=== PATIENT | male | born 1950 | race American Indian/Alaskan Native ===

== ENCOUNTER 2017-01-21 07:09 | Day surgery (SDC) | payer MEDICARE, MEDICAID ==
[2016-12-23 18:53] VITALS: BMI 18.8
[~2017-01-21 07:09] MED LIST: Ciprofloxacin 0.3% OPTH SOLN OD SCH; Cyclopentolate 1% Opth (2 ml) OD SCH; Flurbiprofen 0.03% Opht SOLN OD SCH; Lactated Ringer's 500 ML IV ONE; Phenylephrine 2.5% Opht Soln OD SCH; Tropicamide 1% Opht SOLUTION OD SCH
[2017-01-21] MEDS ORDERED: Tobramycin/Dexamethasone OPHT OINT ONE (07:26)
[2017-01-21] MEDS ORDERED: Chondroitin/Hyaluronate Opth Syringe KIT (0.55 ml-0.5 ml) IO ONE (07:27)
[2017-01-21] MEDS ORDERED: Hyaluronidase Human, Recombi 150 U/ML VIAL ONE (07:27)
[2017-01-21] MEDS ORDERED: Lidocaine 2% Inj (20ml) ONE (07:27)
[2017-01-21] MEDS ORDERED: Tetracaine 0.5% Ophth (OR ONLY) ONE (08:10)
[2017-01-21] MEDS ORDERED: Flurbiprofen 0.03% Opht SOLN OD SCH (08:15)
[2017-01-21] MEDS ORDERED: Ciprofloxacin 0.3% OPTH SOLN OD SCH (08:15)
[2017-01-21] MEDS ORDERED: Cyclopentolate 1% Opth (2 ml) OD SCH (08:15)
[2017-01-21] MEDS ORDERED: Phenylephrine 2.5% Opht Soln OD SCH (08:15)
[2017-01-21] MEDS ORDERED: Tropicamide 1% Opht SOLUTION OD SCH (08:15)
[2017-01-21] MEDS ORDERED: Lactated Ringer's 500 ML IV ONE ×2 (08:15→08:51)
[2017-01-21] MEDS ORDERED: Midazolam 2 MG/2 ML VIAL ONE (09:08)
[2017-01-21] MEDS ORDERED: Povidone Iodine Ophthalmic 5% Soln ONE (10:39)
[2017-01-21 11:21] VITALS: O2SAT 100
[2017-01-21 12:05] VITALS: BP 141/71; PULSE 71; RESP 18; TEMP 97.9
--- NOTE | 2017-01-21 12:39 | OP ---
PROCEDURE DATE: 01/21/2017 PREOPERATIVE DIAGNOSIS: Cataract, right eye. POSTOPERATIVE DIAGNOSIS: Cataract, right eye. PROCEDURE: Phacoemulsification, right eye with insertion of posterior chamber implant with utilization of capsular dye. SURGEON: Sai Díaz MD ANESTHESIA: Local with intravenous sedation. PROCEDURE: The patient was brought into the operating room and placed in supine position, prepped and draped in the usual fashion for ophthalmic surgery. Lid speculum inserted, lids and exposing globe. On inspection, there was noted to be a hypermature cataract. A side-port incision was made superiorly and inferiorly with disposable sharp blade. An air bubble was injected in the anterior chamber followed by capsular dye to stain the anterior capsule. The dye was irrigated out of the anterior chamber with balanced salt solution. The anterior chamber was deepened with Viscoat. A near clear corneal incision was made temporally with a 2.75-mm keratome. Capsulorrhexis was performed with Utrata forceps. Hydrodissection was carried out with balanced salt solution. The nucleus was then phacoemulsified. Remaining cortical fragments were aspirated with a split irrigation and aspiration system. The capsular sac was filled with Provisc. Posterior chamber lens was injected into the sac and rotated into horizontal position. Provisc was aspirated out of the anterior chamber. Pupil was constricted with Miochol. The wound was hydrated with balanced salt solution and found to be watertight. Topical Timoptic, Betadine, TobraDex ointment, and pressure patch were applied. The patient tolerated the procedure well. Sai Díaz MD
== END 2017-01-21 11:25 | disposition home or self-care (01) ==
LOC: C.SDS 07:09
PROVIDERS: ATTEND Ophthalmology
DX: H26.9 Unspecified cataract (principal)
CPT/HCPCS: 66984; 82948; J2250; J3010; J3470; J7120; V2632

== ENCOUNTER 2017-02-25 07:14 | Day surgery (SDC) | payer MEDICARE, MEDICAID ==
[2017-02-17 17:21] VITALS: BMI 19.5
[~2017-02-25 07:14] MED LIST changes: -Ciprofloxacin 0.3% OPTH SOLN OD SCH; +Ciprofloxacin 0.3% OPTH SOLN OS SCH; -Cyclopentolate 1% Opth (2 ml) OD SCH; +Cyclopentolate 1% Opth (2 ml) OS SCH; -Flurbiprofen 0.03% Opht SOLN OD SCH; +Flurbiprofen 0.03% Opht SOLN OS SCH; -Phenylephrine 2.5% Opht Soln OD SCH; +Phenylephrine 2.5% Opht Soln OS SCH; -Tropicamide 1% Opht SOLUTION OD SCH; +Tropicamide 1% Opht SOLUTION OS SCH
[2017-02-25] MEDS ORDERED: Povidone Iodine Ophthalmic 5% Soln ONE (07:40)
[2017-02-25] MEDS ORDERED: Carbachol 0.01% IO ONE (07:40)
[2017-02-25] MEDS ORDERED: Tetracaine 0.5% Ophth (OR ONLY) ONE (07:41)
[2017-02-25] MEDS ORDERED: Chondroitin/Hyaluronate Opth Syringe KIT (0.55 ml-0.5 ml) IO ONE (07:41)
[2017-02-25] MEDS ORDERED: Hyaluronidase Human, Recombi 150 U/ML VIAL ONE (07:41)
[2017-02-25] MEDS ORDERED: Tobramycin/Dexamethasone OPHT OINT ONE (07:41)
[2017-02-25] MEDS ORDERED: Lidocaine 2% Inj (20ml) ONE (07:41)
[2017-02-25] MEDS ORDERED: Midazolam 2 MG/2 ML VIAL ONE (10:14)
[2017-02-25] MEDS ORDERED: Lactated Ringer's 500 ML IV ONE (10:22)
[2017-02-25 11:06] VITALS: O2SAT 99
[2017-02-25 11:56] VITALS: BP 141/77; PULSE 64; RESP 18; TEMP 98
--- NOTE | 2017-02-25 16:15 | OP ---
PROCEDURE DATE: 02/25/2017 PREOPERATIVE DIAGNOSIS: Cataract, left eye. POSTOPERATIVE DIAGNOSIS: Cataract, left eye. OPERATIVE PROCEDURE: Phacoemulsification, left eye, insertion of posterior chamber implant. SURGEON: Sai Díaz M.D. TYPE OF ANESTHESIA: Local IV sedation. PROCEDURE: The patient was brought into the operating room, placed in supine position, prepped and draped in the usual fashion for ophthalmic surgery. Lid speculum was inserted, lids and exposing globe. A side-port incision was made superiorly and inferiorly with a disposable sharp blade. Anterior chamber was filled with Viscoat. A near clear corneal incision was made temporally with a 2.75-mm keratome. Capsulorrhexis was then performed with Utrata forceps. Hydrodissection carried out with balanced salt solution. Nucleus was phacoemulsified. Remaining cortical fragments were removed with a split irrigation and aspiration system. The capsular sac was filled with Provisc. A posterior chamber lens was then injected into the capsular sac and rotated into horizontal position. Provisc was aspirated out of the anterior chamber. The pupil was constricted with Miochol. The wound was found to be watertight. Topical Betadine, Timoptic, and TobraDex ointment and pressure patch were applied. The patient tolerated the procedure well. Sai Díaz MD
== END 2017-02-25 11:50 | disposition home or self-care (01) ==
LOC: C.SDS 07:14
PROVIDERS: ATTEND Ophthalmology
DX: H25.012 Cortical age-related cataract, left eye (principal)
CPT/HCPCS: 66984; 82948; J2250; J3010; J3470; J7120; V2632

== ENCOUNTER 2017-12-21 10:11 | Inpatient (IN) | payer MEDICARE, MEDICAID ==
[2017-12-21 10:32] VITALS: BMI 24.4
[2017-12-21] MEDS ORDERED: Lidocaine 1% Inj (20ml) INFIL ONE (11:16)
[2017-12-21] MEDS ORDERED: Lidocaine Hydrochloride 5 ML INJ ONE (11:25)
--- NOTE | 2017-12-21 11:35 | C.PDOC ---
History Of Present Illness 67 year old male with PMHx of DM, HTN is sent to the ED by Dr. Naye Khanna for evaluation of abscess to the left axilla for the past 1-2 weeks associated with pain. Patient is also c/o left leg swelling for the past 2-3 weeks. Patient denies fever, chills, nausea, vomit, injury, fall, trauma, weakness, numbness. Time Seen by Provider: 12/21/17 10:48 Chief Complaint (Nursing): Lower Extremity Problem/Injury History Per: Patient History/Exam Limitations: no limitations Onset/Duration Of Symptoms: Days Current Symptoms Are (Timing): Still Present Recent travel outside of the [place]: No Additional History Per: Patient - Knee Description Of Injury: Other Past Medical History Reviewed: Historical Data, Nursing Documentation, Vital Signs Vital Signs: Last Vital Signs Temp 97.8 F 12/21/17 10:32 Pulse 58 L 12/21/17 10:32 Resp 18 12/21/17 10:32 BP 158/77 H 12/21/17 10:32 Pulse Ox 98 12/21/17 14:50 - Medical History PMH: Anemia, Arthritis, Diabetes, Gall Bladder Disease, HIV, HTN, Hypercholesterolemia, Pancreatitis (pancreatic issue unspecified), Pneumonia, Chronic Kidney Disease Surgical History: Cholecystectomy - [facility] Procedures INSPECTION OF UPPER INTESTINAL TRACT, ENDO (06/19/16) INTRODUCE OF OTH THERAP SUBST INTO RESP TRACT, VIA OPENING (01/26/17) ULTRASONOGRAPHY OF BILE DUCTS (06/19/16) ULTRASONOGRAPHY OF PANCREAS (06/19/16) Family History: States: Unknown Family Hx - Social History Hx Tobacco Use: No Hx Alcohol Use: No (denies) Hx Substance Use: Yes (denies) - Immunization History Hx Tetanus Toxoid Vaccination: No Hx Influenza Vaccination: No Hx Pneumococcal Vaccination: No Review Of Systems Constitutional: Negative for: Fever, Chills Cardiovascular: Negative for: Chest Pain, Palpitations Respiratory: Negative for: Cough, Shortness of Breath Gastrointestinal: Negative for: Nausea, Vomiting Musculoskeletal: Positive for: Leg Pain Skin: Positive for: Other (abscess) Neurological: Negative for: Weakness, Numbness Physical Exam - Physical Exam Appears: Non-toxic, No Acute Distress Skin: Normal Color, Warm, Dry, Other (0.25 cm erythema, fluctuant tender abscess ) Head: Atraumatic, Normacephalic Eye(s): bilateral: Normal Inspection Oral Mucosa: Moist Neck: Normal ROM, Supple Chest: Symmetrical Cardiovascular: Rhythm Regular Respiratory: No Rales, No Rhonchi, No Wheezing, Other (bibasilar crackles) Gastrointestinal/Abdominal: Soft, No Tenderness, No Guarding, No Rebound Extremity: No Tenderness, Capillary Refill (left leg < 2 seconds), Swelling ( left leg, posterior and anterior lower leg), Other (left lower leg multiple old scars and scabs. Right leg AKA) Pulses: Left Dorsalis Pedis: Absent (but present with doppler) Neurological/Psych: Oriented x3, Normal Speech Gait: With Assistance ED Course And Treatment - Laboratory Results Result Diagrams: 12/21/17 12:46 12/21/17 12:46 ECG: Interpreted By Me, Viewed By Me ECG Rhythm: Sinus Bradycardia Interpretation Of ECG: left axis deviation Rate From EC (BPM) O2 Sat by Pulse Oximetry: 98 (ON RA) Pulse Ox Interpretation: Normal - Incision & Drainage Of Abscess Anesthesia: Lidocaine 1% Used During Procedure: Electronics Lead Prep Used: Sterile Water, Betadine Procedure: Drained Pus (from left axilla abscess with small amount of blood), Irrigated Cavity W/Saline Medical Decision Making Medical Decision Making: Impression: left axilla abscess, left lower leg swelling Plan: * LAbs * EKG * Tylenol 650 mg PO * Venous duplex Scan pt with bilateral dvt, given increased Cr at 1.9, will start on heparin drip. discussed with Dr Khanna. pt also with makredly changed ekg fron one year ago ( no acute cp) flipped t waves in lateral leads. Disposition Discussed With : Grazyna Khanna Doctor Will See Patient In The: Hospital - Disposition Disposition: HOSPITALIZED Disposition Time: 14:34 Condition: GOOD - Clinical Impression Clinical Impression: DVT, bilateral lower limbs, Abnormal EKG - PA / FUSE ASSEMBLER / Resident Statement MD/DO has reviewed & agrees with the documentation as recorded. - Scribe Statement The provider has reviewed the documentation as recorded by the Scribe Kartik Cordova All medical record entries made by the Scribe were at my direction and personally dictated by me. I have reviewed the chart and agree that the record accurately reflects my personal performance of the history, physical exam, medical decision making, and the department course for this patient. I have also personally directed, reviewed, and agree with the discharge instructions and disposition.
--- NOTE | 2017-12-21 12:42 | RAD ---
Date of service: 12/21/2017 PROCEDURE: CHEST RADIOGRAPH, 1 VIEW HISTORY: Chest pain COMPARISON: 11/05/2016. FINDINGS: LUNGS: The lungs are clear. PLEURA: No pneumothorax or pleural fluid seen. CARDIOVASCULAR: There is mild cardiomegaly. OSSEOUS STRUCTURES: No significant abnormalities. VISUALIZED UPPER ABDOMEN: Normal. OTHER FINDINGS: None. IMPRESSION: No active pulmonary disease.
[2017-12-21 12:55] LABS: BASO # 0.1 K/uL (0.0-0.2); EOS # 0.1 K/uL (0.0-0.7); EOS % 1.5 % (0.0-4.0); LYMPH # 1.2 K/uL (1.0-4.3); LYMPH % 22.1 % (20.0-40.0); MEAN CELL VOLUME 79.5 fL (80.0-94.0); MEAN CORPUSCULAR HEMOGLOBIN 25.6 pg (27.0-31.0); MEAN CORPUSCULAR HGB CONC 32.2 g/dL (33.0-37.0); MEAN PLATELET VOLUME 9.5 fL (7.2-11.7); MONO # 0.4 K/uL (0.0-0.8); MONO % 7.2 % (0.0-10.0); NEUT # 3.7 K/uL (1.8-7.0); NEUT % 68.2 % (50.0-75.0); NRBC % 0.1 % (0.0-2.0); RBC 4.98 Mil/uL (4.40-5.90); RED CELL DISTRIBUTION WIDTH 14.9 % (11.5-14.5); WHITE BLOOD COUNT 5.4 K/uL (4.8-10.8)
[2017-12-21 12:57] LABS: HEMOGLOBIN 12.8 g/dL (12.0-18.0)
[2017-12-21 13:06] LABS: CALCIUM 9.1 mg/dl (8.6-10.4)
[2017-12-21 13:53] LABS: INR 0.9; PROTHROMBIN TIME 10.2 SECONDS (9.7-12.2)
[2017-12-21] MEDS: Heparin25000 units/250ml 1/2NS 25,000 UNITS/250 ML BAG IV PRN (15:04)
[2017-12-21] MEDS: (Novolog) Insulin Aspart, Recombinant 100 u/ml 10 ml vial SC SCH ×2 (18:05→21:25)
--- NOTE | 2017-12-21 18:05 | CP.PCM.CON ---
History of Present Illness - History of Present Illness History of Present Illness: I was asked to evaluate patient by Dr Naye Khanna. Patient is a 67 year old male with PMH HTN, hypercholesterolemia, DM who presents with abscess of the left axilla. The patient has had pain in that region for the last few days. he denies fever or chills. the patient was noted to have an abnormal EKG. He denies chest pain. Review of Systems - Constitutional Constitutional: absent: As Per HPI, Anorexia, Chills, Daytime Sleepiness, Excessive Sweating, Fatigue, Fever, Frequent Falls, Headache, Increased Appetite , Lethargy, Malaise, Night Sweats, Snoring, Sleep Apnea, Weight Gain, Weight Loss, Weakness, Other - EENT Eyes: absent: As Per HPI, Blind Spots, Blurred Vision, Change in Vision, Decreased Night Vision, Diplopia, Discharge, Dry Eye, Exophthalmos, Floaters, Irritation, Itchy Eyes, Loss of Peripheral Vision, Pain, Photophobia, Requires Corrective Lenses, Sees Flashes, Spots in Vision, Tunnel Vision, Other Visual Disturbances, Loss of Vision, Other Ears: absent: As Per HPI, Decreased Hearing, Ear Discharge, Ear Pain, Tinnitus, Abnormal Hearing, Disequilibrium, Dizziness, Other Nose/Mouth/Throat: absent: As Per HPI, Epistaxis, Nasal Congestion, Nasal Discharge, Nasal Obstruction, Nasal Trauma, Nose Pain, Post Nasal Drip, Sinus Pain, Sinus Pressure, Bleeding Gums, Change in Voice, Dental Pain, Dry Mouth, Dysphagia, Halitosis, Hoarsness, Lip Swelling, Mouth Lesions, Mouth Pain, Odynophagia, Sore Throat, Throat Swelling, Tongue Swelling, Facial Pain, Neck Pain, Neck Mass, Other - Cardiovascular Cardiovascular: absent: As Per HPI, Acrocyanosis, Chest Pain, Chest Pain at Rest , Chest Pain with Activity, Claudication, Diaphoresis, Dyspnea, Dyspnea on Exertion, Edema, Irregular Heart Rhythm, Pain Radiating to Arm/Neck/Jaw, Leg Edema, Leg Ulcers, Lightheadedness, Orthopnea, Palpitations, Paroxysmal Nocturnal Dyspnea, Pedal Edema, Radiating Pain, Rapid Heart Rate, Slow Heart Rate, Syncope, Other - Respiratory Respiratory: absent: As Per HPI, Cough, Dyspnea, Hemoptysis, Dyspnea on Exertion , Wheezing, Snoring, Stridor, Pain on Inspiration, Chest Congestion, Excessive Mucous Production, Change in Mucous Color, Pain with Coughing, Other - Gastrointestinal Gastrointestinal: absent: As Per HPI, Abdominal Pain, Belching, Bloating, Change in Bowel Habits, Change in Stool Character, Coffee Ground Emesis, Constipation, Cramping, Diarrhea, Dyspepsia, Dysphagia, Early Satiety, Excessive Flatus, Fecal Incontinence, Heartburn, Hematemesis, Hematochezia, Loose Stools, Melena, Nausea, Odynophagia, Temesmus, Vomiting, Other - Genitourinary Genitourinary: absent: As Per HPI, Change in Urinary Stream, Difficulty Urinating, Dysuria, Flank Pain, Hematuria, Pyuria, Nocturia, Urinary Incontinence, Urinary Frequency, Urinary Hesitance, Urinary Urgency, Voiding Freq/Small Amts, Freq UTI, Hx Renal/Bladder Calculi, Hx /Renal Surgery, Bladder Distension, Other - Musculoskeletal Musculoskeletal: absent: As Per HPI, Abnormal Gait, Arthralgias, Atrophy, Back Pain, Deformity, Joint Swelling, Limited Range of Motion, Loss of Height, Muscle Cramps, Muscle Weakness, Myalgias, Neck Pain, Numbness, Radiating Pain into Limb, Stiffness, Tingling, Other - Integumentary Integumentary: absent: As Per HPI, Acne, Alopecia, Bleeding Lesions, Change in Hair, Change in Nails, Change in Pigmentation, Changing Lesions, Dry Skin, Erythema, Furuncle, Hirsutism, Lesions, New Lesions, Non-Healing Lesions, Photosensitivity, Pruritus, Rash, Skin Pain, Skin Ulcer, Sores, Striae, Swelling , Unusual Bruising, Wounds, Jaundice, Other - Neurological Neurological: absent: As Per HPI, Abnormal Gait, Abnormal Hearing, Abnormal Movements, Abnormal Speech, Behavioral Changes, Burning Sensations, Confusion, Convulsions, Disequilibrium, Dizziness, Numbness, Focal Weakness, Frequent Falls , Headaches, Lack of Coordination, Loss of Vision, Memory Loss, Paresthesias, Radicular Pain, Restless Legs, Sensory Deficit, Syncope, Tingling, Tremor, Vertigo, Weakness, Other Visual Disturbances, Other - Endocrine Endocrine: absent: As Per HPI, Change in Body Appearance, Change in Libido, Cold Intolorance, Deepening of Voice, Excessive Sweating, Fatigue, Flushing, Heat Intolorance, Increase in Ring/Shoe/Hat Size, Palpitations, Polydipsia, Polyphagia, Polyuria, Other - Hematologic/Lymphatic Hematologic: absent: As Per HPI, Easy Bleeding, Easy Bruising, Lymphadenopathy, Other Past Patient History - Infectious Disease Hx of Infectious Diseases: None - Tetanus Immunizations Tetanus Immunization: Unknown - Past Medical History & Family History Past Medical History?: Yes - Past Social History Smoking Status: Former Smoker - CARDIAC Hx Hypercholesterolemia: Yes Hx Hypertension: Yes - PULMONARY Hx Pneumonia: Yes - NEUROLOGICAL Hx Neurological Disorder: Yes (NEUROPATHY) - HEENT Hx HEENT Problems: Yes Hx Cataracts: Yes Other/Comment: Right eye cataract removal 06/2016 - RENAL Hx Chronic Kidney Disease: Yes - ENDOCRINE/METABOLIC Hx Endocrine Disorders: Yes Hx Diabetes Mellitus Type 2: Yes - HEMATOLOGICAL/ONCOLOGICAL Hx Anemia: Yes Hx Human Immunodeficiency Virus (HIV): Yes - INTEGUMENTARY Hx Dermatological Problems: Yes (R AKA,LARGE ELONGATED SCARRING ACROSS MID ABDOMINAL AREA.) - MUSCULOSKELETAL/RHEUMATOLOGICAL Hx Arthritis: Yes - GASTROINTESTINAL Hx Gall Bladder Disease: Yes Hx Pancreatitis: Yes (pancreatic issue unspecified) - GENITOURINARY/GYNECOLOGICAL Hx Genitourinary Disorders: Yes Hx Prostate Problems: Yes - PSYCHIATRIC Hx Substance Use: Yes (denies) - SURGICAL HISTORY Hx Cholecystectomy: Yes - ANESTHESIA Hx Anesthesia: Yes Hx Anesthesia Reactions: No Hx Malignant Hyperthermia: No Meds Allergies/Adverse Reactions: Allergies Allergy/AdvReac Type Severity Reaction Status Date / Time No Known Allergies Allergy Verified 12/21/17 10:32 - Medications Medications: Current Medications Amlodipine Besylate (Norvasc) 5 mg PO DAILY [facility] Carvedilol (Coreg) 3.125 mg PO BID [facility] Famotidine (Pepcid) 10 mg PO DIN [facility] Ferrous Sulfate (Feosol) 325 mg PO DAILY [facility] Glipizide (Glucotrol) 5 mg PO BID [facility] Home Med (Rilpivirine Hcl [Edurant]) 25 mg PO DAILY [facility] Hydralazine HCl (Apresoline) 10 mg PO DAILY [facility] Heparin Sodium/Sodium Chloride (Heparin 92891 Units/250ml 1/2 Normal Saline) 25 ,000 units in 250 mls @ 14.288 mls/hr IV .[id number] PRN; Protocol; 18 UNITS/KG/HR PRN Reason: ADJUST RATE PER PROTOCOL Last Admin: 12/21/17 15:04 Dose: 18 units/kg/hr, 14.288 mls/hr Ceftriaxone Sodium 1 gm/ (Sodium Chloride) 100 mls @ 100 mls/hr IVPB Q24H [facility] PRN Reason: Protocol Insulin Aspart (Novolog) 0 unit SC ACHS [facility] PRN Reason: Protocol Insulin Glargine (Lantus) 30 unit SC HS [facility] Insulin Glargine (Lantus) 30 unit SC DAILY [facility] Physical Exam - Constitutional Appears: Non-toxic - Head Exam Head Exam: NORMAL INSPECTION - Eye Exam Eye Exam: Normal appearance - ENT Exam ENT Exam: Mucous Membranes Moist - Neck Exam Neck exam: Positive for: Full Rom - Respiratory Exam Respiratory Exam: Decreased Breath Sounds - Cardiovascular Exam Cardiovascular Exam: REGULAR RHYTHM - GI/Abdominal Exam GI & Abdominal Exam: Normal Bowel Sounds - Rectal Exam Rectal Exam: Deferred - Extremities Exam Additional comments: R AKA - Back Exam Back exam: NORMAL INSPECTION - Neurological Exam Neurological exam: Alert - Psychiatric Exam Psychiatric exam: Normal Affect - Skin Skin Exam: Normal Color Results - Vital Signs Recent Vital Signs: Last Vital Signs Temp 97.8 F 12/21/17 15:58 Pulse 60 12/21/17 15:58 Resp 20 12/21/17 15:58 BP 163/80 H 12/21/17 15:58 Pulse Ox 98 12/21/17 15:58 - Labs Result Diagrams: 12/21/17 12:46 12/21/17 12:46 Labs: Laboratory Results - last 24 hr 12/21/17 12/21/17 12/21/17 12:46 12:46 13:39 WBC 5.4 RBC 4.98 Hgb 12.8 D Hct 39.6 MCV 79.5 L MCH 25.6 L MCHC 32.2 L RDW 14.9 H Plt Count 110 L D MPV 9.5 Neut % (Auto) 68.2 Lymph % (Auto) 22.1 [place] % (Auto) 7.2 Eos % (Auto) 1.5 Baso % (Auto) 1.0 Neut # (Auto) 3.7 Lymph # (Auto) 1.2 [place] # (Auto) 0.4 Eos # (Auto) 0.1 Baso # (Auto) 0.1 PT 10.2 INR 0.9 APTT 27 Sodium 140 Potassium 4.9 Chloride 109 H Carbon Dioxide 20 L Anion Gap 17 BUN 27 H Creatinine 1.9 H Est GFR ( Amer) 43 Est GFR (Non-Af Amer) 36 POC Glucose (mg/dL) Random Glucose 191 H Calcium 9.1 Total Bilirubin 0.6 AST 20 ALT 17 L D Alkaline Phosphatase 96 NT-Pro-B Natriuret Pep 316 Total Protein 7.7 Albumin 4.0 Globulin 3.8 Albumin/Globulin Ratio 1.0 12/21/17 17:18 WBC RBC Hgb Hct MCV MCH MCHC RDW Plt Count MPV Neut % (Auto) Lymph % (Auto) [place] % (Auto) Eos % (Auto) Baso % (Auto) Neut # (Auto) Lymph # (Auto) [place] # (Auto) Eos # (Auto) Baso # (Auto) PT INR APTT Sodium Potassium Chloride Carbon Dioxide Anion Gap BUN Creatinine Est GFR ( Amer) Est GFR (Non-Af Amer) POC Glucose (mg/dL) 250 H Random Glucose Calcium Total Bilirubin AST ALT Alkaline Phosphatase NT-Pro-B Natriuret Pep Total Protein Albumin Globulin Albumin/Globulin Ratio - EKG Data EKG Interpreted by: Myself EKG shows normal: Sinus rhythm Assessment & Plan (1) EKG abnormalities Assessment and Plan: his EKG suggests anteolateral ischemi, but he is currently asymptomatic. recommend echocardiogram to assess for regional wall motion abnormalities. Status: Acute (2) Diabetes Assessment and Plan: risk factor for CAD Status: Chronic Priority: Medium (3) HTN (hypertension) Assessment and Plan: blood pressure control Status: Chronic Priority: Medium
--- NOTE | 2017-12-21 19:10 | CP.PCM.HP ---
Past Patient History - Infectious Disease Hx of Infectious Diseases: None - Tetanus Immunizations Tetanus Immunization: Unknown - Past Medical History & Family History Past Medical History?: Yes - Past Social History Smoking Status: Former Smoker - CARDIAC Hx Hypercholesterolemia: Yes Hx Hypertension: Yes - PULMONARY Hx Pneumonia: Yes - NEUROLOGICAL Hx Neurological Disorder: Yes (NEUROPATHY) - HEENT Hx HEENT Problems: Yes Hx Cataracts: Yes Other/Comment: Right eye cataract removal 06/2016 - RENAL Hx Chronic Kidney Disease: Yes - ENDOCRINE/METABOLIC Hx Endocrine Disorders: Yes Hx Diabetes Mellitus Type 2: Yes - HEMATOLOGICAL/ONCOLOGICAL Hx Anemia: Yes Hx Human Immunodeficiency Virus (HIV): Yes - INTEGUMENTARY Hx Dermatological Problems: Yes (R AKA,LARGE ELONGATED SCARRING ACROSS MID ABDOMINAL AREA.) - MUSCULOSKELETAL/RHEUMATOLOGICAL Hx Arthritis: Yes - GASTROINTESTINAL Hx Gall Bladder Disease: Yes Hx Pancreatitis: Yes (pancreatic issue unspecified) - GENITOURINARY/GYNECOLOGICAL Hx Genitourinary Disorders: Yes Hx Prostate Problems: Yes - PSYCHIATRIC Hx Substance Use: Yes (denies) - SURGICAL HISTORY Hx Cholecystectomy: Yes - ANESTHESIA Hx Anesthesia: Yes Hx Anesthesia Reactions: No Hx Malignant Hyperthermia: No Meds Allergies/Adverse Reactions: Allergies Allergy/AdvReac Type Severity Reaction Status Date / Time No Known Allergies Allergy Verified 12/21/17 10:32 Physical Exam - Constitutional Appears: Well - Head Exam Head Exam: ATRAUMATIC, NORMAL INSPECTION, NORMOCEPHALIC - Eye Exam Eye Exam: EOMI, Normal appearance, PERRL Pupil Exam: NORMAL ACCOMODATION, PERRL - ENT Exam ENT Exam: Mucous Membranes Moist, Normal Exam - Neck Exam Neck exam: Positive for: Normal Inspection - Respiratory Exam Respiratory Exam: Decreased Breath Sounds - Cardiovascular Exam Cardiovascular Exam: REGULAR RHYTHM, +S1, +S2 - GI/Abdominal Exam GI & Abdominal Exam: Diminished Bowel Sounds, Soft - Rectal Exam Rectal Exam: Deferred Results - Vital Signs Recent Vital Signs: Last Vital Signs Temp 97.8 F 12/21/17 15:58 Pulse 60 12/21/17 15:58 Resp 20 12/21/17 15:58 BP 163/80 H 12/21/17 15:58 Pulse Ox 98 12/21/17 15:58 - Labs Result Diagrams: 12/21/17 12:46 12/21/17 12:46 Labs: Laboratory Results - last 24 hr 12/21/17 12/21/17 12/21/17 12:46 12:46 13:39 WBC 5.4 RBC 4.98 Hgb 12.8 D Hct 39.6 MCV 79.5 L MCH 25.6 L MCHC 32.2 L RDW 14.9 H Plt Count 110 L D MPV 9.5 Neut % (Auto) 68.2 Lymph % (Auto) 22.1 [place] % (Auto) 7.2 Eos % (Auto) 1.5 Baso % (Auto) 1.0 Neut # (Auto) 3.7 Lymph # (Auto) 1.2 [place] # (Auto) 0.4 Eos # (Auto) 0.1 Baso # (Auto) 0.1 PT 10.2 INR 0.9 APTT 27 Sodium 140 Potassium 4.9 Chloride 109 H Carbon Dioxide 20 L Anion Gap 17 BUN 27 H Creatinine 1.9 H Est GFR ( Amer) 43 Est GFR (Non-Af Amer) 36 POC Glucose (mg/dL) Random Glucose 191 H Calcium 9.1 Total Bilirubin 0.6 AST 20 ALT 17 L D Alkaline Phosphatase 96 NT-Pro-B Natriuret Pep 316 Total Protein 7.7 Albumin 4.0 Globulin 3.8 Albumin/Globulin Ratio 1.0 12/21/17 17:18 WBC RBC Hgb Hct MCV MCH MCHC RDW Plt Count MPV Neut % (Auto) Lymph % (Auto) [place] % (Auto) Eos % (Auto) Baso % (Auto) Neut # (Auto) Lymph # (Auto) [place] # (Auto) Eos # (Auto) Baso # (Auto) PT INR APTT Sodium Potassium Chloride Carbon Dioxide Anion Gap BUN Creatinine Est GFR ( Amer) Est GFR (Non-Af Amer) POC Glucose (mg/dL) 250 H Random Glucose Calcium Total Bilirubin AST ALT Alkaline Phosphatase NT-Pro-B Natriuret Pep Total Protein Albumin Globulin Albumin/Globulin Ratio
[2017-12-21] MEDS: (Lantus) Insulin Glargine, Recombinant SC SCH (22:34)
--- NOTE | 2017-12-22 01:27 | CP.PCM.CON ---
<Otoniel Orosco - Last Filed: 12/22/17 07:22> History of Present Illness - History of Present Illness History of Present Illness: 67 y/o M presents with left axillary abscess. Patient explains that he noticed the abscess a week prior and that the area was painful and that said pain made it difficult to move his left arm. Patient states that I&D was done in the emergency room. At time of examination patient was noted to have packing around the incision, with dressings clear, dry, and intact. No active purulent drainage noted. Upon questioning patient denies dizziness, weakness, fatigue, chest pain, tachycardia, dyspnea, coughing, sputum production, nausea, vomiting , diarrhea, dysuria, pyuria, and hematuria. Patient comments that he experiences pain, tingling and difficulty moving his left upper extremity. PMH: HIV +, DM, PSH: Right AKA, Cholocystectomy FH: Patient comments that many family members of heart attacks Allergies: NKDA Review of Systems - Review of Systems Review of Systems: A 12pt review of systems was conducted and was unremarkable except as stated in the HPI. Past Patient History - Infectious Disease Hx of Infectious Diseases: None - Tetanus Immunizations Tetanus Immunization: Unknown - Past Medical History & Family History Past Medical History?: Yes - Past Social History Smoking Status: Former Smoker - CARDIAC Hx Hypercholesterolemia: Yes Hx Hypertension: Yes - PULMONARY Hx Pneumonia: Yes - NEUROLOGICAL Hx Neurological Disorder: Yes (NEUROPATHY) - HEENT Hx HEENT Problems: Yes Hx Cataracts: Yes Other/Comment: Right eye cataract removal 06/2016 - RENAL Hx Chronic Kidney Disease: Yes - ENDOCRINE/METABOLIC Hx Endocrine Disorders: Yes Hx Diabetes Mellitus Type 2: Yes - HEMATOLOGICAL/ONCOLOGICAL Hx Anemia: Yes Hx Human Immunodeficiency Virus (HIV): Yes - INTEGUMENTARY Hx Dermatological Problems: Yes (R AKA,LARGE ELONGATED SCARRING ACROSS MID ABDOMINAL AREA.) - MUSCULOSKELETAL/RHEUMATOLOGICAL Hx Arthritis: Yes - GASTROINTESTINAL Hx Gall Bladder Disease: Yes Hx Pancreatitis: Yes (pancreatic issue unspecified) - GENITOURINARY/GYNECOLOGICAL Hx Genitourinary Disorders: Yes Hx Prostate Problems: Yes - PSYCHIATRIC Hx Substance Use: Yes (denies) - SURGICAL HISTORY Hx Cholecystectomy: Yes - ANESTHESIA Hx Anesthesia: Yes Hx Anesthesia Reactions: No Hx Malignant Hyperthermia: No Meds Allergies/Adverse Reactions: Allergies Allergy/AdvReac Type Severity Reaction Status Date / Time No Known Allergies Allergy Verified 12/21/17 10:32 - Medications Medications: Current Medications Acetaminophen (Tylenol 325mg Tab) 650 mg PO Q6 PRN PRN Reason: pain Last Admin: 12/21/17 19:01 Dose: 650 mg Amlodipine Besylate (Norvasc) 5 mg PO DAILY [facility] Atovaquone (Mepron) 1,500 mg PO DAILY [facility] PRN Reason: Protocol Carvedilol (Coreg) 3.125 mg PO BID [facility] Last Admin: 12/21/17 18:05 Dose: 3.125 mg Dolutegravir Sodium (Tivicay) 50 mg PO DAILY [facility] PRN Reason: Protocol Emtricitabine/Tenofovir (Truvada 200 Mg-300 Mg) 1 tab PO QD7 [facility] PRN Reason: Protocol Famotidine (Pepcid) 10 mg PO DIN [facility] Ferrous Sulfate (Feosol) 325 mg PO DAILY [facility] Glipizide (Glucotrol) 5 mg PO BID [facility] Last Admin: 12/21/17 18:05 Dose: 5 mg Hydralazine HCl (Apresoline) 10 mg PO DAILY [facility] Heparin Sodium/Sodium Chloride (Heparin 56337 Units/250ml 1/2 Normal Saline) 25 ,000 units in 250 mls @ 14.288 mls/hr IV .[id number] PRN; Protocol; 18 UNITS/KG/HR PRN Reason: ADJUST RATE PER PROTOCOL Last Admin: 12/21/17 15:04 Dose: 18 units/kg/hr, 14.288 mls/hr Ceftriaxone Sodium 1 gm/ (Sodium Chloride) 100 mls @ 100 mls/hr IVPB Q24H [facility] PRN Reason: Protocol Last Admin: 12/21/17 20:39 Dose: 100 mls/hr Insulin Aspart (Novolog) 0 unit SC ACHS [facility] PRN Reason: Protocol Last Admin: 12/21/17 21:25 Dose: Not Given Insulin Glargine (Lantus) 30 unit SC HS [facility] Last Admin: 12/21/17 22:34 Dose: 30 units Insulin Glargine (Lantus) 30 unit SC DAILY [facility] Morphine Sulfate (Morphine) 2 mg IVP Q6H PRN PRN Reason: Pain, moderate (4-7) Last Admin: 12/21/17 22:33 Dose: 2 mg Physical Exam - Constitutional Appears: No Acute Distress, Unkempt - Head Exam Head Exam: ATRAUMATIC, NORMOCEPHALIC - ENT Exam ENT Exam: Mucous Membranes Moist - Respiratory Exam Respiratory Exam: NORMAL BREATHING PATTERN - Cardiovascular Exam Cardiovascular Exam: +S1, +S2 - Extremities Exam Additional comments: Left axillary abscess post I&D with packing - Neurological Exam Neurological exam: Alert, Oriented x3, Reflexes Normal Results - Vital Signs Recent Vital Signs: Last Vital Signs Temp 97.6 F 12/21/17 17:41 Pulse 67 12/21/17 20:00 Resp 20 12/21/17 17:41 BP 186/91 H 12/21/17 17:41 Pulse Ox 96 12/21/17 17:41 - Labs Result Diagrams: 12/21/17 12:46 12/21/17 12:46 Labs: Laboratory Results - last 24 hr 12/21/17 12/21/17 12/21/17 12:46 12:46 13:39 WBC 5.4 RBC 4.98 Hgb 12.8 D Hct 39.6 MCV 79.5 L MCH 25.6 L MCHC 32.2 L RDW 14.9 H Plt Count 110 L D MPV 9.5 Neut % (Auto) 68.2 Lymph % (Auto) 22.1 [place] % (Auto) 7.2 Eos % (Auto) 1.5 Baso % (Auto) 1.0 Neut # (Auto) 3.7 Lymph # (Auto) 1.2 [place] # (Auto) 0.4 Eos # (Auto) 0.1 Baso # (Auto) 0.1 PT 10.2 INR 0.9 APTT 27 Sodium 140 Potassium 4.9 Chloride 109 H Carbon Dioxide 20 L Anion Gap 17 BUN 27 H Creatinine 1.9 H Est GFR ( Amer) 43 Est GFR (Non-Af Amer) 36 POC Glucose (mg/dL) Random Glucose 191 H Calcium 9.1 Total Bilirubin 0.6 AST 20 ALT 17 L D Alkaline Phosphatase 96 NT-Pro-B Natriuret Pep 316 Total Protein 7.7 Albumin 4.0 Globulin 3.8 Albumin/Globulin Ratio 1.0 12/21/17 12/21/17 12/22/17 17:18 21:05 00:29 WBC RBC Hgb Hct MCV MCH MCHC RDW Plt Count MPV Neut % (Auto) Lymph % (Auto) [place] % (Auto) Eos % (Auto) Baso % (Auto) Neut # (Auto) Lymph # (Auto) [place] # (Auto) Eos # (Auto) Baso # (Auto) PT INR APTT 206 H* D Sodium Potassium Chloride Carbon Dioxide Anion Gap BUN Creatinine Est GFR ( Amer) Est GFR (Non-Af Amer) POC Glucose (mg/dL) 250 H 184 H Random Glucose Calcium Total Bilirubin AST ALT Alkaline Phosphatase NT-Pro-B Natriuret Pep Total Protein Albumin Globulin Albumin/Globulin Ratio Assessment & Plan - Assessment and Plan (Free Text) Assessment: 67 y/o M patient presents with left axillary abscess s/p I&D Plan: Patient is status post I&D with packing Continue Abx Monitor wound site Change dressings daily Apply warm compress to affected area Further recs per Dr. Anuja Chou PGY3 <Ajit Licea B - Last Filed: 12/22/17 14:47> Meds - Medications Medications: Current Medications Acetaminophen (Tylenol 325mg Tab) 650 mg PO Q6 PRN PRN Reason: pain Last Admin: 12/21/17 19:01 Dose: 650 mg Amlodipine Besylate (Norvasc) 5 mg PO DAILY [facility] Last Admin: 12/22/17 10:00 Dose: 5 mg Atovaquone (Mepron) 1,500 mg PO DAILY [facility] PRN Reason: Protocol Last Admin: 12/22/17 10:01 Dose: 1,500 mg Carvedilol (Coreg) 3.125 mg PO BID [facility] Last Admin: 12/22/17 10:01 Dose: 3.125 mg Dolutegravir Sodium (Tivicay) 50 mg PO DAILY [facility] PRN Reason: Protocol Last Admin: 12/22/17 10:01 Dose: 50 mg Emtricitabine/Tenofovir (Truvada 200 Mg-300 Mg) 1 tab PO QD7 [facility] PRN Reason: Protocol Last Admin: 12/22/17 10:01 Dose: 1 tab Famotidine (Pepcid) 10 mg PO DIN [facility] Last Admin: 12/22/17 10:00 Dose: 10 mg Ferrous Sulfate (Feosol) 325 mg PO DAILY [facility] Last Admin: 12/22/17 10:00 Dose: 325 mg Glipizide (Glucotrol) 5 mg PO BID [facility] Last Admin: 12/22/17 10:01 Dose: 5 mg Hydralazine HCl (Apresoline) 10 mg PO DAILY [facility] Last Admin: 12/22/17 10:01 Dose: 10 mg Heparin Sodium/Sodium Chloride (Heparin 70002 Units/250ml 1/2 Normal Saline) 25 ,000 units in 250 mls @ 14.288 mls/hr IV .[id number] PRN; Protocol; 18 UNITS/KG/HR PRN Reason: ADJUST RATE PER PROTOCOL Last Admin: 12/22/17 13:15 Dose: 15 units/kg/hr, 11.907 mls/hr Ceftriaxone Sodium 1 gm/ (Sodium Chloride) 100 mls @ 100 mls/hr IVPB Q24H [facility] PRN Reason: Protocol Last Admin: 12/21/17 20:39 Dose: 100 mls/hr Vancomycin/Sodium Chloride (Vancomycin 1 Gm/Ns 200 Ml) 1 gm in 200 mls @ 133.333 mls/hr IVPB Q24H [facility] PRN Reason: Protocol Last Admin: 12/22/17 13:22 Dose: 133.333 mls/hr Insulin Aspart (Novolog) 0 unit SC ACHS [facility] PRN Reason: Protocol Last Admin: 12/22/17 13:27 Dose: 3 units Insulin Glargine (Lantus) 30 unit SC HS [facility] Last Admin: 12/21/17 22:34 Dose: 30 units Insulin Glargine (Lantus) 30 unit SC DAILY [facility] Last Admin: 12/22/17 10:01 Dose: 30 units Morphine Sulfate (Morphine) 2 mg IVP Q6H PRN PRN Reason: Pain, moderate (4-7) Last Admin: 12/22/17 10:07 Dose: 2 mg Results - Vital Signs Recent Vital Signs: Last Vital Signs Temp 98.1 F 12/22/17 07:00 Pulse 60 12/22/17 12:02 Resp 20 12/22/17 07:00 BP 167/80 H 12/22/17 07:00 Pulse Ox 97 12/22/17 07:00 - Labs Result Diagrams: 12/21/17 12:46 12/21/17 12:46 Labs: Laboratory Results - last 24 hr 12/21/17 12/21/17 12/22/17 17:18 21:05 00:29 APTT 206 H* D POC Glucose (mg/dL) 250 H 184 H 12/22/17 12/22/1718 06:33 08:45 11:15 APTT 80 H D POC Glucose (mg/dL) 153 H 251 H 12/22/17 13:50 APTT 83 H POC Glucose (mg/dL) Attending/Attestation - Attestation I have personally seen and examined this patient.: Yes I have fully participated in the care of the patient.: Yes I have reviewed all pertinent clinical information: Yes Notes (Text): Pt was seen and examined at bedside Agree with above note and assessment Pt with Left axillary Abscess s/p I & D in ER Labs and radiology reviewed Ass: Left axillary abscess s/ p I & D Local wound care IV antibiotics c/w current mx Plan d.w pt in detail Risk and benefit explained in detail.
[2017-12-22] MEDS: (Novolog) Insulin Aspart, Recombinant 100 u/ml 10 ml vial SC SCH ×4 (08:59→22:25)
[2017-12-22] MEDS ORDERED: (Lantus) Insulin Glargine, Recombinant SC SCH ×2 (10:00)
[2017-12-22] MEDS ORDERED: [UNRECOGNIZED DRUG - OTHER] PO SCH (10:00)
[2017-12-22] MEDS: Emtricitabine-Tenofovir 200 mg-300 mg Tab PO SCH (10:01)
[2017-12-22] MEDS: Atovaquone 750 mg/5 ml Susp UD PO SCH (10:01)
--- NOTE | 2017-12-22 11:48 | CP.PCM.CON ---
History of Present Illness - History of Present Illness History of Present Illness: 67 y/o M presents with left axillary abscess. Patient explains that he noticed the abscess a week prior and that the area was painful and that said pain made it difficult to move his left arm. Patient states that I&D was done in the emergency room. At time of examination patient was noted to have packing around the incision, with dressings clear, dry, and intact. PMH: HIV +, DM, PSH: Right AKA, Cholocystectomy FH: Patient comments that many family members of heart attacks Allergies: NKDA Review of Systems - Constitutional Constitutional: absent: As Per HPI, Anorexia, Chills, Daytime Sleepiness, Excessive Sweating, Fatigue, Fever, Frequent Falls, Headache, Increased Appetite , Lethargy, Malaise, Night Sweats, Snoring, Sleep Apnea, Weight Gain, Weight Loss, Weakness, Other - EENT Eyes: absent: As Per HPI, Blind Spots, Blurred Vision, Change in Vision, Decreased Night Vision, Diplopia, Discharge, Dry Eye, Exophthalmos, Floaters, Irritation, Itchy Eyes, Loss of Peripheral Vision, Pain, Photophobia, Requires Corrective Lenses, Sees Flashes, Spots in Vision, Tunnel Vision, Other Visual Disturbances, Loss of Vision, Other Ears: absent: As Per HPI, Decreased Hearing, Ear Discharge, Ear Pain, Tinnitus, Abnormal Hearing, Disequilibrium, Dizziness, Other Nose/Mouth/Throat: absent: As Per HPI, Epistaxis, Nasal Congestion, Nasal Discharge, Nasal Obstruction, Nasal Trauma, Nose Pain, Post Nasal Drip, Sinus Pain, Sinus Pressure, Bleeding Gums, Change in Voice, Dental Pain, Dry Mouth, Dysphagia, Halitosis, Hoarsness, Lip Swelling, Mouth Lesions, Mouth Pain, Odynophagia, Sore Throat, Throat Swelling, Tongue Swelling, Facial Pain, Neck Pain, Neck Mass, Other - Cardiovascular Cardiovascular: absent: As Per HPI, Acrocyanosis, Chest Pain, Chest Pain at Rest , Chest Pain with Activity, Claudication, Diaphoresis, Dyspnea, Dyspnea on Exertion, Edema, Irregular Heart Rhythm, Pain Radiating to Arm/Neck/Jaw, Leg Edema, Leg Ulcers, Lightheadedness, Orthopnea, Palpitations, Paroxysmal Nocturnal Dyspnea, Pedal Edema, Radiating Pain, Rapid Heart Rate, Slow Heart Rate, Syncope, Other - Respiratory Respiratory: absent: As Per HPI, Cough, Dyspnea, Hemoptysis, Dyspnea on Exertion , Wheezing, Snoring, Stridor, Pain on Inspiration, Chest Congestion, Excessive Mucous Production, Change in Mucous Color, Pain with Coughing, Other - Gastrointestinal Gastrointestinal: absent: As Per HPI, Abdominal Pain, Belching, Bloating, Change in Bowel Habits, Change in Stool Character, Coffee Ground Emesis, Constipation, Cramping, Diarrhea, Dyspepsia, Dysphagia, Early Satiety, Excessive Flatus, Fecal Incontinence, Heartburn, Hematemesis, Hematochezia, Loose Stools, Melena, Nausea, Odynophagia, Temesmus, Vomiting, Other - Genitourinary Genitourinary: absent: As Per HPI, Change in Urinary Stream, Difficulty Urinating, Dysuria, Flank Pain, Hematuria, Pyuria, Nocturia, Urinary Incontinence, Urinary Frequency, Urinary Hesitance, Urinary Urgency, Voiding Freq/Small Amts, Freq UTI, Hx Renal/Bladder Calculi, Hx /Renal Surgery, Bladder Distension, Other - Musculoskeletal Musculoskeletal: absent: As Per HPI, Abnormal Gait, Arthralgias, Atrophy, Back Pain, Deformity, Joint Swelling, Limited Range of Motion, Loss of Height, Muscle Cramps, Muscle Weakness, Myalgias, Neck Pain, Numbness, Radiating Pain into Limb, Stiffness, Tingling, Other - Integumentary Integumentary: absent: As Per HPI, Acne, Alopecia, Bleeding Lesions, Change in Hair, Change in Nails, Change in Pigmentation, Changing Lesions, Dry Skin, Erythema, Furuncle, Hirsutism, Lesions, New Lesions, Non-Healing Lesions, Photosensitivity, Pruritus, Rash, Skin Pain, Skin Ulcer, Sores, Striae, Swelling , Unusual Bruising, Wounds, Jaundice, Other - Neurological Neurological: absent: As Per HPI, Abnormal Gait, Abnormal Hearing, Abnormal Movements, Abnormal Speech, Behavioral Changes, Burning Sensations, Confusion, Convulsions, Disequilibrium, Dizziness, Numbness, Focal Weakness, Frequent Falls , Headaches, Lack of Coordination, Loss of Vision, Memory Loss, Paresthesias, Radicular Pain, Restless Legs, Sensory Deficit, Syncope, Tingling, Tremor, Vertigo, Weakness, Other Visual Disturbances, Other - Endocrine Endocrine: absent: As Per HPI, Change in Body Appearance, Change in Libido, Cold Intolorance, Deepening of Voice, Excessive Sweating, Fatigue, Flushing, Heat Intolorance, Increase in Ring/Shoe/Hat Size, Palpitations, Polydipsia, Polyphagia, Polyuria, Other - Hematologic/Lymphatic Hematologic: absent: As Per HPI, Easy Bleeding, Easy Bruising, Lymphadenopathy, Other Past Patient History - Infectious Disease Hx of Infectious Diseases: None - Tetanus Immunizations Tetanus Immunization: Unknown - Past Medical History & Family History Past Medical History?: Yes - Past Social History Smoking Status: Former Smoker - CARDIAC Hx Hypercholesterolemia: Yes Hx Hypertension: Yes - PULMONARY Hx Pneumonia: Yes - NEUROLOGICAL Hx Neurological Disorder: Yes (NEUROPATHY) - HEENT Hx HEENT Problems: Yes Hx Cataracts: Yes Other/Comment: Right eye cataract removal 06/2016 - RENAL Hx Chronic Kidney Disease: Yes - ENDOCRINE/METABOLIC Hx Endocrine Disorders: Yes Hx Diabetes Mellitus Type 2: Yes - HEMATOLOGICAL/ONCOLOGICAL Hx Anemia: Yes Hx Human Immunodeficiency Virus (HIV): Yes - INTEGUMENTARY Hx Dermatological Problems: Yes (R AKA,LARGE ELONGATED SCARRING ACROSS MID ABDOMINAL AREA.) - MUSCULOSKELETAL/RHEUMATOLOGICAL Hx Arthritis: Yes - GASTROINTESTINAL Hx Gall Bladder Disease: Yes Hx Pancreatitis: Yes (pancreatic issue unspecified) - GENITOURINARY/GYNECOLOGICAL Hx Genitourinary Disorders: Yes Hx Prostate Problems: Yes - PSYCHIATRIC Hx Substance Use: Yes (denies) - SURGICAL HISTORY Hx Cholecystectomy: Yes - ANESTHESIA Hx Anesthesia: Yes Hx Anesthesia Reactions: No Hx Malignant Hyperthermia: No Meds Allergies/Adverse Reactions: Allergies Allergy/AdvReac Type Severity Reaction Status Date / Time No Known Allergies Allergy Verified 12/21/17 10:32 - Medications Medications: Current Medications Acetaminophen (Tylenol 325mg Tab) 650 mg PO Q6 PRN PRN Reason: pain Last Admin: 12/21/17 19:01 Dose: 650 mg Amlodipine Besylate (Norvasc) 5 mg PO DAILY [facility] Last Admin: 12/22/17 10:00 Dose: 5 mg Atovaquone (Mepron) 1,500 mg PO DAILY [facility] PRN Reason: Protocol Last Admin: 12/22/17 10:01 Dose: 1,500 mg Carvedilol (Coreg) 3.125 mg PO BID [facility] Last Admin: 12/22/17 10:01 Dose: 3.125 mg Dolutegravir Sodium (Tivicay) 50 mg PO DAILY [facility] PRN Reason: Protocol Last Admin: 12/22/17 10:01 Dose: 50 mg Emtricitabine/Tenofovir (Truvada 200 Mg-300 Mg) 1 tab PO QD7 [facility] PRN Reason: Protocol Last Admin: 12/22/17 10:01 Dose: 1 tab Famotidine (Pepcid) 10 mg PO DIN [facility] Last Admin: 12/22/17 10:00 Dose: 10 mg Ferrous Sulfate (Feosol) 325 mg PO DAILY [facility] Last Admin: 12/22/17 10:00 Dose: 325 mg Glipizide (Glucotrol) 5 mg PO BID [facility] Last Admin: 12/22/17 10:01 Dose: 5 mg Hydralazine HCl (Apresoline) 10 mg PO DAILY [facility] Last Admin: 12/22/17 10:01 Dose: 10 mg Heparin Sodium/Sodium Chloride (Heparin 79702 Units/250ml 1/2 Normal Saline) 25 ,000 units in 250 mls @ 14.288 mls/hr IV .[id number] PRN; Protocol; 18 UNITS/KG/HR PRN Reason: ADJUST RATE PER PROTOCOL Last Admin: 12/21/17 15:04 Dose: 18 units/kg/hr, 14.288 mls/hr Ceftriaxone Sodium 1 gm/ (Sodium Chloride) 100 mls @ 100 mls/hr IVPB Q24H [facility] PRN Reason: Protocol Last Admin: 12/21/17 20:39 Dose: 100 mls/hr Insulin Aspart (Novolog) 0 unit SC ACHS [facility] PRN Reason: Protocol Last Admin: 12/22/17 08:59 Dose: Not Given Insulin Glargine (Lantus) 30 unit SC HS [facility] Last Admin: 12/21/17 22:34 Dose: 30 units Insulin Glargine (Lantus) 30 unit SC DAILY [facility] Last Admin: 12/22/17 10:01 Dose: 30 units Morphine Sulfate (Morphine) 2 mg IVP Q6H [facility] PRN Reason: Pain, moderate (4-7) Last Admin: 12/22/17 10:07 Dose: 2 mg Physical Exam - Constitutional Appears: Cachectic, Chronically Ill - Head Exam Head Exam: ATRAUMATIC, NORMOCEPHALIC - Eye Exam Eye Exam: PERRL. absent: Scleral icterus - ENT Exam ENT Exam: Mucous Membranes Dry, Normal External Ear Exam - Neck Exam Neck exam: Negative for: Lymphadenopathy - Respiratory Exam Respiratory Exam: Decreased Breath Sounds, Rhonchi - Cardiovascular Exam Cardiovascular Exam: REGULAR RHYTHM - GI/Abdominal Exam GI & Abdominal Exam: Diminished Bowel Sounds, Soft. absent: Tenderness - Rectal Exam Rectal Exam: Deferred - Exam Exam: NORMAL INSPECTION - Extremities Exam Extremities exam: Negative for: calf tenderness, pedal edema, tenderness, pedal pulses present Additional comments: right BKA - Back Exam Back exam: absent: CVA tenderness (L), CVA tenderness (R) - Neurological Exam Neurological exam: Alert, CN II-XII Intact, Oriented x3, Reflexes Normal - Psychiatric Exam Psychiatric exam: Normal Mood - Skin Skin Exam: Dry Additional comments: abscess draining left axilla Results - Vital Signs Recent Vital Signs: Last Vital Signs Temp 98.1 F 12/22/17 07:00 Pulse 59 L 12/22/17 07:00 Resp 20 12/22/17 07:00 BP 167/80 H 12/22/17 07:00 Pulse Ox 97 12/22/17 07:00 - Labs Result Diagrams: 12/21/17 12:46 12/21/17 12:46 Labs: Laboratory Results - last 24 hr 12/21/17 12/21/17 12/21/17 12:46 12:46 13:39 WBC 5.4 RBC 4.98 Hgb 12.8 D Hct 39.6 MCV 79.5 L MCH 25.6 L MCHC 32.2 L RDW 14.9 H Plt Count 110 L D MPV 9.5 Neut % (Auto) 68.2 Lymph % (Auto) 22.1 [place] % (Auto) 7.2 Eos % (Auto) 1.5 Baso % (Auto) 1.0 Neut # (Auto) 3.7 Lymph # (Auto) 1.2 [place] # (Auto) 0.4 Eos # (Auto) 0.1 Baso # (Auto) 0.1 PT 10.2 INR 0.9 APTT 27 Sodium 140 Potassium 4.9 Chloride 109 H Carbon Dioxide 20 L Anion Gap 17 BUN 27 H Creatinine 1.9 H Est GFR ( Amer) 43 Est GFR (Non-Af Amer) 36 POC Glucose (mg/dL) Random Glucose 191 H Calcium 9.1 Total Bilirubin 0.6 AST 20 ALT 17 L D Alkaline Phosphatase 96 NT-Pro-B Natriuret Pep 316 Total Protein 7.7 Albumin 4.0 Globulin 3.8 Albumin/Globulin Ratio 1.0 12/21/17 12/21/17 12/22/17 17:18 21:05 00:29 WBC RBC Hgb Hct MCV MCH MCHC RDW Plt Count MPV Neut % (Auto) Lymph % (Auto) [place] % (Auto) Eos % (Auto) Baso % (Auto) Neut # (Auto) Lymph # (Auto) [place] # (Auto) Eos # (Auto) Baso # (Auto) PT INR APTT 206 H* D Sodium Potassium Chloride Carbon Dioxide Anion Gap BUN Creatinine Est GFR ( Amer) Est GFR (Non-Af Amer) POC Glucose (mg/dL) 250 H 184 H Random Glucose Calcium Total Bilirubin AST ALT Alkaline Phosphatase NT-Pro-B Natriuret Pep Total Protein Albumin Globulin Albumin/Globulin Ratio 12/22/17 12/22/17 12/22/17 06:33 08:45 11:15 WBC RBC Hgb Hct MCV MCH MCHC RDW Plt Count MPV Neut % (Auto) Lymph % (Auto) [place] % (Auto) Eos % (Auto) Baso % (Auto) Neut # (Auto) Lymph # (Auto) [place] # (Auto) Eos # (Auto) Baso # (Auto) PT INR APTT 80 H D Sodium Potassium Chloride Carbon Dioxide Anion Gap BUN Creatinine Est GFR ( Amer) Est GFR (Non-Af Amer) POC Glucose (mg/dL) 153 H 251 H Random Glucose Calcium Total Bilirubin AST ALT Alkaline Phosphatase NT-Pro-B Natriuret Pep Total Protein Albumin Globulin Albumin/Globulin Ratio Assessment & Plan - Assessment and Plan (Free Text) Plan: s/p I anhd D left axilla IV rx in progress await c/s report
--- NOTE | 2017-12-22 12:16 | VASCLAB ---
Date of service: 12/21/2017 PROCEDURE: Left Lower Extremity Venous Duplex Exam. HISTORY: Pain Swelling PRIORS: None. TECHNIQUE: Left common femoral, femoral, popliteal and posterior tibial, peroneal and great saphenous veins were evaluated. Flow was assessed with color Doppler, compressibility, assessment of phasic flow and augmentation response. Report prepared by RAMIREZ Mathews FINDINGS: LEFT: 1. Common Femoral Vein: 1.1. Compressibility - Fully compressible: Thrombus - None : Flow - Phasic: Augmentation -Normal: Reflux - None. 2. Femoral Vein: 2.1. Compressibility - Fully compressible: Thrombus - None: Flow - Phasic: Augmentation -Normal: Reflux - None. 3. Popliteal Vein: 3.1. Compressibility - Fully compressible: Thrombus - None: Flow - Phasic: Augmentation -Normal: Reflux - None. 4. Posterior Tibial Vein: 4.1. Compressibility - Fully compressible: Thrombus - None: Flow - Phasic: Augmentation -Normal: Reflux - None. 5. Peroneal Vein: 5.1. Compressibility - Partial: Thrombus - Acute: Flow - Reduced : Augmentation -Reduced: Reflux - None. 6. Great Saphenous Vein: 6.1. Compressibility - Partial: Thrombus - Acute: Flow - Reduced : Augmentation - Reduced: Reflux - None. OTHER FINDINGS: ANNIA Smith notified about the findings. IMPRESSION: Acute thrombosis of the left peroneal and mid thigh greater saphenous veins with severe reduction of the venous return. Acute thrombosis of the right common femoral vein with severe reduction of the venous return.
[2017-12-22] MEDS: Heparin25000 units/250ml 1/2NS 25,000 UNITS/250 ML BAG IV PRN (13:15)
[2017-12-22] MEDS: Vancomycin 1 gm/NS 200 ml 1 GM/200 ML BAG IVPB SCH ×2 (13:22→15:31)
--- NOTE | 2017-12-22 16:10 | CP.PCM.PN ---
Subjective - Date & Time of Evaluation Date of Evaluation: 12/22/17 Time of Evaluation: 09:10 - Subjective Subjective: PGY2 Medicine Note for Dr. Naye Khanna Patient seen and examined at bedside this morning. Patient was admitted overnight for left axilla abscess and b/l DVTs. Patient is feeling better and is resting comfortably in bed. He is currently on a heparin drip only as he was only able to have one IV due to poor venous access. He has be stuck many times and has only been able to have one IV started. He denies any pain in his lower extremities and is currently tolerating his diet. His breathing is improving and the pain in his axilla has been well controlled. ROS is otherwise unremarkable. Objective - Vital Signs/Intake and Output Vital Signs (last 24 hours): Temp Pulse Resp BP Pulse Ox 98.1 F 60 20 167/80 H 97 12/22/17 07:00 12/22/17 12:02 12/22/17 07:00 12/22/17 07:00 12/22/17 07:00 Intake and Output: 12/22/17 12/22/17 06:59 18:59 Intake Total 786 250 Output Total 780 Balance 6 250 - Medications Medications: Current Medications Acetaminophen (Tylenol 325mg Tab) 650 mg PO Q6 PRN PRN Reason: pain Last Admin: 12/21/17 19:01 Dose: 650 mg Amlodipine Besylate (Norvasc) 5 mg PO DAILY [facility] Last Admin: 12/22/17 10:00 Dose: 5 mg Atovaquone (Mepron) 1,500 mg PO DAILY [facility] PRN Reason: Protocol Last Admin: 12/22/17 10:01 Dose: 1,500 mg Carvedilol (Coreg) 3.125 mg PO BID [facility] Last Admin: 12/22/17 10:01 Dose: 3.125 mg Dolutegravir Sodium (Tivicay) 50 mg PO DAILY [facility] PRN Reason: Protocol Last Admin: 12/22/17 10:01 Dose: 50 mg Emtricitabine/Tenofovir (Truvada 200 Mg-300 Mg) 1 tab PO QD7 [facility] PRN Reason: Protocol Last Admin: 12/22/17 10:01 Dose: 1 tab Famotidine (Pepcid) 10 mg PO DIN [facility] Last Admin: 12/22/17 10:00 Dose: 10 mg Ferrous Sulfate (Feosol) 325 mg PO DAILY [facility] Last Admin: 12/22/17 10:00 Dose: 325 mg Glipizide (Glucotrol) 5 mg PO BID [facility] Last Admin: 12/22/17 10:01 Dose: 5 mg Hydralazine HCl (Apresoline) 10 mg PO DAILY [facility] Last Admin: 12/22/17 10:01 Dose: 10 mg Heparin Sodium/Sodium Chloride (Heparin 71390 Units/250ml 1/2 Normal Saline) 25 ,000 units in 250 mls @ 14.288 mls/hr IV .[id number] PRN; Protocol; 18 UNITS/KG/HR PRN Reason: ADJUST RATE PER PROTOCOL Last Admin: 12/22/17 13:15 Dose: 15 units/kg/hr, 11.907 mls/hr Ceftriaxone Sodium 1 gm/ (Sodium Chloride) 100 mls @ 100 mls/hr IVPB Q24H [facility] PRN Reason: Protocol Last Admin: 12/21/17 20:39 Dose: 100 mls/hr Vancomycin/Sodium Chloride (Vancomycin 1 Gm/Ns 200 Ml) 1 gm in 200 mls @ 133.333 mls/hr IVPB Q24H [facility] PRN Reason: Protocol Last Admin: 12/22/17 15:31 Dose: Not Given Insulin Aspart (Novolog) 0 unit SC ACHS [facility] PRN Reason: Protocol Last Admin: 12/22/17 13:27 Dose: 3 units Insulin Glargine (Lantus) 30 unit SC HS [facility] Last Admin: 12/21/17 22:34 Dose: 30 units Insulin Glargine (Lantus) 30 unit SC DAILY [facility] Last Admin: 12/22/17 10:01 Dose: 30 units Morphine Sulfate (Morphine) 2 mg IVP Q6H PRN PRN Reason: Pain, moderate (4-7) Last Admin: 12/22/17 10:07 Dose: 2 mg - Labs Labs: 12/21/17 12:46 12/21/17 12:46 PT 10.2 SECONDS (9.7-12.2) 12/21/17 13:39 INR 0.9 12/21/17 13:39 APTT 83 SECONDS (21-34) H 12/22/17 13:50 - Constitutional Appears: Non-toxic, No Acute Distress - Head Exam Head Exam: ATRAUMATIC, NORMOCEPHALIC - Eye Exam Eye Exam: Normal appearance - ENT Exam ENT Exam: Mucous Membranes Moist - Neck Exam Neck Exam: absent: Lymphadenopathy - Respiratory Exam Respiratory Exam: NORMAL BREATHING PATTERN. 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 * Acute thrombosis of the right common femoral vein with severe reduction of the venous return. Medications * Heparin Drip Left Axilla Abscess General Surgery consulted, Dr. Licea s/p I&D continue to monitor Medications * Rocephin 1gm IVPB q12h * Vanco 1gm IVPB q24h * Morphine 2mg IVP q6h prn Abnormal EKG Cardiology consulted, Dr. Barillas * Per Cardio note, his EKG suggests anteolateral ischemi, but he is currently asymptomatic. recommend echocardiogram to assess for regional wall motion abnormalities. ECHO pending Diabetes Restart home medications * Glipizide 5mg PO BID * Lantus 30 units SC HS * ISS Hypertension Restart home medications * Amlodipine 5mg PO daily * Carvedilol 3.125mg PO BID * Hydralazine 10mg PO daily Hx of HIV Infectious Disease consulted, Dr. Valente Medications * Atovaquone 1,500mg PO Daily * Truvada 200mg-300mg 1 tab QD7 Prophylactic Care DVT - heparin drip GI - Home medication Pepcid 10mg PO din All medical management per Dr. Naye Khanna
--- NOTE | 2017-12-22 18:04 | CP.PCM.PN ---
Subjective - Date & Time of Evaluation Date of Evaluation: 12/22/17 Time of Evaluation: 11:00 - Subjective Subjective: clinically same Objective - Vital Signs/Intake and Output Vital Signs (last 24 hours): Temp Pulse Resp BP Pulse Ox 97.2 F L 60 20 168/86 H 96 12/22/17 16:00 12/22/17 16:00 12/22/17 16:00 12/22/17 16:00 12/22/17 16:00 Intake and Output: 12/22/17 12/22/17 06:59 18:59 Intake Total 786 250 Output Total 780 Balance 6 250 - Medications Medications: Current Medications Acetaminophen (Tylenol 325mg Tab) 650 mg PO Q6 PRN PRN Reason: pain Last Admin: 12/21/17 19:01 Dose: 650 mg Amlodipine Besylate (Norvasc) 5 mg PO DAILY [facility] Last Admin: 12/22/17 10:00 Dose: 5 mg Atovaquone (Mepron) 1,500 mg PO DAILY [facility] PRN Reason: Protocol Last Admin: 12/22/17 10:01 Dose: 1,500 mg Carvedilol (Coreg) 3.125 mg PO BID [facility] Last Admin: 12/22/17 17:13 Dose: 3.125 mg Dolutegravir Sodium (Tivicay) 50 mg PO DAILY [facility] PRN Reason: Protocol Last Admin: 12/22/17 10:01 Dose: 50 mg Emtricitabine/Tenofovir (Truvada 200 Mg-300 Mg) 1 tab PO QD7 [facility] PRN Reason: Protocol Last Admin: 12/22/17 10:01 Dose: 1 tab Famotidine (Pepcid) 10 mg PO DIN [facility] Last Admin: 12/22/17 10:00 Dose: 10 mg Ferrous Sulfate (Feosol) 325 mg PO DAILY [facility] Last Admin: 12/22/17 10:00 Dose: 325 mg Glipizide (Glucotrol) 5 mg PO BID [facility] Last Admin: 12/22/17 17:13 Dose: 5 mg Hydralazine HCl (Apresoline) 10 mg PO DAILY [facility] Last Admin: 12/22/17 10:01 Dose: 10 mg Heparin Sodium/Sodium Chloride (Heparin 92812 Units/250ml 1/2 Normal Saline) 25 ,000 units in 250 mls @ 14.288 mls/hr IV .[id number] PRN; Protocol; 18 UNITS/KG/HR PRN Reason: ADJUST RATE PER PROTOCOL Last Admin: 12/22/17 13:15 Dose: 15 units/kg/hr, 11.907 mls/hr Ceftriaxone Sodium 1 gm/ (Sodium Chloride) 100 mls @ 100 mls/hr IVPB Q24H [facility] PRN Reason: Protocol Last Admin: 12/21/17 20:39 Dose: 100 mls/hr Vancomycin/Sodium Chloride (Vancomycin 1 Gm/Ns 200 Ml) 1 gm in 200 mls @ 133.333 mls/hr IVPB Q24H [facility] PRN Reason: Protocol Last Admin: 12/22/17 15:31 Dose: Not Given Insulin Aspart (Novolog) 0 unit SC ACHS [facility] PRN Reason: Protocol Last Admin: 12/22/17 17:13 Dose: 2 units Insulin Glargine (Lantus) 30 unit SC HS [facility] Last Admin: 12/21/17 22:34 Dose: 30 units Insulin Glargine (Lantus) 30 unit SC DAILY [facility] Last Admin: 12/22/17 10:01 Dose: 30 units Morphine Sulfate (Morphine) 2 mg IVP Q6H PRN PRN Reason: Pain, moderate (4-7) Last Admin: 12/22/17 17:11 Dose: 2 mg - Labs Labs: 12/21/17 12:46 12/21/17 12:46 PT 10.2 SECONDS (9.7-12.2) 12/21/17 13:39 INR 0.9 12/21/17 13:39 APTT 83 SECONDS (21-34) H 12/22/17 13:50 - Constitutional Appears: Well - Head Exam Head Exam: ATRAUMATIC, NORMAL INSPECTION, NORMOCEPHALIC - Eye Exam Eye Exam: EOMI, Normal appearance, PERRL Pupil Exam: NORMAL ACCOMODATION, PERRL - ENT Exam ENT Exam: Mucous Membranes Moist, Normal Exam - Neck Exam Neck Exam: Full ROM, Normal Inspection. absent: Lymphadenopathy - Respiratory Exam Respiratory Exam: Decreased Breath Sounds - Cardiovascular Exam Cardiovascular Exam: REGULAR RHYTHM, +S1, +S2 - GI/Abdominal Exam GI & Abdominal Exam: Soft, Diminished Bowel Sounds - Rectal Exam Rectal Exam: Deferred
[2017-12-22] MEDS: (Lantus) Insulin Glargine, Recombinant SC SCH (23:39)
[2017-12-23 01:11] LABS: SQUAMOUS EPITHIAL 1 /hpf (0-5); URINE BILIRUBIN NEGATIVE (NEGATIVE); URINE BLOOD 2+ (NEGATIVE); URINE CLARITY Clear (Clear); URINE COLOR Straw (YELLOW); URINE GLUCOSE (UA) 3+ mg/dL (Normal); URINE PROTEIN 2+ mg/dL (NEGATIVE); URINE UROBILINOGEN NORMAL mg/dL (0.2-1.0)
[2017-12-23 01:14] LABS: URINE LEUKOCYTE ESTERASE TRACE Leu/uL (Negative)
[2017-12-23] MEDS: (Novolog) Insulin Aspart, Recombinant 100 u/ml 10 ml vial SC SCH ×4 (08:41→22:16)
--- NOTE | 2017-12-23 09:38 | CP.PCM.PN ---
Subjective - Date & Time of Evaluation Date of Evaluation: 12/23/17 Time of Evaluation: 07:10 - Subjective Subjective: PGY2 Medicine Note for Dr. Naye Khanna Patient seen and examined at bedside this morning. Patient is still with only one IV and has been unable to receive any antibiotics. He is resting comfortably in bed. He states he would like to go home today. He refused his morning blood draw. He states he has no complaints and would like to be discharged. Denies fevers, chills, nausea, vomiting, diarrhea, constipation, chest pain, shortness of breath, palpitations, abdominal pain, headaches, numbness, tingling or leg pains. Objective - Vital Signs/Intake and Output Vital Signs (last 24 hours): Temp Pulse Resp BP Pulse Ox 97.7 F 68 20 179/84 H 96 12/23/17 07:00 12/23/17 07:00 12/23/17 07:00 12/23/17 07:00 12/23/17 07:00 Intake and Output: 12/23/17 12/23/17 06:59 18:59 Intake Total 871 Output Total 650 Balance 221 - Medications Medications: Current Medications Acetaminophen (Tylenol 325mg Tab) 650 mg PO Q6 PRN PRN Reason: pain Last Admin: 12/21/17 19:01 Dose: 650 mg Amlodipine Besylate (Norvasc) 5 mg PO DAILY [facility] Last Admin: 12/22/17 10:00 Dose: 5 mg Apixaban (Eliquis) 10 mg PO BID [facility] Stop: 12/30/17 10:01 Atovaquone (Mepron) 1,500 mg PO DAILY [facility] PRN Reason: Protocol Last Admin: 12/22/17 10:01 Dose: 1,500 mg Carvedilol (Coreg) 3.125 mg PO BID [facility] Last Admin: 12/22/17 17:13 Dose: 3.125 mg Dolutegravir Sodium (Tivicay) 50 mg PO DAILY [facility] PRN Reason: Protocol Last Admin: 12/22/17 10:01 Dose: 50 mg Emtricitabine/Tenofovir (Truvada 200 Mg-300 Mg) 1 tab PO QD7 [facility] PRN Reason: Protocol Last Admin: 12/22/17 10:01 Dose: 1 tab Famotidine (Pepcid) 10 mg PO DIN [facility] Last Admin: 12/22/17 10:00 Dose: 10 mg Ferrous Sulfate (Feosol) 325 mg PO DAILY [facility] Last Admin: 12/22/17 10:00 Dose: 325 mg Glipizide (Glucotrol) 5 mg PO BID [facility] Last Admin: 12/22/17 17:13 Dose: 5 mg Hydralazine HCl (Apresoline) 10 mg PO DAILY [facility] Last Admin: 12/22/17 10:01 Dose: 10 mg Heparin Sodium/Sodium Chloride (Heparin 45821 Units/250ml 1/2 Normal Saline) 25 ,000 units in 250 mls @ 14.288 mls/hr IV .[id number] PRN; Protocol; 18 UNITS/KG/HR PRN Reason: ADJUST RATE PER PROTOCOL Stop: 12/23/17 09:59 Last Admin: 12/22/17 13:15 Dose: 15 units/kg/hr, 11.907 mls/hr Ceftriaxone Sodium 1 gm/ (Sodium Chloride) 100 mls @ 100 mls/hr IVPB Q24H [facility] PRN Reason: Protocol Last Admin: 12/22/17 21:25 Dose: Not Given Vancomycin/Sodium Chloride (Vancomycin 1 Gm/Ns 200 Ml) 1 gm in 200 mls @ 133.333 mls/hr IVPB Q24H [facility] PRN Reason: Protocol Last Admin: 12/22/17 15:31 Dose: Not Given Insulin Aspart (Novolog) 0 unit SC ACHS [facility] PRN Reason: Protocol Last Admin: 12/23/17 08:41 Dose: Not Given Insulin Glargine (Lantus) 30 unit SC HS [facility] Last Admin: 12/22/17 23:39 Dose: Not Given Morphine Sulfate (Morphine) 2 mg IVP Q6H [facility] PRN Reason: Pain, moderate (4-7) Last Admin: 12/23/17 06:08 Dose: 2 mg - Labs Labs: 12/21/17 12:46 12/21/17 12:46 PT 10.2 SECONDS (9.7-12.2) 12/21/17 13:39 INR 0.9 12/21/17 13:39 APTT 83 SECONDS (21-34) H 12/22/17 13:50 - Constitutional Appears: Non-toxic, No Acute Distress - Head Exam Head Exam: ATRAUMATIC, NORMOCEPHALIC - Eye Exam Eye Exam: Normal appearance. absent: Scleral icterus - ENT Exam ENT Exam: Mucous Membranes Moist - Neck Exam Neck Exam: absent: Lymphadenopathy - Respiratory Exam Respiratory Exam: Clear to Ausculation Bilateral, NORMAL BREATHING PATTERN. absent: Accessory Muscle Use, Rales, Rhonchi, Wheezes, Respiratory Distress - Cardiovascular Exam Cardiovascular Exam: REGULAR RHYTHM, +S1 - GI/Abdominal Exam GI & Abdominal Exam: Soft. 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 * Acute thrombosis of the right common femoral vein with severe reduction of the venous return. Medications * Heparin Drip - patient refusing blood draws - will discontinue and switch to Eliquis * Started on Eliquis 10mg PO BID x 7 days then switch to 5mg PO BID Left Axilla Abscess General Surgery consulted, Dr. Licea s/p I&D continue to monitor Patient did not receive antibiotics due to no IV line - order placed for PICC Medications * Rocephin 1gm IVPB q12h * Vanco 1gm IVPB q24h * Morphine 2mg IVP q6h prn Abnormal EKG Cardiology consulted, Dr. Barillas * Per Cardio note, his EKG suggests anteolateral ischemi, but he is currently asymptomatic. recommend echocardiogram to assess for regional wall motion abnormalities. ECHO pending Diabetes Restart home medications * Glipizide 5mg PO BID * Lantus 30 units SC HS * ISS Hypertension Restart home medications * Amlodipine 5mg PO daily * Carvedilol 3.125mg PO BID * Hydralazine 10mg PO daily Hx of HIV Infectious Disease consulted, Dr. Valente Medications * Atovaquone 1,500mg PO Daily * Truvada 200mg-300mg 1 tab QD7 Prophylactic Care DVT - heparin drip, switched to Eliquis BID GI - Home medication Pepcid 10mg PO din All medical management per Dr. Naye Khanna
--- NOTE | 2017-12-23 10:13 | CARD ---
APPROVED REPORT Date of service: 12/21/2017 EKG Measurement Heart [id number] <Conclusion> Sinus bradycardia Left axis deviation Pulmonary disease pattern Nonspecific intraventricular conduction delay ST & T wave abnormality, consider inferolateral ischemia Abnormal ECG
--- NOTE | 2017-12-23 10:43 | CP.PCM.PN ---
Subjective - Date & Time of Evaluation Date of Evaluation: 12/23/17 Time of Evaluation: 10:40 - Subjective Subjective: Progress Note for Dr. Licea 67M seen and evaluated this morning at bedside. No acute events overnight. Pain at site of I&D is controlled. Denies f/c, n/v/d, SOB, CP, or urinary symptoms. Objective - Vital Signs/Intake and Output Vital Signs (last 24 hours): Temp Pulse Resp BP Pulse Ox 97.7 F 68 20 179/84 H 96 12/23/17 07:00 12/23/17 07:00 12/23/17 07:00 12/23/17 07:00 12/23/17 07:00 Intake and Output: 12/23/17 12/23/17 06:59 18:59 Intake Total 871 Output Total 650 Balance 221 - Medications Medications: Current Medications Acetaminophen (Tylenol 325mg Tab) 650 mg PO Q6 PRN PRN Reason: pain Last Admin: 12/21/17 19:01 Dose: 650 mg Amlodipine Besylate (Norvasc) 5 mg PO DAILY [facility] Last Admin: 12/22/17 10:00 Dose: 5 mg Apixaban (Eliquis) 10 mg PO BID [facility] Stop: 12/30/17 10:01 Atovaquone (Mepron) 1,500 mg PO DAILY [facility] PRN Reason: Protocol Last Admin: 12/22/17 10:01 Dose: 1,500 mg Carvedilol (Coreg) 3.125 mg PO BID [facility] Last Admin: 12/22/17 17:13 Dose: 3.125 mg Dolutegravir Sodium (Tivicay) 50 mg PO DAILY [facility] PRN Reason: Protocol Last Admin: 12/22/17 10:01 Dose: 50 mg Emtricitabine/Tenofovir (Truvada 200 Mg-300 Mg) 1 tab PO QD7 [facility] PRN Reason: Protocol Last Admin: 12/22/17 10:01 Dose: 1 tab Famotidine (Pepcid) 10 mg PO DIN [facility] Last Admin: 12/22/17 10:00 Dose: 10 mg Ferrous Sulfate (Feosol) 325 mg PO DAILY [facility] Last Admin: 12/22/17 10:00 Dose: 325 mg Glipizide (Glucotrol) 5 mg PO BID [facility] Last Admin: 12/22/17 17:13 Dose: 5 mg Hydralazine HCl (Apresoline) 10 mg PO DAILY [facility] Last Admin: 12/22/17 10:01 Dose: 10 mg Ceftriaxone Sodium 1 gm/ (Sodium Chloride) 100 mls @ 100 mls/hr IVPB Q24H [facility] PRN Reason: Protocol Last Admin: 12/22/17 21:25 Dose: Not Given Vancomycin/Sodium Chloride (Vancomycin 1 Gm/Ns 200 Ml) 1 gm in 200 mls @ 133.333 mls/hr IVPB Q24H [facility] PRN Reason: Protocol Last Admin: 12/22/17 15:31 Dose: Not Given Insulin Aspart (Novolog) 0 unit SC ACHS [facility] PRN Reason: Protocol Last Admin: 12/23/17 08:41 Dose: Not Given Insulin Glargine (Lantus) 30 unit SC HS [facility] Last Admin: 12/22/17 23:39 Dose: Not Given Morphine Sulfate (Morphine) 2 mg IVP Q6H PRN PRN Reason: Pain, moderate (4-7) Last Admin: 12/23/17 06:08 Dose: 2 mg - Labs Labs: 12/21/17 12:46 12/21/17 12:46 PT 10.2 SECONDS (9.7-12.2) 12/21/17 13:39 INR 0.9 12/21/17 13:39 APTT 83 SECONDS (21-34) H 12/22/17 13:50 - Constitutional Appears: Well, Non-toxic, No Acute Distress - Head Exam Head Exam: ATRAUMATIC, NORMAL INSPECTION, NORMOCEPHALIC - Eye Exam Eye Exam: EOMI, Normal appearance - Respiratory Exam Respiratory Exam: Clear to Ausculation Bilateral, NORMAL BREATHING PATTERN - Cardiovascular Exam Cardiovascular Exam: REGULAR RHYTHM, +S1, +S2. absent: Murmur - GI/Abdominal Exam GI & Abdominal Exam: Soft, Normal Bowel Sounds. absent: Tenderness - Extremities Exam Additional comments: Left axilla dressing saturated - changed today now c/d/i Mildly indurated, no fluctuance, mild erythema, no active drainage - Psychiatric Exam Psychiatric exam: Normal Affect, Normal Mood Assessment and Plan - Assessment and Plan (Free Text) Assessment: 67M s/p I&D of left axillary abscess Plan: Pt receiving IV antibiotics through PICC per medicine dressings changes no further surgical intervention at this time please reconsult as needed Troy Osborne PGY1
[2017-12-23] MEDS: Emtricitabine-Tenofovir 200 mg-300 mg Tab PO SCH (11:19)
[2017-12-23] MEDS: Atovaquone 750 mg/5 ml Susp UD PO SCH (11:20)
--- NOTE | 2017-12-23 16:03 | RAD ---
Date of service: 12/23/2017 HISTORY: verify right PICC COMPARISON: Chest radiograph dated 12/21/2017. FINDINGS: LUNGS: No active pulmonary disease. PLEURA: No significant pleural effusion identified, no pneumothorax apparent. CARDIOVASCULAR: Atherosclerotic aortic calcifications cardiomediastinal silhouette stably enlarged. OSSEOUS STRUCTURES: Unchanged. VISUALIZED UPPER ABDOMEN: Normal. OTHER FINDINGS: Right upper extremity PICC with catheter tip in the distal SVC. IMPRESSION: New right upper extremity PICC in satisfactory position. No other significant interval change.
--- NOTE | 2017-12-23 16:46 | CP.PCM.PN ---
Subjective - Date & Time of Evaluation Date of Evaluation: 12/23/17 Time of Evaluation: 09:00 - Subjective Subjective: no fever less drainage cultures pending Objective - Vital Signs/Intake and Output Vital Signs (last 24 hours): Temp Pulse Resp BP Pulse Ox 97.7 F 68 20 179/84 H 96 12/23/17 07:00 12/23/17 07:00 12/23/17 07:00 12/23/17 07:00 12/23/17 07:00 Intake and Output: 12/23/17 12/23/17 06:59 18:59 Intake Total 871 Output Total 650 Balance 221 - Medications Medications: Current Medications Acetaminophen (Tylenol 325mg Tab) 650 mg PO Q6 PRN PRN Reason: pain Last Admin: 12/21/17 19:01 Dose: 650 mg Amlodipine Besylate (Norvasc) 5 mg PO DAILY [facility] Last Admin: 12/23/17 11:19 Dose: 5 mg Apixaban (Eliquis) 10 mg PO BID [facility] Stop: 12/30/17 10:01 Last Admin: 12/23/17 11:19 Dose: 10 mg Atovaquone (Mepron) 1,500 mg PO DAILY [facility] PRN Reason: Protocol Last Admin: 12/23/17 11:20 Dose: 1,500 mg Carvedilol (Coreg) 3.125 mg PO BID [facility] Last Admin: 12/23/17 11:19 Dose: 3.125 mg Dolutegravir Sodium (Tivicay) 50 mg PO DAILY [facility] PRN Reason: Protocol Last Admin: 12/23/17 11:19 Dose: 50 mg Emtricitabine/Tenofovir (Truvada 200 Mg-300 Mg) 1 tab PO QD7 [facility] PRN Reason: Protocol Last Admin: 12/23/17 11:19 Dose: 1 tab Famotidine (Pepcid) 10 mg PO DIN [facility] Last Admin: 12/23/17 11:18 Dose: 10 mg Ferrous Sulfate (Feosol) 325 mg PO DAILY [facility] Last Admin: 12/23/17 11:19 Dose: 325 mg Glipizide (Glucotrol) 5 mg PO BID [facility] Last Admin: 12/23/17 11:19 Dose: 5 mg Hydralazine HCl (Apresoline) 10 mg PO DAILY [facility] Last Admin: 12/23/17 11:20 Dose: 10 mg Ceftriaxone Sodium 1 gm/ (Sodium Chloride) 100 mls @ 100 mls/hr IVPB Q24H [facility] PRN Reason: Protocol Last Admin: 12/22/17 21:25 Dose: Not Given Vancomycin/Sodium Chloride (Vancomycin 1 Gm/Ns 200 Ml) 1 gm in 200 mls @ 133.333 mls/hr IVPB Q24H [facility] PRN Reason: Protocol Last Admin: 12/22/17 15:31 Dose: Not Given Insulin Aspart (Novolog) 0 unit SC ACHS [facility] PRN Reason: Protocol Last Admin: 12/23/17 11:30 Dose: Not Given Insulin Glargine (Lantus) 30 unit SC HS [facility] Last Admin: 12/22/17 23:39 Dose: Not Given Morphine Sulfate (Morphine) 2 mg IVP Q6H PRN PRN Reason: Pain, moderate (4-7) Last Admin: 12/23/17 15:01 Dose: 2 mg - Labs Labs: 12/21/17 12:46 12/21/17 12:46 PT 10.2 SECONDS (9.7-12.2) 12/21/17 13:39 INR 0.9 12/21/17 13:39 APTT 83 SECONDS (21-34) H 12/22/17 13:50 - Constitutional Appears: Non-toxic, Chronically Ill - Head Exam Head Exam: NORMOCEPHALIC - Eye Exam Eye Exam: PERRL - ENT Exam ENT Exam: Mucous Membranes Dry - Neck Exam Neck Exam: absent: Lymphadenopathy - Respiratory Exam Respiratory Exam: Decreased Breath Sounds - Cardiovascular Exam Cardiovascular Exam: REGULAR RHYTHM - GI/Abdominal Exam GI & Abdominal Exam: Distended - Rectal Exam Rectal Exam: Deferred - Exam Exam: NORMAL INSPECTION Assessment and Plan - Assessment and Plan (Free Text) Assessment: iv rx reeordered after reviewing cultures
--- NOTE | 2017-12-23 18:05 | CP.PCM.PN ---
Subjective - Date & Time of Evaluation Date of Evaluation: 12/23/17 Time of Evaluation: 09:20 - Subjective Subjective: clinically same Objective - Vital Signs/Intake and Output Vital Signs (last 24 hours): Temp Pulse Resp BP Pulse Ox 97.7 F 68 20 179/84 H 96 12/23/17 07:00 12/23/17 07:00 12/23/17 07:00 12/23/17 07:00 12/23/17 07:00 Intake and Output: 12/23/17 12/23/17 06:59 18:59 Intake Total 871 Output Total 650 Balance 221 - Medications Medications: Current Medications Acetaminophen (Tylenol 325mg Tab) 650 mg PO Q6 PRN PRN Reason: pain Last Admin: 12/21/17 19:01 Dose: 650 mg Amlodipine Besylate (Norvasc) 5 mg PO DAILY [facility] Last Admin: 12/23/17 11:19 Dose: 5 mg Apixaban (Eliquis) 10 mg PO BID [facility] Stop: 12/30/17 10:01 Last Admin: 12/23/17 11:19 Dose: 10 mg Atovaquone (Mepron) 1,500 mg PO DAILY [facility] PRN Reason: Protocol Last Admin: 12/23/17 11:20 Dose: 1,500 mg Carvedilol (Coreg) 3.125 mg PO BID [facility] Last Admin: 12/23/17 11:19 Dose: 3.125 mg Dolutegravir Sodium (Tivicay) 50 mg PO DAILY [facility] PRN Reason: Protocol Last Admin: 12/23/17 11:19 Dose: 50 mg Emtricitabine/Tenofovir (Truvada 200 Mg-300 Mg) 1 tab PO QD7 [facility] PRN Reason: Protocol Last Admin: 12/23/17 11:19 Dose: 1 tab Famotidine (Pepcid) 10 mg PO DIN [facility] Last Admin: 12/23/17 11:18 Dose: 10 mg Ferrous Sulfate (Feosol) 325 mg PO DAILY [facility] Last Admin: 12/23/17 11:19 Dose: 325 mg Glipizide (Glucotrol) 5 mg PO BID [facility] Last Admin: 12/23/17 11:19 Dose: 5 mg Hydralazine HCl (Apresoline) 10 mg PO DAILY [facility] Last Admin: 12/23/17 11:20 Dose: 10 mg Ceftriaxone Sodium 1 gm/ (Sodium Chloride) 100 mls @ 100 mls/hr IVPB Q24H [facility] PRN Reason: Protocol Last Admin: 12/22/17 21:25 Dose: Not Given Vancomycin/Sodium Chloride (Vancomycin 1 Gm/Ns 200 Ml) 1 gm in 200 mls @ 133.333 mls/hr IVPB Q24H [facility] PRN Reason: Protocol Last Admin: 12/22/17 15:31 Dose: Not Given Insulin Aspart (Novolog) 0 unit SC ACHS [facility] PRN Reason: Protocol Last Admin: 12/23/17 11:30 Dose: Not Given Insulin Glargine (Lantus) 30 unit SC HS [facility] Last Admin: 12/22/17 23:39 Dose: Not Given Morphine Sulfate (Morphine) 2 mg IVP Q6H PRN PRN Reason: Pain, moderate (4-7) Last Admin: 12/23/17 15:01 Dose: 2 mg - Labs Labs: 12/21/17 12:46 12/21/17 12:46 PT 10.2 SECONDS (9.7-12.2) 12/21/17 13:39 INR 0.9 12/21/17 13:39 APTT 83 SECONDS (21-34) H 12/22/17 13:50 - Constitutional Appears: Well - Head Exam Head Exam: ATRAUMATIC, NORMAL INSPECTION, NORMOCEPHALIC - Eye Exam Eye Exam: EOMI, Normal appearance, PERRL Pupil Exam: NORMAL ACCOMODATION, PERRL - ENT Exam ENT Exam: Mucous Membranes Moist, Normal Exam - Neck Exam Neck Exam: Full ROM, Normal Inspection. absent: Lymphadenopathy - Respiratory Exam Respiratory Exam: Decreased Breath Sounds - Cardiovascular Exam Cardiovascular Exam: REGULAR RHYTHM, +S1, +S2 - GI/Abdominal Exam GI & Abdominal Exam: Soft, Diminished Bowel Sounds - Rectal Exam Rectal Exam: Deferred
[2017-12-23] MEDS: Vancomycin 1 gm/NS 200 ml 1 GM/200 ML BAG IVPB SCH (18:19)
--- NOTE | 2017-12-23 19:58 | CARD ---
APPROVED REPORT Date of service: 12/23/2017 EXAM: Two-dimensional and M-mode echocardiogram with Doppler and color Doppler. Other Information Quality : GoodRhythm : INDICATION Abnormal EKG/Arrhythmia Chest Pain HIV RISK FACTORS Hypertension Diabetes 2D DIMENSIONS IVSd1.9 (0.7-1.1cm)LVDd4.2 (3.9-5.9cm) PWd1.5 (0.7-1.1cm)LVDs2.8 (2.5-4.0cm) FS (%) 34.7 %LVEF (%)64.3 (>50%) M-Mode DIMENSIONS Left Atrium (MM)3.93 (2.5-4.0cm)IVSd1.65 (0.7-1.1cm) Aortic Root3.91 (2.2-3.7cm)LVDd2.15 (4.0-5.6cm) Aortic Cusp Exc.2.09 (1.5-2.0cm)PWd1.35 (0.7-1.1cm) FS (%) 21 %LVDs2.60 (2.0-3.8cm) LVEF (%)61 (>50%) Mitral Valve MV E Ufxrrekx75.8cm/sMV A Lijzdnzp128.5cm/sE/A ratio0.6 TDI E/Lateral E'0.0E/Medial E'0.0 Tricuspid Valve TR Peak Fwazaknk545ht/sTR Peak Gr.[id number] LEFT VENTRICLE The left ventricle is normal size. There is moderate concentric left ventricular hypertrophy. Left ventricle systolic function is normal. The Ejection Fraction is 65-70%. There is normal LV segmental wall motion. Transmitral Doppler flow pattern is Grade I-abnormal relaxation pattern. There is no ventricular septal defect visualized. RIGHT VENTRICLE The right ventricle is normal size. The right ventricular systolic function is normal. ATRIA The left atrium is mildly dilated. The right atrium size is normal. AORTIC VALVE The aortic valve is moderately sclerotic. The aortic valve is tri-cuspid. No aortic regurgitation is present. There is no aortic valvular stenosis. SHUN by planimetry 2.5 cm2 MITRAL VALVE Mitral annular calcification is borderline. There is no evidence of mitral valve prolapse. Mitral regurgitation is trace. TRICUSPID VALVE The tricuspid valve is normal in structure. There is trace tricuspid regurgitation. There is no pulmonary hypertension. PULMONIC VALVE The pulmonic valve is not well visualized. There is no pulmonic valvular regurgitation. GREAT VESSELS The aortic root is normal in size. The ascending aorta is Mildly dilated.4.2 cm The IVC is normal in size and collapses >50% with inspiration. PERICARDIAL EFFUSION There is no pericardial effusion. <Conclusion> There is moderate concentric left ventricular hypertrophy. Left ventricle systolic function is normal. The Ejection Fraction is 65-70%. Transmitral Doppler flow pattern is Grade I-abnormal relaxation pattern. Mitral regurgitation is trace. The ascending aorta is Mildly dilated.4.2 cm
[2017-12-23] MEDS: (Lantus) Insulin Glargine, Recombinant SC SCH (22:29)
[2017-12-24 06:49] LABS: BASO % 0.7 % (0.0-2.0); EOS # 0.1 K/uL (0.0-0.7); EOS % 1.7 % (0.0-4.0); HEMOGLOBIN 12.4 g/dL (12.0-18.0); LYMPH # 0.8 K/uL (1.0-4.3); LYMPH % 16.6 % (20.0-40.0); MEAN CELL VOLUME 79.9 fL (80.0-94.0); MEAN CORPUSCULAR HGB CONC 32.6 g/dL (33.0-37.0); MEAN PLATELET VOLUME 9.8 fL (7.2-11.7); MONO # 0.5 K/uL (0.0-0.8); MONO % 10.6 % (0.0-10.0); NEUT # 3.6 K/uL (1.8-7.0); NEUT % 70.4 % (50.0-75.0); NRBC % 0.2 % (0.0-2.0); RBC 4.77 Mil/uL (4.40-5.90); WHITE BLOOD COUNT 5.1 K/uL (4.8-10.8)
[2017-12-24 07:37] LABS: ALB/GLOB RATIO 1.1 (1.0-2.1); CALCIUM 9.2 mg/dl (8.6-10.4)
--- NOTE | 2017-12-24 07:47 | CP.PCM.PN ---
Subjective - Date & Time of Evaluation Date of Evaluation: 12/24/17 Time of Evaluation: 07:42 - Subjective Subjective: PGY2 Medicine Note for Dr. Naye Khanna Patient seen and examined at bedside at this morning. No acute events overnight. Patient is resting comfortably in bed this morning. His leg pain is improving and has been well controlled. Patient is itching on hands and arms. There is no visible rash but feels "extremely itchy". Denies fevers, chills, nausea, vomiting, diarrhea, constipation, chest pain, shortness of breath, palpitations, abdominal pain, headaches, numbness, tingling or leg pains. Objective - Vital Signs/Intake and Output Vital Signs (last 24 hours): Temp Pulse Resp BP Pulse Ox 98.2 F 61 20 153/80 H 95 12/24/17 04:30 12/24/17 04:30 12/24/17 04:30 12/24/17 04:30 12/24/17 04:30 Intake and Output: 12/24/17 12/24/17 06:59 18:59 Intake Total 780 Output Total 1100 Balance -320 - Medications Medications: Current Medications Acetaminophen (Tylenol 325mg Tab) 650 mg PO Q6 PRN PRN Reason: pain Last Admin: 12/21/17 19:01 Dose: 650 mg Amlodipine Besylate (Norvasc) 5 mg PO DAILY [facility] Last Admin: 12/23/17 11:19 Dose: 5 mg Apixaban (Eliquis) 10 mg PO BID [facility] Stop: 12/30/17 10:01 Last Admin: 12/23/17 18:20 Dose: 10 mg Atovaquone (Mepron) 1,500 mg PO DAILY [facility] PRN Reason: Protocol Last Admin: 12/23/17 11:20 Dose: 1,500 mg Carvedilol (Coreg) 3.125 mg PO BID [facility] Last Admin: 12/23/17 18:21 Dose: 3.125 mg Dolutegravir Sodium (Tivicay) 50 mg PO DAILY [facility] PRN Reason: Protocol Last Admin: 12/23/17 11:19 Dose: 50 mg Emtricitabine/Tenofovir (Truvada 200 Mg-300 Mg) 1 tab PO QD7 [facility] PRN Reason: Protocol Last Admin: 12/23/17 11:19 Dose: 1 tab Famotidine (Pepcid) 10 mg PO DIN [facility] Last Admin: 12/23/17 11:18 Dose: 10 mg Ferrous Sulfate (Feosol) 325 mg PO DAILY [facility] Last Admin: 12/23/17 11:19 Dose: 325 mg Glipizide (Glucotrol) 5 mg PO BID [facility] Last Admin: 12/23/17 18:21 Dose: 5 mg Hydralazine HCl (Apresoline) 10 mg PO DAILY [facility] Last Admin: 12/23/17 11:20 Dose: 10 mg Ceftriaxone Sodium 1 gm/ (Sodium Chloride) 100 mls @ 100 mls/hr IVPB Q24H [facility] PRN Reason: Protocol Last Admin: 12/23/17 21:38 Dose: 100 mls/hr Vancomycin/Sodium Chloride (Vancomycin 1 Gm/Ns 200 Ml) 1 gm in 200 mls @ 133.333 mls/hr IVPB Q24H [facility] PRN Reason: Protocol Last Admin: 12/23/17 18:19 Dose: 133.333 mls/hr Insulin Aspart (Novolog) 0 unit SC ACHS [facility] PRN Reason: Protocol Last Admin: 12/23/17 22:16 Dose: Not Given Insulin Glargine (Lantus) 30 unit SC HS [facility] Last Admin: 12/23/17 22:29 Dose: 30 units Morphine Sulfate (Morphine) 2 mg IVP Q6H PRN PRN Reason: Pain, moderate (4-7) Last Admin: 12/24/17 05:36 Dose: 2 mg - Labs Labs: 12/24/17 06:38 12/24/17 06:38 PT 10.2 SECONDS (9.7-12.2) 12/21/17 13:39 INR 0.9 12/21/17 13:39 APTT 83 SECONDS (21-34) H 12/22/17 13:50 - Constitutional Appears: Non-toxic, No Acute Distress, Other (actively scrathing hands) - Head Exam Head Exam: ATRAUMATIC, NORMOCEPHALIC - Eye Exam Eye Exam: Normal appearance. absent: Scleral icterus - ENT Exam ENT Exam: Mucous Membranes Moist - Neck Exam Neck Exam: absent: Lymphadenopathy - Respiratory Exam Respiratory Exam: Clear to Ausculation Bilateral, NORMAL BREATHING PATTERN. absent: Accessory Muscle Use, Rales, Rhonchi, Wheezes, Respiratory Distress - Cardiovascular Exam Cardiovascular Exam: REGULAR RHYTHM, +S1, +S2 - GI/Abdominal Exam GI & Abdominal Exam: Soft. 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 absent: Rash, Urticaria, Vesicles Assessment and Plan - Assessment and Plan (Free Text) Plan: Lower Extremity DVT b/l LE duplex 12/22: * Acute thrombosis of the left peroneal and mid thigh greater saphenous veins with severe reduction of the venous return. * Acute thrombosis of the right common femoral vein with severe reduction of the venous return. Medications * Eliquis 10mg PO BID x 7 days then switch on November 29 to 5mg PO BID Left Axilla Abscess General Surgery consulted, Dr. Licea CXR 12/21: No active pulmonary disease. s/p I&D Wound culture pending continue to monitor PICC line placed Medications * Rocephin 1gm IVPB q12h (started 12/23) * Vanco 1gm IVPB q24h (started 12/23) * f/u Vanco trough on 12/25 * Morphine 2mg IVP q6h prn UTI/Hematuria/Proteinuria afebrile UA 12/23: protein 2+, glucose 3+, blood 2+, leuk sharron trace Urine Culture no growth Medications * Rocephin 1gm IVPB q12h (started 12/23) Pruritus No rash/irritation noted Medications * Benadryl 25mg PO q6h prn * Pepcid 20mg PO daily Abnormal EKG Cardiology consulted, Dr. Barillas * Per Cardio note, his EKG suggests anteolateral ischemi, but he is currently asymptomatic. recommend echocardiogram to assess for regional wall motion abnormalities. ECHO 12/23/17: EF ~65-70%, moderate concentric LVH, trace MR, ascending aorta is mildly dilated 4.2cm Diabetes Continue home medications * Glipizide 5mg PO BID * Lantus 30 units SC HS * ISS Hypertension Continue home medications * Amlodipine 5mg PO daily * Carvedilol 3.125mg PO BID * Hydralazine 10mg PO daily Hx of HIV Infectious Disease consulted, Dr. Valente CD4 count 124 (01/26/17) * updated CD4 pending Viral load pending Medications * Atovaquone 1,500mg PO Daily * Truvada 200mg-300mg 1 tab QD7 Prophylactic Care DVT - heparin drip, switched to Eliquis BID GI - Home medication Pepcid 20mg PO daily All medical management per Dr. Naye Khanna
[2017-12-24] MEDS: (Novolog) Insulin Aspart, Recombinant 100 u/ml 10 ml vial SC SCH ×4 (08:02→21:45)
[2017-12-24] MEDS ORDERED: Glucagon Recombinant 1 mg Inj IM PRN (09:43)
[2017-12-24] MEDS ORDERED: Dextrose 50% SYRINGE Inj (50 ml) IV PRN (09:43)
[2017-12-24] MEDS: Atovaquone 750 mg/5 ml Susp UD PO SCH (09:55)
--- NOTE | 2017-12-24 11:26 | CP.PCM.PN ---
Subjective - Date & Time of Evaluation Date of Evaluation: 12/24/17 Time of Evaluation: 10:00 - Subjective Subjective: patient has no chest pain. Objective - Vital Signs/Intake and Output Vital Signs (last 24 hours): Temp Pulse Resp BP Pulse Ox 97.7 F 60 20 150/81 96 12/24/17 07:45 12/24/17 07:45 12/24/17 07:45 12/24/17 07:45 12/24/17 07:45 Intake and Output: 12/24/17 12/24/17 06:59 18:59 Intake Total 780 Output Total 1100 Balance -320 - Medications Medications: Current Medications Acetaminophen (Tylenol 325mg Tab) 650 mg PO Q6 PRN PRN Reason: pain Last Admin: 12/21/17 19:01 Dose: 650 mg Amlodipine Besylate (Norvasc) 5 mg PO DAILY [facility] Last Admin: 12/24/17 09:54 Dose: 5 mg Apixaban (Eliquis) 10 mg PO BID [facility] Stop: 12/30/17 10:01 Last Admin: 12/24/17 09:54 Dose: 10 mg Atovaquone (Mepron) 1,500 mg PO DAILY [facility] PRN Reason: Protocol Last Admin: 12/24/17 09:55 Dose: 1,500 mg Carvedilol (Coreg) 3.125 mg PO BID [facility] Last Admin: 12/24/17 09:53 Dose: 3.125 mg Dextrose (Dextrose 50% Inj) 0 ml IV STAT PRN; Protocol PRN Reason: Hypoglycemia Protocol Dextrose (Glutose 15) 0 gm PO ONCE PRN; Protocol PRN Reason: Hypoglycemia Protocol Diphenhydramine HCl (Benadryl) 25 mg PO Q6 PRN PRN Reason: Itching / Pruritus Dolutegravir Sodium (Tivicay) 50 mg PO DAILY [facility] PRN Reason: Protocol Last Admin: 12/24/17 09:53 Dose: 50 mg Emtricitabine/Tenofovir (Truvada 200 Mg-300 Mg) 1 tab PO QD7 [facility] PRN Reason: Protocol Last Admin: 12/23/17 11:19 Dose: 1 tab Famotidine (Pepcid) 20 mg PO DIN [facility] Last Admin: 12/24/17 09:54 Dose: 20 mg Ferrous Sulfate (Feosol) 325 mg PO DAILY [facility] Last Admin: 12/24/17 09:54 Dose: 325 mg Glipizide (Glucotrol) 5 mg PO BID [facility] Last Admin: 12/24/17 09:54 Dose: 5 mg Glucagon (Glucagen Diagnostic Kit) 0 mg IM STAT PRN; Protocol PRN Reason: Hypoglycemia Protocol Hydralazine HCl (Apresoline) 10 mg PO DAILY [facility] Last Admin: 12/24/17 09:53 Dose: 10 mg Ceftriaxone Sodium 1 gm/ (Sodium Chloride) 100 mls @ 100 mls/hr IVPB Q24H [facility] PRN Reason: Protocol Last Admin: 12/23/17 21:38 Dose: 100 mls/hr Vancomycin/Sodium Chloride (Vancomycin 1 Gm/Ns 200 Ml) 1 gm in 200 mls @ 133.333 mls/hr IVPB Q24H [facility] PRN Reason: Protocol Stop: 12/29/17 18:01 Dextrose (Dextrose 5% In Water 1000 Ml) 1,000 mls @ 0 mls/hr IV .Q0M PRN; Protocol; Per Protocol PRN Reason: Hypoglycemia Protocol Insulin Aspart (Novolog) 0 unit SC ACHS [facility] PRN Reason: Protocol Last Admin: 12/24/17 08:02 Dose: Not Given Insulin Glargine (Lantus) 30 unit SC HS [facility] Last Admin: 12/23/17 22:29 Dose: 30 units Morphine Sulfate (Morphine) 2 mg IVP Q6H PRN PRN Reason: Pain, moderate (4-7) Last Admin: 12/24/17 05:36 Dose: 2 mg - Labs Labs: 12/24/17 06:38 12/24/17 06:38 PT 10.2 SECONDS (9.7-12.2) 12/21/17 13:39 INR 0.9 12/21/17 13:39 APTT 83 SECONDS (21-34) H 12/22/17 13:50 - Constitutional Appears: Non-toxic - Head Exam Head Exam: NORMAL INSPECTION - Eye Exam Eye Exam: Normal appearance - ENT Exam ENT Exam: Mucous Membranes Moist - Neck Exam Neck Exam: Full ROM - Respiratory Exam Respiratory Exam: Decreased Breath Sounds - Cardiovascular Exam Cardiovascular Exam: REGULAR RHYTHM - GI/Abdominal Exam GI & Abdominal Exam: Normal Bowel Sounds - Rectal Exam Rectal Exam: Deferred - Extremities Exam Extremities Exam: absent: Pedal Edema - Back Exam Back Exam: NORMAL INSPECTION - Neurological Exam Neurological Exam: Alert - Psychiatric Exam Psychiatric exam: Normal Affect - Skin Skin Exam: Normal Color Assessment and Plan (1) EKG abnormalities Assessment & Plan: The echocardiogram reveals normal left ventricular function and no regional wall motion abnormalities. conservative therapy Status: Acute (2) Diabetes Status: Chronic (3) HTN (hypertension) Status: Chronic
[2017-12-24] MEDS ORDERED: Sod Polystyrene Sulf 15 gm/60 ml Susp PO ONE (15:40)
--- NOTE | 2017-12-24 17:00 | CP.PCM.PN ---
Subjective - Date & Time of Evaluation Date of Evaluation: 12/24/17 Time of Evaluation: 10:00 - Subjective Subjective: clinically same Objective - Vital Signs/Intake and Output Vital Signs (last 24 hours): Temp Pulse Resp BP Pulse Ox 97.7 F 62 20 150/81 96 12/24/17 07:45 12/24/17 16:00 12/24/17 07:45 12/24/17 07:45 12/24/17 07:45 Intake and Output: 12/24/17 12/24/17 06:59 18:59 Intake Total 780 Output Total 1100 Balance -320 - Medications Medications: Current Medications Acetaminophen (Tylenol 325mg Tab) 650 mg PO Q6 PRN PRN Reason: pain Last Admin: 12/21/17 19:01 Dose: 650 mg Amlodipine Besylate (Norvasc) 5 mg PO DAILY [facility] Last Admin: 12/24/17 09:54 Dose: 5 mg Apixaban (Eliquis) 10 mg PO BID [facility] Stop: 12/30/17 10:01 Last Admin: 12/24/17 09:54 Dose: 10 mg Atovaquone (Mepron) 1,500 mg PO DAILY [facility] PRN Reason: Protocol Last Admin: 12/24/17 09:55 Dose: 1,500 mg Carvedilol (Coreg) 3.125 mg PO BID [facility] Last Admin: 12/24/17 09:53 Dose: 3.125 mg Dextrose (Dextrose 50% Inj) 0 ml IV STAT PRN; Protocol PRN Reason: Hypoglycemia Protocol Dextrose (Glutose 15) 0 gm PO ONCE PRN; Protocol PRN Reason: Hypoglycemia Protocol Diphenhydramine HCl (Benadryl) 25 mg PO Q6 PRN PRN Reason: Itching / Pruritus Dolutegravir Sodium (Tivicay) 50 mg PO DAILY [facility] PRN Reason: Protocol Last Admin: 12/24/17 09:53 Dose: 50 mg Emtricitabine/Tenofovir (Truvada 200 Mg-300 Mg) 1 tab PO QD7 [facility] PRN Reason: Protocol Last Admin: 12/23/17 11:19 Dose: 1 tab Famotidine (Pepcid) 20 mg PO DIN [facility] Last Admin: 12/24/17 09:54 Dose: 20 mg Ferrous Sulfate (Feosol) 325 mg PO DAILY [facility] Last Admin: 12/24/17 09:54 Dose: 325 mg Glipizide (Glucotrol) 5 mg PO BID [facility] Last Admin: 12/24/17 09:54 Dose: 5 mg Glucagon (Glucagen Diagnostic Kit) 0 mg IM STAT PRN; Protocol PRN Reason: Hypoglycemia Protocol Hydralazine HCl (Apresoline) 10 mg PO DAILY [facility] Last Admin: 12/24/17 09:53 Dose: 10 mg Ceftriaxone Sodium 1 gm/ (Sodium Chloride) 100 mls @ 100 mls/hr IVPB Q24H [facility] PRN Reason: Protocol Last Admin: 12/23/17 21:38 Dose: 100 mls/hr Vancomycin/Sodium Chloride (Vancomycin 1 Gm/Ns 200 Ml) 1 gm in 200 mls @ 133.333 mls/hr IVPB Q24H [facility] PRN Reason: Protocol Stop: 12/29/17 18:01 Dextrose (Dextrose 5% In Water 1000 Ml) 1,000 mls @ 0 mls/hr IV .Q0M PRN; Protocol; Per Protocol PRN Reason: Hypoglycemia Protocol Insulin Aspart (Novolog) 0 unit SC ACHS [facility] PRN Reason: Protocol Last Admin: 12/24/17 13:08 Dose: 3 units Insulin Glargine (Lantus) 30 unit SC HS [facility] Last Admin: 12/23/17 22:29 Dose: 30 units Morphine Sulfate (Morphine) 2 mg IVP Q6H PRN PRN Reason: Pain, moderate (4-7) Last Admin: 12/24/17 13:08 Dose: 2 mg - Labs Labs: 12/24/17 06:38 12/24/17 06:38 PT 10.2 SECONDS (9.7-12.2) 12/21/17 13:39 INR 0.9 12/21/17 13:39 APTT 41 SECONDS (21-34) H D 12/24/17 12:40 - Constitutional Appears: Well - Head Exam Head Exam: ATRAUMATIC, NORMAL INSPECTION, NORMOCEPHALIC - Eye Exam Eye Exam: EOMI, Normal appearance, PERRL Pupil Exam: NORMAL ACCOMODATION, PERRL - ENT Exam ENT Exam: Mucous Membranes Moist, Normal Exam - Neck Exam Neck Exam: Full ROM, Normal Inspection. absent: Lymphadenopathy - Respiratory Exam Respiratory Exam: Decreased Breath Sounds - Cardiovascular Exam Cardiovascular Exam: REGULAR RHYTHM, +S1, +S2 - GI/Abdominal Exam GI & Abdominal Exam: Soft, Diminished Bowel Sounds - Rectal Exam Rectal Exam: Deferred
--- NOTE | 2017-12-24 17:51 | CP.PCM.PN ---
Subjective - Date & Time of Evaluation Date of Evaluation: 12/24/17 Time of Evaluation: 07:00 - Subjective Subjective: vss afeb nad Objective - Vital Signs/Intake and Output Vital Signs (last 24 hours): Temp Pulse Resp BP Pulse Ox 97.8 F 62 20 185/91 H 95 12/24/17 15:00 12/24/17 16:00 12/24/17 15:00 12/24/17 15:00 12/24/17 15:00 Intake and Output: 12/24/17 12/24/17 06:59 18:59 Intake Total 780 Output Total 1100 Balance -320 - Medications Medications: Current Medications Acetaminophen (Tylenol 325mg Tab) 650 mg PO Q6 PRN PRN Reason: pain Last Admin: 12/21/17 19:01 Dose: 650 mg Amlodipine Besylate (Norvasc) 5 mg PO DAILY [facility] Last Admin: 12/24/17 09:54 Dose: 5 mg Apixaban (Eliquis) 10 mg PO BID [facility] Stop: 12/30/17 10:01 Last Admin: 12/24/17 09:54 Dose: 10 mg Atovaquone (Mepron) 1,500 mg PO DAILY [facility] PRN Reason: Protocol Last Admin: 12/24/17 09:55 Dose: 1,500 mg Carvedilol (Coreg) 3.125 mg PO BID [facility] Last Admin: 12/24/17 09:53 Dose: 3.125 mg Dextrose (Dextrose 50% Inj) 0 ml IV STAT PRN; Protocol PRN Reason: Hypoglycemia Protocol Dextrose (Glutose 15) 0 gm PO ONCE PRN; Protocol PRN Reason: Hypoglycemia Protocol Diphenhydramine HCl (Benadryl) 25 mg PO Q6 PRN PRN Reason: Itching / Pruritus Dolutegravir Sodium (Tivicay) 50 mg PO DAILY [facility] PRN Reason: Protocol Last Admin: 12/24/17 09:53 Dose: 50 mg Emtricitabine/Tenofovir (Truvada 200 Mg-300 Mg) 1 tab PO QD7 [facility] PRN Reason: Protocol Last Admin: 12/23/17 11:19 Dose: 1 tab Famotidine (Pepcid) 20 mg PO DIN [facility] Last Admin: 12/24/17 09:54 Dose: 20 mg Ferrous Sulfate (Feosol) 325 mg PO DAILY [facility] Last Admin: 12/24/17 09:54 Dose: 325 mg Glipizide (Glucotrol) 5 mg PO BID [facility] Last Admin: 12/24/17 09:54 Dose: 5 mg Glucagon (Glucagen Diagnostic Kit) 0 mg IM STAT PRN; Protocol PRN Reason: Hypoglycemia Protocol Hydralazine HCl (Apresoline) 10 mg PO DAILY [facility] Last Admin: 12/24/17 09:53 Dose: 10 mg Ceftriaxone Sodium 1 gm/ (Sodium Chloride) 100 mls @ 100 mls/hr IVPB Q24H [facility] PRN Reason: Protocol Last Admin: 12/23/17 21:38 Dose: 100 mls/hr Vancomycin/Sodium Chloride (Vancomycin 1 Gm/Ns 200 Ml) 1 gm in 200 mls @ 133.333 mls/hr IVPB Q24H [facility] PRN Reason: Protocol Stop: 12/29/17 18:01 Dextrose (Dextrose 5% In Water 1000 Ml) 1,000 mls @ 0 mls/hr IV .Q0M PRN; Protocol; Per Protocol PRN Reason: Hypoglycemia Protocol Insulin Aspart (Novolog) 0 unit SC ACHS [facility] PRN Reason: Protocol Last Admin: 12/24/17 13:08 Dose: 3 units Insulin Glargine (Lantus) 30 unit SC HS [facility] Last Admin: 12/23/17 22:29 Dose: 30 units Morphine Sulfate (Morphine) 2 mg IVP Q6H PRN PRN Reason: Pain, moderate (4-7) Last Admin: 12/24/17 13:08 Dose: 2 mg - Labs Labs: 12/24/17 06:38 12/24/17 06:38 PT 10.2 SECONDS (9.7-12.2) 12/21/17 13:39 INR 0.9 12/21/17 13:39 APTT 41 SECONDS (21-34) H D 12/24/17 12:40 - Constitutional Appears: Non-toxic, Chronically Ill - Head Exam Head Exam: NORMOCEPHALIC - Eye Exam Eye Exam: PERRL - ENT Exam ENT Exam: Mucous Membranes Dry - Neck Exam Neck Exam: absent: Lymphadenopathy - Respiratory Exam Respiratory Exam: Decreased Breath Sounds - Cardiovascular Exam Cardiovascular Exam: REGULAR RHYTHM - GI/Abdominal Exam GI & Abdominal Exam: Distended, Soft - Rectal Exam Rectal Exam: Deferred - Exam Exam: absent: NORMAL INSPECTION - Extremities Exam Extremities Exam: absent: Pedal Edema - Back Exam Back Exam: absent: CVA tenderness (L), CVA tenderness (R) - Neurological Exam Neurological Exam: Alert, Awake, Oriented x3 - Psychiatric Exam Psychiatric exam: Normal Mood - Skin Skin Exam: Dry Assessment and Plan - Assessment and Plan (Free Text) Assessment: await cultures cont wound care/ iv antibiotics
[2017-12-24] MEDS: Vancomycin 1 gm/NS 200 ml 1 GM/200 ML BAG IVPB SCH (18:03)
[2017-12-24] MEDS: (Lantus) Insulin Glargine, Recombinant SC SCH (21:44)
[2017-12-25 06:26] LABS: BASO % 0.9 % (0.0-2.0); EOS # 0.1 K/uL (0.0-0.7); HEMOGLOBIN 11.6 g/dL (12.0-18.0); LYMPH # 0.8 K/uL (1.0-4.3); LYMPH % 19.8 % (20.0-40.0); MEAN CELL VOLUME 80.5 fL (80.0-94.0); MEAN CORPUSCULAR HEMOGLOBIN 25.6 pg (27.0-31.0); MEAN CORPUSCULAR HGB CONC 31.8 g/dL (33.0-37.0); MEAN PLATELET VOLUME 9.8 fL (7.2-11.7); MONO # 0.5 K/uL (0.0-0.8); MONO % 11.2 % (0.0-10.0); NEUT # 2.8 K/uL (1.8-7.0); NEUT % 66.1 % (50.0-75.0); NRBC % 0.1 % (0.0-2.0); RBC 4.54 Mil/uL (4.40-5.90); RED CELL DISTRIBUTION WIDTH 14.9 % (11.5-14.5); WHITE BLOOD COUNT 4.2 K/uL (4.8-10.8)
[2017-12-25 06:48] LABS: ALB/GLOB RATIO 1.2 (1.0-2.1); ALBUMIN 3.8 g/dL (3.5-5.0); CALCIUM 8.9 mg/dl (8.6-10.4)
[2017-12-25] MEDS: (Novolog) Insulin Aspart, Recombinant 100 u/ml 10 ml vial SC SCH ×4 (08:33→21:54)
[2017-12-25] MEDS: Emtricitabine-Tenofovir 200 mg-300 mg Tab PO SCH (11:12)
[2017-12-25] MEDS: Atovaquone 750 mg/5 ml Susp UD PO SCH (11:12)
--- NOTE | 2017-12-25 13:43 | CP.PCM.PN ---
Subjective - Date & Time of Evaluation Date of Evaluation: 12/25/17 Time of Evaluation: 13:42 - Subjective Subjective: Progress Note for Dr. Chago Khanna's Service. Patient seen and examined at bedside. Per nursing no acute events occurred overnight. Patient still reports some discomfort at the incision and drainage site, however reports its improving. Patient denies any fevers, chills, nausea , vomiting, changes in vision, palpitations, headaches, dizziness, or any other complaints. Objective - Vital Signs/Intake and Output Vital Signs (last 24 hours): Temp Pulse Resp BP Pulse Ox 97.8 F 60 20 177/87 H 96 12/25/17 07:25 12/25/17 11:40 12/25/17 07:25 12/25/17 07:25 12/25/17 07:25 Intake and Output: 12/25/17 12/25/17 06:59 18:59 Intake Total 780 300 Output Total 1500 1000 Balance -720 -700 - Medications Medications: Current Medications Acetaminophen (Tylenol 325mg Tab) 650 mg PO Q6 PRN PRN Reason: pain Last Admin: 12/21/17 19:01 Dose: 650 mg Amlodipine Besylate (Norvasc) 5 mg PO DAILY [facility] Last Admin: 12/25/17 11:12 Dose: 5 mg Apixaban (Eliquis) 10 mg PO BID [facility] Stop: 12/30/17 10:01 Last Admin: 12/25/17 11:11 Dose: 10 mg Atovaquone (Mepron) 1,500 mg PO DAILY [facility] PRN Reason: Protocol Last Admin: 12/25/17 11:12 Dose: 1,500 mg Carvedilol (Coreg) 3.125 mg PO BID [facility] Last Admin: 12/25/17 11:11 Dose: 3.125 mg Dextrose (Dextrose 50% Inj) 0 ml IV STAT PRN; Protocol PRN Reason: Hypoglycemia Protocol Dextrose (Glutose 15) 0 gm PO ONCE PRN; Protocol PRN Reason: Hypoglycemia Protocol Diphenhydramine HCl (Benadryl) 25 mg PO Q6 PRN PRN Reason: Itching / Pruritus Last Admin: 12/25/17 11:11 Dose: 25 mg Dolutegravir Sodium (Tivicay) 50 mg PO DAILY [facility] PRN Reason: Protocol Last Admin: 12/25/17 11:12 Dose: 50 mg Emtricitabine/Tenofovir (Truvada 200 Mg-300 Mg) 1 tab PO QD7 [facility] PRN Reason: Protocol Last Admin: 12/25/17 11:12 Dose: 1 tab Famotidine (Pepcid) 20 mg PO DIN [facility] Last Admin: 12/25/17 11:11 Dose: 20 mg Ferrous Sulfate (Feosol) 325 mg PO DAILY [facility] Last Admin: 12/25/17 11:11 Dose: 325 mg Glipizide (Glucotrol) 5 mg PO BID [facility] Last Admin: 12/25/17 11:11 Dose: 5 mg Glucagon (Glucagen Diagnostic Kit) 0 mg IM STAT PRN; Protocol PRN Reason: Hypoglycemia Protocol Hydralazine HCl (Apresoline) 10 mg PO DAILY [facility] Last Admin: 12/25/17 11:12 Dose: 10 mg Ceftriaxone Sodium 1 gm/ (Sodium Chloride) 100 mls @ 100 mls/hr IVPB Q24H [facility] PRN Reason: Protocol Last Admin: 12/24/17 21:44 Dose: 100 mls/hr Vancomycin/Sodium Chloride (Vancomycin 1 Gm/Ns 200 Ml) 1 gm in 200 mls @ 133.333 mls/hr IVPB Q24H [facility] PRN Reason: Protocol Stop: 12/29/17 18:01 Last Admin: 12/24/17 18:03 Dose: 133.333 mls/hr Dextrose (Dextrose 5% In Water 1000 Ml) 1,000 mls @ 0 mls/hr IV .Q0M PRN; Protocol; Per Protocol PRN Reason: Hypoglycemia Protocol Insulin Aspart (Novolog) 0 unit SC ACHS [facility] PRN Reason: Protocol Last Admin: 12/25/17 12:40 Dose: Not Given Insulin Glargine (Lantus) 30 unit SC HS [facility] Last Admin: 12/24/17 21:44 Dose: 30 units Morphine Sulfate (Morphine) 2 mg IVP Q6H PRN PRN Reason: Pain, moderate (4-7) Last Admin: 12/25/17 13:13 Dose: 2 mg - Labs Labs: 12/25/17 06:18 12/25/17 06:18 PT 10.2 SECONDS (9.7-12.2) 12/21/17 13:39 INR 0.9 12/21/17 13:39 APTT 41 SECONDS (21-34) H D 12/24/17 12:40 - Head Exam Head Exam: ATRAUMATIC, NORMAL INSPECTION, NORMOCEPHALIC - Eye Exam Eye Exam: EOMI, Normal appearance, PERRL Pupil Exam: NORMAL ACCOMODATION, PERRL - ENT Exam ENT Exam: Mucous Membranes Moist, Normal Oropharynx - Respiratory Exam Respiratory Exam: Clear to Ausculation Bilateral, NORMAL BREATHING PATTERN. absent: Chest Wall Tenderness, Prolonged Expiratory Phase - Cardiovascular Exam Cardiovascular Exam: REGULAR RHYTHM, +S1, +S2 - GI/Abdominal Exam GI & Abdominal Exam: Soft, Normal Bowel Sounds - Extremities Exam Extremities Exam: Full ROM, Normal Inspection - Back Exam Back Exam: NORMAL INSPECTION. 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 * Acute thrombosis of the right common femoral vein with severe reduction of the venous return. Medications * Eliquis 10mg PO BID x 7 days then switch on November 29 to 5mg PO BID Left Axilla Abscess General Surgery consulted, Dr. Licea CXR 12/21: No active pulmonary disease. s/p I&D Wound culture (12/24/17): Light growth Gram positive cocci: Final result continue to monitor PICC in place. Medications * Rocephin 1gm IVPB q12h (started 12/23) * Vanco 1gm IVPB q24h (started 12/23) * Vanco trough(12/25/17) : 12.4. Goal is 15-20. * Morphine 2mg IVP q6h prn UTI/Hematuria/Proteinuria afebrile UA 12/23: protein 2+, glucose 3+, blood 2+, leuk sharron trace Urine Culture no growth Medications * Rocephin 1gm IVPB q12h (started 7/25) Pruritus No rash/irritation noted Medications * Benadryl 25mg PO q6h prn * Pepcid 20mg PO daily Abnormal EKG Cardiology consulted, Dr. Barillas * Per Cardio note, his EKG suggests anteolateral ischemi, but he is currently asymptomatic. recommend echocardiogram to assess for regional wall motion abnormalities. ECHO 12/23/17: EF ~65-70%, moderate concentric LVH, trace MR, ascending aorta is mildly dilated 4.2cm Diabetes Continue home medications * Glipizide 5mg PO BID * Lantus 30 units SC HS * ISS Hypertension Continue home medications * Amlodipine 5mg PO daily * Carvedilol 3.125mg PO BID * Hydralazine 10mg PO daily Hx of HIV Infectious Disease consulted, Dr. Valente CD4 count 124 (01/26/17) * updated CD4 pending Viral load still not resulted. Medications * Atovaquone 1,500mg PO Daily * Truvada 200mg-300mg 1 tab QD7 Prophylactic Care DVT - Eliquis BID GI - Home medication Pepcid 20mg PO daily All medical management per Dr. Naye Khanna Dispo: Continue IV antibiotics. Will f/u with HIV viral load and Infectious disease. Kolton Dotson, PGY-2
--- NOTE | 2017-12-25 16:46 | CP.PCM.PN ---
Subjective - Date & Time of Evaluation Date of Evaluation: 12/25/17 Time of Evaluation: 09:00 - Subjective Subjective: wound shows gram + cocci may be switched to clind if sensitivity favorable vanco level ok . creat stable wound care in progress Objective - Vital Signs/Intake and Output Vital Signs (last 24 hours): Temp Pulse Resp BP Pulse Ox 97.8 F 63 20 182/91 H 97 12/25/17 15:00 12/25/17 16:00 12/25/17 15:00 12/25/17 15:00 12/25/17 15:00 Intake and Output: 12/25/17 12/25/17 06:59 18:59 Intake Total 780 300 Output Total 1500 1000 Balance -720 -700 - Medications Medications: Current Medications Acetaminophen (Tylenol 325mg Tab) 650 mg PO Q6 PRN PRN Reason: pain Last Admin: 12/21/17 19:01 Dose: 650 mg Amlodipine Besylate (Norvasc) 5 mg PO DAILY [facility] Last Admin: 12/25/17 11:12 Dose: 5 mg Apixaban (Eliquis) 10 mg PO BID [facility] Stop: 12/30/17 10:01 Last Admin: 12/25/17 11:11 Dose: 10 mg Atovaquone (Mepron) 1,500 mg PO DAILY [facility] PRN Reason: Protocol Last Admin: 12/25/17 11:12 Dose: 1,500 mg Carvedilol (Coreg) 3.125 mg PO BID [facility] Last Admin: 12/25/17 11:11 Dose: 3.125 mg Dextrose (Dextrose 50% Inj) 0 ml IV STAT PRN; Protocol PRN Reason: Hypoglycemia Protocol Dextrose (Glutose 15) 0 gm PO ONCE PRN; Protocol PRN Reason: Hypoglycemia Protocol Diphenhydramine HCl (Benadryl) 25 mg PO Q6 PRN PRN Reason: Itching / Pruritus Last Admin: 12/25/17 11:11 Dose: 25 mg Dolutegravir Sodium (Tivicay) 50 mg PO DAILY [facility] PRN Reason: Protocol Last Admin: 12/25/17 11:12 Dose: 50 mg Emtricitabine/Tenofovir (Truvada 200 Mg-300 Mg) 1 tab PO QD7 [facility] PRN Reason: Protocol Last Admin: 12/25/17 11:12 Dose: 1 tab Famotidine (Pepcid) 20 mg PO DIN [facility] Last Admin: 12/25/17 11:11 Dose: 20 mg Ferrous Sulfate (Feosol) 325 mg PO DAILY [facility] Last Admin: 12/25/17 11:11 Dose: 325 mg Glipizide (Glucotrol) 5 mg PO BID [facility] Last Admin: 12/25/17 11:11 Dose: 5 mg Glucagon (Glucagen Diagnostic Kit) 0 mg IM STAT PRN; Protocol PRN Reason: Hypoglycemia Protocol Hydralazine HCl (Apresoline) 10 mg PO DAILY [facility] Last Admin: 12/25/17 11:12 Dose: 10 mg Ceftriaxone Sodium 1 gm/ (Sodium Chloride) 100 mls @ 100 mls/hr IVPB Q24H [facility] PRN Reason: Protocol Last Admin: 12/24/17 21:44 Dose: 100 mls/hr Vancomycin/Sodium Chloride (Vancomycin 1 Gm/Ns 200 Ml) 1 gm in 200 mls @ 133.333 mls/hr IVPB Q24H [facility] PRN Reason: Protocol Stop: 12/29/17 18:01 Last Admin: 12/24/17 18:03 Dose: 133.333 mls/hr Dextrose (Dextrose 5% In Water 1000 Ml) 1,000 mls @ 0 mls/hr IV .Q0M PRN; Protocol; Per Protocol PRN Reason: Hypoglycemia Protocol Insulin Aspart (Novolog) 0 unit SC ACHS [facility] PRN Reason: Protocol Last Admin: 12/25/17 12:40 Dose: Not Given Insulin Glargine (Lantus) 30 unit SC HS [facility] Last Admin: 12/24/17 21:44 Dose: 30 units Morphine Sulfate (Morphine) 2 mg IVP Q6H PRN PRN Reason: Pain, moderate (4-7) Last Admin: 12/25/17 13:13 Dose: 2 mg - Labs Labs: 12/25/17 06:18 12/25/17 06:18 PT 10.2 SECONDS (9.7-12.2) 12/21/17 13:39 INR 0.9 12/21/17 13:39 APTT 41 SECONDS (21-34) H D 12/24/17 12:40 - Constitutional Appears: Non-toxic, Chronically Ill - Head Exam Head Exam: NORMOCEPHALIC - Eye Exam Eye Exam: PERRL - ENT Exam ENT Exam: Normal External Ear Exam - Neck Exam Neck Exam: absent: Lymphadenopathy - Respiratory Exam Respiratory Exam: Decreased Breath Sounds - Cardiovascular Exam Cardiovascular Exam: REGULAR RHYTHM - GI/Abdominal Exam GI & Abdominal Exam: Distended, Soft Assessment and Plan - Assessment and Plan (Free Text) Assessment: cont wound care / iv rx will d/c vanco if culture shows organism sens to clinda
[2017-12-25 17:32] LABS: % CD4 (T HELPER CELL) 23 Percent (30-61); % CD8 (SUPPRESSOR T CELL) 54 Percent (12-42); ABSOLUTE CD3 CELLS 656 Cells/mcL (840-3060); ABSOLUTE CD4 CELLS 193 Cells/mcL (490-1740); ABSOLUTE CD8 CELLS 457 Cells/mcL (180-1170); ABSOLUTE LYMPHOCYTES 854 Cells/mcL (850-3900); HELPER/SUPPRESSOR RATIO 0.42 Ratio (0.86-5.00)
[2017-12-25] MEDS: Vancomycin 1 gm/NS 200 ml 1 GM/200 ML BAG IVPB SCH (17:38)
--- NOTE | 2017-12-25 19:05 | CP.PCM.PN ---
Subjective - Date & Time of Evaluation Date of Evaluation: 12/25/17 Time of Evaluation: 09:40 - Subjective Subjective: clinically same Objective - Vital Signs/Intake and Output Vital Signs (last 24 hours): Temp Pulse Resp BP Pulse Ox 97.8 F 72 20 166/87 H 97 12/25/17 15:00 12/25/17 17:42 12/25/17 15:00 12/25/17 17:42 12/25/17 15:00 Intake and Output: 12/25/17 12/26/17 18:59 06:59 Intake Total 300 Output Total 1000 Balance -700 - Medications Medications: Current Medications Acetaminophen (Tylenol 325mg Tab) 650 mg PO Q6 PRN PRN Reason: pain Last Admin: 12/21/17 19:01 Dose: 650 mg Amlodipine Besylate (Norvasc) 5 mg PO DAILY [facility] Last Admin: 12/25/17 11:12 Dose: 5 mg Apixaban (Eliquis) 10 mg PO BID [facility] Stop: 12/30/17 10:01 Last Admin: 12/25/17 17:37 Dose: 10 mg Atovaquone (Mepron) 1,500 mg PO DAILY [facility] PRN Reason: Protocol Last Admin: 12/25/17 11:12 Dose: 1,500 mg Carvedilol (Coreg) 3.125 mg PO BID [facility] Last Admin: 12/25/17 17:38 Dose: 3.125 mg Dextrose (Dextrose 50% Inj) 0 ml IV STAT PRN; Protocol PRN Reason: Hypoglycemia Protocol Dextrose (Glutose 15) 0 gm PO ONCE PRN; Protocol PRN Reason: Hypoglycemia Protocol Diphenhydramine HCl (Benadryl) 25 mg PO Q6 PRN PRN Reason: Itching / Pruritus Last Admin: 12/25/17 11:11 Dose: 25 mg Dolutegravir Sodium (Tivicay) 50 mg PO DAILY [facility] PRN Reason: Protocol Last Admin: 12/25/17 11:12 Dose: 50 mg Emtricitabine/Tenofovir (Truvada 200 Mg-300 Mg) 1 tab PO QD7 [facility] PRN Reason: Protocol Last Admin: 12/25/17 11:12 Dose: 1 tab Famotidine (Pepcid) 20 mg PO DIN [facility] Last Admin: 12/25/17 11:11 Dose: 20 mg Ferrous Sulfate (Feosol) 325 mg PO DAILY [facility] Last Admin: 12/25/17 11:11 Dose: 325 mg Glipizide (Glucotrol) 5 mg PO BID [facility] Last Admin: 12/25/17 17:38 Dose: 5 mg Glucagon (Glucagen Diagnostic Kit) 0 mg IM STAT PRN; Protocol PRN Reason: Hypoglycemia Protocol Hydralazine HCl (Apresoline) 10 mg PO DAILY [facility] Last Admin: 12/25/17 11:12 Dose: 10 mg Ceftriaxone Sodium 1 gm/ (Sodium Chloride) 100 mls @ 100 mls/hr IVPB Q24H [facility] PRN Reason: Protocol Last Admin: 12/24/17 21:44 Dose: 100 mls/hr Vancomycin/Sodium Chloride (Vancomycin 1 Gm/Ns 200 Ml) 1 gm in 200 mls @ 133.333 mls/hr IVPB Q24H [facility] PRN Reason: Protocol Stop: 12/29/17 18:01 Last Admin: 12/25/17 17:38 Dose: 133.333 mls/hr Dextrose (Dextrose 5% In Water 1000 Ml) 1,000 mls @ 0 mls/hr IV .Q0M PRN; Protocol; Per Protocol PRN Reason: Hypoglycemia Protocol Insulin Aspart (Novolog) 0 unit SC ACHS [facility] PRN Reason: Protocol Last Admin: 12/25/17 17:37 Dose: 2 units Insulin Glargine (Lantus) 30 unit SC HS [facility] Last Admin: 12/24/17 21:44 Dose: 30 units Morphine Sulfate (Morphine) 2 mg IVP Q6H PRN PRN Reason: Pain, moderate (4-7) Last Admin: 12/25/17 13:13 Dose: 2 mg - Labs Labs: 12/25/17 06:18 12/25/17 06:18 PT 10.2 SECONDS (9.7-12.2) 12/21/17 13:39 INR 0.9 12/21/17 13:39 APTT 41 SECONDS (21-34) H D 12/24/17 12:40 - Constitutional Appears: Well - Head Exam Head Exam: ATRAUMATIC, NORMAL INSPECTION, NORMOCEPHALIC - Eye Exam Eye Exam: EOMI, Normal appearance, PERRL Pupil Exam: NORMAL ACCOMODATION, PERRL - ENT Exam ENT Exam: Mucous Membranes Moist, Normal Exam - Neck Exam Neck Exam: Full ROM, Normal Inspection. absent: Lymphadenopathy - Cardiovascular Exam Cardiovascular Exam: REGULAR RHYTHM, +S1, +S2 - GI/Abdominal Exam GI & Abdominal Exam: Soft, Diminished Bowel Sounds - Rectal Exam Rectal Exam: Deferred
[2017-12-25] MEDS: (Lantus) Insulin Glargine, Recombinant SC SCH (21:54)
[2017-12-26] MEDS: (Novolog) Insulin Aspart, Recombinant 100 u/ml 10 ml vial SC SCH ×4 (09:11→23:03)
[2017-12-26] MEDS: Atovaquone 750 mg/5 ml Susp UD PO SCH (09:11)
[2017-12-26] MEDS: Emtricitabine-Tenofovir 200 mg-300 mg Tab PO SCH (09:12)
[2017-12-26] MEDS: Vancomycin 1 gm/NS 200 ml 1 GM/200 ML BAG IVPB SCH (17:20)
--- NOTE | 2017-12-26 18:16 | CP.PCM.PN ---
Subjective - Date & Time of Evaluation Date of Evaluation: 12/26/17 Time of Evaluation: 10:20 - Subjective Subjective: clinically same Objective - Vital Signs/Intake and Output Vital Signs (last 24 hours): Temp Pulse Resp BP Pulse Ox 98.0 F 63 20 167/84 H 97 12/26/17 15:04 12/26/17 15:04 12/26/17 15:04 12/26/17 15:04 12/26/17 15:04 Intake and Output: 12/26/17 12/26/17 06:59 18:59 Intake Total 880 300 Output Total 2325 900 Balance -3405 -600 - Medications Medications: Current Medications Acetaminophen (Tylenol 325mg Tab) 650 mg PO Q6 PRN PRN Reason: pain Last Admin: 12/21/17 19:01 Dose: 650 mg Amlodipine Besylate (Norvasc) 10 mg PO DAILY [facility] Apixaban (Eliquis) 10 mg PO BID [facility] Stop: 12/30/17 10:01 Last Admin: 12/26/17 17:21 Dose: 10 mg Atovaquone (Mepron) 1,500 mg PO DAILY [facility] PRN Reason: Protocol Last Admin: 12/26/17 09:11 Dose: 1,500 mg Carvedilol (Coreg) 6.25 mg PO BID [facility] Last Admin: 12/26/17 17:21 Dose: 6.25 mg Dextrose (Dextrose 50% Inj) 0 ml IV STAT PRN; Protocol PRN Reason: Hypoglycemia Protocol Dextrose (Glutose 15) 0 gm PO ONCE PRN; Protocol PRN Reason: Hypoglycemia Protocol Diphenhydramine HCl (Benadryl) 25 mg PO Q6 PRN PRN Reason: Itching / Pruritus Last Admin: 12/26/17 17:23 Dose: 25 mg Dolutegravir Sodium (Tivicay) 50 mg PO DAILY [facility] PRN Reason: Protocol Last Admin: 12/26/17 09:11 Dose: 50 mg Emtricitabine/Tenofovir (Truvada 200 Mg-300 Mg) 1 tab PO QD7 [facility] PRN Reason: Protocol Last Admin: 12/26/17 09:12 Dose: 1 tab Famotidine (Pepcid) 20 mg PO DIN [facility] Last Admin: 12/26/17 09:12 Dose: 20 mg Ferrous Sulfate (Feosol) 325 mg PO DAILY [facility] Last Admin: 12/26/17 09:11 Dose: 325 mg Glipizide (Glucotrol) 5 mg PO BID [facility] Last Admin: 12/26/17 17:22 Dose: 5 mg Glucagon (Glucagen Diagnostic Kit) 0 mg IM STAT PRN; Protocol PRN Reason: Hypoglycemia Protocol Hydralazine HCl (Apresoline) 10 mg PO DAILY [facility] Last Admin: 12/26/17 09:12 Dose: 10 mg Ceftriaxone Sodium 1 gm/ (Sodium Chloride) 100 mls @ 100 mls/hr IVPB Q24H [facility] PRN Reason: Protocol Last Admin: 12/25/17 19:13 Dose: 100 mls/hr Vancomycin/Sodium Chloride (Vancomycin 1 Gm/Ns 200 Ml) 1 gm in 200 mls @ 133.333 mls/hr IVPB Q24H [facility] PRN Reason: Protocol Stop: 12/29/17 18:01 Last Admin: 12/26/17 17:20 Dose: 133.333 mls/hr Dextrose (Dextrose 5% In Water 1000 Ml) 1,000 mls @ 0 mls/hr IV .Q0M PRN; Protocol; Per Protocol PRN Reason: Hypoglycemia Protocol Insulin Aspart (Novolog) 0 unit SC ACHS [facility] PRN Reason: Protocol Last Admin: 12/26/17 17:21 Dose: 4 units Insulin Glargine (Lantus) 30 unit SC HS [facility] Last Admin: 12/25/17 21:54 Dose: 30 units Morphine Sulfate (Morphine) 2 mg IVP Q6H PRN PRN Reason: Pain, moderate (4-7) Last Admin: 12/26/17 13:17 Dose: 2 mg - Labs Labs: 12/25/17 06:18 12/25/17 06:18 PT 10.2 SECONDS (9.7-12.2) 12/21/17 13:39 INR 0.9 12/21/17 13:39 APTT 41 SECONDS (21-34) H D 12/24/17 12:40 - Constitutional Appears: Well - Head Exam Head Exam: ATRAUMATIC, NORMAL INSPECTION, NORMOCEPHALIC - Eye Exam Eye Exam: EOMI, Normal appearance, PERRL Pupil Exam: NORMAL ACCOMODATION, PERRL - ENT Exam ENT Exam: Mucous Membranes Moist, Normal Exam - Neck Exam Neck Exam: Full ROM, Normal Inspection. absent: Lymphadenopathy - Respiratory Exam Respiratory Exam: Decreased Breath Sounds - Cardiovascular Exam Cardiovascular Exam: REGULAR RHYTHM, +S1, +S2 - GI/Abdominal Exam GI & Abdominal Exam: Soft, Diminished Bowel Sounds - Rectal Exam Rectal Exam: Deferred
[2017-12-26] MEDS: (Lantus) Insulin Glargine, Recombinant SC SCH (21:31)
[2017-12-27] MEDS: (Novolog) Insulin Aspart, Recombinant 100 u/ml 10 ml vial SC SCH ×4 (07:35→21:11)
[2017-12-27] MEDS: Atovaquone 750 mg/5 ml Susp UD PO SCH (09:03)
--- NOTE | 2017-12-27 14:48 | CP.PCM.PN ---
Subjective - Date & Time of Evaluation Date of Evaluation: 12/27/17 Time of Evaluation: 11:20 - Subjective Subjective: clinically same Objective - Vital Signs/Intake and Output Vital Signs (last 24 hours): Temp Pulse Resp BP Pulse Ox 98.0 F 68 18 197/96 H 97 12/27/17 08:10 12/27/17 08:10 12/27/17 08:10 12/27/17 08:10 12/27/17 08:10 Intake and Output: 12/27/17 12/27/17 06:59 18:59 Output Total 600 Balance -600 - Medications Medications: Current Medications Acetaminophen (Tylenol 325mg Tab) 650 mg PO Q6 PRN PRN Reason: pain Last Admin: 12/21/17 19:01 Dose: 650 mg Amlodipine Besylate (Norvasc) 10 mg PO DAILY [facility] Last Admin: 12/27/17 09:03 Dose: 10 mg Apixaban (Eliquis) 10 mg PO BID [facility] Stop: 12/30/17 10:01 Last Admin: 12/27/17 09:03 Dose: 10 mg Carvedilol (Coreg) 6.25 mg PO BID [facility] Last Admin: 12/27/17 09:02 Dose: 6.25 mg Dextrose (Dextrose 50% Inj) 0 ml IV STAT PRN; Protocol PRN Reason: Hypoglycemia Protocol Dextrose (Glutose 15) 0 gm PO ONCE PRN; Protocol PRN Reason: Hypoglycemia Protocol Diphenhydramine HCl (Benadryl) 25 mg PO Q6 PRN PRN Reason: Itching / Pruritus Last Admin: 12/27/17 13:30 Dose: 25 mg Famotidine (Pepcid) 20 mg PO DIN [facility] Last Admin: 12/26/17 09:12 Dose: 20 mg Ferrous Sulfate (Feosol) 325 mg PO DAILY [facility] Last Admin: 12/27/17 09:02 Dose: 325 mg Glipizide (Glucotrol) 5 mg PO BID [facility] Last Admin: 12/27/17 09:24 Dose: 5 mg Glucagon (Glucagen Diagnostic Kit) 0 mg IM STAT PRN; Protocol PRN Reason: Hypoglycemia Protocol Hydralazine HCl (Apresoline) 10 mg PO DAILY [facility] Last Admin: 12/27/17 09:04 Dose: 10 mg Vancomycin/Sodium Chloride (Vancomycin 1 Gm/Ns 200 Ml) 1 gm in 200 mls @ 133.333 mls/hr IVPB Q24H [facility] PRN Reason: Protocol Stop: 12/29/17 18:01 Last Admin: 12/26/17 17:20 Dose: 133.333 mls/hr Insulin Aspart (Novolog) 0 unit SC ACHS [facility] PRN Reason: Protocol Last Admin: 12/27/17 12:57 Dose: 4 units Insulin Glargine (Lantus) 30 unit SC HS [facility] Last Admin: 12/26/17 21:31 Dose: 30 units Morphine Sulfate (Morphine) 2 mg IVP Q6H PRN PRN Reason: Pain, moderate (4-7) Last Admin: 12/27/17 13:31 Dose: 2 mg - Labs Labs: 12/25/17 06:18 12/25/17 06:18 PT 10.2 SECONDS (9.7-12.2) 12/21/17 13:39 INR 0.9 12/21/17 13:39 APTT 41 SECONDS (21-34) H D 12/24/17 12:40 - Constitutional Appears: Well - Head Exam Head Exam: ATRAUMATIC, NORMAL INSPECTION, NORMOCEPHALIC - Eye Exam Eye Exam: EOMI, Normal appearance, PERRL Pupil Exam: NORMAL ACCOMODATION, PERRL - ENT Exam ENT Exam: Mucous Membranes Moist, Normal Exam - Neck Exam Neck Exam: Full ROM, Normal Inspection. absent: Lymphadenopathy - Respiratory Exam Respiratory Exam: Decreased Breath Sounds - Cardiovascular Exam Cardiovascular Exam: REGULAR RHYTHM, +S1, +S2 - GI/Abdominal Exam GI & Abdominal Exam: Soft, Diminished Bowel Sounds - Rectal Exam Rectal Exam: Deferred
--- NOTE | 2017-12-27 15:35 | CP.PCM.PN ---
Subjective - Date & Time of Evaluation Date of Evaluation: 12/27/17 Time of Evaluation: 08:00 - Subjective Subjective: wound + MSSA will adjust IV rx Objective - Vital Signs/Intake and Output Vital Signs (last 24 hours): Temp Pulse Resp BP Pulse Ox 98.0 F 68 18 197/96 H 97 12/27/17 08:10 12/27/17 08:10 12/27/17 08:10 12/27/17 08:10 12/27/17 08:10 Intake and Output: 12/27/17 12/27/17 06:59 18:59 Output Total 600 Balance -600 - Medications Medications: Current Medications Acetaminophen (Tylenol 325mg Tab) 650 mg PO Q6 PRN PRN Reason: pain Last Admin: 12/21/17 19:01 Dose: 650 mg Amlodipine Besylate (Norvasc) 10 mg PO DAILY [facility] Last Admin: 12/27/17 09:03 Dose: 10 mg Apixaban (Eliquis) 10 mg PO BID [facility] Stop: 12/30/17 10:01 Last Admin: 12/27/17 09:03 Dose: 10 mg Carvedilol (Coreg) 6.25 mg PO BID [facility] Last Admin: 12/27/17 09:02 Dose: 6.25 mg Dextrose (Dextrose 50% Inj) 0 ml IV STAT PRN; Protocol PRN Reason: Hypoglycemia Protocol Dextrose (Glutose 15) 0 gm PO ONCE PRN; Protocol PRN Reason: Hypoglycemia Protocol Diphenhydramine HCl (Benadryl) 25 mg PO Q6 PRN PRN Reason: Itching / Pruritus Last Admin: 12/27/17 13:30 Dose: 25 mg Famotidine (Pepcid) 20 mg PO DIN [facility] Last Admin: 12/26/17 09:12 Dose: 20 mg Ferrous Sulfate (Feosol) 325 mg PO DAILY [facility] Last Admin: 12/27/17 09:02 Dose: 325 mg Glipizide (Glucotrol) 5 mg PO BID [facility] Last Admin: 12/27/17 09:24 Dose: 5 mg Glucagon (Glucagen Diagnostic Kit) 0 mg IM STAT PRN; Protocol PRN Reason: Hypoglycemia Protocol Hydralazine HCl (Apresoline) 10 mg PO DAILY [facility] Last Admin: 12/27/17 09:04 Dose: 10 mg Vancomycin/Sodium Chloride (Vancomycin 1 Gm/Ns 200 Ml) 1 gm in 200 mls @ 133.333 mls/hr IVPB Q24H [facility] PRN Reason: Protocol Stop: 12/29/17 18:01 Last Admin: 12/26/17 17:20 Dose: 133.333 mls/hr Insulin Aspart (Novolog) 0 unit SC ACHS [facility] PRN Reason: Protocol Last Admin: 12/27/17 12:57 Dose: 4 units Insulin Glargine (Lantus) 30 unit SC HS [facility] Last Admin: 12/26/17 21:31 Dose: 30 units Morphine Sulfate (Morphine) 2 mg IVP Q6H PRN PRN Reason: Pain, moderate (4-7) Last Admin: 12/27/17 13:31 Dose: 2 mg - Labs Labs: 12/25/17 06:18 12/25/17 06:18 PT 10.2 SECONDS (9.7-12.2) 12/21/17 13:39 INR 0.9 12/21/17 13:39 APTT 41 SECONDS (21-34) H D 12/24/17 12:40
[2017-12-27 16:26] VITALS: RESP 20
[2017-12-27] MEDS: ceFAZolin 1 GM in Sodium Chloride 0.9% 100 ML IVPB SCH ×2 (17:29→23:42)
[2017-12-27] MEDS: (Lantus) Insulin Glargine, Recombinant SC SCH (21:35)
[2017-12-28] MEDS: (Novolog) Insulin Aspart, Recombinant 100 u/ml 10 ml vial SC SCH ×4 (08:21→21:33)
[2017-12-28] MEDS: ceFAZolin 1 GM in Sodium Chloride 0.9% 100 ML IVPB SCH ×2 (08:22→18:07)
--- NOTE | 2017-12-28 11:22 | CP.PCM.PN ---
Subjective - Date & Time of Evaluation Date of Evaluation: 12/28/17 Time of Evaluation: 11:22 - Subjective Subjective: Progress Note for Dr. Chago Khanna's Service. Patient seen and examined at bedside. Per nursing no acute events occurred overnight. Patient still reports left lower right ankle pain. He rates it a 3/ 10 in severity. Patient denies any fevers, chills, nausea, vomiting, changes in vision, palpitations, headaches, dizziness, or any other complaints. Objective - Vital Signs/Intake and Output Vital Signs (last 24 hours): Temp Pulse Resp BP Pulse Ox 97.6 F 63 20 187/95 H 97 12/28/17 07:00 12/28/17 07:00 12/28/17 07:00 12/28/17 07:00 12/28/17 07:00 Intake and Output: 12/28/17 12/28/17 06:59 18:59 Intake Total 100 Output Total 275 Balance -175 - Medications Medications: Current Medications Acetaminophen (Tylenol 325mg Tab) 650 mg PO Q6 PRN PRN Reason: pain Last Admin: 12/21/17 19:01 Dose: 650 mg Amlodipine Besylate (Norvasc) 10 mg PO DAILY [facility] Last Admin: 12/28/17 10:28 Dose: 10 mg Apixaban (Eliquis) 10 mg PO BID [facility] Stop: 12/30/17 10:01 Last Admin: 12/28/17 10:28 Dose: 10 mg Carvedilol (Coreg) 6.25 mg PO BID [facility] Last Admin: 12/28/17 10:28 Dose: 6.25 mg Dextrose (Dextrose 50% Inj) 0 ml IV STAT PRN; Protocol PRN Reason: Hypoglycemia Protocol Dextrose (Glutose 15) 0 gm PO ONCE PRN; Protocol PRN Reason: Hypoglycemia Protocol Diphenhydramine HCl (Benadryl) 25 mg PO Q6 PRN PRN Reason: Itching / Pruritus Last Admin: 12/28/17 06:13 Dose: 25 mg Famotidine (Pepcid) 20 mg PO DIN [facility] Last Admin: 12/26/17 09:12 Dose: 20 mg Ferrous Sulfate (Feosol) 325 mg PO DAILY [facility] Last Admin: 12/28/17 10:28 Dose: 325 mg Glipizide (Glucotrol) 5 mg PO BID [facility] Last Admin: 12/28/17 10:28 Dose: 5 mg Glucagon (Glucagen Diagnostic Kit) 0 mg IM STAT PRN; Protocol PRN Reason: Hypoglycemia Protocol Hydralazine HCl (Apresoline) 10 mg PO DAILY [facility] Last Admin: 12/28/17 10:29 Dose: 10 mg Cefazolin Sodium 1 gm/ Sodium (Chloride) 100 mls @ 100 mls/hr IVPB Q8H [facility] PRN Reason: Protocol Last Admin: 12/28/17 08:22 Dose: 100 mls/hr Insulin Aspart (Novolog) 0 unit SC ACHS [facility] PRN Reason: Protocol Last Admin: 12/28/17 08:21 Dose: Not Given Insulin Glargine (Lantus) 30 unit SC HS [facility] Last Admin: 12/27/17 21:35 Dose: 30 units Morphine Sulfate (Morphine) 2 mg IVP Q6 PRN PRN Reason: Pain, moderate (4-7) Last Admin: 12/28/17 07:32 Dose: 2 mg - Labs Labs: 12/25/17 06:18 12/25/17 06:18 PT 10.2 SECONDS (9.7-12.2) 12/21/17 13:39 INR 0.9 12/21/17 13:39 APTT 41 SECONDS (21-34) H D 12/24/17 12:40 - Head Exam Head Exam: ATRAUMATIC, NORMAL INSPECTION, NORMOCEPHALIC - Eye Exam Eye Exam: EOMI, Normal appearance, PERRL Pupil Exam: NORMAL ACCOMODATION - ENT Exam ENT Exam: Mucous Membranes Moist, Normal Oropharynx - Respiratory Exam Respiratory Exam: Clear to Ausculation Bilateral, NORMAL BREATHING PATTERN - Cardiovascular Exam Cardiovascular Exam: REGULAR RHYTHM, +S1, +S2 - GI/Abdominal Exam GI & Abdominal Exam: Soft, Normal Bowel Sounds - Neurological Exam Neurological Exam: Alert, Awake, CN II-XII Intact, Normal Gait, Oriented x3 - Psychiatric Exam Psychiatric exam: Normal Affect, Normal Mood - Skin Skin Exam: Dry, Intact, Normal Color Additional comments: 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 * Acute thrombosis of the right common femoral vein with severe reduction of the venous return. Medications * Eliquis 10mg PO BID x 7 days then switch on November 29 to 5mg PO BID Left Axilla Abscess General Surgery consulted, Dr. Licea CXR 12/21: No active pulmonary disease. s/p I&D Wound culture (12/24/17):MSSA continue to monitor PICC in place. Medications Ancef 1gm IVPB Q8 (Started 12/27) * Rocephin 1gm IVPB q12h (started 12/23) DISCONTINUED * Vanco 1gm IVPB q24h (started 12/23) DISCONTINUED * Vanco trough(12/25/17) : 12.4. Goal is 15-20. * Morphine 2mg IVP q6h prn UTI/Hematuria/Proteinuria afebrile UA 12/23: protein 2+, glucose 3+, blood 2+, leuk sharron trace Urine Culture no growth Medications * Rocephin 1gm IVPB q12h (started 12/23) Pruritus No rash/irritation noted Medications * Benadryl 25mg PO q6h prn * Pepcid 20mg PO daily Abnormal EKG Cardiology consulted, Dr. Barillas * Per Cardio note, his EKG suggests anteolateral ischemi, but he is currently asymptomatic. recommend echocardiogram to assess for regional wall motion abnormalities. ECHO 12/23/17: EF ~65-70%, moderate concentric LVH, trace MR, ascending aorta is mildly dilated 4.2cm Diabetes Continue home medications * Glipizide 5mg PO BID * Lantus 30 units SC HS * ISS Hypertension Continue home medications Elevated today during examination today * Amlodipine 5mg PO daily * Carvedilol 3.125mg PO BID * Hydralazine 10mg PO daily * Losartan 25mg PO Daily (BP parameters placed) started 12/28/2017 Hx of HIV Infectious Disease consulted, Dr. Valente CD4 count 124 (01/26/17) * 193 Viral load still not resulted. Medications * Atovaquone 1,500mg PO Daily * Truvada 200mg-300mg 1 tab QD7 Prophylactic Care DVT - Eliquis BID GI - Home medication Pepcid 20mg PO daily All medical management per Dr. Naye Khanna Dispo: Continue IV antibiotics. Patient accepted to [facility], pending transfer. Waiting for Tilucrecia, Shaila, and Yadi from home before being discharged. Expect discharge 12/29/17 Kolton Dotson, PGY-2
--- NOTE | 2017-12-28 12:53 | CP.PCM.PN ---
Subjective - Date & Time of Evaluation Date of Evaluation: 12/28/17 Time of Evaluation: 08:00 - Subjective Subjective: no fever rx adjusted Objective - Vital Signs/Intake and Output Vital Signs (last 24 hours): Temp Pulse Resp BP Pulse Ox 97.6 F 63 20 187/95 H 97 12/28/17 07:00 12/28/17 07:00 12/28/17 07:00 12/28/17 07:00 12/28/17 07:00 Intake and Output: 12/28/17 12/28/17 06:59 18:59 Intake Total 100 Output Total 275 Balance -175 - Medications Medications: Current Medications Acetaminophen (Tylenol 325mg Tab) 650 mg PO Q6 PRN PRN Reason: pain Last Admin: 12/21/17 19:01 Dose: 650 mg Amlodipine Besylate (Norvasc) 10 mg PO DAILY [facility] Last Admin: 12/28/17 10:28 Dose: 10 mg Apixaban (Eliquis) 10 mg PO BID [facility] Stop: 12/30/17 10:01 Last Admin: 12/28/17 10:28 Dose: 10 mg Carvedilol (Coreg) 6.25 mg PO BID [facility] Last Admin: 12/28/17 10:28 Dose: 6.25 mg Dextrose (Dextrose 50% Inj) 0 ml IV STAT PRN; Protocol PRN Reason: Hypoglycemia Protocol Dextrose (Glutose 15) 0 gm PO ONCE PRN; Protocol PRN Reason: Hypoglycemia Protocol Diphenhydramine HCl (Benadryl) 25 mg PO Q6 PRN PRN Reason: Itching / Pruritus Last Admin: 12/28/17 06:13 Dose: 25 mg Dolutegravir Sodium (Tivicay) 50 mg PO ONCE NR PRN Reason: Protocol Stop: 01/29/18 23:59 Famotidine (Pepcid) 20 mg PO DIN [facility] Last Admin: 12/26/17 09:12 Dose: 20 mg Ferrous Sulfate (Feosol) 325 mg PO DAILY [facility] Last Admin: 12/28/17 10:28 Dose: 325 mg Glipizide (Glucotrol) 5 mg PO BID [facility] Last Admin: 12/28/17 10:28 Dose: 5 mg Glucagon (Glucagen Diagnostic Kit) 0 mg IM STAT PRN; Protocol PRN Reason: Hypoglycemia Protocol Hydralazine HCl (Apresoline) 10 mg PO DAILY [facility] Last Admin: 12/28/17 10:29 Dose: 10 mg Cefazolin Sodium 1 gm/ Sodium (Chloride) 100 mls @ 100 mls/hr IVPB Q8H [facility] PRN Reason: Protocol Last Admin: 12/28/17 08:22 Dose: 100 mls/hr Insulin Aspart (Novolog) 0 unit SC ACHS [facility] PRN Reason: Protocol Last Admin: 12/28/17 12:50 Dose: 1 units Insulin Glargine (Lantus) 30 unit SC HS [facility] Last Admin: 12/27/17 21:35 Dose: 30 units Morphine Sulfate (Morphine) 2 mg IVP Q6 PRN PRN Reason: Pain, moderate (4-7) Last Admin: 12/28/17 07:32 Dose: 2 mg - Labs Labs: 12/25/17 06:18 12/25/17 06:18 PT 10.2 SECONDS (9.7-12.2) 12/21/17 13:39 INR 0.9 12/21/17 13:39 APTT 41 SECONDS (21-34) H D 12/24/17 12:40 - Constitutional Appears: Non-toxic, Chronically Ill - Head Exam Head Exam: NORMOCEPHALIC - Eye Exam Eye Exam: PERRL - ENT Exam ENT Exam: Mucous Membranes Dry - Neck Exam Neck Exam: absent: Lymphadenopathy - Respiratory Exam Respiratory Exam: Decreased Breath Sounds - Cardiovascular Exam Cardiovascular Exam: REGULAR RHYTHM - GI/Abdominal Exam GI & Abdominal Exam: Distended - Rectal Exam Rectal Exam: Deferred Assessment and Plan (1) Cellulitis of axillary region Status: Acute (2) Cellulitis of axillary region Status: Acute (3) HIV (human immunodeficiency virus infection) Status: Acute
--- NOTE | 2017-12-28 19:12 | CP.PCM.PN ---
Subjective - Date & Time of Evaluation Date of Evaluation: 12/28/17 Time of Evaluation: 10:00 - Subjective Subjective: clinically same Objective - Vital Signs/Intake and Output Vital Signs (last 24 hours): Temp Pulse Resp BP Pulse Ox 98.0 F 71 20 181/87 H 96 12/28/17 15:00 12/28/17 18:15 12/28/17 15:00 12/28/17 18:15 12/28/17 15:00 Intake and Output: 12/28/17 12/29/17 18:59 06:59 Intake Total 300 Balance 300 - Medications Medications: Current Medications Acetaminophen (Tylenol 325mg Tab) 650 mg PO Q6 PRN PRN Reason: pain Last Admin: 12/21/17 19:01 Dose: 650 mg Amlodipine Besylate (Norvasc) 10 mg PO DAILY [facility] Last Admin: 12/28/17 10:28 Dose: 10 mg Apixaban (Eliquis) 10 mg PO BID [facility] Stop: 12/30/17 10:01 Last Admin: 12/28/17 18:08 Dose: 10 mg Carvedilol (Coreg) 6.25 mg PO BID [facility] Last Admin: 12/28/17 18:08 Dose: 6.25 mg Dextrose (Dextrose 50% Inj) 0 ml IV STAT PRN; Protocol PRN Reason: Hypoglycemia Protocol Dextrose (Glutose 15) 0 gm PO ONCE PRN; Protocol PRN Reason: Hypoglycemia Protocol Diphenhydramine HCl (Benadryl) 25 mg PO Q6 PRN PRN Reason: Itching / Pruritus Last Admin: 12/28/17 19:00 Dose: 25 mg Dolutegravir Sodium (Tivicay) 50 mg PO DAILY [facility] PRN Reason: Protocol Last Admin: 12/28/17 13:43 Dose: 50 mg Famotidine (Pepcid) 20 mg PO DIN [facility] Last Admin: 12/26/17 09:12 Dose: 20 mg Ferrous Sulfate (Feosol) 325 mg PO DAILY [facility] Last Admin: 12/28/17 10:28 Dose: 325 mg Glipizide (Glucotrol) 5 mg PO BID [facility] Last Admin: 12/28/17 18:08 Dose: 5 mg Glucagon (Glucagen Diagnostic Kit) 0 mg IM STAT PRN; Protocol PRN Reason: Hypoglycemia Protocol Home Med (Rilpivirine Hcl [Edurant]) 1 tab PO DAILY [facility] Hydralazine HCl (Apresoline) 10 mg PO DAILY [facility] Last Admin: 12/28/17 10:29 Dose: 10 mg Cefazolin Sodium 1 gm/ Sodium (Chloride) 100 mls @ 100 mls/hr IVPB Q8H [facility] PRN Reason: Protocol Last Admin: 12/28/17 18:07 Dose: 100 mls/hr Insulin Aspart (Novolog) 0 unit SC ACHS [facility] PRN Reason: Protocol Last Admin: 12/28/17 18:08 Dose: Not Given Insulin Glargine (Lantus) 30 unit SC HS [facility] Last Admin: 12/27/17 21:35 Dose: 30 units Losartan Potassium (Cozaar) 25 mg PO DAILY [facility] Last Admin: 12/28/17 18:08 Dose: 25 mg Morphine Sulfate (Morphine) 2 mg IVP Q6 PRN PRN Reason: Pain, moderate (4-7) Last Admin: 12/28/17 18:58 Dose: 2 mg - Labs Labs: 12/25/17 06:18 12/25/17 06:18 PT 10.2 SECONDS (9.7-12.2) 12/21/17 13:39 INR 0.9 12/21/17 13:39 APTT 41 SECONDS (21-34) H D 12/24/17 12:40 - Constitutional Appears: Well - Head Exam Head Exam: ATRAUMATIC, NORMAL INSPECTION, NORMOCEPHALIC - Eye Exam Eye Exam: EOMI, Normal appearance, PERRL Pupil Exam: NORMAL ACCOMODATION, PERRL - ENT Exam ENT Exam: Mucous Membranes Moist, Normal Exam - Neck Exam Neck Exam: Full ROM, Normal Inspection. absent: Lymphadenopathy - Respiratory Exam Respiratory Exam: Decreased Breath Sounds - Cardiovascular Exam Cardiovascular Exam: REGULAR RHYTHM, +S1, +S2 - GI/Abdominal Exam GI & Abdominal Exam: Soft, Diminished Bowel Sounds - Rectal Exam Rectal Exam: Deferred
[2017-12-28] MEDS: (Lantus) Insulin Glargine, Recombinant SC SCH (21:32)
[2017-12-29] MEDS: ceFAZolin 1 GM in Sodium Chloride 0.9% 100 ML IVPB SCH ×3 (00:10→17:06)
[2017-12-29] MEDS: (Novolog) Insulin Aspart, Recombinant 100 u/ml 10 ml vial SC SCH ×3 (08:42→18:10)
[2017-12-29] MEDS ORDERED: [UNRECOGNIZED DRUG - OTHER] PO SCH (10:00)
--- NOTE | 2017-12-29 10:46 | CP.PCM.PN ---
Subjective - Date & Time of Evaluation Date of Evaluation: 12/29/17 Time of Evaluation: 10:46 - Subjective Subjective: Progress Note for Dr. Chago Khanna's Service. Patient seen and examined at bedside. Per nursing no acute events occurred overnight. Patient still reports left lower right ankle pain, but it has improved since yesterday. He rates it a 3/10 in severity. Patient denies any fevers, chills, nausea, vomiting, changes in vision, palpitations, headaches, dizziness, or any other complaints. Objective - Vital Signs/Intake and Output Vital Signs (last 24 hours): Temp Pulse Resp BP Pulse Ox 98.1 F 60 20 169/78 H 97 12/29/17 07:00 12/29/17 09:26 12/29/17 07:00 12/29/17 09:26 12/29/17 07:00 Intake and Output: 12/29/17 12/29/17 06:59 18:59 Intake Total 420 Output Total 750 Balance -330 - Medications Medications: Current Medications Acetaminophen (Tylenol 325mg Tab) 650 mg PO Q6 PRN PRN Reason: pain Last Admin: 12/21/17 19:01 Dose: 650 mg Amlodipine Besylate (Norvasc) 10 mg PO DAILY [facility] Last Admin: 12/29/17 09:27 Dose: 10 mg Apixaban (Eliquis) 10 mg PO BID [facility] Stop: 12/30/17 10:01 Last Admin: 12/29/17 09:28 Dose: 10 mg Carvedilol (Coreg) 6.25 mg PO BID [facility] Last Admin: 12/29/17 09:28 Dose: 6.25 mg Dextrose (Dextrose 50% Inj) 0 ml IV STAT PRN; Protocol PRN Reason: Hypoglycemia Protocol Dextrose (Glutose 15) 0 gm PO ONCE PRN; Protocol PRN Reason: Hypoglycemia Protocol Diphenhydramine HCl (Benadryl) 25 mg PO Q6 PRN PRN Reason: Itching / Pruritus Last Admin: 12/29/17 08:41 Dose: 25 mg Dolutegravir Sodium (Tivicay) 50 mg PO DAILY [facility] PRN Reason: Protocol Last Admin: 12/29/17 09:27 Dose: 50 mg Famotidine (Pepcid) 20 mg PO DIN [facility] Last Admin: 12/26/17 09:12 Dose: 20 mg Ferrous Sulfate (Feosol) 325 mg PO DAILY [facility] Last Admin: 12/29/17 09:28 Dose: 325 mg Glipizide (Glucotrol) 5 mg PO BID [facility] Last Admin: 12/29/17 09:28 Dose: 5 mg Glucagon (Glucagen Diagnostic Kit) 0 mg IM STAT PRN; Protocol PRN Reason: Hypoglycemia Protocol Home Med (Rilpivirine Hcl [Edurant]) 1 tab PO DAILY [facility] Hydralazine HCl (Apresoline) 10 mg PO DAILY [facility] Last Admin: 12/29/17 09:27 Dose: 10 mg Cefazolin Sodium 1 gm/ Sodium (Chloride) 100 mls @ 100 mls/hr IVPB Q8H [facility] PRN Reason: Protocol Last Admin: 12/29/17 08:41 Dose: 100 mls/hr Insulin Aspart (Novolog) 0 unit SC ACHS [facility] PRN Reason: Protocol Last Admin: 12/29/17 08:42 Dose: 2 units Insulin Glargine (Lantus) 30 unit SC HS [facility] Last Admin: 12/28/17 21:32 Dose: 30 units Losartan Potassium (Cozaar) 25 mg PO DAILY [facility] Last Admin: 12/29/17 09:28 Dose: 25 mg Morphine Sulfate (Morphine) 2 mg IVP Q6 PRN PRN Reason: Pain, moderate (4-7) Last Admin: 12/29/17 08:40 Dose: 2 mg - Labs Labs: 12/25/17 06:18 12/25/17 06:18 PT 10.2 SECONDS (9.7-12.2) 12/21/17 13:39 INR 0.9 12/21/17 13:39 APTT 41 SECONDS (21-34) H D 12/24/17 12:40 - Head Exam Head Exam: ATRAUMATIC, NORMAL INSPECTION, NORMOCEPHALIC - Eye Exam Eye Exam: EOMI, Normal appearance, PERRL Pupil Exam: NORMAL ACCOMODATION, PERRL - ENT Exam ENT Exam: Mucous Membranes Moist, Normal Oropharynx - Respiratory Exam Respiratory Exam: Clear to Ausculation Bilateral, NORMAL BREATHING PATTERN. absent: Prolonged Expiratory Phase, Respiratory Distress - Cardiovascular Exam Cardiovascular Exam: REGULAR RHYTHM, +S1, +S2 - GI/Abdominal Exam GI & Abdominal Exam: Soft, Normal Bowel Sounds - Back Exam Back Exam: NORMAL INSPECTION. 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 * Acute thrombosis of the right common femoral vein with severe reduction of the venous return. Medications * Eliquis 10mg PO BID x 7 days then switch on November 29 to 5mg PO BID Left Axilla Abscess General Surgery consulted, Dr. Licea CXR 12/21: No active pulmonary disease. s/p I&D Wound culture (12/24/17):MSSA continue to monitor PICC in place. Medications Ancef 1gm IVPB Q8 (Started 12/27) * Rocephin 1gm IVPB q12h (started 12/23) DISCONTINUED * Vanco 1gm IVPB q24h (started 12/23) DISCONTINUED * Vanco trough(12/25/17) : 12.4. Goal is 15-20. * Morphine 2mg IVP q6h prn UTI/Hematuria/Proteinuria afebrile UA 12/23: protein 2+, glucose 3+, blood 2+, leuk sharron trace Urine Culture no growth Medications * Rocephin 1gm IVPB q12h (started 12/23) Pruritus No rash/irritation noted Medications * Benadryl 25mg PO q6h prn * Pepcid 20mg PO daily Abnormal EKG Cardiology consulted, Dr. Barillas * Per Cardio note, his EKG suggests anteolateral ischemi, but he is currently asymptomatic. recommend echocardiogram to assess for regional wall motion abnormalities. ECHO 12/23/17: EF ~65-70%, moderate concentric LVH, trace MR, ascending aorta is mildly dilated 4.2cm Diabetes Continue home medications * Glipizide 5mg PO BID * Lantus 30 units SC HS * ISS Hypertension Continue home medications Elevated today during examination today * Amlodipine 5mg PO daily * Carvedilol 3.125mg PO BID * Hydralazine 10mg PO daily * Losartan 25mg PO Daily (BP parameters placed) started 12/28/2017 Hx of HIV Infectious Disease consulted, Dr. Valente CD4 count 124 (01/26/17) * 193 HIV-1 PCR: 1.65 Medications * Atovaquone 1,500mg PO Daily * Truvada 200mg-300mg 1 tab QD7 Prophylactic Care DVT - Eliquis BID GI - Home medication Pepcid 20mg PO daily All medical management per Dr. Naye Khanna Dispo: Continue IV antibiotics. Patient accepted to [facility], pending transfer.Case managment was able to reach the daughter and she will be able to bring the medications( Tivicay, Truvada, and Mepron) to the hospital or [facility]. She has to go to work, so they will likely be brought to [facility]. Discharge today to [facility]. Discharge Instructions: 1.Patient discharged to [facility]. 2.Patient advised to follow up with PMD within 5 to 7 days upon discharge. 3.Patient advised to follow up with Infectious disease doctor within 5 to 7 days upon discharge. 4.Patient advised to return to hospital for any new or worsening symptoms. Medications: 1.Ancef 1gm Q8 X6 Days 2.Eliquis 10mg PO BID x 7 days then switch on November 29 to 5mg PO BID 3.Amlodipine 5mg PO daily 4.Carvedilol 3.125mg PO BID 5.Hydralazine 10mg PO daily 6.Losartan 25mg PO Daily (BP parameters placed) started 12/28/2017 Kolton Dotson, PGY-2
--- NOTE | 2017-12-29 17:38 | CP.PCM.PN ---
Subjective - Date & Time of Evaluation Date of Evaluation: 12/29/17 Time of Evaluation: 09:00 - Subjective Subjective: clinically same Objective - Vital Signs/Intake and Output Vital Signs (last 24 hours): Temp Pulse Resp BP Pulse Ox 98.1 F 60 20 165/72 H 97 12/29/17 07:00 12/29/17 15:10 12/29/17 07:00 12/29/17 15:10 12/29/17 07:00 Intake and Output: 12/29/17 12/29/17 06:59 18:59 Intake Total 420 340 Output Total 750 Balance -330 340 - Medications Medications: Current Medications Acetaminophen (Tylenol 325mg Tab) 650 mg PO Q6 PRN PRN Reason: pain Last Admin: 12/21/17 19:01 Dose: 650 mg Amlodipine Besylate (Norvasc) 10 mg PO DAILY [facility] Last Admin: 12/29/17 09:27 Dose: 10 mg Apixaban (Eliquis) 10 mg PO BID [facility] Stop: 12/30/17 10:01 Last Admin: 12/29/17 09:28 Dose: 10 mg Carvedilol (Coreg) 6.25 mg PO BID [facility] Last Admin: 12/29/17 09:28 Dose: 6.25 mg Dextrose (Dextrose 50% Inj) 0 ml IV STAT PRN; Protocol PRN Reason: Hypoglycemia Protocol Dextrose (Glutose 15) 0 gm PO ONCE PRN; Protocol PRN Reason: Hypoglycemia Protocol Diphenhydramine HCl (Benadryl) 25 mg PO Q6 PRN PRN Reason: Itching / Pruritus Last Admin: 12/29/17 15:08 Dose: 25 mg Dolutegravir Sodium (Tivicay) 50 mg PO DAILY [facility] PRN Reason: Protocol Last Admin: 12/29/17 09:27 Dose: 50 mg Famotidine (Pepcid) 20 mg PO DIN [facility] Last Admin: 12/26/17 09:12 Dose: 20 mg Ferrous Sulfate (Feosol) 325 mg PO DAILY [facility] Last Admin: 12/29/17 09:28 Dose: 325 mg Glipizide (Glucotrol) 5 mg PO BID [facility] Last Admin: 12/29/17 09:28 Dose: 5 mg Glucagon (Glucagen Diagnostic Kit) 0 mg IM STAT PRN; Protocol PRN Reason: Hypoglycemia Protocol Home Med (Rilpivirine Hcl [Edurant]) 1 tab PO DAILY [facility] Hydralazine HCl (Apresoline) 10 mg PO DAILY [facility] Last Admin: 12/29/17 09:27 Dose: 10 mg Cefazolin Sodium 1 gm/ Sodium (Chloride) 100 mls @ 100 mls/hr IVPB Q8H [facility] PRN Reason: Protocol Last Admin: 12/29/17 17:06 Dose: 100 mls/hr Insulin Aspart (Novolog) 0 unit SC ACHS [facility] PRN Reason: Protocol Last Admin: 12/29/17 12:10 Dose: 4 units Insulin Glargine (Lantus) 30 unit SC HS [facility] Last Admin: 12/28/17 21:32 Dose: 30 units Losartan Potassium (Cozaar) 25 mg PO DAILY [facility] Last Admin: 12/29/17 09:28 Dose: 25 mg Morphine Sulfate (Morphine) 2 mg IVP Q6 PRN PRN Reason: Pain, moderate (4-7) Last Admin: 12/29/17 15:08 Dose: 2 mg - Labs Labs: 12/25/17 06:18 12/25/17 06:18 PT 10.2 SECONDS (9.7-12.2) 12/21/17 13:39 INR 0.9 12/21/17 13:39 APTT 41 SECONDS (21-34) H D 12/24/17 12:40 - Constitutional Appears: Well - Head Exam Head Exam: ATRAUMATIC, NORMAL INSPECTION, NORMOCEPHALIC - Eye Exam Eye Exam: EOMI, Normal appearance, PERRL Pupil Exam: NORMAL ACCOMODATION, PERRL - ENT Exam ENT Exam: Mucous Membranes Moist, Normal Exam - Neck Exam Neck Exam: Full ROM, Normal Inspection. absent: Lymphadenopathy - Respiratory Exam Respiratory Exam: Decreased Breath Sounds - Cardiovascular Exam Cardiovascular Exam: REGULAR RHYTHM, +S1, +S2 - GI/Abdominal Exam GI & Abdominal Exam: Soft, Diminished Bowel Sounds - Rectal Exam Rectal Exam: Deferred
[2017-12-29 18:16] VITALS: TEMP 97.9; O2SAT 96
[2017-12-29 18:18] VITALS: BP 180/90; PULSE 68
== END 2017-12-29 18:30 | DRG 975 ==
LOC: C.ER 10:11 → C.9E 14:31 → C.6T 15:45
PROVIDERS: ADMIT Internal Medicine Nephrology; ATTEND Internal Medicine Nephrology
DX: B20 Human immunodeficiency virus [HIV] disease (principal); J18.9 Pneumonia, unspecified organism; L02.412 Cutaneous abscess of left axilla; L02.416 Cutaneous abscess of left lower limb; I82.411 Acute embolism and thrombosis of right femoral vein; E11.22 Type 2 diabetes mellitus with diabetic chronic kidney disease; I12.9 Hypertensive chronic kidney disease with stage 1 through stage 4 chronic kidney disease, or unspecified chronic kidney disease; N18.9 Chronic kidney disease, unspecified; Z87.891 Personal history of nicotine dependence; Z89.611 Acquired absence of right leg above knee

== ENCOUNTER 2018-01-20 00:57 | Inpatient (IN) | payer MEDICARE, MEDICAID ==
[2018-01-20 01:00] VITALS: BMI 24.4
--- NOTE | 2018-01-20 01:15 | C.PDOC ---
History Of Present Illness Patient brought to ER by EMS for evaluation of shortness of breath x 1 day. He denies any associated chest pain, fever or chills. Time Seen by Provider: 01/20/18 01:15 Chief Complaint (Nursing): Respiratory Distress History Per: Patient History/Exam Limitations: no limitations Onset/Duration Of Symptoms: Days (1) Current Symptoms Are (Timing): Still Present Associated Symptoms: denies: Fever, Chills, Chest Pain Past Medical History Reviewed: Historical Data, Nursing Documentation, Vital Signs Vital Signs: Last Vital Signs Temp 98.8 F 01/20/18 01:11 Pulse 86 01/20/18 01:11 Resp 26 H 01/20/18 01:11 BP 172/79 H 01/20/18 01:11 Pulse Ox 89 L 01/20/18 02:34 - Medical History PMH: Anemia, Arthritis, Diabetes, Gall Bladder Disease, HIV, HTN, Hypercholesterolemia, Pancreatitis (pancreatic issue unspecified), Pneumonia, Chronic Kidney Disease Surgical History: Cholecystectomy - [facility] Procedures INSERTION OF INFUSION DEV INTO SUP VENA CAVA, PERC APPROACH (12/21/17) INSPECTION OF UPPER INTESTINAL TRACT, ENDO (06/19/16) INTRODUCE OF OTH THERAP SUBST INTO RESP TRACT, VIA OPENING (01/26/17) ULTRASONOGRAPHY OF BILE DUCTS (06/19/16) ULTRASONOGRAPHY OF PANCREAS (06/19/16) Family History: States: No Known Family Hx - Social History Hx Tobacco Use: No Hx Alcohol Use: No Hx Substance Use: Yes (denies) - Immunization History Hx Tetanus Toxoid Vaccination: No Hx Influenza Vaccination: No Hx Pneumococcal Vaccination: No Review Of Systems Constitutional: Negative for: Fever, Chills Cardiovascular: Negative for: Chest Pain Respiratory: Positive for: Shortness of Breath Physical Exam - Physical Exam Appears: Non-toxic, In Acute Distress (respiratory) Skin: Warm Head: Atraumatic, Normacephalic Eye(s): bilateral: Normal Inspection Oral Mucosa: Moist Neck: Supple Chest: Symmetrical Cardiovascular: Rhythm Regular Respiratory: Decreased Breath Sounds, No Rales, Rhonchi, Wheezing, Other (on BIPAP) Gastrointestinal/Abdominal: Soft, No Tenderness, Distention, Other (tympanic to palpation) Back: Normal Inspection Extremity: No Pedal Edema, Other (right AKA, right arm PICC in place) Neurological/Psych: Oriented x3 ED Course And Treatment - Laboratory Results Result Diagrams: 01/20/18 02:18 01/20/18 02:18 ECG: Interpreted By Me, Viewed By Me ECG Rhythm: Sinus Rhythm (87), Nonspecific Changes O2 Sat by Pulse Oximetry: 89 (BIPAP) Pulse Ox Interpretation: Abnormal Progress Note: Labs, EKG and CXR ordered. Patient placed on BIPAP. Duoneb 3ml ( 3 doses) Q15 mins administered to patient. Critical Care Time - Critical Care Note Total Time (in mins): 30 Documented critical care: time excludes all time spent performing seperately billable procedures. Disposition Discussed With Dr.: Grazyna Khanna Comment: accepted the pt on his service and took over the care at 2:48 AM Doctor Will See Patient In The: Hospital Counseled Patient/Family Regarding: Studies Performed, Diagnosis - Disposition Disposition: HOSPITALIZED Disposition Time: 01:15 Condition: GUARDED Forms: [employer] (Hungarian) - POA Present On Arrival: Poor Glycemic Control - Clinical Impression Clinical Impression: Exacerbation of asthma, Dyspnea, Diabetes, CHF (congestive heart failure), Pneumonia - Scribe Statement The provider has reviewed the documentation as recorded by the Gigi Hercules Provider Attestation: All medical record entries made by the Gigi were at my direction and personally dictated by me. I have reviewed the chart and agree that the record accurately reflects my personal performance of the history, physical exam, medical decision making, and the department course for this patient. I have also personally directed, reviewed, and agree with the discharge instructions and disposition. Decision To Admit - Pt Status Changed To: Hospital Disposition Of: Inpatient - Admit Certification Admit to Inpatient:: After my assessment, the patient will require hospitalization for at least two midnights. This is because of the severity of symptoms shown, intensity of services needed, and/or the medical risk in this patient being treated as an outpatient. - InPatient: Physician Admission Certification: I certify that this patient requires 2 or more midnights of care for the following reason:: After my assessment, the patient will require hospitalization for at least two midnights. This is because of the severity of symptoms shown, intensity of services needed, and/or the medical risk in this patient being treated as an outpatient. - . Bed Request Type: Telemetry Admitting Physician: Grazyna Khanna Patient Diagnosis: Exacerbation of asthma, Dyspnea, Diabetes, CHF (congestive heart failure), Pneumonia
[2018-01-20] MEDS: Albuterol-Ipratrop 3 mg / 0.5 (3 ml) UD IH SCH ×6 (02:00→03:53)
[2018-01-20 02:21] LABS: BASO % 0.4 % (0.0-2.0); EOS % 0.3 % (0.0-4.0); HEMOGLOBIN 9.9 g/dL (12.0-18.0); LYMPH # 0.6 K/uL (1.0-4.3); LYMPH % 6.2 % (20.0-40.0); MEAN CELL VOLUME 80.7 fL (80.0-94.0); MEAN CORPUSCULAR HEMOGLOBIN 26.2 pg (27.0-31.0); MEAN CORPUSCULAR HGB CONC 32.5 g/dL (33.0-37.0); MEAN PLATELET VOLUME 8.7 fL (7.2-11.7); MONO # 0.7 K/uL (0.0-0.8); MONO % 7.1 % (0.0-10.0); NEUT # 8.6 K/uL (1.8-7.0); NRBC % 0.1 % (0.0-2.0); PLATELET COUNT 143 K/uL (130-400); RBC 3.78 Mil/uL (4.40-5.90); RED CELL DISTRIBUTION WIDTH 15.4 % (11.5-14.5)
[2018-01-20 02:29] LABS: INR 1.4
[2018-01-20 02:31] LABS: ABG ALLEN TEST POS; ARTERIAL BLOOD GAS HCO3 19.8 mmol/L (21-28); ARTERIAL BLOOD GAS O2 SAT 98.8 % (95-98); ARTERIAL BLOOD GAS PCO2 39 mm/Hg (35-45); ARTERIAL BLOOD GAS PO2 174 mm/Hg (80-100); ARTERIAL BLOOD GAS TCO2 20.4 mmol/L (22-28)
[2018-01-20 02:36] LABS: URINE BACTERIA FEW (<OCC); URINE BILIRUBIN NEGATIVE (NEGATIVE); URINE BLOOD 2+ (NEGATIVE); URINE CLARITY Clear (Clear); URINE COLOR Yellow (YELLOW); URINE GLUCOSE (UA) 1+ mg/dL (Normal); URINE PROTEIN 2+ mg/dL (NEGATIVE); URINE UROBILINOGEN NORMAL mg/dL (0.2-1.0)
[2018-01-20 02:44] LABS: TROPONIN I 0.015 ng/mL (0.00-0.120)
[2018-01-20] MEDS ORDERED: Piperacillin/Tazobact 3.375 gm 100 ML IVPB STA (02:46)
[2018-01-20] MEDS ORDERED: Piperacillin/Tazobact 3.375 gm 100 ML IVPB ONE (02:56)
[2018-01-20 03:01] LABS: URINE LEUKOCYTE ESTERASE 1+ Leu/uL (Negative)
[2018-01-20 03:03] LABS: ALB/GLOB RATIO 1.1 (1.0-2.1); ALBUMIN 4.3 g/dL (3.5-5.0); CALCIUM 8.8 mg/dl (8.6-10.4)
[2018-01-20] MEDS ORDERED: Calcium Gluconate 4.65 MEQ in Dextrose 5% In Water 100 ML IVPB ONE (03:20)
[2018-01-20] MEDS ORDERED: Sod Polystyrene Sulf 15 gm/60 ml Susp PO ONE ×2 (03:20→10:15)
[2018-01-20] MEDS ORDERED: Calcium Gluconate 4.65 mEq/10 ml Inj ONE (03:30)
[2018-01-20] MEDS ORDERED: Sod Polystyrene Sulf 15 gm/60 ml Susp ONE (03:31)
[2018-01-20 03:36] LABS: LYMPHOCYTE 4 % (20-40); MONOCYTE 6 % (0-10); NEUTROPHIL 90 % (50-75); PLATELET ESTIMATE NORMAL (NORMAL); TOTAL CELLS COUNTED 100
[2018-01-20] MEDS ORDERED: Albuterol-Ipratrop 3 mg / 0.5 (3 ml) UD ONE (03:39)
--- NOTE | 2018-01-20 07:16 | CP.PCM.PN ---
Subjective - Date & Time of Evaluation Date of Evaluation: 01/20/18 Time of Evaluation: 07:16 - Subjective Subjective: PGY2 Medicine Note for Dr. Naye Khanna Patient is a 67 year old male with a past medical history of HTN, hypercholesterolemia, DM and HIV + presenting to the emergency department with a three day history of increasing shortness of breath. Patient currently on BiPAP during examination, speaking short, broken sentences. Patient was recently admitted to the hospital secondary to LE DVT b/l and abnormal EKG. Patient was started on Eliquis upon discharge. He reports compliance with his medications as his daughter sets up his medications, but does not remember the names of his meds. He is noticed 3 days ago that he started to feels a little bit short of breath. Over the past two days, his breathing has gotten increasingly worse. He is also complaining of left ankle pain. Patient was experiencing this pain during his previous admission as well. He has no other complaints at this time. Denies fevers, chills, nausea, vomiting, diarrhea, constipation, chest pain, abdominal pain, vision changes. PMH: HTN, hypercholesterolemia, DM and HIV + PSH: Right AKA, Cholocystectomy Allergies: NKDA Home Meds per discharge note on 12/28/17: * Eliquis 5mg PO BID * Amlodipine 5mg PO daily * Carvedilol 3.125mg PO BID * Hydralazine 10mg PO daily * Losartan 25mg PO Daily Objective - Vital Signs/Intake and Output Vital Signs (last 24 hours): Temp Pulse Resp BP Pulse Ox 98.8 F 92 H 26 H 172/79 H 89 L 01/20/18 01:11 01/20/18 03:02 01/20/18 01:11 01/20/18 01:11 01/20/18 06:17 - Labs Labs: 01/20/18 02:18 01/20/18 02:18 PT 15.0 SECONDS (9.7-12.2) H 01/20/18 02:18 INR 1.4 01/20/18 02:18 APTT 34 SECONDS (21-34) 01/20/18 02:18 - Constitutional Appears: Chronically Ill, Other (on BiPAP) - Head Exam Head Exam: ATRAUMATIC - Eye Exam Eye Exam: EOMI, Normal appearance. absent: Scleral icterus - ENT Exam ENT Exam: Mucous Membranes Moist - Respiratory Exam Respiratory Exam: absent: Chest Wall Tenderness, NORMAL BREATHING PATTERN (On BiPAP - auscultation) - Cardiovascular Exam Cardiovascular Exam: REGULAR RHYTHM, +S1, +S2 - GI/Abdominal Exam GI & Abdominal Exam: Soft. absent: Distended, Firm, Guarding, Rigid, Tenderness - Extremities Exam Extremities Exam: Calf Tenderness (left calf - known DVT), Normal Capillary Refill, Tenderness (left ankle). absent: Pedal Edema Additional comments: Right AKA - Neurological Exam Neurological Exam: Alert, Awake, Oriented x3 - Psychiatric Exam Psychiatric exam: Normal Affect, Normal Mood - Skin Skin Exam: Dry, Warm Assessment and Plan - Assessment and Plan (Free Text) Plan: Shortness of Breath 2/2 Pneumonia/CHF Cardiology consulted, Dr. Jesus Pulmonology consulted, Dr. Hawkins Infectious Disease consulted, Dr. Valente CXR 01/20: awaiting official report ECHO 12/23/17: EF ~65-70%, moderate concentric LVH, trace MR, ascending aorta is mildly dilated 4.2cm Blood cultures (01/20): pending Medications * Duonebs 3mL INH q6h * Montelukast 10mg PO HS * Lasix 40mg IVP daily * SoluMedrol 40mg IVP q8h * Azithromycin 500mg IVPB daily (started on 01/20) * Zosyn 2.25gm IVPB q8h UTI/Hematuria/Proteinuria afebrile UA 01/20: protein 2+, glucose 1+, blood 2+, leuk sharron 1+ Urine Culture (01/20): pending Medications * Rocephin 1gm IVPB daily (started 01/20) Abdominal Pain Abd/Pelvis CT w/o (01/20) * pending hx of LE b/l DVT Medications * Eliquis 5mg PO BID Diabetes Continue home medications * Novolin R 8 units SC TID * Lantus 42 units SC q12h * ISS - med * Hypoglycemic protocol Hypertension Continue home medications Elevated today during examination today * Amlodipine 10mg PO daily * Carvedilol 3.125mg PO BID * Hydralazine 25mg PO q8h * Aspirin 81mg PO daily Hx of HIV Infectious Disease consulted, Dr. Valente CD4 count 193 (12/24/17) HIV-1 PCR: 1.65 (12/24/17) Medications * Atovaquone 1,500mg PO Daily Hyperlipidemia Medications * Crestor 5mg PO HS Prophylactic Care DVT - Eliquis BID GI - Home medication Pepcid 20mg PO daily All medical management per Dr. Naye Khanna
[2018-01-20] MEDS ORDERED: FAMOTIDINE 40 MG PO SCH (09:00)
[2018-01-20] MEDS ORDERED: (Novolin R) Insulin Human Regular 100 units/ml vial SC SCH (10:00)
[2018-01-20] MEDS ORDERED: LEVOFLOXACIN 500 MG PO SCH (10:00)
[2018-01-20 10:07] LABS: CALCIUM 8.7 mg/dl (8.6-10.4)
[2018-01-20] MEDS ORDERED: Glucagon Recombinant 1 mg Inj IM PRN (10:16)
[2018-01-20] MEDS ORDERED: Dextrose 50% SYRINGE Inj (50 ml) IV PRN (10:16)
[2018-01-20] MEDS ORDERED: (Lantus) Insulin Glargine, Recombinant SC ONE (11:10)
[2018-01-20] MEDS: MethylPREDNISolone 40 mg Vial IVP SCH ×2 (11:14→18:40)
[2018-01-20] MEDS: Atovaquone 750 mg/5 ml Susp UD PO SCH (11:15)
[2018-01-20] MEDS: (Lantus) Insulin Glargine, Recombinant SC SCH ×2 (11:19→22:40)
[2018-01-20] MEDS: (Novolin R) Insulin Human Regular 100 units/ml vial SC SCH ×4 (11:45→22:38)
[2018-01-20] MEDS: Albuterol-Ipratrop 3 mg / 0.5 (3 ml) UD INH SCH ×2 (13:33→19:59)
--- NOTE | 2018-01-20 13:33 | RAD ---
Chest x-ray single frontal view History: Shortness of breath. Comparison: 12/21/2017 Findings: Moderate to severe venous congestion. Confluent consolidation in the right mid to lower lung zone. Cardiomegaly. Right PICC line with tip extending into the SVC. Degenerative changes in the spine and shoulders. Impression: Moderate to severe venous congestion. Confluent consolidation in the right mid to lower lung zone. Cardiomegaly. Right PICC line with tip extending into the SVC.
[2018-01-20] MEDS: Piperacill/Tazo 2.25gm in Dex 2.25 GM/50 ML BAG IVPB SCH ×2 (14:30→20:00)
[2018-01-20] MEDS: Azithromycin 500 MG in Sodium Chloride 0.9% 250 ML IVPB SCH (16:00)
--- NOTE | 2018-01-20 17:10 | CP.PCM.CON ---
History of Present Illness - History of Present Illness History of Present Illness: Reason for consultation: shortness of breath [age]-year-old male with history of Bilateral DVT, hypertension, diabetes, HIV positive, hypercholesterolemia patient was admitted recently with chest pain and had echocardiogram done with no regional wall abnormality and normal ejection fraction, Patient presented to emergency room complaining of worsening shortness of breath.Patient was placed on BiPAP for severity of symptoms. chest x-ray done consistent with congestive changes. PMH: HTN, hypercholesterolemia, DM and HIV +, DVT PSH: Right AKA, Cholocystectomy Allergies: NKDA Home Meds per discharge note on 12/28/17: * Eliquis 5mg PO BID * Amlodipine 5mg PO daily * Carvedilol 3.125mg PO BID * Hydralazine 10mg PO daily * Losartan 25mg PO Daily Review of Systems - Review of Systems All systems: reviewed and no additional remarkable complaints except ( complaining of shortness of breath) Past Patient History - Infectious Disease Hx of Infectious Diseases: None - Tetanus Immunizations Tetanus Immunization: Unknown - Past Medical History & Family History Past Medical History?: Yes - Past Social History Smoking Status: Former Smoker - CARDIAC Hx Congestive Heart Failure: Yes Hx Hypercholesterolemia: Yes Hx Hypertension: Yes - PULMONARY Hx Pneumonia: Yes - NEUROLOGICAL Hx Neurological Disorder: Yes (NEUROPATHY) - HEENT Hx HEENT Problems: Yes Hx Cataracts: Yes Other/Comment: Right eye cataract removal 06/2016 - RENAL Hx Chronic Kidney Disease: Yes - ENDOCRINE/METABOLIC Hx Diabetes Mellitus Type 2: Yes - HEMATOLOGICAL/ONCOLOGICAL Hx AIDS: (HIV) Hx Anemia: Yes Hx Blood Transfusions: Yes Hx Blood Transfusion Reaction: No Hx Human Immunodeficiency Virus (HIV): Yes Other/Comment: DVT - INTEGUMENTARY Hx Dermatological Problems: Yes (R AKA,LARGE ELONGATED SCARRING ACROSS MID ABDOMINAL AREA.) - MUSCULOSKELETAL/RHEUMATOLOGICAL Hx Falls: No - GASTROINTESTINAL Hx Gall Bladder Disease: Yes Hx Pancreatitis: Yes (pancreatic issue unspecified) - GENITOURINARY/GYNECOLOGICAL Hx Genitourinary Disorders: Yes Hx Prostate Problems: Yes - PSYCHIATRIC Hx Substance Use: No - SURGICAL HISTORY Hx Cholecystectomy: Yes Other/Comment: Rt. AKA - ANESTHESIA Hx Anesthesia: Yes Hx Anesthesia Reactions: No Hx Malignant Hyperthermia: No Meds Allergies/Adverse Reactions: Allergies Allergy/AdvReac Type Severity Reaction Status Date / Time No Known Allergies Allergy Verified 12/21/17 10:32 - Medications Medications: Current Medications Acetaminophen (Tylenol 325mg Tab) 650 mg PO Q6 PRN PRN Reason: Fever >100.4 F Last Admin: 01/20/18 11:17 Dose: 650 mg Albuterol/Ipratropium (Duoneb 3 Mg/0.5 Mg (3 Ml) Ud) 3 ml INH RQ6 [facility] Last Admin: 01/20/18 13:33 Dose: 3 ml Amlodipine Besylate (Norvasc) 10 mg PO DAILY [facility] Last Admin: 01/20/18 11:15 Dose: 10 mg Apixaban (Eliquis) 5 mg PO BID [facility] Last Admin: 01/20/18 11:16 Dose: 5 mg Aspirin (Aspirin Chewable) 81 mg PO DAILY [facility] Last Admin: 01/20/18 11:16 Dose: 81 mg Atovaquone (Mepron) 1,500 mg PO DAILY [facility] PRN Reason: Protocol Last Admin: 01/20/18 11:15 Dose: 1,500 mg Carvedilol (Coreg) 3.125 mg PO BID [facility] Last Admin: 01/20/18 11:16 Dose: 3.125 mg Dextrose (Glutose 15) 15 gm PO ONCE PRN; Protocol PRN Reason: Hypoglycemia Protocol Dextrose (Dextrose 50% Inj) 0 ml IV STAT PRN; Protocol PRN Reason: Hypoglycemia Protocol Famotidine (Pepcid) 20 mg IVP DAILY [facility] Last Admin: 01/20/18 11:15 Dose: 20 mg Ferrous Sulfate (Feosol) 325 mg PO DAILY [facility] Last Admin: 01/20/18 11:16 Dose: 325 mg Furosemide (Lasix) 40 mg IVP DAILY [facility] Last Admin: 01/20/18 11:15 Dose: 40 mg Gabapentin (Neurontin) 300 mg PO TID [facility] Last Admin: 01/20/18 14:38 Dose: 300 mg Glucagon (Glucagen Diagnostic Kit) 1 mg IM STAT PRN; Protocol PRN Reason: Hypoglycemia Protocol Home Med (Rilpivirine Hcl [Edurant]) 25 mg PO DAILY [facility] Hydralazine HCl (Apresoline) 25 mg PO Q8 [facility] Last Admin: 01/20/18 14:37 Dose: 25 mg Piperacillin Sod/Tazobactam Sod (Zosyn 2.25 Gm Iv Premix) 2.25 gm in 50 mls @ 100 mls/hr IVPB Q8H [facility] PRN Reason: Protocol Last Admin: 01/20/18 14:30 Dose: 100 mls/hr Ceftriaxone Sodium 1 gm/ (Sodium Chloride) 100 mls @ 100 mls/hr IVPB DAILY [facility] PRN Reason: Protocol Last Admin: 01/20/18 11:15 Dose: 100 mls/hr Azithromycin 500 mg/ Sodium (Chloride) 250 mls @ 250 mls/hr IVPB Q24H [facility] PRN Reason: Protocol Last Admin: 01/20/18 16:00 Dose: 250 mls/hr Dextrose (Dextrose 5% In Water 1000 Ml) 1,000 mls @ 0 mls/hr IV .Q0M PRN; Protocol; Per Protocol PRN Reason: Hypoglycemia Protocol Insulin Glargine (Lantus) 42 unit SC Q12 [facility] Last Admin: 01/20/18 11:19 Dose: 42 u Insulin Human Regular (Novolin R) 0 unit SC ACHS [facility] PRN Reason: Protocol Last Admin: 01/20/18 11:45 Dose: Not Given Insulin Human Regular (Novolin R) 8 unit SC AC [facility] Methylprednisolone (Solu-Medrol) 40 mg IVP Q8H [facility] Last Admin: 01/20/18 11:14 Dose: 40 mg Montelukast Sodium (Singulair) 10 mg PO HS [facility] Rosuvastatin Calcium (Crestor) 5 mg PO HS [facility] Physical Exam - Head Exam Head Exam: ATRAUMATIC, NORMOCEPHALIC - ENT Exam ENT Exam: Mucous Membranes Moist - Neck Exam Neck exam: Positive for: Normal Inspection - Respiratory Exam Respiratory Exam: Rales - Cardiovascular Exam Cardiovascular Exam: REGULAR RHYTHM - GI/Abdominal Exam GI & Abdominal Exam: Normal Bowel Sounds, Soft - Extremities Exam Extremities exam: Positive for: pedal edema Results - Vital Signs Recent Vital Signs: Last Vital Signs Temp 97.3 F L 01/20/18 15:00 Pulse 132 H 01/20/18 15:00 Resp 20 01/20/18 15:00 BP 131/86 01/20/18 15:00 Pulse Ox 95 01/20/18 15:00 - Labs Result Diagrams: 01/20/18 02:18 01/20/18 09:30 Labs: Laboratory Results - last 24 hr 01/20/18 01/20/18 01/20/18 02:18 02:18 02:18 WBC 10.0 D RBC 3.78 L Hgb 9.9 L Hct 30.5 L MCV 80.7 MCH 26.2 L MCHC 32.5 L RDW 15.4 H Plt Count 143 MPV 8.7 Neut % (Auto) 86.0 H Lymph % (Auto) 6.2 L [place] % (Auto) 7.1 Eos % (Auto) 0.3 Baso % (Auto) 0.4 Neut # (Auto) 8.6 H Lymph # (Auto) 0.6 L [place] # (Auto) 0.7 Eos # (Auto) 0.0 Baso # (Auto) 0.0 Neutrophils % (Manual) 90 H Lymphocytes % (Manual) 4 L Monocytes % (Manual) 6 Platelet Estimate Normal PT 15.0 H INR 1.4 APTT 34 Puncture Site pCO2 pO2 HCO3 ABG pH ABG Total CO2 ABG O2 Saturation ABG Base Excess Christian Test ABG Potassium A-a O2 Difference Respiratory Index Glucose Lactate Vent Mode FiO2 Inspiratory BiPAP Expiratory BiPAP Sodium 144 Potassium 6.3 H* D Chloride 110 H Carbon Dioxide 23 Anion Gap 17 BUN 41 H Creatinine 2.3 H Est GFR ( Amer) 34 Est GFR (Non-Af Amer) 29 POC Glucose (mg/dL) Random Glucose 157 H Calcium 8.8 Total Bilirubin 0.7 AST 99 H ALT 77 H D Alkaline Phosphatase 141 H Troponin I 0.0150 NT-Pro-B Natriuret Pep 3180 H Total Protein 8.0 Albumin 4.3 Globulin 3.7 Albumin/Globulin Ratio 1.1 Arterial Blood Potassium Urine Color Urine Clarity Urine pH Ur Specific [place] Urine Protein Urine Glucose (UA) Urine Ketones Urine Blood Urine Nitrate Urine Bilirubin Urine Urobilinogen Ur Leukocyte Esterase Urine WBC (Auto) Urine RBC (Auto) Urine Bacteria 01/20/18 01/20/18 01/20/18 02:25 03:00 07:32 WBC RBC Hgb Hct MCV MCH MCHC RDW Plt Count MPV Neut % (Auto) Lymph % (Auto) [place] % (Auto) Eos % (Auto) Baso % (Auto) Neut # (Auto) Lymph # (Auto) [place] # (Auto) Eos # (Auto) Baso # (Auto) Neutrophils % (Manual) Lymphocytes % (Manual) Monocytes % (Manual) Platelet Estimate PT INR APTT Puncture Site Lr pCO2 39 pO2 174 H HCO3 19.8 L ABG pH 7.30 L ABG Total CO2 20.4 L ABG O2 Saturation 98.8 H ABG Base Excess -6.7 L Christian Test Pos ABG Potassium 6.0 H A-a O2 Difference 490.0 Respiratory Index 2.8 Glucose 136 H Lactate 0.8 Vent Mode Bipap FiO2 100.0 Inspiratory BiPAP 12 Expiratory BiPAP 6 Sodium 140.0 Potassium Chloride 114.0 H Carbon Dioxide Anion Gap BUN Creatinine Est GFR ( Amer) Est GFR (Non-Af Amer) POC Glucose (mg/dL) 126 H Random Glucose Calcium Total Bilirubin AST ALT Alkaline Phosphatase Troponin I NT-Pro-B Natriuret Pep Total Protein Albumin Globulin Albumin/Globulin Ratio Arterial Blood Potassium 6.0 H Urine Color Yellow Urine Clarity Clear Urine pH 5.0 Ur Specific [place] 1.012 Urine Protein 2+ H Urine Glucose (UA) 1+ H Urine Ketones Negative Urine Blood 2+ H Urine Nitrate Negative Urine Bilirubin Negative Urine Urobilinogen Normal Ur Leukocyte Esterase 1+ H Urine WBC (Auto) 6 H Urine RBC (Auto) 21 H Urine Bacteria Few H 01/20/18 01/20/18 09:30 11:16 WBC RBC Hgb Hct MCV MCH MCHC RDW Plt Count MPV Neut % (Auto) Lymph % (Auto) [place] % (Auto) Eos % (Auto) Baso % (Auto) Neut # (Auto) Lymph # (Auto) [place] # (Auto) Eos # (Auto) Baso # (Auto) Neutrophils % (Manual) Lymphocytes % (Manual) Monocytes % (Manual) Platelet Estimate PT INR APTT Puncture Site pCO2 pO2 HCO3 ABG pH ABG Total CO2 ABG O2 Saturation ABG Base Excess Christian Test ABG Potassium A-a O2 Difference Respiratory Index Glucose Lactate Vent Mode FiO2 Inspiratory BiPAP Expiratory BiPAP Sodium 142 Potassium 4.8 Chloride 109 H Carbon Dioxide 22 Anion Gap 16 BUN 39 H Creatinine 2.2 H Est GFR ( Amer) 36 Est GFR (Non-Af Amer) 30 POC Glucose (mg/dL) 101 Random Glucose 145 H Calcium 8.7 Total Bilirubin AST ALT Alkaline Phosphatase Troponin I NT-Pro-B Natriuret Pep Total Protein Albumin Globulin Albumin/Globulin Ratio Arterial Blood Potassium Urine Color Urine Clarity Urine pH Ur Specific [place] Urine Protein Urine Glucose (UA) Urine Ketones Urine Blood Urine Nitrate Urine Bilirubin Urine Urobilinogen Ur Leukocyte Esterase Urine WBC (Auto) Urine RBC (Auto) Urine Bacteria Assessment & Plan (1) Respiratory insufficiency Status: Acute Comment: chest x-ray consistent with severe congestion and possible consolidation. Continue antibiotics. IV Lasix. BiPAP. Follow-up ABG. Seen by cardiology. continue anticoagulation for DVT (2) Pneumonia Status: Acute (3) DVT, bilateral lower limbs Status: Acute (4) HIV (human immunodeficiency virus infection) Status: Acute
--- NOTE | 2018-01-20 17:46 | CP.PCM.HP ---
Past Patient History - Infectious Disease Hx of Infectious Diseases: None - Tetanus Immunizations Tetanus Immunization: Unknown - Past Medical History & Family History Past Medical History?: Yes - Past Social History Smoking Status: Former Smoker - CARDIAC Hx Congestive Heart Failure: Yes Hx Hypercholesterolemia: Yes Hx Hypertension: Yes - PULMONARY Hx Pneumonia: Yes - NEUROLOGICAL Hx Neurological Disorder: Yes (NEUROPATHY) - HEENT Hx HEENT Problems: Yes Hx Cataracts: Yes Other/Comment: Right eye cataract removal 06/2016 - RENAL Hx Chronic Kidney Disease: Yes - ENDOCRINE/METABOLIC Hx Diabetes Mellitus Type 2: Yes - HEMATOLOGICAL/ONCOLOGICAL Hx AIDS: (HIV) Hx Anemia: Yes Hx Blood Transfusions: Yes Hx Blood Transfusion Reaction: No Hx Human Immunodeficiency Virus (HIV): Yes Other/Comment: DVT - INTEGUMENTARY Hx Dermatological Problems: Yes (R AKA,LARGE ELONGATED SCARRING ACROSS MID ABDOMINAL AREA.) - MUSCULOSKELETAL/RHEUMATOLOGICAL Hx Falls: No - GASTROINTESTINAL Hx Gall Bladder Disease: Yes Hx Pancreatitis: Yes (pancreatic issue unspecified) - GENITOURINARY/GYNECOLOGICAL Hx Genitourinary Disorders: Yes Hx Prostate Problems: Yes - PSYCHIATRIC Hx Substance Use: No - SURGICAL HISTORY Hx Cholecystectomy: Yes Other/Comment: Rt. AKA - ANESTHESIA Hx Anesthesia: Yes Hx Anesthesia Reactions: No Hx Malignant Hyperthermia: No Meds Allergies/Adverse Reactions: Allergies Allergy/AdvReac Type Severity Reaction Status Date / Time No Known Allergies Allergy Verified 12/21/17 10:32 Results - Vital Signs Recent Vital Signs: Last Vital Signs Temp 97.3 F L 01/20/18 15:00 Pulse 132 H 01/20/18 15:00 Resp 20 01/20/18 15:00 BP 131/86 01/20/18 15:00 Pulse Ox 95 01/20/18 15:00 - Labs Result Diagrams: 01/20/18 02:18 01/20/18 09:30 Labs: Laboratory Results - last 24 hr 01/20/18 01/20/18 01/20/18 02:18 02:18 02:18 WBC 10.0 D RBC 3.78 L Hgb 9.9 L Hct 30.5 L MCV 80.7 MCH 26.2 L MCHC 32.5 L RDW 15.4 H Plt Count 143 MPV 8.7 Neut % (Auto) 86.0 H Lymph % (Auto) 6.2 L [place] % (Auto) 7.1 Eos % (Auto) 0.3 Baso % (Auto) 0.4 Neut # (Auto) 8.6 H Lymph # (Auto) 0.6 L [place] # (Auto) 0.7 Eos # (Auto) 0.0 Baso # (Auto) 0.0 Neutrophils % (Manual) 90 H Lymphocytes % (Manual) 4 L Monocytes % (Manual) 6 Platelet Estimate Normal PT 15.0 H INR 1.4 APTT 34 Puncture Site pCO2 pO2 HCO3 ABG pH ABG Total CO2 ABG O2 Saturation ABG Base Excess Christian Test ABG Potassium A-a O2 Difference Respiratory Index Glucose Lactate Vent Mode FiO2 Inspiratory BiPAP Expiratory BiPAP Sodium 144 Potassium 6.3 H* D Chloride 110 H Carbon Dioxide 23 Anion Gap 17 BUN 41 H Creatinine 2.3 H Est GFR ( Amer) 34 Est GFR (Non-Af Amer) 29 POC Glucose (mg/dL) Random Glucose 157 H Calcium 8.8 Total Bilirubin 0.7 AST 99 H ALT 77 H D Alkaline Phosphatase 141 H Troponin I 0.0150 NT-Pro-B Natriuret Pep 3180 H Total Protein 8.0 Albumin 4.3 Globulin 3.7 Albumin/Globulin Ratio 1.1 Arterial Blood Potassium Urine Color Urine Clarity Urine pH Ur Specific [place] Urine Protein Urine Glucose (UA) Urine Ketones Urine Blood Urine Nitrate Urine Bilirubin Urine Urobilinogen Ur Leukocyte Esterase Urine WBC (Auto) Urine RBC (Auto) Urine Bacteria 01/20/18 01/20/18 01/20/18 02:25 03:00 07:32 WBC RBC Hgb Hct MCV MCH MCHC RDW Plt Count MPV Neut % (Auto) Lymph % (Auto) [place] % (Auto) Eos % (Auto) Baso % (Auto) Neut # (Auto) Lymph # (Auto) [place] # (Auto) Eos # (Auto) Baso # (Auto) Neutrophils % (Manual) Lymphocytes % (Manual) Monocytes % (Manual) Platelet Estimate PT INR APTT Puncture Site Lr pCO2 39 pO2 174 H HCO3 19.8 L ABG pH 7.30 L ABG Total CO2 20.4 L ABG O2 Saturation 98.8 H ABG Base Excess -6.7 L Christian Test Pos ABG Potassium 6.0 H A-a O2 Difference 490.0 Respiratory Index 2.8 Glucose 136 H Lactate 0.8 Vent Mode Bipap FiO2 100.0 Inspiratory BiPAP 12 Expiratory BiPAP 6 Sodium 140.0 Potassium Chloride 114.0 H Carbon Dioxide Anion Gap BUN Creatinine Est GFR ( Amer) Est GFR (Non-Af Amer) POC Glucose (mg/dL) 126 H Random Glucose Calcium Total Bilirubin AST ALT Alkaline Phosphatase Troponin I NT-Pro-B Natriuret Pep Total Protein Albumin Globulin Albumin/Globulin Ratio Arterial Blood Potassium 6.0 H Urine Color Yellow Urine Clarity Clear Urine pH 5.0 Ur Specific [place] 1.012 Urine Protein 2+ H Urine Glucose (UA) 1+ H Urine Ketones Negative Urine Blood 2+ H Urine Nitrate Negative Urine Bilirubin Negative Urine Urobilinogen Normal Ur Leukocyte Esterase 1+ H Urine WBC (Auto) 6 H Urine RBC (Auto) 21 H Urine Bacteria Few H 01/20/18 01/20/18 01/20/18 09:30 11:16 17:31 WBC RBC Hgb Hct MCV MCH MCHC RDW Plt Count MPV Neut % (Auto) Lymph % (Auto) [place] % (Auto) Eos % (Auto) Baso % (Auto) Neut # (Auto) Lymph # (Auto) [place] # (Auto) Eos # (Auto) Baso # (Auto) Neutrophils % (Manual) Lymphocytes % (Manual) Monocytes % (Manual) Platelet Estimate PT INR APTT Puncture Site pCO2 pO2 HCO3 ABG pH ABG Total CO2 ABG O2 Saturation ABG Base Excess Christian Test ABG Potassium A-a O2 Difference Respiratory Index Glucose Lactate Vent Mode FiO2 Inspiratory BiPAP Expiratory BiPAP Sodium 142 Potassium 4.8 Chloride 109 H Carbon Dioxide 22 Anion Gap 16 BUN 39 H Creatinine 2.2 H Est GFR ( Amer) 36 Est GFR (Non-Af Amer) 30 POC Glucose (mg/dL) 101 137 H Random Glucose 145 H Calcium 8.7 Total Bilirubin AST ALT Alkaline Phosphatase Troponin I NT-Pro-B Natriuret Pep Total Protein Albumin Globulin Albumin/Globulin Ratio Arterial Blood Potassium Urine Color Urine Clarity Urine pH Ur Specific [place] Urine Protein Urine Glucose (UA) Urine Ketones Urine Blood Urine Nitrate Urine Bilirubin Urine Urobilinogen Ur Leukocyte Esterase Urine WBC (Auto) Urine RBC (Auto) Urine Bacteria
--- NOTE | 2018-01-20 18:08 | CT ---
PROCEDURE: CT Abdomen and Pelvis without Oral or IV contrast. HISTORY: abdominal pain COMPARISON: None available TECHNIQUE: Contiguous axial images of the abdomen and pelvis. No oral or IV contrast administered. Coronal and Sagittal reformats generated. Radiation dose: Total exam DLP = 1095.64 mGy-cm. This CT exam was performed using one or more of the following dose reduction techniques: Automated exposure control, adjustment of the mA and/or kV according to patient size, and/or use of iterative reconstruction technique. FINDINGS: There is limited evaluation of the solid organs without the administration of IV contrast. LOWER THORAX: Bilateral lower lobe infiltrates. No significant pleural effusion or definite pneumothorax. Partially imaged cardiomegaly and ascending aortic aneurysm measuring approximately 4.6 cm in AP dimension. Dense atherosclerotic calcifications. Dense coronary artery calcifications. LIVER: Unremarkable unenhanced appearance. GALLBLADDER AND BILE DUCTS: Not visualized either collapsed or surgically removed. Surgical clips are not evident. PANCREAS: Unremarkable unenhanced appearance. SPLEEN: Unremarkable unenhanced appearance. ADRENALS: Unremarkable unenhanced appearance. KIDNEYS AND URETERS: No hydronephrosis or obstructing renal calculus. BLADDER: Distention of the urinary bladder. REPRODUCTIVE: The prostate gland measures approximately 3.3 x 3.9 cm. APPENDIX: Not visualized. No secondary signs of acute appendicitis. BOWEL: The stomach is nondistended. Lack of oral contrast limits evaluation for bowel pathology. The bowel loops appear within normal limits of caliber without evidence of intestinal obstruction. Extensive diverticulosis without CT evidence of acute diverticulitis. PERITONEUM: No significant free fluid. No definite free air. LYMPH NODES: No bulky lymphadenopathy identified. VASCULATURE: Dense atherosclerotic calcifications of the aorta and branches. BONES: Extensive demineralization. Multilevel degenerative changes. OTHER FINDINGS: 3.3 x 4.0 cm containing lesion within the left anterior thigh soft tissues, favored to represent a lipoma. IMPRESSION: Partially imaged cardiomegaly and ascending aortic aneurysm measuring approximately 4.6 cm in AP dimension. Dense coronary artery calcifications. Dense atherosclerotic calcifications of the aorta and branches. Bilateral lower lobe pulmonary infiltrates. The gallbladder is not visualized, either collapsed or surgically removed. Surgical clips are not evident. Urinary bladder distension. Extensive diverticulosis without CT evidence of acute diverticulitis. 3.3 x 4.0 cm containing lesion within the left anterior thigh soft tissues, favored to represent a lipoma. Additional findings as above.
--- NOTE | 2018-01-20 18:53 | CP.PCM.CON ---
History of Present Illness - History of Present Illness History of Present Illness: 67-year-old male presented to emergency room complaining of worsening shortness of breath.Patient was placed on BiPAP for severity of symptoms. chest x-ray done consistent with congestive changes. ID consultedd for possible pneumonia PMH: HTN, hypercholesterolemia, DM and HIV + last CD4 < 200 , DVT PSH: Right AKA, Cholocystectomy Allergies: NKDA Home Meds per discharge note on 12/28/17: * Eliquis 5mg PO BID * Amlodipine 5mg PO daily * Carvedilol 3.125mg PO BID * Hydralazine 10mg PO daily * Losartan 25mg PO Daily * * - Medical History PMH: Anemia, Arthritis, Diabetes, Gall Bladder Disease, HIV, HTN, Hypercholesterolemia, Pancreatitis (pancreatic issue unspecified), Pneumonia, Chronic Kidney Disease Surgical History: Cholecystectomy - [facility] Procedures INSERTION OF INFUSION DEV INTO SUP VENA CAVA, PERC APPROACH (12/21/17) INSPECTION OF UPPER INTESTINAL TRACT, ENDO (06/19/16) INTRODUCE OF OTH THERAP SUBST INTO RESP TRACT, VIA OPENING (01/26/17) ULTRASONOGRAPHY OF BILE DUCTS (06/19/16) ULTRASONOGRAPHY OF PANCREAS (06/19/16) Past Patient History - Infectious Disease Hx of Infectious Diseases: None - Tetanus Immunizations Tetanus Immunization: Unknown - Past Medical History & Family History Past Medical History?: Yes - Past Social History Smoking Status: Former Smoker - CARDIAC Hx Congestive Heart Failure: Yes Hx Hypercholesterolemia: Yes Hx Hypertension: Yes - PULMONARY Hx Pneumonia: Yes - NEUROLOGICAL Hx Neurological Disorder: Yes (NEUROPATHY) - HEENT Hx HEENT Problems: Yes Hx Cataracts: Yes Other/Comment: Right eye cataract removal 06/2016 - RENAL Hx Chronic Kidney Disease: Yes - ENDOCRINE/METABOLIC Hx Diabetes Mellitus Type 2: Yes - HEMATOLOGICAL/ONCOLOGICAL Hx AIDS: (HIV) Hx Anemia: Yes Hx Blood Transfusions: Yes Hx Blood Transfusion Reaction: No Hx Human Immunodeficiency Virus (HIV): Yes Other/Comment: DVT - INTEGUMENTARY Hx Dermatological Problems: Yes (R AKA,LARGE ELONGATED SCARRING ACROSS MID ABDOMINAL AREA.) - MUSCULOSKELETAL/RHEUMATOLOGICAL Hx Falls: No - GASTROINTESTINAL Hx Gall Bladder Disease: Yes Hx Pancreatitis: Yes (pancreatic issue unspecified) - GENITOURINARY/GYNECOLOGICAL Hx Genitourinary Disorders: Yes Hx Prostate Problems: Yes - PSYCHIATRIC Hx Substance Use: No - SURGICAL HISTORY Hx Cholecystectomy: Yes Other/Comment: Rt. AKA - ANESTHESIA Hx Anesthesia: Yes Hx Anesthesia Reactions: No Hx Malignant Hyperthermia: No Meds Allergies/Adverse Reactions: Allergies Allergy/AdvReac Type Severity Reaction Status Date / Time No Known Allergies Allergy Verified 12/21/17 10:32 - Medications Medications: Current Medications Acetaminophen (Tylenol 325mg Tab) 650 mg PO Q6 PRN PRN Reason: Fever >100.4 F Last Admin: 01/20/18 11:17 Dose: 650 mg Albuterol/Ipratropium (Duoneb 3 Mg/0.5 Mg (3 Ml) Ud) 3 ml INH RQ6 [facility] Last Admin: 01/20/18 13:33 Dose: 3 ml Amlodipine Besylate (Norvasc) 10 mg PO DAILY [facility] Last Admin: 01/20/18 11:15 Dose: 10 mg Apixaban (Eliquis) 5 mg PO BID [facility] Last Admin: 01/20/18 18:39 Dose: 5 mg Aspirin (Aspirin Chewable) 81 mg PO DAILY [facility] Last Admin: 01/20/18 11:16 Dose: 81 mg Atovaquone (Mepron) 1,500 mg PO DAILY [facility] PRN Reason: Protocol Last Admin: 01/20/18 11:15 Dose: 1,500 mg Carvedilol (Coreg) 3.125 mg PO BID [facility] Last Admin: 01/20/18 18:38 Dose: 3.125 mg Dextrose (Glutose 15) 15 gm PO ONCE PRN; Protocol PRN Reason: Hypoglycemia Protocol Dextrose (Dextrose 50% Inj) 0 ml IV STAT PRN; Protocol PRN Reason: Hypoglycemia Protocol Famotidine (Pepcid) 20 mg IVP DAILY [facility] Last Admin: 01/20/18 11:15 Dose: 20 mg Ferrous Sulfate (Feosol) 325 mg PO DAILY [facility] Last Admin: 01/20/18 11:16 Dose: 325 mg Furosemide (Lasix) 40 mg IVP DAILY [facility] Last Admin: 01/20/18 11:15 Dose: 40 mg Gabapentin (Neurontin) 300 mg PO TID [facility] Last Admin: 01/20/18 18:39 Dose: 300 mg Glucagon (Glucagen Diagnostic Kit) 1 mg IM STAT PRN; Protocol PRN Reason: Hypoglycemia Protocol Home Med (Rilpivirine Hcl [Edurant]) 25 mg PO DAILY [facility] Hydralazine HCl (Apresoline) 25 mg PO Q8 [facility] Last Admin: 01/20/18 14:37 Dose: 25 mg Piperacillin Sod/Tazobactam Sod (Zosyn 2.25 Gm Iv Premix) 2.25 gm in 50 mls @ 100 mls/hr IVPB Q8H [facility] PRN Reason: Protocol Last Admin: 01/20/18 14:30 Dose: 100 mls/hr Azithromycin 500 mg/ Sodium (Chloride) 250 mls @ 250 mls/hr IVPB Q24H [facility] PRN Reason: Protocol Last Admin: 01/20/18 16:00 Dose: 250 mls/hr Dextrose (Dextrose 5% In Water 1000 Ml) 1,000 mls @ 0 mls/hr IV .Q0M PRN; Protocol; Per Protocol PRN Reason: Hypoglycemia Protocol Insulin Glargine (Lantus) 42 unit SC Q12 [facility] Last Admin: 01/20/18 11:19 Dose: 42 u Insulin Human Regular (Novolin R) 0 unit SC ACHS [facility] PRN Reason: Protocol Last Admin: 01/20/18 17:30 Dose: Not Given Insulin Human Regular (Novolin R) 8 unit SC AC [facility] Methylprednisolone (Solu-Medrol) 40 mg IVP Q8H [facility] Last Admin: 01/20/18 18:40 Dose: 40 mg Montelukast Sodium (Singulair) 10 mg PO HS [facility] Rosuvastatin Calcium (Crestor) 5 mg PO HS [facility] Results - Vital Signs Recent Vital Signs: Last Vital Signs Temp 97.3 F L 01/20/18 15:00 Pulse 132 H 01/20/18 15:00 Resp 20 01/20/18 15:00 BP 131/86 01/20/18 15:00 Pulse Ox 95 01/20/18 15:00 - Labs Result Diagrams: 01/20/18 02:18 01/20/18 09:30 Labs: Laboratory Results - last 24 hr 01/20/18 01/20/18 01/20/18 02:18 02:18 02:18 WBC 10.0 D RBC 3.78 L Hgb 9.9 L Hct 30.5 L MCV 80.7 MCH 26.2 L MCHC 32.5 L RDW 15.4 H Plt Count 143 MPV 8.7 Neut % (Auto) 86.0 H Lymph % (Auto) 6.2 L [place] % (Auto) 7.1 Eos % (Auto) 0.3 Baso % (Auto) 0.4 Neut # (Auto) 8.6 H Lymph # (Auto) 0.6 L [place] # (Auto) 0.7 Eos # (Auto) 0.0 Baso # (Auto) 0.0 Neutrophils % (Manual) 90 H Lymphocytes % (Manual) 4 L Monocytes % (Manual) 6 Platelet Estimate Normal PT 15.0 H INR 1.4 APTT 34 Puncture Site pCO2 pO2 HCO3 ABG pH ABG Total CO2 ABG O2 Saturation ABG Base Excess Christian Test ABG Potassium A-a O2 Difference Respiratory Index Glucose Lactate Vent Mode FiO2 Inspiratory BiPAP Expiratory BiPAP Sodium 144 Potassium 6.3 H* D Chloride 110 H Carbon Dioxide 23 Anion Gap 17 BUN 41 H Creatinine 2.3 H Est GFR ( Amer) 34 Est GFR (Non-Af Amer) 29 POC Glucose (mg/dL) Random Glucose 157 H Calcium 8.8 Total Bilirubin 0.7 AST 99 H ALT 77 H D Alkaline Phosphatase 141 H Troponin I 0.0150 NT-Pro-B Natriuret Pep 3180 H Total Protein 8.0 Albumin 4.3 Globulin 3.7 Albumin/Globulin Ratio 1.1 Arterial Blood Potassium Urine Color Urine Clarity Urine pH Ur Specific [place] Urine Protein Urine Glucose (UA) Urine Ketones Urine Blood Urine Nitrate Urine Bilirubin Urine Urobilinogen Ur Leukocyte Esterase Urine WBC (Auto) Urine RBC (Auto) Urine Bacteria 01/20/18 01/20/18 01/20/18 02:25 03:00 07:32 WBC RBC Hgb Hct MCV MCH MCHC RDW Plt Count MPV Neut % (Auto) Lymph % (Auto) [place] % (Auto) Eos % (Auto) Baso % (Auto) Neut # (Auto) Lymph # (Auto) [place] # (Auto) Eos # (Auto) Baso # (Auto) Neutrophils % (Manual) Lymphocytes % (Manual) Monocytes % (Manual) Platelet Estimate PT INR APTT Puncture Site Lr pCO2 39 pO2 174 H HCO3 19.8 L ABG pH 7.30 L ABG Total CO2 20.4 L ABG O2 Saturation 98.8 H ABG Base Excess -6.7 L Christian Test Pos ABG Potassium 6.0 H A-a O2 Difference 490.0 Respiratory Index 2.8 Glucose 136 H Lactate 0.8 Vent Mode Bipap FiO2 100.0 Inspiratory BiPAP 12 Expiratory BiPAP 6 Sodium 140.0 Potassium Chloride 114.0 H Carbon Dioxide Anion Gap BUN Creatinine Est GFR ( Amer) Est GFR (Non-Af Amer) POC Glucose (mg/dL) 126 H Random Glucose Calcium Total Bilirubin AST ALT Alkaline Phosphatase Troponin I NT-Pro-B Natriuret Pep Total Protein Albumin Globulin Albumin/Globulin Ratio Arterial Blood Potassium 6.0 H Urine Color Yellow Urine Clarity Clear Urine pH 5.0 Ur Specific [place] 1.012 Urine Protein 2+ H Urine Glucose (UA) 1+ H Urine Ketones Negative Urine Blood 2+ H Urine Nitrate Negative Urine Bilirubin Negative Urine Urobilinogen Normal Ur Leukocyte Esterase 1+ H Urine WBC (Auto) 6 H Urine RBC (Auto) 21 H Urine Bacteria Few H 01/20/18 01/20/18 01/20/18 09:30 11:16 17:31 WBC RBC Hgb Hct MCV MCH MCHC RDW Plt Count MPV Neut % (Auto) Lymph % (Auto) [place] % (Auto) Eos % (Auto) Baso % (Auto) Neut # (Auto) Lymph # (Auto) [place] # (Auto) Eos # (Auto) Baso # (Auto) Neutrophils % (Manual) Lymphocytes % (Manual) Monocytes % (Manual) Platelet Estimate PT INR APTT Puncture Site pCO2 pO2 HCO3 ABG pH ABG Total CO2 ABG O2 Saturation ABG Base Excess Christian Test ABG Potassium A-a O2 Difference Respiratory Index Glucose Lactate Vent Mode FiO2 Inspiratory BiPAP Expiratory BiPAP Sodium 142 Potassium 4.8 Chloride 109 H Carbon Dioxide 22 Anion Gap 16 BUN 39 H Creatinine 2.2 H Est GFR ( Amer) 36 Est GFR (Non-Af Amer) 30 POC Glucose (mg/dL) 101 137 H Random Glucose 145 H Calcium 8.7 Total Bilirubin AST ALT Alkaline Phosphatase Troponin I NT-Pro-B Natriuret Pep Total Protein Albumin Globulin Albumin/Globulin Ratio Arterial Blood Potassium Urine Color Urine Clarity Urine pH Ur Specific [place] Urine Protein Urine Glucose (UA) Urine Ketones Urine Blood Urine Nitrate Urine Bilirubin Urine Urobilinogen Ur Leukocyte Esterase Urine WBC (Auto) Urine RBC (Auto) Urine Bacteria
[2018-01-20] MEDS: Emtricitabine-Tenofovir 200 mg-300 mg Tab PO SCH (22:43)
[2018-01-21] MEDS: Albuterol-Ipratrop 3 mg / 0.5 (3 ml) UD INH SCH ×4 (01:40→20:26)
[2018-01-21] MEDS ORDERED: (Novolin R) Insulin Human Regular 100 units/ml vial SC ONE (02:36)
[2018-01-21] MEDS: MethylPREDNISolone 40 mg Vial IVP SCH ×3 (02:50→18:20)
[2018-01-21] MEDS: Piperacill/Tazo 2.25gm in Dex 2.25 GM/50 ML BAG IVPB SCH ×3 (02:52→18:17)
[2018-01-21] MEDS: (Novolin R) Insulin Human Regular 100 units/ml vial SC SCH ×7 (08:14→22:29)
[2018-01-21] MEDS: (Lantus) Insulin Glargine, Recombinant SC SCH ×2 (09:55→22:28)
[2018-01-21] MEDS: Atovaquone 750 mg/5 ml Susp UD PO SCH (09:56)
--- NOTE | 2018-01-21 11:40 | CP.PCM.CON ---
History of Present Illness - History of Present Illness History of Present Illness: Admitted for SOB and PNA from [facility] Now clinically improved since admission No SOB No fevers or chills No CP or volume overload Cardiac: Echo 12/23/17: LVH, normal LVEF PMH: HTN, hypercholesterolemia, DM and HIV + last CD4 < 200 , DVT on eliquis PSH: Right AKA, Cholocystectomy Allergies: NKDA Home Meds per discharge note on 12/28/17: * Eliquis 5mg PO BID * Amlodipine 5mg PO daily * Carvedilol 3.125mg PO BID * Hydralazine 10mg PO daily * Losartan 25mg PO Daily * * - Medical History PMH: Anemia, Arthritis, Diabetes, Gall Bladder Disease, HIV, HTN, Hypercholesterolemia, Pancreatitis (pancreatic issue unspecified), Pneumonia, Chronic Kidney Disease Surgical History: Cholecystectomy Review of Systems - Review of Systems All systems: reviewed and no additional remarkable complaints except Past Patient History - Infectious Disease Hx of Infectious Diseases: None - Tetanus Immunizations Tetanus Immunization: Unknown - Past Medical History & Family History Past Medical History?: Yes - Past Social History Smoking Status: Former Smoker - CARDIAC Hx Congestive Heart Failure: Yes Hx Hypercholesterolemia: Yes Hx Hypertension: Yes - PULMONARY Hx Pneumonia: Yes - NEUROLOGICAL Hx Neurological Disorder: Yes (NEUROPATHY) - HEENT Hx HEENT Problems: Yes Hx Cataracts: Yes Other/Comment: Right eye cataract removal 06/2016 - RENAL Hx Chronic Kidney Disease: Yes - ENDOCRINE/METABOLIC Hx Diabetes Mellitus Type 2: Yes - HEMATOLOGICAL/ONCOLOGICAL Hx AIDS: (HIV) Hx Anemia: Yes Hx Blood Transfusions: Yes Hx Blood Transfusion Reaction: No Hx Human Immunodeficiency Virus (HIV): Yes Other/Comment: DVT - INTEGUMENTARY Hx Dermatological Problems: Yes (R AKA,LARGE ELONGATED SCARRING ACROSS MID ABDOMINAL AREA.) - MUSCULOSKELETAL/RHEUMATOLOGICAL Hx Falls: No - GASTROINTESTINAL Hx Gall Bladder Disease: Yes Hx Pancreatitis: Yes (pancreatic issue unspecified) - GENITOURINARY/GYNECOLOGICAL Hx Genitourinary Disorders: Yes Hx Prostate Problems: Yes - PSYCHIATRIC Hx Substance Use: No - SURGICAL HISTORY Hx Cholecystectomy: Yes Other/Comment: Rt. AKA - ANESTHESIA Hx Anesthesia: Yes Hx Anesthesia Reactions: No Hx Malignant Hyperthermia: No Meds Allergies/Adverse Reactions: Allergies Allergy/AdvReac Type Severity Reaction Status Date / Time No Known Allergies Allergy Verified 12/21/17 10:32 - Medications Medications: Current Medications Acetaminophen (Tylenol 325mg Tab) 650 mg PO Q6 PRN PRN Reason: Fever >100.4 F Last Admin: 01/20/18 11:17 Dose: 650 mg Albuterol/Ipratropium (Duoneb 3 Mg/0.5 Mg (3 Ml) Ud) 3 ml INH RQ6 [facility] Last Admin: 01/21/18 08:00 Dose: 3 ml Amlodipine Besylate (Norvasc) 10 mg PO DAILY [facility] Last Admin: 01/21/18 09:55 Dose: 10 mg Apixaban (Eliquis) 5 mg PO BID [facility] Last Admin: 01/21/18 09:55 Dose: 5 mg Aspirin (Aspirin Chewable) 81 mg PO DAILY [facility] Last Admin: 01/21/18 09:55 Dose: 81 mg Atovaquone (Mepron) 1,500 mg PO DAILY [facility] PRN Reason: Protocol Last Admin: 01/21/18 09:56 Dose: 1,500 mg Carvedilol (Coreg) 3.125 mg PO BID [facility] Last Admin: 01/21/18 09:55 Dose: 3.125 mg Dextrose (Glutose 15) 15 gm PO ONCE PRN; Protocol PRN Reason: Hypoglycemia Protocol Dextrose (Dextrose 50% Inj) 0 ml IV STAT PRN; Protocol PRN Reason: Hypoglycemia Protocol Dolutegravir Sodium (Tivicay) 50 mg PO Q24H [facility] PRN Reason: Protocol Last Admin: 01/20/18 22:42 Dose: 50 mg Emtricitabine/Tenofovir (Truvada 200 Mg-300 Mg) 1 tab PO Q48H [facility] PRN Reason: Protocol Last Admin: 01/20/18 22:43 Dose: 1 tab Famotidine (Pepcid) 20 mg IVP DAILY [facility] Last Admin: 01/21/18 10:13 Dose: 20 mg Ferrous Sulfate (Feosol) 325 mg PO DAILY [facility] Last Admin: 01/21/18 09:56 Dose: 325 mg Furosemide (Lasix) 40 mg IVP DAILY [facility] Last Admin: 01/21/18 09:55 Dose: 40 mg Gabapentin (Neurontin) 300 mg PO TID [facility] Last Admin: 01/21/18 09:55 Dose: 300 mg Glucagon (Glucagen Diagnostic Kit) 1 mg IM STAT PRN; Protocol PRN Reason: Hypoglycemia Protocol Hydralazine HCl (Apresoline) 25 mg PO Q8 [facility] Last Admin: 01/21/18 05:36 Dose: 25 mg Piperacillin Sod/Tazobactam Sod (Zosyn 2.25 Gm Iv Premix) 2.25 gm in 50 mls @ 100 mls/hr IVPB Q8H [facility] PRN Reason: Protocol Last Admin: 01/21/18 10:21 Dose: 100 mls/hr Azithromycin 500 mg/ Sodium (Chloride) 250 mls @ 250 mls/hr IVPB Q24H [facility] PRN Reason: Protocol Last Admin: 01/20/18 16:00 Dose: 250 mls/hr Dextrose (Dextrose 5% In Water 1000 Ml) 1,000 mls @ 0 mls/hr IV .Q0M PRN; Protocol; Per Protocol PRN Reason: Hypoglycemia Protocol Insulin Glargine (Lantus) 42 unit SC Q12 [facility] Last Admin: 01/21/18 09:55 Dose: 42 u Insulin Human Regular (Novolin R) 0 unit SC ACHS [facility] PRN Reason: Protocol Last Admin: 01/21/18 08:14 Dose: 4 units Insulin Human Regular (Novolin R) 8 unit SC AC [facility] Last Admin: 01/21/18 08:15 Dose: 8 units Methylprednisolone (Solu-Medrol) 40 mg IVP Q8H [facility] Last Admin: 01/21/18 10:14 Dose: 40 mg Montelukast Sodium (Singulair) 10 mg PO [facility] Last Admin: 01/20/18 22:41 Dose: 10 mg Rosuvastatin Calcium (Crestor) 5 mg PO [facility] Last Admin: 01/20/18 22:41 Dose: 5 mg Physical Exam - Constitutional Appears: No Acute Distress - Head Exam Head Exam: ATRAUMATIC, NORMAL INSPECTION, NORMOCEPHALIC - Eye Exam Eye Exam: EOMI, Normal appearance, PERRL - ENT Exam ENT Exam: Normal Oropharynx - Neck Exam Neck exam: Positive for: Full Rom. Negative for: Normal Inspection - Respiratory Exam Respiratory Exam: Rhonchi, NORMAL BREATHING PATTERN. absent: Wheezes - Cardiovascular Exam Cardiovascular Exam: REGULAR RHYTHM, +S1, +S2. absent: Systolic Murmur - GI/Abdominal Exam GI & Abdominal Exam: Normal Bowel Sounds, Soft. absent: Tenderness - Extremities Exam Extremities exam: Negative for: normal inspection (R. AKA) - Neurological Exam Neurological exam: Abnormal Gait, Alert, Oriented x3 - Psychiatric Exam Psychiatric exam: Normal Affect, Normal Mood - Skin Skin Exam: Normal Color Results - Vital Signs Recent Vital Signs: Last Vital Signs Temp 97.5 F L 01/21/18 08:36 Pulse 97 H 01/21/18 09:06 Resp 20 01/21/18 08:36 BP 177/88 H 01/21/18 09:55 Pulse Ox 100 01/21/18 08:36 - Labs Result Diagrams: 01/20/18 02:18 01/20/18 09:30 Labs: Laboratory Results - last 24 hr 01/20/18 01/20/18 01/21/18 17:31 21:51 02:19 POC Glucose (mg/dL) 137 H 465 H* > 500 H* Lactate Dehydrogenase 01/21/18 01/21/18 01/21/18 06:43 07:08 09:53 POC Glucose (mg/dL) 292 H 374 H Lactate Dehydrogenase 680 H - EKG Data EKG Interpreted by: Myself (NSR, LVH, no acute changes) Assessment & Plan - Assessment and Plan (Free Text) Assessment: Acute on chronic diastolic CHF Acute PNA HTN uncontrolled LIPIDS Hx of DVT maintained on eliquis Mild anemia HIV DM uncontrolled PAD hx of R. AKA - BP needs better control: > inc hydralazine to 50 TID, cont norvasc 10, titrate coreg as tolerated - cont statin - optimize DM control - ABX for PNA along with pulmonary supportive care - No active sx's of CAD, no volume overload - Medical therapy for ASCVD/PAD
--- NOTE | 2018-01-21 12:14 | CP.PCM.PN ---
Subjective - Date & Time of Evaluation Date of Evaluation: 01/21/18 Time of Evaluation: 09:14 - Subjective Subjective: PGY2 Medicine Note for Dr. Naye Khanna Patient seen and examined this morning at bedside. No acute events overnight. This afternoon patient experienced a nose bleed. It was not stopped by just gauze and an ice pack, but stopped with the placement of a rhino rocket. Patient reports that his left leg pain has improved. His breathing is improving but he is still experiencing intermittent episodes of difficulty breathing. He is tolerating his diet and has no other complaints at this time. Denies fevers, chills, nausea, vomiting, diarrhea, constipation, chest pain, abdominal pain, vision changes. Objective - Vital Signs/Intake and Output Vital Signs (last 24 hours): Temp Pulse Resp BP Pulse Ox 97.5 F L 97 H 20 177/88 H 100 01/21/18 08:36 01/21/18 09:06 01/21/18 08:36 01/21/18 09:55 01/21/18 08:36 Intake and Output: 01/21/18 01/21/18 06:59 18:59 Intake Total 600 Output Total 1200 Balance -600 - Medications Medications: Current Medications Acetaminophen (Tylenol 325mg Tab) 650 mg PO Q6 PRN PRN Reason: Fever >100.4 F Last Admin: 01/20/18 11:17 Dose: 650 mg Albuterol/Ipratropium (Duoneb 3 Mg/0.5 Mg (3 Ml) Ud) 3 ml INH RQ6 [facility] Last Admin: 01/21/18 08:00 Dose: 3 ml Amlodipine Besylate (Norvasc) 10 mg PO DAILY [facility] Last Admin: 01/21/18 09:55 Dose: 10 mg Apixaban (Eliquis) 5 mg PO BID [facility] Last Admin: 01/21/18 09:55 Dose: 5 mg Aspirin (Aspirin Chewable) 81 mg PO DAILY [facility] Last Admin: 01/21/18 09:55 Dose: 81 mg Atovaquone (Mepron) 1,500 mg PO DAILY [facility] PRN Reason: Protocol Last Admin: 01/21/18 09:56 Dose: 1,500 mg Carvedilol (Coreg) 3.125 mg PO BID [facility] Last Admin: 01/21/18 09:55 Dose: 3.125 mg Dextrose (Glutose 15) 15 gm PO ONCE PRN; Protocol PRN Reason: Hypoglycemia Protocol Dextrose (Dextrose 50% Inj) 0 ml IV STAT PRN; Protocol PRN Reason: Hypoglycemia Protocol Dolutegravir Sodium (Tivicay) 50 mg PO Q24H [facility] PRN Reason: Protocol Last Admin: 01/20/18 22:42 Dose: 50 mg Emtricitabine/Tenofovir (Truvada 200 Mg-300 Mg) 1 tab PO Q48H [facility] PRN Reason: Protocol Last Admin: 01/20/18 22:43 Dose: 1 tab Famotidine (Pepcid) 20 mg IVP DAILY [facility] Last Admin: 01/21/18 10:13 Dose: 20 mg Ferrous Sulfate (Feosol) 325 mg PO DAILY [facility] Last Admin: 01/21/18 09:56 Dose: 325 mg Furosemide (Lasix) 40 mg IVP DAILY [facility] Last Admin: 01/21/18 09:55 Dose: 40 mg Gabapentin (Neurontin) 300 mg PO TID [facility] Last Admin: 01/21/18 09:55 Dose: 300 mg Glucagon (Glucagen Diagnostic Kit) 1 mg IM STAT PRN; Protocol PRN Reason: Hypoglycemia Protocol Hydralazine HCl (Apresoline) 25 mg PO Q8 [facility] Last Admin: 01/21/18 05:36 Dose: 25 mg Piperacillin Sod/Tazobactam Sod (Zosyn 2.25 Gm Iv Premix) 2.25 gm in 50 mls @ 100 mls/hr IVPB Q8H [facility] PRN Reason: Protocol Last Admin: 01/21/18 10:21 Dose: 100 mls/hr Azithromycin 500 mg/ Sodium (Chloride) 250 mls @ 250 mls/hr IVPB Q24H [facility] PRN Reason: Protocol Last Admin: 01/20/18 16:00 Dose: 250 mls/hr Dextrose (Dextrose 5% In Water 1000 Ml) 1,000 mls @ 0 mls/hr IV .Q0M PRN; Protocol; Per Protocol PRN Reason: Hypoglycemia Protocol Insulin Glargine (Lantus) 42 unit SC Q12 [facility] Last Admin: 01/21/18 09:55 Dose: 42 u Insulin Human Regular (Novolin R) 0 unit SC ACHS [facility] PRN Reason: Protocol Last Admin: 01/21/18 08:14 Dose: 4 units Insulin Human Regular (Novolin R) 8 unit SC AC [facility] Last Admin: 01/21/18 08:15 Dose: 8 units Methylprednisolone (Solu-Medrol) 40 mg IVP Q8H [facility] Last Admin: 01/21/18 10:14 Dose: 40 mg Montelukast Sodium (Singulair) 10 mg PO HS [facility] Last Admin: 01/20/18 22:41 Dose: 10 mg Rosuvastatin Calcium (Crestor) 5 mg PO HS [facility] Last Admin: 01/20/18 22:41 Dose: 5 mg - Labs Labs: 01/20/18 02:18 01/20/18 09:30 PT 15.0 SECONDS (9.7-12.2) H 01/20/18 02:18 INR 1.4 01/20/18 02:18 APTT 34 SECONDS (21-34) 01/20/18 02:18 - Constitutional Appears: Non-toxic, No Acute Distress - Head Exam Head Exam: ATRAUMATIC, NORMOCEPHALIC - Eye Exam Eye Exam: Normal appearance. absent: Scleral icterus - ENT Exam Additional comments: Rhino rocket placed in right nostril due to continued bleeding. - Neck Exam Neck Exam: absent: Lymphadenopathy - Respiratory Exam Respiratory Exam: Clear to Ausculation Bilateral, NORMAL BREATHING PATTERN. absent: Accessory Muscle Use, Chest Wall Tenderness, Rales, Rhonchi, Wheezes, Respiratory Distress - Cardiovascular Exam Cardiovascular Exam: REGULAR RHYTHM, +S1, +S2 - GI/Abdominal Exam GI & Abdominal Exam: Soft. absent: Distended, Firm, Guarding, Rigid, Tenderness - Extremities Exam Extremities Exam: absent: Calf Tenderness (improved from yesterday), Pedal Edema Additional comments: Right leg AKA - Neurological Exam Neurological Exam: Alert, Awake, Oriented x3 - Psychiatric Exam Psychiatric exam: Normal Affect, Normal Mood - Skin Skin Exam: Dry, Warm Assessment and Plan - Assessment and Plan (Free Text) Plan: Shortness of Breath 2/2 Pneumonia/CHF Cardiology consulted, Dr. Jesus Pulmonology consulted, Dr. Hawkins Infectious Disease consulted, Dr. Valente CXR 01/20: * Moderate to severe venous congestion. * Confluent consolidation in the right mid to lower lung zone. * Cardiomegaly. * Right PICC line with tip extending into the SVC. Abd/Pelvis CT w/o (01/20) * Bilateral lower lobe pulmonary infiltrates. ECHO 12/23/17: EF ~65-70%, moderate concentric LVH, trace MR, ascending aorta is mildly dilated 4.2cm Blood cultures (01/20): no growth after 24 hours Medications * Duonebs 3mL INH q6h * Montelukast 10mg PO HS * Lasix 40mg IVP daily * SoluMedrol 40mg IVP q8h * Azithromycin 500mg IVPB daily (started on 01/20) * Zosyn 2.25gm IVPB q8h UTI/Hematuria/Proteinuria afebrile UA 01/20: protein 2+, glucose 1+, blood 2+, leuk sharron 1+ Urine Culture (01/20): pending Medications * Rocephin 1gm IVPB daily (started 01/20) Abdominal Pain (resolved) Abd/Pelvis CT w/o (01/20) * Partially imaged cardiomegaly and ascending aortic aneurysm measuring approximately 4.6 cm in AP dimension. Dense coronary artery calcifications. Dense atherosclerotic calcifications of the aorta and branches. * Bilateral lower lobe pulmonary infiltrates. * The gallbladder is not visualized, either collapsed or surgically removed. Surgical clips are not evident. * Urinary bladder distension. * Extensive diverticulosis without CT evidence of acute diverticulitis. * 3.3 x 4.0 cm containing lesion within the left anterior thigh soft tissues, favored to represent a lipoma. hx of LE b/l DVT Medications * Eliquis 5mg PO BID Diabetes Continue home medications * Novolin R 8 units SC TID * Lantus 42 units SC q12h * ISS - med * Hypoglycemic protocol Hypertension uncontrolled Elevated today during examination today * Amlodipine 10mg PO daily * Carvedilol 3.125mg PO BID --> increased to 6.25mg PO BID * Hydralazine 25mg PO q8h --> increased to 50mg PO q8h * Aspirin 81mg PO daily Epistaxis Rhino rocket placed in right nostril on 01/21 due to continued bleeding Can be removed 24-72 hours after placement Hx of HIV Infectious Disease consulted, Dr. Valente CD4 count 193 (12/24/17) HIV-1 PCR: 1.65 (12/24/17) Medications * Atovaquone 1,500mg PO Daily Hyperlipidemia Medications * Crestor 5mg PO HS Prophylactic Care DVT - Eliquis BID GI - Home medication Pepcid 20mg PO daily All medical management per Dr. Naye Khanna
[2018-01-21] MEDS: Azithromycin 500 MG in Sodium Chloride 0.9% 250 ML IVPB SCH (13:36)
--- NOTE | 2018-01-21 16:28 | CP.PCM.PN ---
Subjective - Date & Time of Evaluation Date of Evaluation: 01/21/18 Time of Evaluation: 12:00 - Subjective Subjective: The patient seen and examined Breathing better and is off BiPAP Patient is awake and responsive Afebrile Objective - Vital Signs/Intake and Output Vital Signs (last 24 hours): Temp Pulse Resp BP Pulse Ox 98.4 F 85 20 155/75 H 90 L 01/21/18 15:00 01/21/18 15:00 01/21/18 15:00 01/21/18 15:00 01/21/18 15:00 Intake and Output: 01/21/18 01/21/18 06:59 18:59 Intake Total 600 830 Output Total 1200 Balance -600 830 - Medications Medications: Current Medications Acetaminophen (Tylenol 325mg Tab) 650 mg PO Q6 PRN PRN Reason: Fever >100.4 F Last Admin: 01/20/18 11:17 Dose: 650 mg Albuterol/Ipratropium (Duoneb 3 Mg/0.5 Mg (3 Ml) Ud) 3 ml INH RQ6 [facility] Last Admin: 01/21/18 13:22 Dose: Not Given Amlodipine Besylate (Norvasc) 10 mg PO DAILY [facility] Last Admin: 01/21/18 09:55 Dose: 10 mg Apixaban (Eliquis) 5 mg PO BID [facility] Last Admin: 01/21/18 09:55 Dose: 5 mg Aspirin (Aspirin Chewable) 81 mg PO DAILY [facility] Last Admin: 01/21/18 09:55 Dose: 81 mg Atovaquone (Mepron) 1,500 mg PO DAILY [facility] PRN Reason: Protocol Last Admin: 01/21/18 09:56 Dose: 1,500 mg Carvedilol (Coreg) 6.25 mg PO BID [facility] Dextrose (Glutose 15) 15 gm PO ONCE PRN; Protocol PRN Reason: Hypoglycemia Protocol Dextrose (Dextrose 50% Inj) 0 ml IV STAT PRN; Protocol PRN Reason: Hypoglycemia Protocol Diphenhydramine HCl (Benadryl) 25 mg PO Q6 PRN PRN Reason: Itching / Pruritus Dolutegravir Sodium (Tivicay) 50 mg PO Q24H [facility] PRN Reason: Protocol Last Admin: 01/20/18 22:42 Dose: 50 mg Emtricitabine/Tenofovir (Truvada 200 Mg-300 Mg) 1 tab PO Q48H [facility] PRN Reason: Protocol Last Admin: 01/20/18 22:43 Dose: 1 tab Famotidine (Pepcid) 20 mg IVP DAILY [facility] Last Admin: 01/21/18 10:13 Dose: 20 mg Ferrous Sulfate (Feosol) 325 mg PO DAILY [facility] Last Admin: 01/21/18 09:56 Dose: 325 mg Furosemide (Lasix) 40 mg IVP DAILY [facility] Last Admin: 01/21/18 09:55 Dose: 40 mg Gabapentin (Neurontin) 300 mg PO TID [facility] Last Admin: 01/21/18 13:36 Dose: 300 mg Glucagon (Glucagen Diagnostic Kit) 1 mg IM STAT PRN; Protocol PRN Reason: Hypoglycemia Protocol Hydralazine HCl (Apresoline) 50 mg PO Q8 [facility] Last Admin: 01/21/18 13:36 Dose: 50 mg Piperacillin Sod/Tazobactam Sod (Zosyn 2.25 Gm Iv Premix) 2.25 gm in 50 mls @ 100 mls/hr IVPB Q8H [facility] PRN Reason: Protocol Last Admin: 01/21/18 10:21 Dose: 100 mls/hr Azithromycin 500 mg/ Sodium (Chloride) 250 mls @ 250 mls/hr IVPB Q24H [facility] PRN Reason: Protocol Last Admin: 01/21/18 13:36 Dose: 250 mls/hr Dextrose (Dextrose 5% In Water 1000 Ml) 1,000 mls @ 0 mls/hr IV .Q0M PRN; Protocol; Per Protocol PRN Reason: Hypoglycemia Protocol Insulin Glargine (Lantus) 42 unit SC Q12 [facility] Last Admin: 01/21/18 09:55 Dose: 42 u Insulin Human Regular (Novolin R) 0 unit SC ACHS [facility] PRN Reason: Protocol Last Admin: 01/21/18 12:31 Dose: 6 units Insulin Human Regular (Novolin R) 8 unit SC AC [facility] Last Admin: 01/21/18 12:30 Dose: 8 units Methylprednisolone (Solu-Medrol) 40 mg IVP Q8H [facility] Last Admin: 01/21/18 10:14 Dose: 40 mg Montelukast Sodium (Singulair) 10 mg PO HS [facility] Last Admin: 01/20/18 22:41 Dose: 10 mg Rosuvastatin Calcium (Crestor) 5 mg PO HS [facility] Last Admin: 01/20/18 22:41 Dose: 5 mg - Labs Labs: 01/20/18 02:18 01/20/18 09:30 PT 15.0 SECONDS (9.7-12.2) H 01/20/18 02:18 INR 1.4 01/20/18 02:18 APTT 34 SECONDS (21-34) 01/20/18 02:18 - Head Exam Head Exam: ATRAUMATIC, NORMOCEPHALIC - ENT Exam ENT Exam: Mucous Membranes Moist - Neck Exam Neck Exam: Normal Inspection - Respiratory Exam Respiratory Exam: Rales - Cardiovascular Exam Cardiovascular Exam: REGULAR RHYTHM - GI/Abdominal Exam GI & Abdominal Exam: Soft, Normal Bowel Sounds - Neurological Exam Neurological Exam: Alert, Oriented x3 Assessment and Plan (1) Respiratory insufficiency Assessment & Plan: Secondary to diastolic CHF and pneumonia Continue diuretics and antibiotics Followup chest x ray Status: Acute (2) Pneumonia Status: Acute (3) DVT, bilateral lower limbs Status: Acute (4) HIV (human immunodeficiency virus infection) Status: Acute
--- NOTE | 2018-01-21 18:28 | CP.PCM.PN ---
Subjective - Date & Time of Evaluation Date of Evaluation: 01/21/18 Objective - Vital Signs/Intake and Output Vital Signs (last 24 hours): Temp Pulse Resp BP Pulse Ox 98.4 F 85 20 155/75 H 90 L 01/21/18 15:00 01/21/18 15:00 01/21/18 15:00 01/21/18 15:00 01/21/18 15:00 Intake and Output: 01/21/18 01/21/18 06:59 18:59 Intake Total 600 830 Output Total 1200 Balance -600 830 - Medications Medications: Current Medications Acetaminophen (Tylenol 325mg Tab) 650 mg PO Q6 PRN PRN Reason: Fever >100.4 F Last Admin: 01/20/18 11:17 Dose: 650 mg Albuterol/Ipratropium (Duoneb 3 Mg/0.5 Mg (3 Ml) Ud) 3 ml INH RQ6 [facility] Last Admin: 01/21/18 13:22 Dose: Not Given Amlodipine Besylate (Norvasc) 10 mg PO DAILY [facility] Last Admin: 01/21/18 09:55 Dose: 10 mg Apixaban (Eliquis) 5 mg PO BID [facility] Last Admin: 01/21/18 18:19 Dose: 5 mg Aspirin (Aspirin Chewable) 81 mg PO DAILY [facility] Last Admin: 01/21/18 09:55 Dose: 81 mg Atovaquone (Mepron) 1,500 mg PO DAILY [facility] PRN Reason: Protocol Last Admin: 01/21/18 09:56 Dose: 1,500 mg Carvedilol (Coreg) 6.25 mg PO BID [facility] Last Admin: 01/21/18 18:20 Dose: 6.25 mg Dextrose (Glutose 15) 15 gm PO ONCE PRN; Protocol PRN Reason: Hypoglycemia Protocol Dextrose (Dextrose 50% Inj) 0 ml IV STAT PRN; Protocol PRN Reason: Hypoglycemia Protocol Diphenhydramine HCl (Benadryl) 25 mg PO Q6 PRN PRN Reason: Itching / Pruritus Last Admin: 01/21/18 18:20 Dose: 25 mg Dolutegravir Sodium (Tivicay) 50 mg PO Q24H [facility] PRN Reason: Protocol Last Admin: 01/21/18 18:19 Dose: 50 mg Emtricitabine/Tenofovir (Truvada 200 Mg-300 Mg) 1 tab PO Q48H [facility] PRN Reason: Protocol Last Admin: 01/20/18 22:43 Dose: 1 tab Famotidine (Pepcid) 20 mg IVP DAILY [facility] Last Admin: 01/21/18 10:13 Dose: 20 mg Ferrous Sulfate (Feosol) 325 mg PO DAILY [facility] Last Admin: 01/21/18 09:56 Dose: 325 mg Furosemide (Lasix) 40 mg IVP DAILY [facility] Last Admin: 01/21/18 09:55 Dose: 40 mg Gabapentin (Neurontin) 300 mg PO TID [facility] Last Admin: 01/21/18 18:19 Dose: 300 mg Glucagon (Glucagen Diagnostic Kit) 1 mg IM STAT PRN; Protocol PRN Reason: Hypoglycemia Protocol Hydralazine HCl (Apresoline) 50 mg PO Q8 [facility] Last Admin: 01/21/18 13:36 Dose: 50 mg Piperacillin Sod/Tazobactam Sod (Zosyn 2.25 Gm Iv Premix) 2.25 gm in 50 mls @ 100 mls/hr IVPB Q8H [facility] PRN Reason: Protocol Last Admin: 01/21/18 18:17 Dose: 100 mls/hr Azithromycin 500 mg/ Sodium (Chloride) 250 mls @ 250 mls/hr IVPB Q24H [facility] PRN Reason: Protocol Last Admin: 01/21/18 13:36 Dose: 250 mls/hr Dextrose (Dextrose 5% In Water 1000 Ml) 1,000 mls @ 0 mls/hr IV .Q0M PRN; Protocol; Per Protocol PRN Reason: Hypoglycemia Protocol Insulin Glargine (Lantus) 42 unit SC Q12 [facility] Last Admin: 01/21/18 09:55 Dose: 42 u Insulin Human Regular (Novolin R) 0 unit SC ACHS [facility] PRN Reason: Protocol Last Admin: 01/21/18 17:18 Dose: 8 units Insulin Human Regular (Novolin R) 8 unit SC AC [facility] Last Admin: 01/21/18 17:18 Dose: 8 units Methylprednisolone (Solu-Medrol) 40 mg IVP Q8H [facility] Last Admin: 01/21/18 18:20 Dose: 40 mg Montelukast Sodium (Singulair) 10 mg PO HS [facility] Last Admin: 01/20/18 22:41 Dose: 10 mg Rosuvastatin Calcium (Crestor) 5 mg PO HS [facility] Last Admin: 01/20/18 22:41 Dose: 5 mg - Labs Labs: 01/20/18 02:18 01/20/18 09:30 PT 15.0 SECONDS (9.7-12.2) H 01/20/18 02:18 INR 1.4 01/20/18 02:18 APTT 34 SECONDS (21-34) 01/20/18 02:18
--- NOTE | 2018-01-21 19:33 | CP.PCM.PN ---
Subjective - Date & Time of Evaluation Date of Evaluation: 01/21/18 Time of Evaluation: 08:00 - Subjective Subjective: less confused restarted HIV meds cont IV antibiotics Objective - Vital Signs/Intake and Output Vital Signs (last 24 hours): Temp Pulse Resp BP Pulse Ox 98.4 F 85 20 155/75 H 90 L 01/21/18 15:00 01/21/18 15:00 01/21/18 15:00 01/21/18 15:00 01/21/18 15:00 Intake and Output: 01/21/18 01/22/18 18:59 06:59 Intake Total 830 Balance 830 - Medications Medications: Current Medications Acetaminophen (Tylenol 325mg Tab) 650 mg PO Q6 PRN PRN Reason: Fever >100.4 F Last Admin: 01/20/18 11:17 Dose: 650 mg Albuterol/Ipratropium (Duoneb 3 Mg/0.5 Mg (3 Ml) Ud) 3 ml INH RQ6 [facility] Last Admin: 01/21/18 13:22 Dose: Not Given Amlodipine Besylate (Norvasc) 10 mg PO DAILY [facility] Last Admin: 01/21/18 09:55 Dose: 10 mg Apixaban (Eliquis) 5 mg PO BID [facility] Last Admin: 01/21/18 18:19 Dose: 5 mg Aspirin (Aspirin Chewable) 81 mg PO DAILY [facility] Last Admin: 01/21/18 09:55 Dose: 81 mg Atovaquone (Mepron) 1,500 mg PO DAILY [facility] PRN Reason: Protocol Last Admin: 01/21/18 09:56 Dose: 1,500 mg Carvedilol (Coreg) 6.25 mg PO BID [facility] Last Admin: 01/21/18 18:20 Dose: 6.25 mg Dextrose (Glutose 15) 15 gm PO ONCE PRN; Protocol PRN Reason: Hypoglycemia Protocol Dextrose (Dextrose 50% Inj) 0 ml IV STAT PRN; Protocol PRN Reason: Hypoglycemia Protocol Diphenhydramine HCl (Benadryl) 25 mg PO Q6 PRN PRN Reason: Itching / Pruritus Last Admin: 01/21/18 18:20 Dose: 25 mg Dolutegravir Sodium (Tivicay) 50 mg PO Q24H [facility] PRN Reason: Protocol Last Admin: 01/21/18 18:19 Dose: 50 mg Emtricitabine/Tenofovir (Truvada 200 Mg-300 Mg) 1 tab PO Q48H [facility] PRN Reason: Protocol Last Admin: 01/20/18 22:43 Dose: 1 tab Famotidine (Pepcid) 20 mg IVP DAILY [facility] Last Admin: 01/21/18 10:13 Dose: 20 mg Ferrous Sulfate (Feosol) 325 mg PO DAILY [facility] Last Admin: 01/21/18 09:56 Dose: 325 mg Furosemide (Lasix) 40 mg IVP DAILY [facility] Last Admin: 01/21/18 09:55 Dose: 40 mg Gabapentin (Neurontin) 300 mg PO TID [facility] Last Admin: 01/21/18 18:19 Dose: 300 mg Glucagon (Glucagen Diagnostic Kit) 1 mg IM STAT PRN; Protocol PRN Reason: Hypoglycemia Protocol Hydralazine HCl (Apresoline) 50 mg PO Q8 [facility] Last Admin: 01/21/18 13:36 Dose: 50 mg Piperacillin Sod/Tazobactam Sod (Zosyn 2.25 Gm Iv Premix) 2.25 gm in 50 mls @ 100 mls/hr IVPB Q8H [facility] PRN Reason: Protocol Last Admin: 01/21/18 18:17 Dose: 100 mls/hr Azithromycin 500 mg/ Sodium (Chloride) 250 mls @ 250 mls/hr IVPB Q24H [facility] PRN Reason: Protocol Last Admin: 01/21/18 13:36 Dose: 250 mls/hr Dextrose (Dextrose 5% In Water 1000 Ml) 1,000 mls @ 0 mls/hr IV .Q0M PRN; Protocol; Per Protocol PRN Reason: Hypoglycemia Protocol Insulin Glargine (Lantus) 42 unit SC Q12 [facility] Last Admin: 01/21/18 09:55 Dose: 42 u Insulin Human Regular (Novolin R) 0 unit SC ACHS [facility] PRN Reason: Protocol Last Admin: 01/21/18 17:18 Dose: 8 units Insulin Human Regular (Novolin R) 8 unit SC AC [facility] Last Admin: 01/21/18 17:18 Dose: 8 units Methylprednisolone (Solu-Medrol) 40 mg IVP Q8H [facility] Last Admin: 01/21/18 18:20 Dose: 40 mg Montelukast Sodium (Singulair) 10 mg PO HS [facility] Last Admin: 08/22/18 22:41 Dose: 10 mg Rosuvastatin Calcium (Crestor) 5 mg PO HS [facility] Last Admin: 01/20/18 22:41 Dose: 5 mg - Labs Labs: 01/20/18 02:18 01/20/18 09:30 PT 15.0 SECONDS (9.7-12.2) H 01/20/18 02:18 INR 1.4 01/20/18 02:18 APTT 34 SECONDS (21-34) 01/20/18 02:18 - Constitutional Appears: Non-toxic, Chronically Ill - Head Exam Head Exam: NORMOCEPHALIC - Eye Exam Eye Exam: PERRL - ENT Exam ENT Exam: Mucous Membranes Dry - Neck Exam Neck Exam: absent: Lymphadenopathy - Respiratory Exam Respiratory Exam: Decreased Breath Sounds - Cardiovascular Exam Cardiovascular Exam: REGULAR RHYTHM - GI/Abdominal Exam GI & Abdominal Exam: Distended - Rectal Exam Rectal Exam: Deferred - Exam Exam: NORMAL INSPECTION - Extremities Exam Extremities Exam: absent: Pedal Edema - Back Exam Back Exam: absent: CVA tenderness (L), CVA tenderness (R) Assessment and Plan - Assessment and Plan (Free Text) Assessment: 67-year-old male presented to emergency room complaining of worsening shortness of breath.Patient was placed on BiPAP for severity of symptoms. chest x-ray done consistent with congestive changes. ID consulted for possible pneumonia * * - Medical History PMH: Anemia, Arthritis, Diabetes, Gall Bladder Disease, HIV, HTN, Hypercholesterolemia, Pancreatitis (pancreatic issue unspecified), Pneumonia, Chronic Kidney Disease cont iv rx for pneumonia exac copd
[2018-01-22] MEDS ORDERED: (Novolin R) Insulin Human Regular 100 units/ml vial IV ONE (02:35)
--- NOTE | 2018-01-22 02:35 | CARD ---
APPROVED REPORT Date of service: 01/20/2018 EKG Measurement Heart [id number] <Conclusion> Normal sinus rhythm with sinus arrhythmia Nonspecific ST abnormality Abnormal ECG
[2018-01-22] MEDS: MethylPREDNISolone 40 mg Vial IVP SCH ×3 (02:45→17:52)
[2018-01-22] MEDS: Piperacill/Tazo 2.25gm in Dex 2.25 GM/50 ML BAG IVPB SCH ×3 (02:47→19:14)
[2018-01-22] MEDS ORDERED: (Novolin R) Insulin Human Regular 100 units/ml vial SC ONE ×2 (02:51→22:47)
[2018-01-22] MEDS: Albuterol-Ipratrop 3 mg / 0.5 (3 ml) UD INH SCH ×4 (02:54→20:06)
[2018-01-22] MEDS: (Novolin R) Insulin Human Regular 100 units/ml vial SC SCH ×7 (08:12→21:48)
[2018-01-22 08:17] LABS: BASO % 0.3 % (0.0-2.0); EOS % 0.1 % (0.0-4.0); HEMOGLOBIN 9.4 g/dL (12.0-18.0); LYMPH # 0.5 K/uL (1.0-4.3); LYMPH % 5.9 % (20.0-40.0); MEAN CORPUSCULAR HGB CONC 32.1 g/dL (33.0-37.0); MEAN PLATELET VOLUME 9.5 fL (7.2-11.7); MONO # 0.4 K/uL (0.0-0.8); MONO % 4.6 % (0.0-10.0); NEUT # 7.9 K/uL (1.8-7.0); NEUT % 89.1 % (50.0-75.0); NRBC % 0.1 % (0.0-2.0); PLATELET COUNT 169 K/uL (130-400); RED CELL DISTRIBUTION WIDTH 15.3 % (11.5-14.5); WHITE BLOOD COUNT 8.9 K/uL (4.8-10.8)
[2018-01-22 08:45] LABS: ALBUMIN 3.8 g/dL (3.5-5.0); CALCIUM 8.2 mg/dl (8.6-10.4)
[2018-01-22] MEDS: (Lantus) Insulin Glargine, Recombinant SC SCH ×2 (09:45→21:50)
[2018-01-22] MEDS: Atovaquone 750 mg/5 ml Susp UD PO SCH (09:55)
--- NOTE | 2018-01-22 09:57 | CP.PCM.PN ---
Subjective - Date & Time of Evaluation Date of Evaluation: 01/22/18 Time of Evaluation: 11:42 - Subjective Subjective: PGY 3 Med Note- Dr. Chago Khanna's service Patient seen and examined in no apparent acute distress. Patient adamantly asked for rhino rocket to be removed. This info was relayed by nursing team. Patient denied other acute complaints at this time. Objective - Vital Signs/Intake and Output Vital Signs (last 24 hours): Temp Pulse Resp BP Pulse Ox 97.8 F 93 H 18 185/96 H 99 01/22/18 07:00 01/22/18 08:32 01/22/18 07:00 01/22/18 07:00 01/22/18 07:00 Intake and Output: 01/22/18 01/22/18 06:59 18:59 Intake Total 650 Output Total 2100 Balance -1450 - Medications Medications: Current Medications Acetaminophen (Tylenol 325mg Tab) 650 mg PO Q6 PRN PRN Reason: Fever >100.4 F Last Admin: 01/20/18 11:17 Dose: 650 mg Albuterol/Ipratropium (Duoneb 3 Mg/0.5 Mg (3 Ml) Ud) 3 ml INH RQ6 [facility] Last Admin: 01/22/18 08:36 Dose: Not Given Amlodipine Besylate (Norvasc) 10 mg PO DAILY [facility] Last Admin: 01/22/18 08:12 Dose: 10 mg Apixaban (Eliquis) 5 mg PO BID [facility] Last Admin: 01/21/18 18:19 Dose: 5 mg Aspirin (Aspirin Chewable) 81 mg PO DAILY [facility] Last Admin: 01/21/18 09:55 Dose: 81 mg Atovaquone (Mepron) 1,500 mg PO DAILY [facility] PRN Reason: Protocol Last Admin: 01/21/18 09:56 Dose: 1,500 mg Carvedilol (Coreg) 6.25 mg PO BID [facility] Last Admin: 01/22/18 08:12 Dose: 6.25 mg Dextrose (Glutose 15) 15 gm PO ONCE PRN; Protocol PRN Reason: Hypoglycemia Protocol Dextrose (Dextrose 50% Inj) 0 ml IV STAT PRN; Protocol PRN Reason: Hypoglycemia Protocol Diphenhydramine HCl (Benadryl) 25 mg PO Q6 PRN PRN Reason: Itching / Pruritus Last Admin: 01/22/18 02:44 Dose: 25 mg Dolutegravir Sodium (Tivicay) 50 mg PO Q24H [facility] PRN Reason: Protocol Last Admin: 01/21/18 18:19 Dose: 50 mg Emtricitabine/Tenofovir (Truvada 200 Mg-300 Mg) 1 tab PO Q48H [facility] PRN Reason: Protocol Last Admin: 01/20/18 22:43 Dose: 1 tab Famotidine (Pepcid) 20 mg IVP DAILY [facility] Last Admin: 01/21/18 10:13 Dose: 20 mg Ferrous Sulfate (Feosol) 325 mg PO DAILY [facility] Last Admin: 01/21/18 09:56 Dose: 325 mg Furosemide (Lasix) 40 mg IVP DAILY [facility] Last Admin: 01/21/18 09:55 Dose: 40 mg Gabapentin (Neurontin) 300 mg PO TID [facility] Last Admin: 01/21/18 18:19 Dose: 300 mg Glucagon (Glucagen Diagnostic Kit) 1 mg IM STAT PRN; Protocol PRN Reason: Hypoglycemia Protocol Hydralazine HCl (Apresoline) 50 mg PO Q8 [facility] Last Admin: 01/22/18 05:44 Dose: 50 mg Piperacillin Sod/Tazobactam Sod (Zosyn 2.25 Gm Iv Premix) 2.25 gm in 50 mls @ 100 mls/hr IVPB Q8H [facility] PRN Reason: Protocol Last Admin: 01/22/18 02:47 Dose: 100 mls/hr Azithromycin 500 mg/ Sodium (Chloride) 250 mls @ 250 mls/hr IVPB Q24H [facility] PRN Reason: Protocol Last Admin: 01/21/18 13:36 Dose: 250 mls/hr Dextrose (Dextrose 5% In Water 1000 Ml) 1,000 mls @ 0 mls/hr IV .Q0M PRN; Protocol; Per Protocol PRN Reason: Hypoglycemia Protocol Insulin Glargine (Lantus) 42 unit SC Q12 [facility] Last Admin: 01/21/18 22:28 Dose: 42 units Insulin Human Regular (Novolin R) 0 unit SC ACHS [facility] PRN Reason: Protocol Last Admin: 01/22/18 08:13 Dose: 6 units Insulin Human Regular (Novolin R) 8 unit SC AC [facility] Last Admin: 01/22/18 08:12 Dose: 8 units Methylprednisolone (Solu-Medrol) 40 mg IVP Q8H [facility] Last Admin: 01/22/18 02:45 Dose: 40 mg Montelukast Sodium (Singulair) 10 mg PO [facility] Last Admin: 01/21/18 22:28 Dose: 10 mg Rosuvastatin Calcium (Crestor) 5 mg PO [facility] Last Admin: 01/21/18 22:28 Dose: 5 mg - Labs Labs: 01/22/18 08:06 01/22/18 08:06 PT 15.0 SECONDS (9.7-12.2) H 01/20/18 02:18 INR 1.4 01/20/18 02:18 APTT 34 SECONDS (21-34) 01/20/18 02:18 - Constitutional Appears: Non-toxic, No Acute Distress - Head Exam Head Exam: ATRAUMATIC, NORMAL INSPECTION - Eye Exam Eye Exam: EOMI - ENT Exam Additional comments: rhino rocket in right nostril - Neck Exam Neck Exam: Full ROM - Respiratory Exam Respiratory Exam: Clear to Ausculation Bilateral, NORMAL BREATHING PATTERN - Cardiovascular Exam Cardiovascular Exam: +S1, +S2 - GI/Abdominal Exam GI & Abdominal Exam: Soft - Extremities Exam Additional comments: right bka - Back Exam Back Exam: Full ROM - Neurological Exam Neurological Exam: Alert, Awake - Psychiatric Exam Psychiatric exam: Normal Affect, Normal Mood - Skin Skin Exam: Dry Assessment and Plan - Assessment and Plan (Free Text) Assessment: Pneumonia Per [employer], Dr. Jesus- No active symptoms of CAD. No volume overload noted. F/U additional recs. Pulmonology consulted, Dr. Hawkins Infectious Disease consulted, Dr. Valente F/U recommendations CXR 01/20: Consolidation noted in right middle lung rayo. Refer to complete report. Abd/Pelvis CT w/o (01/20) * Bilateral lower lobe pulmonary infiltrates. ECHO 12/23/17: EF ~65-70%, moderate concentric LVH, trace MR, ascending aorta is mildly dilated 4.2cm Medications * Duonebs 3mL INH q6h for dyspnea * Montelukast 10mg PO HS * SoluMedrol 40mg IVP q8h * Antibiotics switched for coverage for HAP. Vanc started 1 gm Q24 01/22 ( renally dosed) + continued Zosyn. * Will transition to PO coverage upon discharge Abnormal Urinalysis Afebrile UA 01/20: protein 2+, glucose 1+, blood 2+, leuk sharron 1+ Urine Culture (01/20): pending Medications * On Zosyn (started 01/20) Hx of LE b/l DVT Medications * Eliquis 5mg PO BID Diabetes Uncontrolled * Coverage will need to be increased * ISS -increased to high dose * Hypoglycemia protocol in place- PRN Hypertension Uncontrolled * Amlodipine 10mg PO daily * Carvedilol 3.125mg PO BID --> increased to 6.25mg PO BID * Hydralazine 25mg PO q8h --> increased to 50mg PO q8h * Aspirin 81mg PO daily Epistaxis Resolved Rhino rocket placed in right nostril on 01/21. Removed 01/22 Patient counseled to alert primary team if symptoms resume Monitor Hx of HIV Infectious Disease consulted, Dr. Valente CD4 count 193 (12/24/17) HIV-1 PCR: 1.65 (12/24/17) Medications * Atovaquone, Tivicay, Truvada on board Hyperlipidemia Medications * Crestor 5mg PO HS Prophylactic Care DVT - Eliquis BID GI - Home medication Pepcid 20mg PO daily Discussed with attending. All medical management per Dr. Naye Khanna
[2018-01-22 10:52] LABS: ANISOCYTOSIS SLIGHT; LYMPHOCYTE 5 % (20-40); MONOCYTE 4 % (0-10); NEUTROPHIL 91 % (50-75); NUCLEATED RED BLOOD CELL 1 % (0-0); PLATELET ESTIMATE NORMAL (NORMAL); TOTAL CELLS COUNTED 100
--- NOTE | 2018-01-22 11:29 | CP.PCM.CON ---
History of Present Illness - History of Present Illness History of Present Illness: Palliative consult requested by Dr. Frantz Khanna for clarification of CODE status Patient is 67 years salt Jessica [place] male admitted on 01/21/18. [facility] with shortness of breath 1 day. Shortness of breath begun 3 days prior to admission but was mild. The day before admission the shortness of breath intensified and patient was brought to ED at [facility]. Chest x- ray significant for moderate to severe pulmonary congestion and patient was placed on BiPAP and Lasix IV with relief. 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 All the data hospital course patient's condition improved with Lasix IV Solu-Medrol and nebulizer treatment. Patient came to the hospital with copy of all most suggesting DNR DNI status signed by patient and me on previous admission. Per Nursing the daughter came in yesterday and disagreed with patient's decision about DNR/DNI and palliative care was called to clarify the CODE STATUS. Past medical history: Anemia, asthma, HIV, hypertension, CK D, pneumonia, right AKA Social history: Single, senior living resident, has 1 daughter and the brother while visiting Family history: Denies Medications: Eliquis,, Lantus, Neurontin 300, Amliodipine, Lasartan, HCTZ, Carvedilol Review of Systems - Constitutional Constitutional: absent: As Per HPI, Anorexia, Chills, Daytime Sleepiness, Excessive Sweating, Fatigue, Fever, Frequent Falls, Headache, Increased Appetite , Lethargy, Malaise, Night Sweats, Snoring, Sleep Apnea, Weight Gain, Weight Loss, Weakness, Other - EENT Eyes: absent: As Per HPI, Blind Spots, Blurred Vision, Change in Vision, Decreased Night Vision, Diplopia, Discharge, Dry Eye, Exophthalmos, Floaters, Irritation, Itchy Eyes, Loss of Peripheral Vision, Pain, Photophobia, Requires Corrective Lenses, Sees Flashes, Spots in Vision, Tunnel Vision, Other Visual Disturbances, Loss of Vision, Other Ears: absent: As Per HPI, Decreased Hearing, Ear Discharge, Ear Pain, Tinnitus, Abnormal Hearing, Disequilibrium, Dizziness, Other Additional comments: Right nostril tamonade - Cardiovascular Cardiovascular: absent: As Per HPI, Acrocyanosis, Chest Pain, Chest Pain at Rest , Chest Pain with Activity, Claudication, Diaphoresis, Dyspnea, Dyspnea on Exertion, Edema, Irregular Heart Rhythm, Pain Radiating to Arm/Neck/Jaw, Leg Edema, Leg Ulcers, Lightheadedness, Orthopnea, Palpitations, Paroxysmal Nocturnal Dyspnea, Pedal Edema, Radiating Pain, Rapid Heart Rate, Slow Heart Rate, Syncope, Other - Respiratory Respiratory: absent: As Per HPI, Cough, Dyspnea, Hemoptysis, Dyspnea on Exertion , Wheezing, Snoring, Stridor, Pain on Inspiration, Chest Congestion, Excessive Mucous Production, Change in Mucous Color, Pain with Coughing, Other - Gastrointestinal Gastrointestinal: absent: As Per HPI, Abdominal Pain, Belching, Bloating, Change in Bowel Habits, Change in Stool Character, Coffee Ground Emesis, Constipation, Cramping, Diarrhea, Dyspepsia, Dysphagia, Early Satiety, Excessive Flatus, Fecal Incontinence, Heartburn, Hematemesis, Hematochezia, Loose Stools, Melena, Nausea, Odynophagia, Temesmus, Vomiting, Other - Genitourinary Genitourinary: absent: As Per HPI, Change in Urinary Stream, Difficulty Urinating, Dysuria, Flank Pain, Hematuria, Pyuria, Nocturia, Urinary Incontinence, Urinary Frequency, Urinary Hesitance, Urinary Urgency, Voiding Freq/Small Amts, Freq UTI, Hx Renal/Bladder Calculi, Hx /Renal Surgery, Bladder Distension, Other - Musculoskeletal Additional comments: right ankle pain - Integumentary Integumentary: absent: As Per HPI, Acne, Alopecia, Bleeding Lesions, Change in Hair, Change in Nails, Change in Pigmentation, Changing Lesions, Dry Skin, Erythema, Furuncle, Hirsutism, Lesions, New Lesions, Non-Healing Lesions, Photosensitivity, Pruritus, Rash, Skin Pain, Skin Ulcer, Sores, Striae, Swelling , Unusual Bruising, Wounds, Jaundice, Other - Neurological Neurological: Memory Loss - Psychiatric Psychiatric: Irritability - Endocrine Endocrine: absent: As Per HPI, Change in Body Appearance, Change in Libido, Cold Intolorance, Deepening of Voice, Excessive Sweating, Fatigue, Flushing, Heat Intolorance, Increase in Ring/Shoe/Hat Size, Palpitations, Polydipsia, Polyphagia, Polyuria, Other - Hematologic/Lymphatic Hematologic: absent: As Per HPI, Easy Bleeding, Easy Bruising, Lymphadenopathy, Other Past Patient History - Infectious Disease Hx of Infectious Diseases: None - Tetanus Immunizations Tetanus Immunization: Unknown - Past Medical History & Family History Past Medical History?: Yes - Past Social History Smoking Status: Former Smoker - CARDIAC Hx Congestive Heart Failure: Yes Hx Hypercholesterolemia: Yes Hx Hypertension: Yes - PULMONARY Hx Pneumonia: Yes - NEUROLOGICAL Hx Neurological Disorder: Yes (NEUROPATHY) - HEENT Hx HEENT Problems: Yes Hx Cataracts: Yes Other/Comment: Right eye cataract removal 06/2016 - RENAL Hx Chronic Kidney Disease: Yes - ENDOCRINE/METABOLIC Hx Diabetes Mellitus Type 2: Yes - HEMATOLOGICAL/ONCOLOGICAL Hx AIDS: (HIV) Hx Anemia: Yes Hx Blood Transfusions: Yes Hx Blood Transfusion Reaction: No Hx Human Immunodeficiency Virus (HIV): Yes Other/Comment: DVT - INTEGUMENTARY Hx Dermatological Problems: Yes (R AKA,LARGE ELONGATED SCARRING ACROSS MID ABDOMINAL AREA.) - MUSCULOSKELETAL/RHEUMATOLOGICAL Hx Falls: No - GASTROINTESTINAL Hx Gall Bladder Disease: Yes Hx Pancreatitis: Yes (pancreatic issue unspecified) - GENITOURINARY/GYNECOLOGICAL Hx Genitourinary Disorders: Yes Hx Prostate Problems: Yes - PSYCHIATRIC Hx Substance Use: No - SURGICAL HISTORY Hx Cholecystectomy: Yes Other/Comment: Rt. AKA - ANESTHESIA Hx Anesthesia: Yes Hx Anesthesia Reactions: No Hx Malignant Hyperthermia: No Meds Allergies/Adverse Reactions: Allergies Allergy/AdvReac Type Severity Reaction Status Date / Time No Known Allergies Allergy Verified 12/21/17 10:32 - Medications Medications: Current Medications Acetaminophen (Tylenol 325mg Tab) 650 mg PO Q6 PRN PRN Reason: Fever >100.4 F Last Admin: 01/20/18 11:17 Dose: 650 mg Albuterol/Ipratropium (Duoneb 3 Mg/0.5 Mg (3 Ml) Ud) 3 ml INH RQ6 [facility] Last Admin: 01/22/18 08:36 Dose: Not Given Amlodipine Besylate (Norvasc) 10 mg PO DAILY [facility] Last Admin: 01/22/18 10:41 Dose: Not Given Apixaban (Eliquis) 5 mg PO BID [facility] Last Admin: 01/22/18 09:40 Dose: 5 mg Aspirin (Aspirin Chewable) 81 mg PO DAILY [facility] Last Admin: 01/22/18 09:40 Dose: 81 mg Atovaquone (Mepron) 1,500 mg PO DAILY [facility] PRN Reason: Protocol Last Admin: 01/22/18 09:55 Dose: 1,500 mg Carvedilol (Coreg) 6.25 mg PO BID [facility] Last Admin: 01/22/18 10:40 Dose: Not Given Dextrose (Glutose 15) 15 gm PO ONCE PRN; Protocol PRN Reason: Hypoglycemia Protocol Dextrose (Dextrose 50% Inj) 0 ml IV STAT PRN; Protocol PRN Reason: Hypoglycemia Protocol Diphenhydramine HCl (Benadryl) 25 mg PO Q6 PRN PRN Reason: Itching / Pruritus Last Admin: 01/22/18 09:43 Dose: 25 mg Dolutegravir Sodium (Tivicay) 50 mg PO Q24H [facility] PRN Reason: Protocol Last Admin: 01/21/18 18:19 Dose: 50 mg Emtricitabine/Tenofovir (Truvada 200 Mg-300 Mg) 1 tab PO Q48H [facility] PRN Reason: Protocol Last Admin: 01/20/18 22:43 Dose: 1 tab Famotidine (Pepcid) 20 mg IVP DAILY [facility] Last Admin: 01/22/18 09:44 Dose: 20 mg Ferrous Sulfate (Feosol) 325 mg PO DAILY [facility] Last Admin: 01/21/18 09:56 Dose: 325 mg Furosemide (Lasix) 40 mg IVP DAILY [facility] Last Admin: 01/22/18 09:44 Dose: 40 mg Gabapentin (Neurontin) 300 mg PO TID [facility] Last Admin: 01/22/18 09:40 Dose: 300 mg Glucagon (Glucagen Diagnostic Kit) 1 mg IM STAT PRN; Protocol PRN Reason: Hypoglycemia Protocol Hydralazine HCl (Apresoline) 50 mg PO Q8 [facility] Last Admin: 01/22/18 05:44 Dose: 50 mg Piperacillin Sod/Tazobactam Sod (Zosyn 2.25 Gm Iv Premix) 2.25 gm in 50 mls @ 100 mls/hr IVPB Q8H [facility] PRN Reason: Protocol Last Admin: 01/22/18 02:47 Dose: 100 mls/hr Dextrose (Dextrose 5% In Water 1000 Ml) 1,000 mls @ 0 mls/hr IV .Q0M PRN; Protocol; Per Protocol PRN Reason: Hypoglycemia Protocol Vancomycin/Sodium Chloride (Vancomycin 1 Gm/Ns 200 Ml) 1 gm in 200 mls @ 133.333 mls/hr IVPB Q24H [facility] PRN Reason: Protocol Stop: 01/27/18 10:31 Insulin Glargine (Lantus) 42 unit SC Q12 [facility] Last Admin: 01/22/18 09:45 Dose: 42 units Insulin Human Regular (Novolin R) 8 unit SC AC [facility] Last Admin: 01/22/18 08:12 Dose: 8 units Insulin Human Regular (Novolin R) 0 unit SC ACHS [facility] PRN Reason: Protocol Methylprednisolone (Solu-Medrol) 40 mg IVP Q8H [facility] Last Admin: 01/22/18 09:44 Dose: 40 mg Montelukast Sodium (Singulair) 10 mg PO HS [facility] Last Admin: 01/21/18 22:28 Dose: 10 mg Rosuvastatin Calcium (Crestor) 5 mg PO HS [facility] Last Admin: 01/21/18 22:28 Dose: 5 mg Physical Exam - Constitutional Appears: No Acute Distress, Chronically Ill - Head Exam Head Exam: ATRAUMATIC, NORMAL INSPECTION, NORMOCEPHALIC - Eye Exam Eye Exam: EOMI, Normal appearance, PERRL Pupil Exam: NORMAL ACCOMODATION, PERRL - ENT Exam ENT Exam: Mucous Membranes Moist, Normal Exam - Neck Exam Neck exam: Positive for: Normal Inspection - Respiratory Exam Respiratory Exam: Decreased Breath Sounds, NORMAL BREATHING PATTERN - Cardiovascular Exam Cardiovascular Exam: Tachycardia - GI/Abdominal Exam GI & Abdominal Exam: Distended, Firm, Hypoactive Bowel Sounds - Rectal Exam Rectal Exam: Deferred - Extremities Exam Additional comments: right AKA - Back Exam Back exam: NORMAL INSPECTION - Neurological Exam Neurological exam: Alert, Oriented x3 - Psychiatric Exam Psychiatric exam: Agitated - Skin Skin Exam: Normal Color Results - Vital Signs Recent Vital Signs: Last Vital Signs Temp 97.8 F 01/22/18 07:00 Pulse 93 H 01/22/18 08:32 Resp 18 01/22/18 07:00 BP 185/96 H 01/22/18 09:44 Pulse Ox 99 01/22/18 07:00 - Labs Result Diagrams: 01/22/18 08:06 01/22/18 08:06 Labs: Laboratory Results - last 24 hr 01/21/18 01/21/18 01/21/18 02:19 06:43 09:53 WBC RBC Hgb Hct MCV MCH MCHC RDW Plt Count MPV Neut % (Auto) Lymph % (Auto) [place] % (Auto) Eos % (Auto) Baso % (Auto) Neut # (Auto) Lymph # (Auto) [place] # (Auto) Eos # (Auto) Baso # (Auto) Neutrophils % (Manual) Lymphocytes % (Manual) Monocytes % (Manual) Nucleated RBC % Platelet Estimate Anisocytosis (manual) Sodium Potassium Chloride Carbon Dioxide Anion Gap BUN Creatinine Est GFR ( Amer) Est GFR (Non-Af Amer) POC Glucose (mg/dL) > 500 H* 292 H 374 H Random Glucose Calcium Magnesium Total Bilirubin AST ALT Alkaline Phosphatase Total Protein Albumin Globulin Albumin/Globulin Ratio 01/21/18 01/21/18 01/21/18 11:48 17:03 21:26 WBC RBC Hgb Hct MCV MCH MCHC RDW Plt Count MPV Neut % (Auto) Lymph % (Auto) [place] % (Auto) Eos % (Auto) Baso % (Auto) Neut # (Auto) Lymph # (Auto) [place] # (Auto) Eos # (Auto) Baso # (Auto) Neutrophils % (Manual) Lymphocytes % (Manual) Monocytes % (Manual) Nucleated RBC % Platelet Estimate Anisocytosis (manual) Sodium Potassium Chloride Carbon Dioxide Anion Gap BUN Creatinine Est GFR ( Amer) Est GFR (Non-Af Amer) POC Glucose (mg/dL) 312 H 377 H 439 H* Random Glucose Calcium Magnesium Total Bilirubin AST ALT Alkaline Phosphatase Total Protein Albumin Globulin Albumin/Globulin Ratio 01/22/18 01/22/18 08:06 08:06 WBC 8.9 RBC 3.60 L Hgb 9.4 L Hct 29.2 L MCV 81.0 MCH 26.0 L MCHC 32.1 L RDW 15.3 H Plt Count 169 MPV 9.5 Neut % (Auto) 89.1 H Lymph % (Auto) 5.9 L [place] % (Auto) 4.6 Eos % (Auto) 0.1 Baso % (Auto) 0.3 Neut # (Auto) 7.9 H Lymph # (Auto) 0.5 L [place] # (Auto) 0.4 Eos # (Auto) 0.0 Baso # (Auto) 0.0 Neutrophils % (Manual) 91 H Lymphocytes % (Manual) 5 L Monocytes % (Manual) 4 Nucleated RBC % 1 H Platelet Estimate Normal Anisocytosis (manual) Slight Sodium 141 Potassium 4.8 Chloride 106 Carbon Dioxide 24 Anion Gap 16 BUN 59 H Creatinine 2.3 H Est GFR ( Amer) 34 Est GFR (Non-Af Amer) 29 POC Glucose (mg/dL) Random Glucose 330 H Calcium 8.2 L Magnesium 2.4 H Total Bilirubin 0.5 AST 24 ALT 40 Alkaline Phosphatase 100 Total Protein 7.4 Albumin 3.8 Globulin 3.6 Albumin/Globulin Ratio 1.0 Assessment & Plan - Assessment and Plan (Free Text) Assessment: Palliative consult Code status DNR DNI, POLST on chart, PPS 30% I reviewed medical records, old yet no stick studies, examining and interviewing patient in the bed. Patient is alert, oriented 3, very irritated. Brother at the bedside. Patient states that tampon in his right nostril is bothering him and is requesting to be removed right away. Patient looks chronically ill in no acute distress. His abdomen is distended, firm, and with absent bowel sounds. However patient reports last BM 2 days ago. Patient's main complaint this morning is left ankle pain. The pain is chronic and has been that in the past. There is no skin discolorations or open wounds to the left ankle. There is Tylenol available as needed for mild pain. Blood pressure 185/96. HR 93. O2 sat 100 % Hemoglobin 9.4. Blood sugar 439. Calcium 8.2. Magnesium 2.4 patient takes Lantus Code status discussed. Patient stated he didn't remember signing the POLST in the past with me. I introduced the POLST again and offered sufficient information is about DNR DNI. I mentioned that his daughter yesterday asked for the POLST to be resended . Patient got angry and said that his daughter doesn't have anything to do with it. I questioned patient again about his wishes for end of life. At first he said he would want to be allowed natural without use of aggressive measures. Patient's brother took apart in discussion disagreeing with the patient. I offered additional information is about DNR DNI. M.D. end of our conversation patient decided have all aggressive interventions applied if it should be the case to save his life. I reassured the patient that he was even all appropriate measures at the present and will be given in the future if needed and that she is decision on CODE status will not change the interventions he is receiving. I marked the existing POLSTon chart as VOID, and changed to FULL CODE in the system Impression * Chronically ill male with acute shortness of breath * Symptoms improved after Lasix, Solu-Medrol, and nebulizer treatment * Uncontrolled diabetes * Hyperextension * Mood is irritated * Patient is forgetful * Patient undecided when it comes to his own care and falls under the influence of the family. Neither patient nor the family have a good input in complex medical condition * Patient requested FULL CODE Suggestions * Continue Lasix and nebulizer treatment * Blood sugar control and maintenance of normal values * Referred to digital pre press operator the blood pressure control * Reassure patient of appropriate care provided ,to decrease irritation and anxiety * FULL CODE as per patient request * Discharge planning to senior living Palliative care will sign off at this time Advanced care planning 35 minutes
[2018-01-22] MEDS: Vancomycin 1 gm/NS 200 ml 1 GM/200 ML BAG IVPB SCH (11:55)
--- NOTE | 2018-01-22 13:53 | CP.PCM.PN ---
Subjective - Date & Time of Evaluation Date of Evaluation: 01/22/18 Time of Evaluation: 10:15 - Subjective Subjective: the patient seen and examined Nasal packing for epistaxis Breathing much improved Patient is off BiPAP Afebrile Objective - Vital Signs/Intake and Output Vital Signs (last 24 hours): Temp Pulse Resp BP Pulse Ox 97.8 F 93 H 18 185/96 H 99 01/22/18 07:00 01/22/18 08:32 01/22/18 07:00 01/22/18 09:44 01/22/18 07:00 Intake and Output: 01/22/18 01/22/18 06:59 18:59 Intake Total 650 Output Total 2100 Balance -1450 - Medications Medications: Current Medications Acetaminophen (Tylenol 325mg Tab) 650 mg PO Q6 PRN PRN Reason: Fever >100.4 F Last Admin: 01/20/18 11:17 Dose: 650 mg Albuterol/Ipratropium (Duoneb 3 Mg/0.5 Mg (3 Ml) Ud) 3 ml INH RQ6 [facility] Last Admin: 01/22/18 13:41 Dose: 3 ml Amlodipine Besylate (Norvasc) 10 mg PO DAILY [facility] Last Admin: 01/22/18 10:41 Dose: Not Given Apixaban (Eliquis) 5 mg PO BID [facility] Last Admin: 01/22/18 09:40 Dose: 5 mg Aspirin (Aspirin Chewable) 81 mg PO DAILY [facility] Last Admin: 01/22/18 09:40 Dose: 81 mg Atovaquone (Mepron) 1,500 mg PO DAILY [facility] PRN Reason: Protocol Last Admin: 01/22/18 09:55 Dose: 1,500 mg Carvedilol (Coreg) 12.5 mg PO BID [facility] Dextrose (Glutose 15) 15 gm PO ONCE PRN; Protocol PRN Reason: Hypoglycemia Protocol Dextrose (Dextrose 50% Inj) 0 ml IV STAT PRN; Protocol PRN Reason: Hypoglycemia Protocol Diphenhydramine HCl (Benadryl) 25 mg PO Q6 PRN PRN Reason: Itching / Pruritus Last Admin: 01/22/18 09:43 Dose: 25 mg Dolutegravir Sodium (Tivicay) 50 mg PO Q24H [facility] PRN Reason: Protocol Last Admin: 01/21/18 18:19 Dose: 50 mg Emtricitabine/Tenofovir (Truvada 200 Mg-300 Mg) 1 tab PO Q48H [facility] PRN Reason: Protocol Last Admin: 01/20/18 22:43 Dose: 1 tab Famotidine (Pepcid) 20 mg IVP DAILY [facility] Last Admin: 01/22/18 09:44 Dose: 20 mg Ferrous Sulfate (Feosol) 325 mg PO DAILY [facility] Last Admin: 01/22/18 11:56 Dose: 325 mg Furosemide (Lasix) 40 mg IVP DAILY [facility] Last Admin: 01/22/18 09:44 Dose: 40 mg Gabapentin (Neurontin) 300 mg PO TID [facility] Last Admin: 01/22/18 09:40 Dose: 300 mg Glucagon (Glucagen Diagnostic Kit) 1 mg IM STAT PRN; Protocol PRN Reason: Hypoglycemia Protocol Hydralazine HCl (Apresoline) 100 mg PO Q8 [facility] Piperacillin Sod/Tazobactam Sod (Zosyn 2.25 Gm Iv Premix) 2.25 gm in 50 mls @ 100 mls/hr IVPB Q8H [facility] PRN Reason: Protocol Last Admin: 01/22/18 11:55 Dose: 100 mls/hr Dextrose (Dextrose 5% In Water 1000 Ml) 1,000 mls @ 0 mls/hr IV .Q0M PRN; Protocol; Per Protocol PRN Reason: Hypoglycemia Protocol Vancomycin/Sodium Chloride (Vancomycin 1 Gm/Ns 200 Ml) 1 gm in 200 mls @ 133.333 mls/hr IVPB Q24H [facility] PRN Reason: Protocol Stop: 01/27/18 10:31 Last Admin: 01/22/18 11:55 Dose: 133.333 mls/hr Insulin Glargine (Lantus) 42 unit SC Q12 [facility] Last Admin: 01/22/18 09:45 Dose: 42 units Insulin Human Regular (Novolin R) 8 unit SC AC [facility] Last Admin: 01/22/18 11:56 Dose: 8 units Insulin Human Regular (Novolin R) 0 unit SC ACHS [facility] PRN Reason: Protocol Last Admin: 01/22/18 11:56 Dose: 275 units Methylprednisolone (Solu-Medrol) 40 mg IVP Q8H [facility] Last Admin: 01/22/18 09:44 Dose: 40 mg Montelukast Sodium (Singulair) 10 mg PO HS [facility] Last Admin: 01/21/18 22:28 Dose: 10 mg Rosuvastatin Calcium (Crestor) 5 mg PO HS [facility] Last Admin: 01/21/18 22:28 Dose: 5 mg - Labs Labs: 01/22/18 08:06 01/22/18 08:06 PT 15.0 SECONDS (9.7-12.2) H 01/20/18 02:18 INR 1.4 01/20/18 02:18 APTT 34 SECONDS (21-34) 01/20/18 02:18 - Head Exam Head Exam: ATRAUMATIC, NORMOCEPHALIC - ENT Exam ENT Exam: Mucous Membranes Moist - Neck Exam Neck Exam: Normal Inspection - Respiratory Exam Respiratory Exam: Clear to Ausculation Bilateral - Cardiovascular Exam Cardiovascular Exam: REGULAR RHYTHM Assessment and Plan (1) Respiratory insufficiency Assessment & Plan: continue treatment for diastolic CHF Continue antibiotics For pneumonia Followup chest xray Status: Acute (2) Pneumonia Status: Acute (3) DVT, bilateral lower limbs Status: Acute (4) HIV (human immunodeficiency virus infection) Status: Acute
[2018-01-22] MEDS: Emtricitabine-Tenofovir 200 mg-300 mg Tab PO SCH (18:03)
--- NOTE | 2018-01-22 18:25 | CP.PCM.PN ---
Subjective - Date & Time of Evaluation Date of Evaluation: 01/22/18 Time of Evaluation: 09:00 - Subjective Subjective: less sob no fever Objective - Vital Signs/Intake and Output Vital Signs (last 24 hours): Temp Pulse Resp BP Pulse Ox 97.9 F 89 20 171/88 H 95 01/22/18 16:00 01/22/18 16:00 01/22/18 16:00 01/22/18 17:49 01/22/18 16:00 Intake and Output: 01/22/18 01/22/18 06:59 18:59 Intake Total 650 Output Total 2100 Balance -1450 - Medications Medications: Current Medications Acetaminophen (Tylenol 325mg Tab) 650 mg PO Q6 PRN PRN Reason: Fever >100.4 F Last Admin: 01/20/18 11:17 Dose: 650 mg Albuterol/Ipratropium (Duoneb 3 Mg/0.5 Mg (3 Ml) Ud) 3 ml INH RQ6 [facility] Last Admin: 01/22/18 13:41 Dose: 3 ml Amlodipine Besylate (Norvasc) 10 mg PO DAILY [facility] Last Admin: 01/22/18 10:41 Dose: Not Given Apixaban (Eliquis) 5 mg PO BID [facility] Last Admin: 01/22/18 17:50 Dose: 5 mg Aspirin (Aspirin Chewable) 81 mg PO DAILY [facility] Last Admin: 01/22/18 09:40 Dose: 81 mg Atovaquone (Mepron) 1,500 mg PO DAILY [facility] PRN Reason: Protocol Last Admin: 01/22/18 09:55 Dose: 1,500 mg Carvedilol (Coreg) 12.5 mg PO BID [facility] Last Admin: 01/22/18 17:49 Dose: 12.5 mg Dextrose (Glutose 15) 15 gm PO ONCE PRN; Protocol PRN Reason: Hypoglycemia Protocol Dextrose (Dextrose 50% Inj) 0 ml IV STAT PRN; Protocol PRN Reason: Hypoglycemia Protocol Diphenhydramine HCl (Benadryl) 25 mg PO Q6 PRN PRN Reason: Itching / Pruritus Last Admin: 01/22/18 16:51 Dose: 25 mg Dolutegravir Sodium (Tivicay) 50 mg PO Q24H [facility] PRN Reason: Protocol Last Admin: 01/22/18 18:03 Dose: 50 mg Emtricitabine/Tenofovir (Truvada 200 Mg-300 Mg) 1 tab PO Q48H [facility] PRN Reason: Protocol Last Admin: 01/22/18 18:03 Dose: 1 tab Famotidine (Pepcid) 20 mg IVP DAILY [facility] Last Admin: 01/22/18 09:44 Dose: 20 mg Ferrous Sulfate (Feosol) 325 mg PO DAILY [facility] Last Admin: 01/22/18 11:56 Dose: 325 mg Furosemide (Lasix) 40 mg IVP DAILY [facility] Last Admin: 01/22/18 09:44 Dose: 40 mg Gabapentin (Neurontin) 300 mg PO TID [facility] Last Admin: 01/22/18 17:50 Dose: 300 mg Glucagon (Glucagen Diagnostic Kit) 1 mg IM STAT PRN; Protocol PRN Reason: Hypoglycemia Protocol Hydralazine HCl (Apresoline) 100 mg PO Q8 [facility] Last Admin: 01/22/18 14:07 Dose: 100 mg Piperacillin Sod/Tazobactam Sod (Zosyn 2.25 Gm Iv Premix) 2.25 gm in 50 mls @ 100 mls/hr IVPB Q8H [facility] PRN Reason: Protocol Last Admin: 01/22/18 11:55 Dose: 100 mls/hr Dextrose (Dextrose 5% In Water 1000 Ml) 1,000 mls @ 0 mls/hr IV .Q0M PRN; Protocol; Per Protocol PRN Reason: Hypoglycemia Protocol Vancomycin/Sodium Chloride (Vancomycin 1 Gm/Ns 200 Ml) 1 gm in 200 mls @ 133.333 mls/hr IVPB Q24H [facility] PRN Reason: Protocol Stop: 01/27/18 10:31 Last Admin: 01/22/18 11:55 Dose: 133.333 mls/hr Insulin Glargine (Lantus) 42 unit SC Q12 [facility] Last Admin: 01/22/18 09:45 Dose: 42 units Insulin Human Regular (Novolin R) 8 unit SC AC [facility] Last Admin: 01/22/18 17:50 Dose: 8 units Insulin Human Regular (Novolin R) 0 unit SC ACHS [facility] PRN Reason: Protocol Last Admin: 01/22/18 17:51 Dose: 10 units Methylprednisolone (Solu-Medrol) 40 mg IVP Q8H [facility] Last Admin: 01/22/18 17:52 Dose: 40 mg Montelukast Sodium (Singulair) 10 mg PO [facility] Last Admin: 01/21/18 22:28 Dose: 10 mg Rosuvastatin Calcium (Crestor) 5 mg PO HS [facility] Last Admin: 01/21/18 22:28 Dose: 5 mg - Labs Labs: 01/22/18 08:06 01/22/18 08:06 PT 15.0 SECONDS (9.7-12.2) H 01/20/18 02:18 INR 1.4 01/20/18 02:18 APTT 34 SECONDS (21-34) 01/20/18 02:18 - Constitutional Appears: Non-toxic, Chronically Ill - Head Exam Head Exam: NORMOCEPHALIC - Eye Exam Eye Exam: PERRL - ENT Exam ENT Exam: Mucous Membranes Dry - Neck Exam Neck Exam: absent: Lymphadenopathy - Respiratory Exam Respiratory Exam: Decreased Breath Sounds - Cardiovascular Exam Cardiovascular Exam: REGULAR RHYTHM - GI/Abdominal Exam GI & Abdominal Exam: Distended, Soft - Rectal Exam Rectal Exam: Deferred - Exam Exam: NORMAL INSPECTION Assessment and Plan (1) CHF (congestive heart failure) Status: Acute (2) Exacerbation of asthma Status: Acute (3) Respiratory insufficiency Status: Acute - Assessment and Plan (Free Text) Assessment: await T cells and viral load restarted HAART
--- NOTE | 2018-01-22 20:11 | CP.PCM.PN ---
Subjective - Date & Time of Evaluation Date of Evaluation: 01/22/18 Time of Evaluation: 09:45 - Subjective Subjective: clinically same Objective - Vital Signs/Intake and Output Vital Signs (last 24 hours): Temp Pulse Resp BP Pulse Ox 97.9 F 89 20 171/88 H 95 01/22/18 16:00 01/22/18 16:00 01/22/18 16:00 01/22/18 17:49 01/22/18 16:00 - Medications Medications: Current Medications Acetaminophen (Tylenol 325mg Tab) 650 mg PO Q6 PRN PRN Reason: Fever >100.4 F Last Admin: 01/20/18 11:17 Dose: 650 mg Albuterol/Ipratropium (Duoneb 3 Mg/0.5 Mg (3 Ml) Ud) 3 ml INH RQ6 [facility] Last Admin: 01/22/18 20:06 Dose: Not Given Amlodipine Besylate (Norvasc) 10 mg PO DAILY [facility] Last Admin: 01/22/18 10:41 Dose: Not Given Apixaban (Eliquis) 5 mg PO BID [facility] Last Admin: 01/22/18 17:50 Dose: 5 mg Aspirin (Aspirin Chewable) 81 mg PO DAILY [facility] Last Admin: 01/22/18 09:40 Dose: 81 mg Atovaquone (Mepron) 1,500 mg PO DAILY [facility] PRN Reason: Protocol Last Admin: 01/22/18 09:55 Dose: 1,500 mg Carvedilol (Coreg) 12.5 mg PO BID [facility] Last Admin: 01/22/18 17:49 Dose: 12.5 mg Dextrose (Glutose 15) 15 gm PO ONCE PRN; Protocol PRN Reason: Hypoglycemia Protocol Dextrose (Dextrose 50% Inj) 0 ml IV STAT PRN; Protocol PRN Reason: Hypoglycemia Protocol Diphenhydramine HCl (Benadryl) 25 mg PO Q6 PRN PRN Reason: Itching / Pruritus Last Admin: 01/22/18 16:51 Dose: 25 mg Dolutegravir Sodium (Tivicay) 50 mg PO Q24H [facility] PRN Reason: Protocol Last Admin: 01/22/18 18:03 Dose: 50 mg Emtricitabine/Tenofovir (Truvada 200 Mg-300 Mg) 1 tab PO Q48H [facility] PRN Reason: Protocol Last Admin: 01/22/18 18:03 Dose: 1 tab Famotidine (Pepcid) 20 mg IVP DAILY [facility] Last Admin: 01/22/18 09:44 Dose: 20 mg Ferrous Sulfate (Feosol) 325 mg PO DAILY [facility] Last Admin: 01/22/18 11:56 Dose: 325 mg Furosemide (Lasix) 40 mg IVP DAILY [facility] Last Admin: 01/22/18 09:44 Dose: 40 mg Gabapentin (Neurontin) 300 mg PO TID [facility] Last Admin: 01/22/18 17:50 Dose: 300 mg Glucagon (Glucagen Diagnostic Kit) 1 mg IM STAT PRN; Protocol PRN Reason: Hypoglycemia Protocol Hydralazine HCl (Apresoline) 100 mg PO Q8 [facility] Last Admin: 01/22/18 14:07 Dose: 100 mg Piperacillin Sod/Tazobactam Sod (Zosyn 2.25 Gm Iv Premix) 2.25 gm in 50 mls @ 100 mls/hr IVPB Q8H [facility] PRN Reason: Protocol Last Admin: 01/22/18 19:14 Dose: 100 mls/hr Dextrose (Dextrose 5% In Water 1000 Ml) 1,000 mls @ 0 mls/hr IV .Q0M PRN; Protocol; Per Protocol PRN Reason: Hypoglycemia Protocol Vancomycin/Sodium Chloride (Vancomycin 1 Gm/Ns 200 Ml) 1 gm in 200 mls @ 133.333 mls/hr IVPB Q24H [facility] PRN Reason: Protocol Stop: 01/27/18 10:31 Last Admin: 01/22/18 11:55 Dose: 133.333 mls/hr Insulin Glargine (Lantus) 42 unit SC Q12 [facility] Last Admin: 01/22/18 09:45 Dose: 42 units Insulin Human Regular (Novolin R) 8 unit SC AC [facility] Last Admin: 01/22/18 17:50 Dose: 8 units Insulin Human Regular (Novolin R) 0 unit SC ACHS [facility] PRN Reason: Protocol Last Admin: 01/22/18 17:51 Dose: 10 units Methylprednisolone (Solu-Medrol) 40 mg IVP Q8H [facility] Last Admin: 01/22/18 17:52 Dose: 40 mg Montelukast Sodium (Singulair) 10 mg PO HS [facility] Last Admin: 01/21/18 22:28 Dose: 10 mg Rosuvastatin Calcium (Crestor) 5 mg PO HS [facility] Last Admin: 01/21/18 22:28 Dose: 5 mg - Labs Labs: 01/22/18 08:06 01/22/18 08:06 PT 15.0 SECONDS (9.7-12.2) H 01/20/18 02:18 INR 1.4 01/20/18 02:18 APTT 34 SECONDS (21-34) 01/20/18 02:18 - Constitutional Appears: Well - Head Exam Head Exam: ATRAUMATIC, NORMAL INSPECTION, NORMOCEPHALIC - Eye Exam Eye Exam: EOMI, Normal appearance, PERRL Pupil Exam: NORMAL ACCOMODATION, PERRL - ENT Exam ENT Exam: Mucous Membranes Moist, Normal Exam - Neck Exam Neck Exam: Full ROM, Normal Inspection. absent: Lymphadenopathy - Respiratory Exam Respiratory Exam: Decreased Breath Sounds - Cardiovascular Exam Cardiovascular Exam: REGULAR RHYTHM, +S1, +S2 - GI/Abdominal Exam GI & Abdominal Exam: Soft, Diminished Bowel Sounds - Rectal Exam Rectal Exam: Deferred
[2018-01-22 22:19] LABS: SQUAMOUS EPITHIAL < 1 /hpf (0-5); URINE BILIRUBIN NEGATIVE (NEGATIVE); URINE BLOOD 1+ (NEGATIVE); URINE CLARITY Clear (Clear); URINE COLOR Straw (YELLOW); URINE GLUCOSE (UA) 3+ mg/dL (Normal); URINE LEUKOCYTE ESTERASE NEG Leu/uL (Negative); URINE PROTEIN NEGATIVE (NEGATIVE); URINE UROBILINOGEN NORMAL mg/dL (0.2-1.0)
[2018-01-23] MEDS: Albuterol-Ipratrop 3 mg / 0.5 (3 ml) UD INH SCH ×4 (01:21→20:14)
[2018-01-23] MEDS: Piperacill/Tazo 2.25gm in Dex 2.25 GM/50 ML BAG IVPB SCH ×2 (02:29→12:12)
[2018-01-23] MEDS: MethylPREDNISolone 40 mg Vial IVP SCH ×3 (02:29→17:14)
[2018-01-23 07:37] LABS: ALB/GLOB RATIO 1.1 (1.0-2.1); ALBUMIN 3.7 g/dL (3.5-5.0); CALCIUM 8.2 mg/dl (8.6-10.4)
[2018-01-23] MEDS: (Novolog) Insulin Aspart, Recombinant 100 u/ml 10 ml vial SC SCH ×7 (08:16→21:55)
--- NOTE | 2018-01-23 09:39 | CON ---
Copied To: Courtney Walter MD Attending MD: Courtney Walter MD DATE: 01/21/2018 ENDOCRINOLOGY CONSULT LOCATION: Room 667. HISTORY OF PRESENT ILLNESS: This is a 67-year-old male with recent uncontrolled type 2 insulin requiring diabetes presenting here with progressive shortness of breath and underlying pneumonia with supervening acute exacerbation of COPD, currently on IV steroids therapy with supervening hyperglycemic accelerations, and he is now being referred for diabetic evaluation and management. PAST MEDICAL HISTORY: As mentioned above, history of type 2 insulin requiring diabetes, currently on Lantus given as 42 units every 12 hours as ordered with regular insulin given as 15 units t.i.d. before meals, history of hypertension and dyslipidemia, history of diabetic retinopathy, polyneuropathy and nephropathy with underlying chronic kidney disease, history of deep vein thrombosis, and currently on Eliquis, anticoagulation therapy, history of coronary artery disease and peripheral arterial disease and vasculopathy with a pervious right [id number] amputation, history of chronic pancreatitis as noted, also history of HIV positive disorder on antiretroviral medications, history of osteoarthritis and also chronic anemia. PAST SURGICAL HISTORY: Cholecystectomy for underlying cholelithiasis. FAMILY HISTORY: Positive for diabetes and hypertension. SOCIAL HISTORY: The patient is a former smoker and has a supportive family, otherwise. REVIEW OF SYSTEMS: As mentioned above, admits to generalized body weakness with episodic bouts of dizziness and lightheadedness, worse on the day of admission, also admits to bifrontal headaches and visual blurring with disrupted sleep patterns and insomnia. No chest pains or palpitations, but admits to progressive shortness of breath initially on exertion and then at rest with paroxysmal nocturnal dyspnea. His oral intake has been variable with nausea, dyspepsia, and vague upper abdominal pain. Also admits to marked polyuria, nocturia, and polydipsia. PHYSICAL EXAMINATION: GENERAL: This is an average built male in no apparent distress. VITAL SIGNS: Blood pressure of 150/90, pulse of 100 beats per minute and regular, temperature 98, respirations 20, height is 5 feet 11 inches, weight 178 pounds. HEENT: Head normocephalic. Eyes anicteric with pink conjunctivae. Funduscopy not possible at this time. Ears, nose, and throat, otherwise, normal. NECK: Supple. Thyroid gland is normal size. No carotid bruits or cervical adenopathy. CARDIOPULMONARY: Some adynamic precordium. S1 and S2, rapid and regular. LUNGS: Clear to auscultation. ABDOMEN: Flat, soft with positive bowel sounds. EXTREMITIES: No peripheral edema. Pulses are +2 bilaterally. LABORATORY DATA: His chemistry showed BUN of 59, sodium 141, potassium 4.8, chloride 106, CO2 of 24, glucose 330, and creatinine 2.3. His glucose values have ranged from 377 to 439 mg/dL. His glucose have been 465 to over 500 over the last 24 hours as noted. His proBNP is 3180. ASSESSMENT: This is a 67-year-old male with uncontrolled and decompensated type 2 insulin requiring diabetes presenting here with congestive heart failure and supervening acute exacerbation of chronic obstructive pulmonary disease, currently on high dose IV steroids therapy with expected increased insulin resistance and further impaired glucose tolerance thereof. He also has diabetic microvascular complications of retinopathy, polyneuropathy, and nephropathy with underlying chronic kidney disease. Moreover, he also has diabetic macrovascular complication of coronary artery disease and peripheral arterial disease and vasculopathy with pervious right [id number] amputation as noted. PLAN OF MANAGEMENT: As discussed with the patient and the staff, we will modify his current insulin regimen and switch him over to a more physiologic basal and bolus insulin drug combination as ordered. We will start him on Novolog given as 14 units subcutaneous t.i.d. before meals to start tomorrow morning before breakfast as ordered. We will also add basal insulin at the higher dose of Lantus given as 60 units subcutaneous at bedtime daily to start tomorrow night as he already received 42 units tonight as noted. We will modify the coverage scale to obviate hypoglycemia and detailed orders have been given. We will obtain serial chemistries and supplement accordingly as needed. We will follow and advised accordingly. Courtney Walter MD
[2018-01-23] MEDS: Atovaquone 750 mg/5 ml Susp UD PO SCH (09:42)
[2018-01-23] MEDS: Vancomycin 1 gm/NS 200 ml 1 GM/200 ML BAG IVPB SCH (09:43)
--- NOTE | 2018-01-23 14:20 | CP.PCM.PN ---
Subjective - Date & Time of Evaluation Date of Evaluation: 01/23/18 Time of Evaluation: 14:20 - Subjective Subjective: Patient SOB improved Afebrile No CP or volume overload No N/V No YUSUF, numbness or tingling BP remains labile high Objective - Vital Signs/Intake and Output Vital Signs (last 24 hours): Temp Pulse Resp BP Pulse Ox 98.0 F 92 H 18 174/98 H 96 01/23/18 07:40 01/23/18 08:02 01/23/18 07:40 01/23/18 09:42 01/23/18 07:40 Intake and Output: 01/23/18 01/23/18 06:59 18:59 Output Total 1200 Balance -1200 - Medications Medications: Current Medications Acetaminophen (Tylenol 325mg Tab) 650 mg PO Q6 PRN PRN Reason: Fever >100.4 F Last Admin: 01/20/18 11:17 Dose: 650 mg Albuterol/Ipratropium (Duoneb 3 Mg/0.5 Mg (3 Ml) Ud) 3 ml INH RQ6 [facility] Last Admin: 01/23/18 13:34 Dose: 3 ml Amlodipine Besylate (Norvasc) 10 mg PO DAILY [facility] Last Admin: 01/23/18 09:41 Dose: 10 mg Apixaban (Eliquis) 5 mg PO BID [facility] Last Admin: 01/23/18 09:41 Dose: 5 mg Aspirin (Aspirin Chewable) 81 mg PO DAILY [facility] Last Admin: 01/23/18 09:42 Dose: 81 mg Atovaquone (Mepron) 1,500 mg PO DAILY [facility] PRN Reason: Protocol Last Admin: 01/23/18 09:42 Dose: 1,500 mg Carvedilol (Coreg) 12.5 mg PO BID [facility] Last Admin: 01/23/18 09:42 Dose: 12.5 mg Dextrose (Glutose 15) 15 gm PO ONCE PRN; Protocol PRN Reason: Hypoglycemia Protocol Dextrose (Dextrose 50% Inj) 0 ml IV STAT PRN; Protocol PRN Reason: Hypoglycemia Protocol Diphenhydramine HCl (Benadryl) 25 mg PO Q6 PRN PRN Reason: Itching / Pruritus Last Admin: 01/23/18 08:16 Dose: 25 mg Dolutegravir Sodium (Tivicay) 50 mg PO Q24H [facility] PRN Reason: Protocol Last Admin: 01/22/18 18:03 Dose: 50 mg Emtricitabine/Tenofovir (Truvada 200 Mg-300 Mg) 1 tab PO Q48H [facility] PRN Reason: Protocol Last Admin: 01/22/18 18:03 Dose: 1 tab Famotidine (Pepcid) 20 mg IVP DAILY [facility] Last Admin: 01/23/18 09:42 Dose: 20 mg Ferrous Sulfate (Feosol) 325 mg PO DAILY [facility] Last Admin: 01/23/18 09:41 Dose: 325 mg Furosemide (Lasix) 40 mg IVP DAILY [facility] Last Admin: 01/23/18 09:41 Dose: 40 mg Gabapentin (Neurontin) 300 mg PO TID [facility] Last Admin: 01/23/18 09:41 Dose: 300 mg Glucagon (Glucagen Diagnostic Kit) 1 mg IM STAT PRN; Protocol PRN Reason: Hypoglycemia Protocol Hydralazine HCl (Apresoline) 100 mg PO Q8 [facility] Last Admin: 01/23/18 06:05 Dose: 100 mg Vancomycin/Sodium Chloride (Vancomycin 1 Gm/Ns 200 Ml) 1 gm in 200 mls @ 133.333 mls/hr IVPB Q24H [facility] PRN Reason: Protocol Stop: 01/27/18 10:31 Last Admin: 01/23/18 09:43 Dose: 133.333 mls/hr Insulin Aspart (Novolog) 14 unit SC AC [facility] Last Admin: 01/23/18 12:13 Dose: 14 units Insulin Aspart (Novolog) 0 unit SC ACHS [facility] PRN Reason: Protocol Last Admin: 01/23/18 12:13 Dose: 4 units Insulin Glargine (Lantus) 60 unit SC HS [facility] Methylprednisolone (Solu-Medrol) 40 mg IVP Q8H [facility] Last Admin: 01/23/18 09:42 Dose: 40 mg Montelukast Sodium (Singulair) 10 mg PO HS [facility] Last Admin: 01/22/18 21:51 Dose: 10 mg Rosuvastatin Calcium (Crestor) 5 mg PO HS [facility] Last Admin: 01/22/18 21:50 Dose: 5 mg - Labs Labs: 01/22/18 08:06 01/23/18 07:16 PT 15.0 SECONDS (9.7-12.2) H 01/20/18 02:18 INR 1.4 01/20/18 02:18 APTT 34 SECONDS (21-34) 01/20/18 02:18 - Constitutional Appears: No Acute Distress, Chronically Ill - Head Exam Head Exam: ATRAUMATIC, NORMAL INSPECTION, NORMOCEPHALIC - Eye Exam Eye Exam: Normal appearance - Respiratory Exam Respiratory Exam: Clear to Ausculation Bilateral, Rhonchi. absent: Wheezes - Cardiovascular Exam Cardiovascular Exam: REGULAR RHYTHM, +S1, +S2. absent: Murmur - GI/Abdominal Exam GI & Abdominal Exam: Soft, Normal Bowel Sounds Assessment and Plan - Assessment and Plan (Free Text) Assessment: Acute on chronic diastolic CHF Acute PNA HTN uncontrolled LIPIDS Hx of DVT maintained on eliquis Mild anemia HIV DM uncontrolled PAD hx of R. AKA - BP needs better control: > hydralazine to 100 TID, cont norvasc 10, titrate coreg as tolerated, add CHINO-I or ARB - cont statin - optimize DM control - ABX for PNA along with pulmonary supportive care - No active sx's of CAD, no volume overload - Medical therapy for ASCVD/PAD
--- NOTE | 2018-01-23 15:47 | CP.PCM.PN ---
Subjective - Date & Time of Evaluation Date of Evaluation: 01/23/18 Time of Evaluation: 09:00 - Subjective Subjective: clinically same Objective - Vital Signs/Intake and Output Vital Signs (last 24 hours): Temp Pulse Resp BP Pulse Ox 98.0 F 80 18 177/77 H 96 01/23/18 07:40 01/23/18 14:33 01/23/18 07:40 01/23/18 14:33 01/23/18 07:40 Intake and Output: 01/23/18 01/23/18 06:59 18:59 Intake Total 650 Output Total 1200 Balance -1200 650 - Medications Medications: Current Medications Acetaminophen (Tylenol 325mg Tab) 650 mg PO Q6 PRN PRN Reason: Fever >100.4 F Last Admin: 01/20/18 11:17 Dose: 650 mg Albuterol/Ipratropium (Duoneb 3 Mg/0.5 Mg (3 Ml) Ud) 3 ml INH RQ6 [facility] Last Admin: 01/23/18 13:34 Dose: 3 ml Amlodipine Besylate (Norvasc) 10 mg PO DAILY [facility] Last Admin: 01/23/18 09:41 Dose: 10 mg Apixaban (Eliquis) 5 mg PO BID [facility] Last Admin: 01/23/18 09:41 Dose: 5 mg Aspirin (Aspirin Chewable) 81 mg PO DAILY [facility] Last Admin: 01/23/18 09:42 Dose: 81 mg Atovaquone (Mepron) 1,500 mg PO DAILY [facility] PRN Reason: Protocol Last Admin: 01/23/18 09:42 Dose: 1,500 mg Carvedilol (Coreg) 12.5 mg PO BID [facility] Last Admin: 01/23/18 09:42 Dose: 12.5 mg Dextrose (Glutose 15) 15 gm PO ONCE PRN; Protocol PRN Reason: Hypoglycemia Protocol Dextrose (Dextrose 50% Inj) 0 ml IV STAT PRN; Protocol PRN Reason: Hypoglycemia Protocol Diphenhydramine HCl (Benadryl) 25 mg PO Q6 PRN PRN Reason: Itching / Pruritus Last Admin: 01/23/18 14:34 Dose: 25 mg Dolutegravir Sodium (Tivicay) 50 mg PO Q24H [facility] PRN Reason: Protocol Last Admin: 01/22/18 18:03 Dose: 50 mg Emtricitabine/Tenofovir (Truvada 200 Mg-300 Mg) 1 tab PO Q48H [facility] PRN Reason: Protocol Last Admin: 01/22/18 18:03 Dose: 1 tab Famotidine (Pepcid) 20 mg IVP DAILY [facility] Last Admin: 01/23/18 09:42 Dose: 20 mg Ferrous Sulfate (Feosol) 325 mg PO DAILY [facility] Last Admin: 01/23/18 09:41 Dose: 325 mg Furosemide (Lasix) 40 mg IVP DAILY [facility] Last Admin: 01/23/18 09:41 Dose: 40 mg Gabapentin (Neurontin) 300 mg PO TID [facility] Last Admin: 01/23/18 14:34 Dose: 300 mg Glucagon (Glucagen Diagnostic Kit) 1 mg IM STAT PRN; Protocol PRN Reason: Hypoglycemia Protocol Hydralazine HCl (Apresoline) 100 mg PO Q8 [facility] Last Admin: 01/23/18 14:34 Dose: 100 mg Vancomycin/Sodium Chloride (Vancomycin 1 Gm/Ns 200 Ml) 1 gm in 200 mls @ 133.333 mls/hr IVPB Q24H [facility] PRN Reason: Protocol Stop: 01/27/18 10:31 Last Admin: 01/23/18 09:43 Dose: 133.333 mls/hr Insulin Aspart (Novolog) 14 unit SC AC [facility] Last Admin: 01/23/18 12:13 Dose: 14 units Insulin Aspart (Novolog) 0 unit SC ACHS [facility] PRN Reason: Protocol Last Admin: 01/23/18 12:13 Dose: 4 units Insulin Glargine (Lantus) 60 unit SC HS [facility] Methylprednisolone (Solu-Medrol) 40 mg IVP Q8H [facility] Last Admin: 01/23/18 09:42 Dose: 40 mg Montelukast Sodium (Singulair) 10 mg PO HS [facility] Last Admin: 01/22/18 21:51 Dose: 10 mg Rosuvastatin Calcium (Crestor) 5 mg PO HS [facility] Last Admin: 01/22/18 21:50 Dose: 5 mg - Labs Labs: 01/22/18 08:06 01/23/18 07:16 PT 15.0 SECONDS (9.7-12.2) H 01/20/18 02:18 INR 1.4 01/20/18 02:18 APTT 34 SECONDS (21-34) 01/20/18 02:18 - Constitutional Appears: Well - Head Exam Head Exam: ATRAUMATIC, NORMAL INSPECTION, NORMOCEPHALIC - Eye Exam Eye Exam: EOMI, Normal appearance, PERRL Pupil Exam: NORMAL ACCOMODATION, PERRL - ENT Exam ENT Exam: Mucous Membranes Moist, Normal Exam - Neck Exam Neck Exam: Full ROM, Normal Inspection. absent: Lymphadenopathy - Respiratory Exam Respiratory Exam: Decreased Breath Sounds - Cardiovascular Exam Cardiovascular Exam: REGULAR RHYTHM, +S1, +S2 - GI/Abdominal Exam GI & Abdominal Exam: Soft, Diminished Bowel Sounds - Rectal Exam Rectal Exam: Deferred
--- NOTE | 2018-01-23 16:37 | PN ---
Copied To: Courtney Walter MD Attending MD: Courtney Walter MD DATE: 01/23/2018 ENDO FOLLOWUP NOTE LOCATION: In room 667. SUBJECTIVE: This is a 67-year-old male with recent uncontrolled type 2 insulin-requiring diabetes, presenting here with congestive heart failure and supervening acute excerebration of COPD, currently on high dose steroid therapy and is now being followed closely for metabolic management. He developed hyperglycemic acceleration over the last 48 hours with the high dose IV steroids given for management of bronchospasm, which is improving clinically and hemodynamically as noted thereof. LABORATORY DATA: His glucose levels overnight have ranged from 326 to 478 and over 500 mg/dL. His latest chemistries showed the BUN of 60, sodium 141, potassium 4.9, chloride 107, CO2 of 25, glucose 329, and creatinine 2.3. ASSESSMENT: This is a 67-year-old male with uncontrolled and decompensated type 2 insulin-requiring diabetes with intercurrent intravenous steroid therapy contributing to the increased insulin resistance and further impaired glucose tolerance thereof, but he already has suboptimal metabolic control even prior to this admission as noted from the elevated A1c levels as given. PLAN OF MANAGEMENT: We will modify once again his basal and bolus insulin regimen and increase the Novolog to 14 units subcu t.i.d. to start today as ordered. We will also titrate his basal insulin to a higher dose of Lantus given as 60 units subcu at bedtime daily as ordered and also he is on coverage scale, but we will need more definitive insulin management accordingly. We will follow. Courtney Walter MD
[2018-01-23 17:01] VITALS: RESP 20
[2018-01-23] MEDS ORDERED: (Novolog) Insulin Aspart, Recombinant 100 u/ml 10 ml vial SC STA (21:49)
[2018-01-23] MEDS ORDERED: (Lantus) Insulin Glargine, Recombinant SC SCH (22:00)
[2018-01-24] MEDS: MethylPREDNISolone 40 mg Vial IVP SCH ×3 (01:08→18:00)
[2018-01-24] MEDS: Albuterol-Ipratrop 3 mg / 0.5 (3 ml) UD INH SCH ×4 (01:30→20:47)
[2018-01-24] MEDS: (Novolog) Insulin Aspart, Recombinant 100 u/ml 10 ml vial SC SCH ×7 (08:20→22:01)
[2018-01-24] MEDS: Vancomycin 1 gm/NS 200 ml 1 GM/200 ML BAG IVPB SCH (09:45)
[2018-01-24] MEDS: Atovaquone 750 mg/5 ml Susp UD PO SCH (09:46)
--- NOTE | 2018-01-24 13:34 | CP.PCM.PN ---
Subjective - Date & Time of Evaluation Date of Evaluation: 01/24/18 Time of Evaluation: 08:45 - Subjective Subjective: clinically same Objective - Vital Signs/Intake and Output Vital Signs (last 24 hours): Temp Pulse Resp BP Pulse Ox 98.1 F 77 20 196/92 H 94 L 01/24/18 07:00 01/24/18 13:08 01/24/18 07:00 01/24/18 09:46 01/24/18 07:00 Intake and Output: 01/24/18 01/24/18 06:59 18:59 Intake Total 400 Balance 400 - Medications Medications: Current Medications Acetaminophen (Tylenol 325mg Tab) 650 mg PO Q6 PRN PRN Reason: Fever >100.4 F Last Admin: 01/20/18 11:17 Dose: 650 mg Albuterol/Ipratropium (Duoneb 3 Mg/0.5 Mg (3 Ml) Ud) 3 ml INH RQ6 [facility] Last Admin: 01/24/18 08:10 Dose: Not Given Amlodipine Besylate (Norvasc) 10 mg PO DAILY [facility] Last Admin: 01/24/18 09:47 Dose: 10 mg Apixaban (Eliquis) 5 mg PO BID [facility] Last Admin: 01/24/18 09:45 Dose: 5 mg Aspirin (Aspirin Chewable) 81 mg PO DAILY [facility] Last Admin: 01/24/18 09:46 Dose: 81 mg Atovaquone (Mepron) 1,500 mg PO DAILY [facility] PRN Reason: Protocol Last Admin: 01/24/18 09:46 Dose: 1,500 mg Carvedilol (Coreg) 12.5 mg PO BID [facility] Last Admin: 01/24/18 09:45 Dose: 12.5 mg Dextrose (Glutose 15) 15 gm PO ONCE PRN; Protocol PRN Reason: Hypoglycemia Protocol Dextrose (Dextrose 50% Inj) 0 ml IV STAT PRN; Protocol PRN Reason: Hypoglycemia Protocol Diphenhydramine HCl (Benadryl) 25 mg PO Q6 PRN PRN Reason: Itching / Pruritus Last Admin: 01/24/18 08:20 Dose: 25 mg Dolutegravir Sodium (Tivicay) 50 mg PO Q24H [facility] PRN Reason: Protocol Last Admin: 01/23/18 18:26 Dose: 50 mg Emtricitabine/Tenofovir (Truvada 200 Mg-300 Mg) 1 tab PO Q48H [facility] PRN Reason: Protocol Last Admin: 01/22/18 18:03 Dose: 1 tab Famotidine (Pepcid) 20 mg IVP DAILY [facility] Last Admin: 01/24/18 09:46 Dose: 20 mg Ferrous Sulfate (Feosol) 325 mg PO DAILY [facility] Last Admin: 01/24/18 09:46 Dose: 325 mg Furosemide (Lasix) 40 mg IVP DAILY [facility] Last Admin: 01/24/18 09:46 Dose: 40 mg Gabapentin (Neurontin) 300 mg PO TID [facility] Last Admin: 01/24/18 09:46 Dose: 300 mg Glucagon (Glucagen Diagnostic Kit) 1 mg IM STAT PRN; Protocol PRN Reason: Hypoglycemia Protocol Hydralazine HCl (Apresoline) 100 mg PO Q8 [facility] Last Admin: 01/24/18 05:07 Dose: 100 mg Vancomycin/Sodium Chloride (Vancomycin 1 Gm/Ns 200 Ml) 1 gm in 200 mls @ 133.333 mls/hr IVPB Q24H [facility] PRN Reason: Protocol Stop: 01/27/18 10:31 Last Admin: 01/24/18 09:45 Dose: 133.333 mls/hr Insulin Aspart (Novolog) 0 unit SC ACHS [facility] PRN Reason: Protocol Last Admin: 01/24/18 12:12 Dose: Not Given Insulin Aspart (Novolog) 20 unit SC AC [facility] Last Admin: 01/24/18 12:29 Dose: 20 units Insulin Glargine (Lantus) 80 unit SC HS [facility] Methylprednisolone (Solu-Medrol) 40 mg IVP Q8H [facility] Last Admin: 01/24/18 09:46 Dose: 40 mg Montelukast Sodium (Singulair) 10 mg PO HS [facility] Last Admin: 01/23/18 21:17 Dose: 10 mg Rosuvastatin Calcium (Crestor) 5 mg PO HS [facility] Last Admin: 01/23/18 21:17 Dose: 5 mg - Labs Labs: 01/22/18 08:06 01/23/18 07:16 PT 15.0 SECONDS (9.7-12.2) H 01/20/18 02:18 INR 1.4 01/20/18 02:18 APTT 34 SECONDS (21-34) 01/20/18 02:18 - Constitutional Appears: Well - Head Exam Head Exam: ATRAUMATIC, NORMAL INSPECTION, NORMOCEPHALIC - Eye Exam Eye Exam: EOMI, Normal appearance, PERRL Pupil Exam: NORMAL ACCOMODATION, PERRL - ENT Exam ENT Exam: Mucous Membranes Moist, Normal Exam - Neck Exam Neck Exam: Full ROM, Normal Inspection. absent: Lymphadenopathy - Respiratory Exam Respiratory Exam: Decreased Breath Sounds - Cardiovascular Exam Cardiovascular Exam: REGULAR RHYTHM, +S1, +S2 - GI/Abdominal Exam GI & Abdominal Exam: Soft, Diminished Bowel Sounds - Rectal Exam Rectal Exam: Deferred
--- NOTE | 2018-01-24 13:51 | CP.PCM.PN ---
Subjective - Date & Time of Evaluation Date of Evaluation: 01/24/18 Time of Evaluation: 13:51 - Subjective Subjective: Pulmonary Evaluation: Covering Dr. Hawkins The patient was Seen/interviewed and examined by me at the bedside, Medical records reviewed and Management issues were discussed and formulated with the house staff. Events reviewed 67-year-old male with history of Bilateral DVT, hypertension, diabetes, HIV positive, hypercholesterolemia Patient presented to emergency room on 01/20 complaining of worsening shortness of breath.Patient was placed on BiPAP for severity of symptoms. chest x-ray done consistent with congestive changes patient was admitted recently with chest pain and had echocardiogram done with no regional wall abnormality and normal ejection fraction. Admitted with Respiratory insufficiency sec to Pneumonia Awake, comfortable, NAD Improved Respiratory status OFF BIPAP Nasal packing for epistaxis Afebrile Objective - Vital Signs/Intake and Output Vital Signs (last 24 hours): Temp Pulse Resp BP Pulse Ox 98.1 F 77 20 196/92 H 94 L 01/24/18 07:00 01/24/18 13:08 01/24/18 07:00 01/24/18 09:46 01/24/18 07:00 Intake and Output: 01/24/18 01/24/18 06:59 18:59 Intake Total 400 Balance 400 - Medications Medications: Current Medications Acetaminophen (Tylenol 325mg Tab) 650 mg PO Q6 PRN PRN Reason: Fever >100.4 F Last Admin: 01/20/18 11:17 Dose: 650 mg Albuterol/Ipratropium (Duoneb 3 Mg/0.5 Mg (3 Ml) Ud) 3 ml INH RQ6 [facility] Last Admin: 01/24/18 08:10 Dose: Not Given Amlodipine Besylate (Norvasc) 10 mg PO DAILY [facility] Last Admin: 01/24/18 09:47 Dose: 10 mg Apixaban (Eliquis) 5 mg PO BID [facility] Last Admin: 01/24/18 09:45 Dose: 5 mg Aspirin (Aspirin Chewable) 81 mg PO DAILY [facility] Last Admin: 01/24/18 09:46 Dose: 81 mg Atovaquone (Mepron) 1,500 mg PO DAILY [facility] PRN Reason: Protocol Last Admin: 01/24/18 09:46 Dose: 1,500 mg Carvedilol (Coreg) 12.5 mg PO BID [facility] Last Admin: 01/24/18 09:45 Dose: 12.5 mg Dextrose (Glutose 15) 15 gm PO ONCE PRN; Protocol PRN Reason: Hypoglycemia Protocol Dextrose (Dextrose 50% Inj) 0 ml IV STAT PRN; Protocol PRN Reason: Hypoglycemia Protocol Diphenhydramine HCl (Benadryl) 25 mg PO Q6 PRN PRN Reason: Itching / Pruritus Last Admin: 01/24/18 08:20 Dose: 25 mg Dolutegravir Sodium (Tivicay) 50 mg PO Q24H [facility] PRN Reason: Protocol Last Admin: 01/23/18 18:26 Dose: 50 mg Emtricitabine/Tenofovir (Truvada 200 Mg-300 Mg) 1 tab PO Q48H [facility] PRN Reason: Protocol Last Admin: 01/22/18 18:03 Dose: 1 tab Famotidine (Pepcid) 20 mg IVP DAILY [facility] Last Admin: 01/24/18 09:46 Dose: 20 mg Ferrous Sulfate (Feosol) 325 mg PO DAILY [facility] Last Admin: 01/24/18 09:46 Dose: 325 mg Furosemide (Lasix) 40 mg IVP DAILY [facility] Last Admin: 01/24/18 09:46 Dose: 40 mg Gabapentin (Neurontin) 300 mg PO TID [facility] Last Admin: 01/24/18 09:46 Dose: 300 mg Glucagon (Glucagen Diagnostic Kit) 1 mg IM STAT PRN; Protocol PRN Reason: Hypoglycemia Protocol Hydralazine HCl (Apresoline) 100 mg PO Q8 [facility] Last Admin: 01/24/18 05:07 Dose: 100 mg Vancomycin/Sodium Chloride (Vancomycin 1 Gm/Ns 200 Ml) 1 gm in 200 mls @ 133.333 mls/hr IVPB Q24H [facility] PRN Reason: Protocol Stop: 01/27/18 10:31 Last Admin: 01/24/18 09:45 Dose: 133.333 mls/hr Insulin Aspart (Novolog) 0 unit SC ACHS [facility] PRN Reason: Protocol Last Admin: 01/24/18 12:12 Dose: Not Given Insulin Aspart (Novolog) 20 unit SC AC [facility] Last Admin: 01/24/18 12:29 Dose: 20 units Insulin Glargine (Lantus) 80 unit SC HS [facility] Methylprednisolone (Solu-Medrol) 40 mg IVP Q8H [facility] Last Admin: 01/24/18 09:46 Dose: 40 mg Montelukast Sodium (Singulair) 10 mg PO HS [facility] Last Admin: 01/23/18 21:17 Dose: 10 mg Rosuvastatin Calcium (Crestor) 5 mg PO HS [facility] Last Admin: 01/23/18 21:17 Dose: 5 mg - Labs Labs: 01/22/18 08:06 01/23/18 07:16 PT 15.0 SECONDS (9.7-12.2) H 01/20/18 02:18 INR 1.4 01/20/18 02:18 APTT 34 SECONDS (21-34) 01/20/18 02:18 - Head Exam Head Exam: ATRAUMATIC, NORMAL INSPECTION - Eye Exam Eye Exam: EOMI, Normal appearance Pupil Exam: NORMAL ACCOMODATION, PERRL - ENT Exam ENT Exam: Mucous Membranes Moist - Neck Exam Neck Exam: Normal Inspection - Respiratory Exam Respiratory Exam: Decreased Breath Sounds, Rales. absent: Chest Wall Tenderness , Rhonchi, Wheezes - Cardiovascular Exam Cardiovascular Exam: REGULAR RHYTHM, RRR, +S1, +S2. absent: JVD - GI/Abdominal Exam GI & Abdominal Exam: Distended, Soft, Normal Bowel Sounds - Extremities Exam Extremities Exam: Pedal Edema Assessment and Plan (1) Respiratory insufficiency Assessment & Plan: chest x-ray consistent with severe congestion and possible consolidation. Continue antibiotics For pneumonia Continue nebulizer treatment BiPAP. Taper IV steroids Continue anticoagulation for DVT, Pt on Eliquis Continue treatment for diastolic CHF Diuresis, IV Lasix. Strict I&Os BIPAP Followup chest xray Status: Acute (2) CHF (congestive heart failure) Assessment & Plan: Continue treatment for diastolic CHF Diuresis, Strict I&Os BIPAP Status: Acute (3) Exacerbation of asthma Assessment & Plan: Continue nebulizer treatment BiPAP. Taper IV steroids Status: Acute (4) Pneumonia Assessment & Plan: As per Respiratory insufficiency Status: Acute (5) HIV (human immunodeficiency virus infection) Status: Acute
--- NOTE | 2018-01-24 14:43 | CP.PCM.CON ---
History of Present Illness - History of Present Illness History of Present Illness: GI Service Consult CC: constipation 67 year old man with multiple medical problems, Diabetes with vasculopathy, admitted with dyspnea and CHF, and we are called because he has not had a bowel movement since admission. He denies constipation prior to admission or signs/ symptoms of GI bleeding. Normocytic anemia is noted on lab data. Abdominal CT done 2 days ago did not report significant Gastrointestinal findings. Review of Systems - Constitutional Constitutional: absent: Chills - Cardiovascular Cardiovascular: absent: Chest Pain - Respiratory Respiratory: Dyspnea - Gastrointestinal Gastrointestinal: Bloating, Constipation. absent: Hematochezia, Melena, Vomiting - Musculoskeletal Musculoskeletal: Back Pain - Integumentary Integumentary: absent: Jaundice Past Patient History - Infectious Disease Hx of Infectious Diseases: None - Tetanus Immunizations Tetanus Immunization: Unknown - Past Medical History & Family History Past Medical History?: Yes - Past Social History Smoking Status: Former Smoker - CARDIAC Hx Hypercholesterolemia: Yes Hx Hypertension: Yes - PULMONARY Hx Pneumonia: Yes - NEUROLOGICAL Hx Neurological Disorder: Yes (NEUROPATHY) - HEENT Hx HEENT Problems: Yes Hx Cataracts: Yes Other/Comment: Right eye cataract removal 06/2016 - RENAL Hx Chronic Kidney Disease: Yes - ENDOCRINE/METABOLIC Hx Diabetes Mellitus Type 2: Yes - HEMATOLOGICAL/ONCOLOGICAL Hx AIDS: (HIV) Hx Anemia: Yes Hx Blood Transfusions: Yes Hx Blood Transfusion Reaction: No Hx Human Immunodeficiency Virus (HIV): Yes Other/Comment: DVT - INTEGUMENTARY Hx Dermatological Problems: Yes (R AKA,LARGE ELONGATED SCARRING ACROSS MID ABDOMINAL AREA.) - MUSCULOSKELETAL/RHEUMATOLOGICAL Hx Arthritis: Yes - GASTROINTESTINAL Hx Gall Bladder Disease: Yes Hx Pancreatitis: Yes (pancreatic issue unspecified) - GENITOURINARY/GYNECOLOGICAL Hx Genitourinary Disorders: Yes Hx Prostate Problems: Yes - PSYCHIATRIC Hx Substance Use: No - SURGICAL HISTORY Hx Cholecystectomy: Yes Other/Comment: Rt. AKA - ANESTHESIA Hx Anesthesia: Yes Hx Anesthesia Reactions: No Hx Malignant Hyperthermia: No Meds Allergies/Adverse Reactions: Allergies Allergy/AdvReac Type Severity Reaction Status Date / Time No Known Allergies Allergy Verified 12/21/17 10:32 - Medications Medications: Current Medications Acetaminophen (Tylenol 325mg Tab) 650 mg PO Q6 PRN PRN Reason: Fever >100.4 F Last Admin: 01/20/18 11:17 Dose: 650 mg Albuterol/Ipratropium (Duoneb 3 Mg/0.5 Mg (3 Ml) Ud) 3 ml INH RQ6 [facility] Last Admin: 01/24/18 08:10 Dose: Not Given Amlodipine Besylate (Norvasc) 10 mg PO DAILY [facility] Last Admin: 01/24/18 09:47 Dose: 10 mg Apixaban (Eliquis) 5 mg PO BID [facility] Last Admin: 01/24/18 09:45 Dose: 5 mg Aspirin (Aspirin Chewable) 81 mg PO DAILY [facility] Last Admin: 01/24/18 09:46 Dose: 81 mg Atovaquone (Mepron) 1,500 mg PO DAILY [facility] PRN Reason: Protocol Last Admin: 01/24/18 09:46 Dose: 1,500 mg Carvedilol (Coreg) 12.5 mg PO BID [facility] Last Admin: 01/24/18 09:45 Dose: 12.5 mg Dextrose (Glutose 15) 15 gm PO ONCE PRN; Protocol PRN Reason: Hypoglycemia Protocol Dextrose (Dextrose 50% Inj) 0 ml IV STAT PRN; Protocol PRN Reason: Hypoglycemia Protocol Diphenhydramine HCl (Benadryl) 25 mg PO Q6 PRN PRN Reason: Itching / Pruritus Last Admin: 01/24/18 08:20 Dose: 25 mg Dolutegravir Sodium (Tivicay) 50 mg PO Q24H [facility] PRN Reason: Protocol Last Admin: 01/23/18 18:26 Dose: 50 mg Emtricitabine/Tenofovir (Truvada 200 Mg-300 Mg) 1 tab PO Q48H [facility] PRN Reason: Protocol Last Admin: 01/22/18 18:03 Dose: 1 tab Famotidine (Pepcid) 20 mg IVP DAILY [facility] Last Admin: 01/24/18 09:46 Dose: 20 mg Ferrous Sulfate (Feosol) 325 mg PO DAILY [facility] Last Admin: 01/24/18 09:46 Dose: 325 mg Furosemide (Lasix) 40 mg IVP DAILY [facility] Last Admin: 01/24/18 09:46 Dose: 40 mg Gabapentin (Neurontin) 300 mg PO TID [facility] Last Admin: 01/24/18 13:53 Dose: 300 mg Glucagon (Glucagen Diagnostic Kit) 1 mg IM STAT PRN; Protocol PRN Reason: Hypoglycemia Protocol Hydralazine HCl (Apresoline) 100 mg PO Q8 [facility] Last Admin: 01/24/18 13:53 Dose: 100 mg Vancomycin/Sodium Chloride (Vancomycin 1 Gm/Ns 200 Ml) 1 gm in 200 mls @ 133.333 mls/hr IVPB Q24H [facility] PRN Reason: Protocol Stop: 01/27/18 10:31 Last Admin: 01/24/18 09:45 Dose: 133.333 mls/hr Insulin Aspart (Novolog) 0 unit SC ACHS [facility] PRN Reason: Protocol Last Admin: 01/24/18 12:12 Dose: Not Given Insulin Aspart (Novolog) 20 unit SC AC [facility] Last Admin: 01/24/18 12:29 Dose: 20 units Insulin Glargine (Lantus) 80 unit SC HS [facility] Lactulose (Enulose) 20 gm PO Q8H [facility] Last Admin: 01/24/18 14:12 Dose: 20 gm Methylprednisolone (Solu-Medrol) 40 mg IVP Q8H [facility] Last Admin: 01/24/18 09:46 Dose: 40 mg Montelukast Sodium (Singulair) 10 mg PO HS [facility] Last Admin: 01/23/18 21:17 Dose: 10 mg Rosuvastatin Calcium (Crestor) 5 mg PO HS [facility] Last Admin: 01/23/18 21:17 Dose: 5 mg Physical Exam - Constitutional Appears: Chronically Ill - Head Exam Head Exam: NORMOCEPHALIC - Eye Exam Eye Exam: absent: Scleral icterus - Respiratory Exam Respiratory Exam: Clear to Auscultation Bilateral - Cardiovascular Exam Cardiovascular Exam: REGULAR RHYTHM - GI/Abdominal Exam GI & Abdominal Exam: Distended, Soft. absent: Guarding, Mass, Tenderness Additional comments: surgical scar present - Extremities Exam Additional comments: bilat LE amputations - Back Exam Back exam: NORMAL INSPECTION - Neurological Exam Neurological exam: Alert, Oriented x3 - Psychiatric Exam Psychiatric exam: Normal Affect, Normal Mood Results - Vital Signs Recent Vital Signs: Last Vital Signs Temp 98.1 F 01/24/18 07:00 Pulse 69 01/24/18 13:53 Resp 20 01/24/18 07:00 BP 162/66 H 01/24/18 13:53 Pulse Ox 94 L 01/24/18 07:00 - Labs Result Diagrams: 01/22/18 08:06 01/23/18 07:16 Labs: Laboratory Results - last 24 hr 01/23/18 01/23/1818 07:16 16:41 21:33 POC Glucose (mg/dL) 330 H > 500 H* Hemoglobin A1c 12.2 H 01/24/18 01/24/18 01/24/18 04:30 06:50 11:25 POC Glucose (mg/dL) 241 H 203 H 287 H Hemoglobin A1c Assessment & Plan (1) Constipation due to neurogenic bowel Assessment and Plan: developed in hospital, likely from medications, especially Feosol. Was strted on Lactulose, will monitor response Status: Acute (2) CHF (congestive heart failure) Status: Acute (3) HIV (human immunodeficiency virus infection) Status: Acute (4) Anemia Assessment and Plan: likely due to chronic disease. Would not pursue GI workup at present time due to multiple acute medical issues Status: Acute
--- NOTE | 2018-01-24 15:15 | PN ---
Copied To: Courtney Walter MD Attending MD: Courtney Walter MD DATE: 01/24/2018 ENDO FOLLOWUP NOTE LOCATION: In room 667. SUBJECTIVE: This is a 67-year-old male with recent uncontrolled type 2 insulin-requiring diabetes, presenting here with acute exacerbation of COPD, currently on IV steroid therapy with supervening congestive heart failure and pneumonia and is now being followed closely for metabolic management. His glycemic levels are fluctuating as noted overnight and have ranged from 203 to 241 and over 500 mg/dL last night as noted. LABORATORY DATA: His hemoglobin A1c is 12.2%, which is actually extremely elevated and indicative of suboptimal metabolic control of his diabetic condition even prior to this admission. His latest chemistries shows a BUN of 60, sodium 141, potassium 4.9, chloride 107, CO2 25, glucose 329, and creatinine 2.3. ASSESSMENT AND PLAN: So, at this time we will modify once again his basal and bolus insulin regimen to override the increased insulin resistance and start him on Lantus given at a higher dose of 80 units subcutaneously at bedtime daily to start tonight. We will also increase the NovoLog to 20 units subcutaneously t.i.d. before meals to start at breakfast time this morning. We will obtain serial chemistries and supplement accordingly as needed. We will follow up with you. Courtney Walter MD
[2018-01-24] MEDS ORDERED: (Novolog) Insulin Aspart, Recombinant 100 u/ml 10 ml vial SC ONE (22:00)
[2018-01-24] MEDS: (Lantus) Insulin Glargine, Recombinant SC SCH (22:01)
[2018-01-24] MEDS: Emtricitabine-Tenofovir 200 mg-300 mg Tab PO SCH (22:06)
[2018-01-25] MEDS: Albuterol-Ipratrop 3 mg / 0.5 (3 ml) UD INH SCH ×3 (01:48→19:38)
[2018-01-25] MEDS ORDERED: (Novolin R) Insulin Human Regular 100 units/ml vial SC ONE (02:34)
[2018-01-25] MEDS: MethylPREDNISolone 40 mg Vial IVP SCH ×3 (02:48→15:22)
[2018-01-25 07:48] LABS: ALB/GLOB RATIO 1.1 (1.0-2.1); ALBUMIN 3.4 g/dL (3.5-5.0)
--- NOTE | 2018-01-25 08:24 | CP.PCM.PN ---
Subjective - Date & Time of Evaluation Date of Evaluation: 01/25/18 Time of Evaluation: 08:00 - Subjective Subjective: PGY-2 Medicine Note- Dr. Chago Khanna's service Patient was seen and examined at bedside in the AM in no apparent acute distress. Patient states he is ready to go home. Patient denies other acute complaints at this time. Objective - Vital Signs/Intake and Output Vital Signs (last 24 hours): Temp Pulse Resp BP Pulse Ox 97.5 F L 57 L 20 147/72 100 01/25/18 07:00 01/25/18 07:00 01/25/18 07:00 01/25/18 07:00 01/25/18 07:00 Intake and Output: 01/25/18 01/25/18 06:59 18:59 Output Total 500 Balance -500 - Medications Medications: Current Medications Acetaminophen (Tylenol 325mg Tab) 650 mg PO Q6 PRN PRN Reason: Fever >100.4 F Last Admin: 01/20/18 11:17 Dose: 650 mg Albuterol/Ipratropium (Duoneb 3 Mg/0.5 Mg (3 Ml) Ud) 3 ml INH RQ6 [facility] Last Admin: 01/25/18 07:41 Dose: 3 ml Amlodipine Besylate (Norvasc) 10 mg PO DAILY [facility] Last Admin: 01/24/18 09:47 Dose: 10 mg Apixaban (Eliquis) 5 mg PO BID [facility] Last Admin: 01/24/18 17:23 Dose: 5 mg Aspirin (Aspirin Chewable) 81 mg PO DAILY [facility] Last Admin: 01/24/18 09:46 Dose: 81 mg Atovaquone (Mepron) 1,500 mg PO DAILY [facility] PRN Reason: Protocol Last Admin: 01/24/18 09:46 Dose: 1,500 mg Carvedilol (Coreg) 12.5 mg PO BID [facility] Last Admin: 01/24/18 17:23 Dose: 12.5 mg Dextrose (Glutose 15) 15 gm PO ONCE PRN; Protocol PRN Reason: Hypoglycemia Protocol Dextrose (Dextrose 50% Inj) 0 ml IV STAT PRN; Protocol PRN Reason: Hypoglycemia Protocol Diphenhydramine HCl (Benadryl) 25 mg PO Q6 PRN PRN Reason: Itching / Pruritus Last Admin: 01/25/18 04:09 Dose: 25 mg Dolutegravir Sodium (Tivicay) 50 mg PO Q24H [facility] PRN Reason: Protocol Last Admin: 01/24/18 21:59 Dose: 50 mg Emtricitabine/Tenofovir (Truvada 200 Mg-300 Mg) 1 tab PO Q48H [facility] PRN Reason: Protocol Last Admin: 01/24/18 22:06 Dose: 1 tab Famotidine (Pepcid) 20 mg IVP DAILY [facility] Last Admin: 01/24/18 09:46 Dose: 20 mg Ferrous Sulfate (Feosol) 325 mg PO DAILY [facility] Last Admin: 01/24/18 09:46 Dose: 325 mg Furosemide (Lasix) 40 mg IVP DAILY [facility] Last Admin: 01/24/18 09:46 Dose: 40 mg Gabapentin (Neurontin) 300 mg PO TID [facility] Last Admin: 01/24/18 17:23 Dose: 300 mg Glucagon (Glucagen Diagnostic Kit) 1 mg IM STAT PRN; Protocol PRN Reason: Hypoglycemia Protocol Hydralazine HCl (Apresoline) 100 mg PO Q8 [facility] Last Admin: 01/25/18 05:29 Dose: 100 mg Vancomycin/Sodium Chloride (Vancomycin 1 Gm/Ns 200 Ml) 1 gm in 200 mls @ 133.333 mls/hr IVPB Q24H [facility] PRN Reason: Protocol Stop: 01/27/18 10:31 Last Admin: 01/24/18 09:45 Dose: 133.333 mls/hr Insulin Aspart (Novolog) 0 unit SC ACHS [facility] PRN Reason: Protocol Last Admin: 01/24/18 22:01 Dose: 3 units Insulin Aspart (Novolog) 20 unit SC AC [facility] Last Admin: 01/24/18 17:23 Dose: 20 units Insulin Glargine (Lantus) 80 unit SC HS [facility] Last Admin: 01/24/18 22:01 Dose: 80 unit Lactulose (Enulose) 20 gm PO Q8H [facility] Last Admin: 01/25/18 05:32 Dose: Not Given Methylprednisolone (Solu-Medrol) 40 mg IVP Q8H [facility] Last Admin: 01/25/18 02:48 Dose: 40 mg Montelukast Sodium (Singulair) 10 mg PO HS [facility] Last Admin: 01/24/18 21:59 Dose: 10 mg Rosuvastatin Calcium (Crestor) 5 mg PO HS [facility] Last Admin: 01/24/18 21:59 Dose: 5 mg - Labs Labs: 01/25/18 07:02 01/25/18 07:02 PT 15.0 SECONDS (9.7-12.2) H 01/20/18 02:18 INR 1.4 01/20/18 02:18 APTT 34 SECONDS (21-34) 01/20/18 02:18 - Constitutional Appears: No Acute Distress - Head Exam Head Exam: ATRAUMATIC, NORMAL INSPECTION - Eye Exam Eye Exam: EOMI, Normal appearance, PERRL Pupil Exam: NORMAL ACCOMODATION - ENT Exam ENT Exam: Mucous Membranes Moist - Respiratory Exam Respiratory Exam: NORMAL BREATHING PATTERN - Cardiovascular Exam Cardiovascular Exam: +S1, +S2 - GI/Abdominal Exam GI & Abdominal Exam: Soft - Extremities Exam Additional comments: right bka - Neurological Exam Neurological Exam: Alert, Awake - Psychiatric Exam Psychiatric exam: Normal Affect Assessment and Plan - Assessment and Plan (Free Text) Assessment: Pneumonia Per Outside Physical Damage Appraiser, Dr. Jesus- No active symptoms of CAD. No volume overload noted. F/U additional recs. Pulmonology consulted, Dr. Hawkins Infectious Disease consulted, Dr. Valente F/U recommendations CXR 01/20: Consolidation noted in right middle lung rayo. Refer to complete report. Abd/Pelvis CT w/o (01/20) * Bilateral lower lobe pulmonary infiltrates. ECHO 12/23/17: EF ~65-70%, moderate concentric LVH, trace MR, ascending aorta is mildly dilated 4.2cm Medications * Duonebs 3mL INH q6h for dyspnea * Montelukast 10mg PO HS * SoluMedrol 40mg IVP q12h (taper started 01/25/18) * Antibiotics switched for coverage for HAP. Vanc started 1 gm Q24 01/22 ( renally dosed) + continued Zosyn. * Will transition to PO coverage upon discharge Abnormal Urinalysis Afebrile UA 01/20: protein 2+, glucose 1+, blood 2+, leuk sharron 1+ Urine Culture (01/20): pending Medications * On Zosyn (started 01/20) Hx of LE b/l DVT Medications * Eliquis 5mg PO BID Diabetes Uncontrolled hA1c 12.2 * Coverage will need to be increased * ISS -increased to high dose * Insulin Aspart 20units SC AC * Insulin Glargine 80units SC HS * Hypoglycemia protocol in place- PRN Hypertension Uncontrolled * Amlodipine 10mg PO daily * Carvedilol 3.125mg PO BID --> increased to 6.25mg PO BID * Hydralazine 25mg PO q8h --> increased to 50mg PO q8h * Aspirin 81mg PO daily Epistaxis Resolved Rhino rocket placed in right nostril on 01/21. Removed 01/22 Patient counseled to alert primary team if symptoms resume Monitor Hx of HIV Infectious Disease consulted, Dr. Valente CD4 count 193 (12/24/17) HIV-1 PCR: 1.65 (12/24/17) Medications * Atovaquone, Tivicay, Truvada on board Hyperlipidemia Medications * Crestor 5mg PO HS Prophylactic Care DVT - Eliquis BID GI - Home medication Pepcid 20mg PO daily All medical management per Dr. Naye Khanna
[2018-01-25 08:26] LABS: BASO % 0.5 % (0.0-2.0); HEMOGLOBIN 10.2 g/dL (12.0-18.0); LYMPH # 0.7 K/uL (1.0-4.3); LYMPH % 7.1 % (20.0-40.0); MEAN CELL VOLUME 81.2 fL (80.0-94.0); MEAN CORPUSCULAR HEMOGLOBIN 25.9 pg (27.0-31.0); MEAN CORPUSCULAR HGB CONC 31.9 g/dL (33.0-37.0); MONO # 0.6 K/uL (0.0-0.8); MONO % 6.1 % (0.0-10.0); NEUT # 8.1 K/uL (1.8-7.0); NEUT % 86.3 % (50.0-75.0); NRBC % 0.3 % (0.0-2.0); PLATELET COUNT 195 K/uL (130-400); RBC 3.94 Mil/uL (4.40-5.90); RED CELL DISTRIBUTION WIDTH 15.3 % (11.5-14.5); WHITE BLOOD COUNT 9.4 K/uL (4.8-10.8)
[2018-01-25] MEDS: (Novolog) Insulin Aspart, Recombinant 100 u/ml 10 ml vial SC SCH ×7 (08:31→21:39)
[2018-01-25 10:02] LABS: BANDS 2 % (0-2); LYMPHOCYTE 7 % (20-40); MONOCYTE 5 % (0-10); NEUTROPHIL 86 % (50-75); TOTAL CELLS COUNTED 100
[2018-01-25 10:03] LABS: ANISOCYTOSIS SLIGHT; HYPOCHROMIC SLIGHT; PLATELET ESTIMATE NORMAL (NORMAL)
[2018-01-25] MEDS: Atovaquone 750 mg/5 ml Susp UD PO SCH (10:20)
[2018-01-25] MEDS: Vancomycin 1 gm/NS 200 ml 1 GM/200 ML BAG IVPB SCH (10:27)
--- NOTE | 2018-01-25 14:04 | CP.PCM.PN ---
Subjective - Date & Time of Evaluation Date of Evaluation: 01/25/18 Time of Evaluation: 14:02 - Subjective Subjective: CC: constipation States he had 2 BMs today. On Lactulose Denies abdominal pain Objective - Vital Signs/Intake and Output Vital Signs (last 24 hours): Temp Pulse Resp BP Pulse Ox 97.5 F L 77 20 147/72 100 01/25/18 07:00 01/25/18 08:00 01/25/18 07:00 01/25/18 10:19 01/25/18 07:00 Intake and Output: 01/25/18 01/25/18 06:59 18:59 Output Total 500 Balance -500 - Medications Medications: Current Medications Acetaminophen (Tylenol 325mg Tab) 650 mg PO Q6 PRN PRN Reason: Fever >100.4 F Last Admin: 01/20/18 11:17 Dose: 650 mg Albuterol/Ipratropium (Duoneb 3 Mg/0.5 Mg (3 Ml) Ud) 3 ml INH RQ6 [facility] Last Admin: 01/25/18 07:41 Dose: 3 ml Amlodipine Besylate (Norvasc) 10 mg PO DAILY [facility] Last Admin: 01/25/18 10:19 Dose: 10 mg Apixaban (Eliquis) 5 mg PO BID [facility] Last Admin: 01/25/18 10:17 Dose: 5 mg Aspirin (Aspirin Chewable) 81 mg PO DAILY [facility] Last Admin: 01/25/18 10:18 Dose: 81 mg Atovaquone (Mepron) 1,500 mg PO DAILY [facility] PRN Reason: Protocol Last Admin: 01/25/18 10:20 Dose: 1,500 mg Carvedilol (Coreg) 12.5 mg PO BID [facility] Last Admin: 01/25/18 10:19 Dose: 12.5 mg Dextrose (Glutose 15) 15 gm PO ONCE PRN; Protocol PRN Reason: Hypoglycemia Protocol Dextrose (Dextrose 50% Inj) 0 ml IV STAT PRN; Protocol PRN Reason: Hypoglycemia Protocol Diphenhydramine HCl (Benadryl) 25 mg PO Q6 PRN PRN Reason: Itching / Pruritus Last Admin: 01/25/18 10:17 Dose: 25 mg Dolutegravir Sodium (Tivicay) 50 mg PO Q24H [facility] PRN Reason: Protocol Last Admin: 01/24/18 21:59 Dose: 50 mg Emtricitabine/Tenofovir (Truvada 200 Mg-300 Mg) 1 tab PO Q48H [facility] PRN Reason: Protocol Last Admin: 01/24/18 22:06 Dose: 1 tab Famotidine (Pepcid) 20 mg IVP DAILY [facility] Last Admin: 01/25/18 10:17 Dose: 20 mg Ferrous Sulfate (Feosol) 325 mg PO DAILY [facility] Last Admin: 01/25/18 10:26 Dose: 325 mg Furosemide (Lasix) 40 mg IVP DAILY [facility] Last Admin: 01/25/18 10:18 Dose: 40 mg Gabapentin (Neurontin) 300 mg PO TID [facility] Last Admin: 01/25/18 10:19 Dose: 300 mg Glucagon (Glucagen Diagnostic Kit) 1 mg IM STAT PRN; Protocol PRN Reason: Hypoglycemia Protocol Hydralazine HCl (Apresoline) 100 mg PO Q8 [facility] Last Admin: 01/25/18 05:29 Dose: 100 mg Vancomycin/Sodium Chloride (Vancomycin 1 Gm/Ns 200 Ml) 1 gm in 200 mls @ 133.333 mls/hr IVPB Q24H [facility] PRN Reason: Protocol Stop: 01/27/18 10:31 Last Admin: 01/25/18 10:27 Dose: 133.333 mls/hr Insulin Aspart (Novolog) 0 unit SC ACHS [facility] PRN Reason: Protocol Last Admin: 01/25/18 11:59 Dose: Not Given Insulin Aspart (Novolog) 20 unit SC AC [facility] Last Admin: 01/25/18 12:12 Dose: 20 units Insulin Glargine (Lantus) 80 unit SC HS [facility] Last Admin: 01/24/18 22:01 Dose: 80 unit Lactulose (Enulose) 20 gm PO Q8H [facility] Last Admin: 01/25/18 05:32 Dose: Not Given Methylprednisolone (Solu-Medrol) 40 mg IVP Q8H [facility] Last Admin: 01/25/18 10:26 Dose: 40 mg Montelukast Sodium (Singulair) 10 mg PO HS [facility] Last Admin: 01/24/18 21:59 Dose: 10 mg Rosuvastatin Calcium (Crestor) 5 mg PO [facility] Last Admin: 01/24/18 21:59 Dose: 5 mg - Labs Labs: 01/25/18 08:23 01/25/18 07:02 PT 15.0 SECONDS (9.7-12.2) H 01/20/18 02:18 INR 1.4 01/20/18 02:18 APTT 34 SECONDS (21-34) 01/20/18 02:18 - Constitutional Appears: Chronically Ill - Eye Exam Eye Exam: absent: Scleral icterus - Respiratory Exam Respiratory Exam: NORMAL BREATHING PATTERN - Cardiovascular Exam Cardiovascular Exam: REGULAR RHYTHM - GI/Abdominal Exam GI & Abdominal Exam: Soft. absent: Tenderness Assessment and Plan (1) Constipation due to neurogenic bowel Assessment & Plan: Clinically responding to Lactulose Status: Acute (2) CHF (congestive heart failure) Status: Acute (3) HIV (human immunodeficiency virus infection) Status: Acute (4) Anemia Status: Acute
[2018-01-25] MEDS ORDERED: Sod Polystyrene Sulf 15 gm/60 ml Susp PO ONE (14:40)
--- NOTE | 2018-01-25 14:40 | CP.PCM.PN ---
Subjective - Date & Time of Evaluation Date of Evaluation: 01/25/18 Time of Evaluation: 11:20 - Subjective Subjective: the patient seen and examined Denies shortness of breath and cough Afebrile No chest pain No further nasal bleeding Objective - Vital Signs/Intake and Output Vital Signs (last 24 hours): Temp Pulse Resp BP Pulse Ox 97.5 F L 77 20 147/72 100 01/25/18 07:00 01/25/18 08:00 01/25/18 07:00 01/25/18 10:19 01/25/18 07:00 Intake and Output: 01/25/18 01/25/18 06:59 18:59 Output Total 500 Balance -500 - Medications Medications: Current Medications Acetaminophen (Tylenol 325mg Tab) 650 mg PO Q6 PRN PRN Reason: Fever >100.4 F Last Admin: 01/20/18 11:17 Dose: 650 mg Albuterol/Ipratropium (Duoneb 3 Mg/0.5 Mg (3 Ml) Ud) 3 ml INH RQ6 [facility] Last Admin: 01/25/18 07:41 Dose: 3 ml Amlodipine Besylate (Norvasc) 10 mg PO DAILY [facility] Last Admin: 01/25/18 10:19 Dose: 10 mg Apixaban (Eliquis) 5 mg PO BID [facility] Last Admin: 01/25/18 10:17 Dose: 5 mg Aspirin (Aspirin Chewable) 81 mg PO DAILY [facility] Last Admin: 01/25/18 10:18 Dose: 81 mg Atovaquone (Mepron) 1,500 mg PO DAILY [facility] PRN Reason: Protocol Last Admin: 01/25/18 10:20 Dose: 1,500 mg Carvedilol (Coreg) 12.5 mg PO BID [facility] Last Admin: 01/25/18 10:19 Dose: 12.5 mg Dextrose (Glutose 15) 15 gm PO ONCE PRN; Protocol PRN Reason: Hypoglycemia Protocol Dextrose (Dextrose 50% Inj) 0 ml IV STAT PRN; Protocol PRN Reason: Hypoglycemia Protocol Diphenhydramine HCl (Benadryl) 25 mg PO Q6 PRN PRN Reason: Itching / Pruritus Last Admin: 01/25/18 10:17 Dose: 25 mg Dolutegravir Sodium (Tivicay) 50 mg PO Q24H [facility] PRN Reason: Protocol Last Admin: 01/24/18 21:59 Dose: 50 mg Emtricitabine/Tenofovir (Truvada 200 Mg-300 Mg) 1 tab PO Q48H [facility] PRN Reason: Protocol Last Admin: 01/24/18 22:06 Dose: 1 tab Famotidine (Pepcid) 20 mg IVP DAILY [facility] Last Admin: 01/25/18 10:17 Dose: 20 mg Ferrous Sulfate (Feosol) 325 mg PO DAILY [facility] Last Admin: 01/25/18 10:26 Dose: 325 mg Furosemide (Lasix) 40 mg IVP DAILY [facility] Last Admin: 01/25/18 10:18 Dose: 40 mg Gabapentin (Neurontin) 300 mg PO TID [facility] Last Admin: 01/25/18 14:19 Dose: 300 mg Glucagon (Glucagen Diagnostic Kit) 1 mg IM STAT PRN; Protocol PRN Reason: Hypoglycemia Protocol Hydralazine HCl (Apresoline) 100 mg PO Q8 [facility] Last Admin: 01/25/18 14:19 Dose: 100 mg Vancomycin/Sodium Chloride (Vancomycin 1 Gm/Ns 200 Ml) 1 gm in 200 mls @ 133.333 mls/hr IVPB Q24H [facility] PRN Reason: Protocol Stop: 01/27/18 10:31 Last Admin: 01/25/18 10:27 Dose: 133.333 mls/hr Insulin Aspart (Novolog) 0 unit SC ACHS [facility] PRN Reason: Protocol Last Admin: 01/25/18 11:59 Dose: Not Given Insulin Aspart (Novolog) 20 unit SC AC [facility] Last Admin: 01/25/18 12:12 Dose: 20 units Insulin Glargine (Lantus) 80 unit SC HS [facility] Last Admin: 01/24/18 22:01 Dose: 80 unit Lactulose (Enulose) 20 gm PO Q8H [facility] Last Admin: 01/25/18 14:05 Dose: Not Given Methylprednisolone (Solu-Medrol) 40 mg IVP Q8H [facility] Last Admin: 01/25/18 10:26 Dose: 40 mg Montelukast Sodium (Singulair) 10 mg PO [facility] Last Admin: 01/24/18 21:59 Dose: 10 mg Rosuvastatin Calcium (Crestor) 5 mg PO [facility] Last Admin: 01/24/18 21:59 Dose: 5 mg - Labs Labs: 01/25/18 08:23 01/25/18 07:02 PT 15.0 SECONDS (9.7-12.2) H 01/20/18 02:18 INR 1.4 01/20/18 02:18 APTT 34 SECONDS (21-34) 01/20/18 02:18 - Head Exam Head Exam: ATRAUMATIC, NORMOCEPHALIC - ENT Exam ENT Exam: Mucous Membranes Moist - Respiratory Exam Respiratory Exam: Decreased Breath Sounds - Cardiovascular Exam Cardiovascular Exam: REGULAR RHYTHM - GI/Abdominal Exam GI & Abdominal Exam: Soft, Normal Bowel Sounds Assessment and Plan (1) Respiratory insufficiency Assessment & Plan: taper IV steroids Continue nebulizer treatment Status: Acute (2) Pneumonia Status: Acute (3) DVT, bilateral lower limbs Status: Acute (4) HIV (human immunodeficiency virus infection) Status: Acute
--- NOTE | 2018-01-25 19:51 | CP.PCM.PN ---
Subjective - Date & Time of Evaluation Date of Evaluation: 01/25/18 Time of Evaluation: 08:45 - Subjective Subjective: clinically same Objective - Vital Signs/Intake and Output Vital Signs (last 24 hours): Temp Pulse Resp BP Pulse Ox 98 F 70 20 149/71 98 01/25/18 15:00 01/25/18 16:00 01/25/18 15:00 01/25/18 18:00 01/25/18 15:00 Intake and Output: 01/25/18 01/26/18 18:59 06:59 Intake Total 700 Balance 700 - Medications Medications: Current Medications Acetaminophen (Tylenol 325mg Tab) 650 mg PO Q6 PRN PRN Reason: Fever >100.4 F Last Admin: 01/20/18 11:17 Dose: 650 mg Albuterol/Ipratropium (Duoneb 3 Mg/0.5 Mg (3 Ml) Ud) 3 ml INH RQ6 [facility] Last Admin: 01/25/18 19:38 Dose: 3 ml Amlodipine Besylate (Norvasc) 10 mg PO DAILY [facility] Last Admin: 01/25/18 10:19 Dose: 10 mg Apixaban (Eliquis) 5 mg PO BID [facility] Last Admin: 01/25/18 18:00 Dose: 5 mg Aspirin (Aspirin Chewable) 81 mg PO DAILY [facility] Last Admin: 01/25/18 10:18 Dose: 81 mg Atovaquone (Mepron) 1,500 mg PO DAILY [facility] PRN Reason: Protocol Last Admin: 01/25/18 10:20 Dose: 1,500 mg Carvedilol (Coreg) 12.5 mg PO BID [facility] Last Admin: 01/25/18 18:00 Dose: 12.5 mg Dextrose (Glutose 15) 15 gm PO ONCE PRN; Protocol PRN Reason: Hypoglycemia Protocol Dextrose (Dextrose 50% Inj) 0 ml IV STAT PRN; Protocol PRN Reason: Hypoglycemia Protocol Diphenhydramine HCl (Benadryl) 25 mg PO Q6 PRN PRN Reason: Itching / Pruritus Last Admin: 01/25/18 18:07 Dose: 25 mg Dolutegravir Sodium (Tivicay) 50 mg PO Q24H [facility] PRN Reason: Protocol Last Admin: 01/25/18 18:00 Dose: 50 mg Emtricitabine/Tenofovir (Truvada 200 Mg-300 Mg) 1 tab PO Q48H [facility] PRN Reason: Protocol Last Admin: 01/24/18 22:06 Dose: 1 tab Famotidine (Pepcid) 20 mg IVP DAILY [facility] Last Admin: 01/25/18 10:17 Dose: 20 mg Ferrous Sulfate (Feosol) 325 mg PO DAILY [facility] Last Admin: 01/25/18 10:26 Dose: 325 mg Furosemide (Lasix) 40 mg IVP DAILY [facility] Last Admin: 01/25/18 10:18 Dose: 40 mg Gabapentin (Neurontin) 300 mg PO TID [facility] Last Admin: 01/25/18 18:00 Dose: 300 mg Glucagon (Glucagen Diagnostic Kit) 1 mg IM STAT PRN; Protocol PRN Reason: Hypoglycemia Protocol Hydralazine HCl (Apresoline) 100 mg PO Q8 [facility] Last Admin: 01/25/18 14:19 Dose: 100 mg Vancomycin/Sodium Chloride (Vancomycin 1 Gm/Ns 200 Ml) 1 gm in 200 mls @ 133.333 mls/hr IVPB Q24H [facility] PRN Reason: Protocol Stop: 01/27/18 10:31 Last Admin: 01/25/18 10:27 Dose: 133.333 mls/hr Insulin Aspart (Novolog) 0 unit SC ACHS [facility] PRN Reason: Protocol Last Admin: 01/25/18 18:01 Dose: 2 units Insulin Aspart (Novolog) 24 unit SC AC [facility] Last Admin: 01/25/18 18:02 Dose: 24 units Insulin Glargine (Lantus) 80 unit SC HS [facility] Last Admin: 01/24/18 22:01 Dose: 80 unit Lactulose (Enulose) 20 gm PO Q8H [facility] Last Admin: 01/25/18 14:05 Dose: Not Given Methylprednisolone (Solu-Medrol) 40 mg IVP Q12H [facility] Last Admin: 01/25/18 15:22 Dose: 40 mg Montelukast Sodium (Singulair) 10 mg PO HS [facility] Last Admin: 01/24/18 21:59 Dose: 10 mg Rosuvastatin Calcium (Crestor) 5 mg PO HS [facility] Last Admin: 01/24/18 21:59 Dose: 5 mg - Labs Labs: 01/25/18 08:23 01/25/18 07:02 PT 15.0 SECONDS (9.7-12.2) H 01/20/18 02:18 INR 1.4 01/20/18 02:18 APTT 34 SECONDS (21-34) 01/20/18 02:18 - Constitutional Appears: Well - Head Exam Head Exam: ATRAUMATIC, NORMAL INSPECTION, NORMOCEPHALIC - Eye Exam Eye Exam: EOMI, Normal appearance, PERRL Pupil Exam: NORMAL ACCOMODATION, PERRL - ENT Exam ENT Exam: Mucous Membranes Moist, Normal Exam - Neck Exam Neck Exam: Full ROM, Normal Inspection. absent: Lymphadenopathy - Respiratory Exam Respiratory Exam: Decreased Breath Sounds - GI/Abdominal Exam GI & Abdominal Exam: Soft, Diminished Bowel Sounds - Rectal Exam Rectal Exam: Deferred
[2018-01-25] MEDS: (Lantus) Insulin Glargine, Recombinant SC SCH (21:38)
[2018-01-26] MEDS: Albuterol-Ipratrop 3 mg / 0.5 (3 ml) UD INH SCH ×3 (02:51→13:50)
[2018-01-26] MEDS: MethylPREDNISolone 40 mg Vial IVP SCH ×2 (03:06→13:46)
--- NOTE | 2018-01-26 07:44 | CP.PCM.PN ---
Subjective - Date & Time of Evaluation Date of Evaluation: 01/26/18 Time of Evaluation: 08:00 - Subjective Subjective: PGY-2 Medicine Note- Dr. Chago Khanna's service Patient was seen and examined at bedside in the AM in no apparent acute distress. Patient states he is ready to go home. Patient denies other acute complaints at this time. Objective - Vital Signs/Intake and Output Vital Signs (last 24 hours): Temp Pulse Resp BP Pulse Ox 98 F 82 20 187/96 H 98 01/25/18 15:00 01/26/18 06:05 01/25/18 15:00 01/26/18 06:05 01/25/18 15:00 Intake and Output: 01/26/18 01/26/18 06:59 18:59 Intake Total 420 Output Total 950 Balance -530 - Medications Medications: Current Medications Acetaminophen (Tylenol 325mg Tab) 650 mg PO Q6 PRN PRN Reason: Fever >100.4 F Last Admin: 01/20/18 11:17 Dose: 650 mg Albuterol/Ipratropium (Duoneb 3 Mg/0.5 Mg (3 Ml) Ud) 3 ml INH RQ6 [facility] Last Admin: 01/26/18 02:51 Dose: 3 ml Amlodipine Besylate (Norvasc) 10 mg PO DAILY [facility] Last Admin: 01/25/18 10:19 Dose: 10 mg Apixaban (Eliquis) 5 mg PO BID [facility] Last Admin: 01/25/18 18:00 Dose: 5 mg Aspirin (Aspirin Chewable) 81 mg PO DAILY [facility] Last Admin: 01/25/18 10:18 Dose: 81 mg Atovaquone (Mepron) 1,500 mg PO DAILY [facility] PRN Reason: Protocol Last Admin: 01/25/18 10:20 Dose: 1,500 mg Carvedilol (Coreg) 12.5 mg PO BID [facility] Last Admin: 01/25/18 18:00 Dose: 12.5 mg Dextrose (Glutose 15) 15 gm PO ONCE PRN; Protocol PRN Reason: Hypoglycemia Protocol Dextrose (Dextrose 50% Inj) 0 ml IV STAT PRN; Protocol PRN Reason: Hypoglycemia Protocol Diphenhydramine HCl (Benadryl) 25 mg PO Q6 PRN PRN Reason: Itching / Pruritus Last Admin: 01/26/18 00:30 Dose: 25 mg Dolutegravir Sodium (Tivicay) 50 mg PO Q24H [facility] PRN Reason: Protocol Last Admin: 01/25/18 18:00 Dose: 50 mg Emtricitabine/Tenofovir (Truvada 200 Mg-300 Mg) 1 tab PO Q48H [facility] PRN Reason: Protocol Last Admin: 01/24/18 22:06 Dose: 1 tab Famotidine (Pepcid) 20 mg IVP DAILY [facility] Last Admin: 01/25/18 10:17 Dose: 20 mg Ferrous Sulfate (Feosol) 325 mg PO DAILY [facility] Last Admin: 01/25/18 10:26 Dose: 325 mg Furosemide (Lasix) 40 mg IVP DAILY [facility] Last Admin: 01/25/18 10:18 Dose: 40 mg Gabapentin (Neurontin) 300 mg PO TID [facility] Last Admin: 01/25/18 18:00 Dose: 300 mg Glucagon (Glucagen Diagnostic Kit) 1 mg IM STAT PRN; Protocol PRN Reason: Hypoglycemia Protocol Hydralazine HCl (Apresoline) 100 mg PO Q8 [facility] Last Admin: 01/26/18 06:06 Dose: 100 mg Vancomycin/Sodium Chloride (Vancomycin 1 Gm/Ns 200 Ml) 1 gm in 200 mls @ 133.333 mls/hr IVPB Q24H [facility] PRN Reason: Protocol Stop: 01/27/18 10:31 Last Admin: 01/25/18 10:27 Dose: 133.333 mls/hr Insulin Aspart (Novolog) 0 unit SC ACHS [facility] PRN Reason: Protocol Last Admin: 01/25/18 21:39 Dose: 2 units Insulin Aspart (Novolog) 24 unit SC AC [facility] Last Admin: 01/25/18 18:02 Dose: 24 units Insulin Glargine (Lantus) 80 unit SC HS [facility] Last Admin: 01/25/18 21:38 Dose: 80 unit Lactulose (Enulose) 20 gm PO Q8H [facility] Last Admin: 01/26/18 06:12 Dose: Not Given Methylprednisolone (Solu-Medrol) 40 mg IVP Q12H [facility] Last Admin: 01/26/18 03:06 Dose: 40 mg Montelukast Sodium (Singulair) 10 mg PO HS [facility] Last Admin: 01/25/18 21:47 Dose: 10 mg Rosuvastatin Calcium (Crestor) 5 mg PO HS [facility] Last Admin: 01/25/18 21:39 Dose: 5 mg Tramadol HCl (Ultram) 50 mg PO TID PRN PRN Reason: Pain, moderate (4-7) Last Admin: 01/26/18 00:29 Dose: 50 mg - Labs Labs: 01/25/18 08:23 01/25/18 07:02 PT 15.0 SECONDS (9.7-12.2) H 01/20/18 02:18 INR 1.4 01/20/18 02:18 APTT 34 SECONDS (21-34) 01/20/18 02:18 - Constitutional Appears: No Acute Distress - Head Exam Head Exam: ATRAUMATIC, NORMAL INSPECTION - Eye Exam Eye Exam: EOMI, Normal appearance - ENT Exam ENT Exam: Mucous Membranes Moist - Respiratory Exam Respiratory Exam: NORMAL BREATHING PATTERN - Cardiovascular Exam Cardiovascular Exam: REGULAR RHYTHM, +S1, +S2 - GI/Abdominal Exam GI & Abdominal Exam: Normal Bowel Sounds. absent: Tenderness - Extremities Exam Additional comments: right bka - Neurological Exam Neurological Exam: Alert, Awake, Oriented x3 - Psychiatric Exam Psychiatric exam: Anxious, Normal Affect - Skin Skin Exam: Normal Color Assessment and Plan - Assessment and Plan (Free Text) Assessment: Pneumonia Per Director Advanced, Dr. Jesus- No active symptoms of CAD. No volume overload noted. F/U additional recs. Pulmonology consulted, Dr. Hawkins Infectious Disease consulted, Dr. Valnete F/U recommendations CXR 01/20: Consolidation noted in right middle lung rayo. Refer to complete report. Abd/Pelvis CT w/o (01/20) * Bilateral lower lobe pulmonary infiltrates. ECHO 12/23/17: EF ~65-70%, moderate concentric LVH, trace MR, ascending aorta is mildly dilated 4.2cm Medications * Duonebs 3mL INH q6h for dyspnea * Montelukast 10mg PO HS * SoluMedrol 40mg IVP q12h (taper started 01/25/18) * Spoke with Dr. Hawkins: patient to be discharged on prednisone taper * Antibiotics switched for coverage for HAP. Vanc started 1 gm Q24 01/22 ( renally dosed) * Spoke with Dr. Dukes: patient to be discharged on Augmentin 500mg bid for 10 days * Will transition to PO coverage upon discharge Abnormal Urinalysis Afebrile UA 01/20: protein 2+, glucose 1+, blood 2+, leuk sharron 1+ Urine Culture (01/20): no growth Hx of LE b/l DVT Medications * Eliquis 5mg PO BID Hyperkalemia K 5.5 Kayexalate 30gm po once Monitor AM labs Diabetes Uncontrolled hA1c 12.2 * Coverage will need to be increased * ISS -increased to high dose * Insulin Aspart 20units SC AC * Insulin Glargine 80units SC HS * Hypoglycemia protocol in place- PRN Hypertension Uncontrolled * Amlodipine 10mg PO daily * Carvedilol 3.125mg PO BID --> increased to 6.25mg PO BID * Hydralazine 25mg PO q8h --> increased to 50mg PO q8h * Aspirin 81mg PO daily Epistaxis Resolved Rhino rocket placed in right nostril on 01/21. Removed 01/22 Patient counseled to alert primary team if symptoms resume Monitor Hx of HIV Infectious Disease consulted, Dr. Valente CD4 count 193 (12/24/17) HIV-1 PCR: 1.65 (12/24/17) Medications * Atovaquone, Tivicay, Truvada on board Hyperlipidemia Medications * Crestor 5mg PO HS Prophylactic Care DVT - Eliquis BID GI - Home medication Pepcid 20mg PO daily Disposition: Patient stable for discharge per Dr. Naye Khanna. Patient will have home services after discharge. Patient to start new medications: Prednisone Taper: 20mg one tablet daily for 3 days; 10mg one tablet daily for 3 days; 5mg one tablet daily for 3 days Augmentin 500mg one tablet twice a day for 10 days. Please take an over the counter probiotic daily for 3 weeks. Blood Pressure Medications: Norvasc 10mg daily; Coreg 12.5mg twice a day; Hydrochlorothiazide 50mg daily; Imdur 60mg daily Patient to follow up with Dr. Naye Khanna in 1 week. All medical management per Dr. Naye Khanna
[2018-01-26 08:11] VITALS: TEMP 98; O2SAT 96
[2018-01-26] MEDS: (Novolog) Insulin Aspart, Recombinant 100 u/ml 10 ml vial SC SCH ×4 (08:20→13:04)
--- NOTE | 2018-01-26 08:41 | PN ---
Copied To: Courtney Walter MD Attending MD: Courtney Walter MD DATE: 01/25/2018 ENDO FOLLOWUP NOTE LOCATION: Room 667. SUBJECTIVE: This is a 67-year-old male with recent uncontrolled type 2 insulin-requiring diabetes, now being followed closely for metabolic management. He presented here with congestive heart failure and supervening exacerbation of COPD, currently on IV steroids with Solu-Medrol 40 mg IV every 12 hours as given. His glycemic levels are fluctuating but improved and are ranged from 209 to 287 and 405 mg/dL. LABORATORY DATA: His latest chemistries showed a BUN of 65, sodium 139, potassium 5.5, chloride 106, CO2 of 24, glucose 299, and creatinine 2.4. ASSESSMENT AND PLAN: So at this time, we will modify once again his basal and bolus insulin regimens and increase the NovoLog to 24 units subcutaneously t.i.d. before meals to start today. We will also increase his basal insulin with Lantus to be given 80 units subcutaneously at bedtime daily to start tonight. We will continue to modify coverage scale to obviate hypoglycemia and detailed orders have been given. We will obtain serial chemistries and supplement accordingly as needed. We will follow. Courtney Walter MD
[2018-01-26] MEDS: Atovaquone 750 mg/5 ml Susp UD PO SCH (09:28)
[2018-01-26] MEDS: Vancomycin 1 gm/NS 200 ml 1 GM/200 ML BAG IVPB SCH (09:35)
--- NOTE | 2018-01-26 11:05 | CP.PCM.PN ---
Subjective - Date & Time of Evaluation Date of Evaluation: 01/26/18 Time of Evaluation: 10:50 - Subjective Subjective: dictated Objective - Vital Signs/Intake and Output Vital Signs (last 24 hours): Temp Pulse Resp BP Pulse Ox 98.0 F 84 20 179/85 H 96 01/26/18 07:10 01/26/18 07:10 01/26/18 07:10 01/26/18 09:30 01/26/18 07:10 Intake and Output: 01/26/18 01/26/18 06:59 18:59 Intake Total 420 Output Total 950 Balance -530 - Medications Medications: Current Medications Acetaminophen (Tylenol 325mg Tab) 650 mg PO Q6 PRN PRN Reason: Fever >100.4 F Last Admin: 01/20/18 11:17 Dose: 650 mg Albuterol/Ipratropium (Duoneb 3 Mg/0.5 Mg (3 Ml) Ud) 3 ml INH RQ6 [facility] Last Admin: 01/26/18 08:28 Dose: 3 ml Amlodipine Besylate (Norvasc) 10 mg PO DAILY [facility] Last Admin: 01/26/18 09:29 Dose: 10 mg Apixaban (Eliquis) 5 mg PO BID [facility] Last Admin: 01/26/18 09:27 Dose: 5 mg Aspirin (Aspirin Chewable) 81 mg PO DAILY [facility] Last Admin: 01/26/18 09:28 Dose: 81 mg Atovaquone (Mepron) 1,500 mg PO DAILY [facility] PRN Reason: Protocol Last Admin: 01/26/18 09:28 Dose: 1,500 mg Carvedilol (Coreg) 12.5 mg PO BID [facility] Last Admin: 01/26/18 09:30 Dose: 12.5 mg Dextrose (Glutose 15) 15 gm PO ONCE PRN; Protocol PRN Reason: Hypoglycemia Protocol Dextrose (Dextrose 50% Inj) 0 ml IV STAT PRN; Protocol PRN Reason: Hypoglycemia Protocol Diphenhydramine HCl (Benadryl) 25 mg PO Q6 PRN PRN Reason: Itching / Pruritus Last Admin: 01/26/18 08:24 Dose: 25 mg Dolutegravir Sodium (Tivicay) 50 mg PO Q24H [facility] PRN Reason: Protocol Last Admin: 01/25/18 18:00 Dose: 50 mg Emtricitabine/Tenofovir (Truvada 200 Mg-300 Mg) 1 tab PO Q48H [facility] PRN Reason: Protocol Last Admin: 01/24/18 22:06 Dose: 1 tab Famotidine (Pepcid) 20 mg IVP DAILY [facility] Last Admin: 01/26/18 09:26 Dose: 20 mg Ferrous Sulfate (Feosol) 325 mg PO DAILY [facility] Last Admin: 01/25/18 10:26 Dose: 325 mg Furosemide (Lasix) 40 mg IVP DAILY [facility] Last Admin: 01/26/18 09:29 Dose: 40 mg Gabapentin (Neurontin) 300 mg PO TID [facility] Last Admin: 01/26/18 09:26 Dose: 300 mg Glucagon (Glucagen Diagnostic Kit) 1 mg IM STAT PRN; Protocol PRN Reason: Hypoglycemia Protocol Hydralazine HCl (Apresoline) 100 mg PO Q8 [facility] Last Admin: 01/26/18 06:06 Dose: 100 mg Vancomycin/Sodium Chloride (Vancomycin 1 Gm/Ns 200 Ml) 1 gm in 200 mls @ 133.333 mls/hr IVPB Q24H [facility] PRN Reason: Protocol Stop: 01/27/18 10:31 Last Admin: 01/26/18 09:35 Dose: 133.333 mls/hr Insulin Aspart (Novolog) 0 unit SC ACHS [facility] PRN Reason: Protocol Last Admin: 01/26/18 08:20 Dose: 6 units Insulin Aspart (Novolog) 24 unit SC AC [facility] Last Admin: 01/26/18 08:20 Dose: 24 units Insulin Glargine (Lantus) 80 unit SC HS [facility] Last Admin: 01/25/18 21:38 Dose: 80 unit Lactulose (Enulose) 20 gm PO Q8H [facility] Last Admin: 01/26/18 06:12 Dose: Not Given Methylprednisolone (Solu-Medrol) 40 mg IVP Q12H [facility] Last Admin: 01/26/18 03:06 Dose: 40 mg Montelukast Sodium (Singulair) 10 mg PO HS [facility] Last Admin: 01/25/18 21:47 Dose: 10 mg Rosuvastatin Calcium (Crestor) 5 mg PO HS [facility] Last Admin: 01/25/18 21:39 Dose: 5 mg Tramadol HCl (Ultram) 50 mg PO TID PRN PRN Reason: Pain, moderate (4-7) Last Admin: 01/26/18 00:29 Dose: 50 mg - Labs Labs: 01/25/18 08:23 01/25/18 07:02 PT 15.0 SECONDS (9.7-12.2) H 01/20/18 02:18 INR 1.4 01/20/18 02:18 APTT 34 SECONDS (21-34) 01/20/18 02:18
[2018-01-26 11:44] VITALS: BP 164/79; PULSE 73
[2018-01-26 12:02] LABS: % CD4 (T HELPER CELL) 20 Percent (30-61); % CD8 (SUPPRESSOR T CELL) 40 Percent (12-42); ABSOLUTE CD3 CELLS 353 Cells/mcL (840-3060); ABSOLUTE CD4 CELLS 118 Cells/mcL (490-1740); ABSOLUTE CD8 CELLS 229 Cells/mcL (180-1170); ABSOLUTE LYMPHOCYTES 578 Cells/mcL (850-3900); HELPER/SUPPRESSOR RATIO 0.52 Ratio (0.86-5.00)
--- NOTE | 2018-01-26 14:14 | CP.PCM.PN ---
Subjective - Date & Time of Evaluation Date of Evaluation: 01/26/18 Time of Evaluation: 14:12 - Subjective Subjective: f/u constipation pt reporting multiple loose BMs, on Lactulose Will lower dose Objective - Vital Signs/Intake and Output Vital Signs (last 24 hours): Temp Pulse Resp BP Pulse Ox 98.0 F 73 20 164/79 H 96 01/26/18 07:10 01/26/18 11:44 01/26/18 07:10 01/26/18 11:44 01/26/18 07:10 Intake and Output: 01/26/18 01/26/18 06:59 18:59 Intake Total 420 Output Total 950 Balance -530 - Medications Medications: Current Medications Acetaminophen (Tylenol 325mg Tab) 650 mg PO Q6 PRN PRN Reason: Fever >100.4 F Last Admin: 01/20/18 11:17 Dose: 650 mg Albuterol/Ipratropium (Duoneb 3 Mg/0.5 Mg (3 Ml) Ud) 3 ml INH RQ6 [facility] Last Admin: 01/26/18 13:50 Dose: 3 ml Amlodipine Besylate (Norvasc) 10 mg PO DAILY [facility] Last Admin: 01/26/18 09:29 Dose: 10 mg Apixaban (Eliquis) 5 mg PO BID [facility] Last Admin: 01/26/18 09:27 Dose: 5 mg Aspirin (Aspirin Chewable) 81 mg PO DAILY [facility] Last Admin: 01/26/18 09:28 Dose: 81 mg Atovaquone (Mepron) 1,500 mg PO DAILY [facility] PRN Reason: Protocol Last Admin: 01/26/18 09:28 Dose: 1,500 mg Carvedilol (Coreg) 12.5 mg PO BID [facility] Last Admin: 01/26/18 09:30 Dose: 12.5 mg Dextrose (Glutose 15) 15 gm PO ONCE PRN; Protocol PRN Reason: Hypoglycemia Protocol Dextrose (Dextrose 50% Inj) 0 ml IV STAT PRN; Protocol PRN Reason: Hypoglycemia Protocol Diphenhydramine HCl (Benadryl) 25 mg PO Q6 PRN PRN Reason: Itching / Pruritus Last Admin: 01/26/18 08:24 Dose: 25 mg Dolutegravir Sodium (Tivicay) 50 mg PO Q24H [facility] PRN Reason: Protocol Last Admin: 01/25/18 18:00 Dose: 50 mg Emtricitabine/Tenofovir (Truvada 200 Mg-300 Mg) 1 tab PO Q48H [facility] PRN Reason: Protocol Last Admin: 01/24/18 22:06 Dose: 1 tab Famotidine (Pepcid) 20 mg IVP DAILY [facility] Last Admin: 01/26/18 09:26 Dose: 20 mg Ferrous Sulfate (Feosol) 325 mg PO DAILY [facility] Last Admin: 01/26/18 13:01 Dose: 325 mg Furosemide (Lasix) 40 mg IVP DAILY [facility] Last Admin: 01/26/18 09:29 Dose: 40 mg Gabapentin (Neurontin) 300 mg PO TID [facility] Last Admin: 01/26/18 13:00 Dose: 300 mg Glucagon (Glucagen Diagnostic Kit) 1 mg IM STAT PRN; Protocol PRN Reason: Hypoglycemia Protocol Hydralazine HCl (Apresoline) 100 mg PO Q8 [facility] Last Admin: 01/26/18 13:00 Dose: 100 mg Vancomycin/Sodium Chloride (Vancomycin 1 Gm/Ns 200 Ml) 1 gm in 200 mls @ 133.333 mls/hr IVPB Q24H [facility] PRN Reason: Protocol Stop: 01/27/18 10:31 Last Admin: 01/26/18 09:35 Dose: 133.333 mls/hr Insulin Aspart (Novolog) 0 unit SC ACHS [facility] PRN Reason: Protocol Last Admin: 01/26/18 13:04 Dose: 8 units Insulin Aspart (Novolog) 24 unit SC AC [facility] Last Admin: 01/26/18 13:04 Dose: 24 units Insulin Glargine (Lantus) 80 unit SC HS [facility] Last Admin: 01/25/18 21:38 Dose: 80 unit Lactulose (Enulose) 20 gm PO Q8H [facility] Last Admin: 01/26/18 13:03 Dose: Not Given Methylprednisolone (Solu-Medrol) 40 mg IVP Q12H [facility] Last Admin: 01/26/18 13:46 Dose: 40 mg Montelukast Sodium (Singulair) 10 mg PO [facility] Last Admin: 01/25/18 21:47 Dose: 10 mg Rosuvastatin Calcium (Crestor) 5 mg PO [facility] Last Admin: 01/25/18 21:39 Dose: 5 mg Tramadol HCl (Ultram) 50 mg PO TID PRN PRN Reason: Pain, moderate (4-7) Last Admin: 01/26/18 00:29 Dose: 50 mg - Labs Labs: 01/25/18 08:23 01/25/18 07:02 PT 15.0 SECONDS (9.7-12.2) H 01/20/18 02:18 INR 1.4 01/20/18 02:18 APTT 34 SECONDS (21-34) 01/20/18 02:18 - Constitutional Appears: Well - Head Exam Head Exam: NORMOCEPHALIC - Respiratory Exam Respiratory Exam: Clear to Ausculation Bilateral - Cardiovascular Exam Cardiovascular Exam: REGULAR RHYTHM - GI/Abdominal Exam GI & Abdominal Exam: Soft. absent: Tenderness - Extremities Exam Additional comments: left AKA - Psychiatric Exam Psychiatric exam: Normal Mood Assessment and Plan (1) Constipation due to neurogenic bowel Assessment & Plan: loose bm's on Lactulose Will lower dose and monitor response Status: Acute (2) CHF (congestive heart failure) Status: Acute (3) HIV (human immunodeficiency virus infection) Status: Acute (4) Anemia Status: Acute
[2018-01-26 14:23] LABS: BASO % 0.3 % (0.0-2.0); HEMOGLOBIN 9.8 g/dL (12.0-18.0); LYMPH # 0.8 K/uL (1.0-4.3); LYMPH % 8.6 % (20.0-40.0); MEAN CELL VOLUME 80.7 fL (80.0-94.0); MEAN CORPUSCULAR HEMOGLOBIN 25.8 pg (27.0-31.0); MEAN CORPUSCULAR HGB CONC 31.9 g/dL (33.0-37.0); MEAN PLATELET VOLUME 9.1 fL (7.2-11.7); MONO # 0.6 K/uL (0.0-0.8); MONO % 6.4 % (0.0-10.0); NEUT # 7.9 K/uL (1.8-7.0); NEUT % 84.7 % (50.0-75.0); NRBC % 0.3 % (0.0-2.0); PLATELET COUNT 188 K/uL (130-400); RBC 3.79 Mil/uL (4.40-5.90); RED CELL DISTRIBUTION WIDTH 15.3 % (11.5-14.5); WHITE BLOOD COUNT 9.4 K/uL (4.8-10.8)
--- NOTE | 2018-01-26 14:34 | PN ---
Copied To: Courtney Walter MD Attending MD: Courtney Walter MD DATE: 01/26/2018 ENDO FOLLOWUP NOTE LOCATION: In room 667. SUBJECTIVE: Taisha Dove is a 67-year-old male presenting with acute exacerbation of COPD with supervening congestive heart failure, currently on IV steroids, still with Solu-Medrol at 40 every 12 hours as given. His glycemic levels are still fluctuating. As noted overnight glucose values are ranging from 338 to 385 mm/dL. LABORATORY DATA: His chemistry showed a BUN of 65, sodium 139, potassium 5.5, chloride 106, CO2 of 24, glucose 299, and creatinine 2.4. ASSESSMENT AND PLAN: So at this time, we will continue with the modified basal and bolus insulin regimen to allow for dose equilibration and keep him on the Novolog given as 24 units subcutaneous t.i.d. before meals as ordered. We will continue also the Lantus given as 80 units subcutaneous at bedtime daily as given. We will continue the low-dose correction scale using Novolog insulin as ordered. We will obtain serial chemistries and supplement accordingly as needed. We will follow. Courtney Walter MD
[2018-01-26 14:46] LABS: ALBUMIN 3.4 g/dL (3.5-5.0); CALCIUM 7.8 mg/dl (8.6-10.4)
[2018-01-26 14:47] LABS: ALB/GLOB RATIO 1.1 (1.0-2.1)
[2018-01-26 14:51] LABS: ANISOCYTOSIS SLIGHT; BANDS 3 % (0-2); LYMPHOCYTE 5 % (20-40); METAMYELOCYTE 2 % (0-0); MONOCYTE 6 % (0-10); NEUTROPHIL 84 % (50-75); PLATELET ESTIMATE NORMAL (NORMAL); TOTAL CELLS COUNTED 100
[2018-01-26 14:52] LABS: HYPOCHROMIC SLIGHT; LARGE PLATELETS PRESENT
--- NOTE | 2018-01-26 19:51 | PN ---
Copied To: Hasmukh Dukes MD Attending MD: INFECTIOUS DISEASE FOLLOWUP DATE: 01/26/2018 SUBJECTIVE: I am covering for Dr. Valente, who is away and this patient was seen today. He wants to go home. He says he was told he will be going home and he denies any shortness of breath or cough and denies any chest pain. He came in with a nosebleed. He has no more nosebleed. PHYSICAL EXAMINATION: VITAL SIGNS: His temp is 98, pulse 84, blood pressure is 195/78, respirations are 20. HEENT: Head is atraumatic, normocephalic. NECK: Supple. LUNGS: Decreased breath sounds on both bases. HEART: S1 and S2 regular. No murmurs appreciated. ABDOMEN: Soft, nontender. No guarding. No rigidity present. EXTREMITIES: He has a right AKA and left leg has trace edema still present. LABORATORY DATA: Labs are noted. Labs show his hemoglobin is 10.2, white count is 9.4, hematocrit is 31.9. He was on pneumonia treatment with vancomycin and Zosyn and his potassium is 5.5, creatinine is 2.4, BUN is 65. ASSESSMENT AND PLAN: He had a right lower lobe infiltrate and he is human immunodeficiency virus positive. He is on human immunodeficiency virus medicines including and Truvada, which he will continue and at this time I suggested the resident to send the patient on Augmentin 500 mg b.i.d. for seven days along with the probiotic to complete the course for pneumonia and to follow up chest x-ray as outpatient. Hasmukh Dukes MD
== END 2018-01-26 15:30 | disposition home health service (06) | DRG 974 ==
LOC: C.ER 00:57 → C.9E 02:47 → C.6T 11:39
PROVIDERS: ADMIT Internal Medicine Nephrology; ATTEND Internal Medicine Nephrology
PROC: 5A09557 Assistance with Respiratory Ventilation, Greater than 96 Consecutive Hours, Continuous Positive Airway Pressure (ICD-10-PCS; principal; 2018-01-20)
DX: B20 Human immunodeficiency virus [HIV] disease (principal); I50.33 Acute on chronic diastolic (congestive) heart failure; J18.9 Pneumonia, unspecified organism; K59.2 Neurogenic bowel, not elsewhere classified; I13.0 Hypertensive heart and chronic kidney disease with heart failure and stage 1 through stage 4 chronic kidney disease, or unspecified chronic kidney disease; J44.0 Chronic obstructive pulmonary disease with (acute) lower respiratory infection; J45.901 Unspecified asthma with (acute) exacerbation; E11.21 Type 2 diabetes mellitus with diabetic nephropathy; E11.22 Type 2 diabetes mellitus with diabetic chronic kidney disease; E11.319 Type 2 diabetes mellitus with unspecified diabetic retinopathy without macular edema; E11.42 Type 2 diabetes mellitus with diabetic polyneuropathy; E11.51 Type 2 diabetes mellitus with diabetic peripheral angiopathy without gangrene; E11.649 Type 2 diabetes mellitus with hypoglycemia without coma; E11.65 Type 2 diabetes mellitus with hyperglycemia; I25.10 Atherosclerotic heart disease of native coronary artery without angina pectoris; F41.9 Anxiety disorder, unspecified; K57.90 Diverticulosis of intestine, part unspecified, without perforation or abscess without bleeding; N18.9 Chronic kidney disease, unspecified; R04.0 Epistaxis; Z51.5 Encounter for palliative care; Z66 Do not resuscitate; Z79.4 Long term (current) use of insulin; Z86.718 Personal history of other venous thrombosis and embolism; Z87.891 Personal history of nicotine dependence; Z89.611 Acquired absence of right leg above knee; D64.9 Anemia, unspecified